=== PATIENT | female | born 1965 | race Caucasian/White ===

== ENCOUNTER 2016-05-13 19:06 | Emergency (ER) | payer MEDICARE, MEDICAID ==
[~2016-05-13] VITALS: Ht 172.7 cm; Wt 134.3 kg
[2016-05-13] MEDS ORDERED: diphenhydrAMINE INJ 50MG/ML VIAL (J1200) IV STA (21:37)
[2016-05-13] MEDS ORDERED: METOCLOPRAMIDE INJ 10MG/2ML VIAL (J2765) IV ONE (21:45)
[2016-05-13] MEDS ORDERED: methylPREDNISolone INJ 125 MG/2 ML VIAL (J2930) IV ONE (21:45)
[2016-05-13] MEDS ORDERED: HYDROCORTISONE 1% CREAM 30 GM TOP ONE (21:45)
[2016-05-13] MEDS ORDERED: PRED20TA PO (22:37)
[2016-05-13] MEDS ORDERED: BENA25TA9 PO (22:39)
[2016-05-13] MEDS ORDERED: FAMO20TA PO (22:39)
[2016-05-13 22:44] VITALS: BP 151/101
== END 2016-05-13 22:50 | disposition home or self-care (01) ==
LOC: M ED 20:09
DX: R21 Rash and other nonspecific skin eruption (principal); R06.00 Dyspnea, unspecified; Z88.6 Allergy status to analgesic agent; Z88.0 Allergy status to penicillin
CPT/HCPCS: 96374; 96375; 99282; J1200; J2765; J2930

== ENCOUNTER → 2016-07-04 | Outpatient (CLI) | payer MEDICARE, MEDICAID ==
[~2016-07-04] MED LIST: BENA25TA9 PO; FAMO20TA PO; PRED20TA PO
[2016-07-04 13:18] LABS: MEAN CORPUSCULAR HEMOGLOBIN 30.4 pg (27.0-33.0); MEAN CORPUSCULAR HGB CONC 32.9 g/dl (32.0-36.5); MEAN CORPUSCULAR VOLUME 92.2 fl (80.0-96.0); RED CELL DISTRIBUTION WIDTH 15.5 % (11.5-14.5); WHITE BLOOD COUNT 6.4 K/mm3 (4.0-10.0)
[2016-07-04 13:52] LABS: ALBUMIN 3.3 GM/DL (3.2-5.2); ALBUMIN/GLOBULIN RATIO 0.87 (1.00-1.93); ALKALINE PHOSPHATASE 212 U/L (45-117); ALT/SGPT 23 U/L (12-78); ANION GAP 9 MEQ/L (8-16); AST/SGOT 27 U/L (15-37); BILIRUBIN,TOTAL 3.1 MG/DL (0.2-1.0); BLOOD UREA NITROGEN 10 MG/DL (7-18); CALCIUM LEVEL 8.9 MG/DL (8.5-10.1); CARBON DIOXIDE LEVEL 27 MEQ/L (21-32); CHLORIDE LEVEL 106 MEQ/L (98-107); CREATININE FOR GFR 0.56 MG/DL (0.55-1.02); GLOMERULAR FILTRATION RATE > 60.0 (>51); GLUCOSE, FASTING 84 MG/DL (70-105); SODIUM LEVEL 142 MEQ/L (136-145); THYROXINE (T4) 18.6 UG/DL (4.5-12.0); TOTAL PROTEIN 7.1 GM/DL (6.4-8.2)
[2016-07-05 11:25] LABS: THYROID PEROXIDASE ANTIBODY < 28.0 U/ML (<60.0)
[2016-07-10 00:10] LABS: IGE RECEPTOR ABY 1 <1.4 (<10)
== END ==
LOC: M SMT 09:20
PROVIDERS: ATTEND Allergy & Immunology Allergy
DX: T78.3XXA Angioneurotic edema, initial encounter (principal); Z79.899 Other long term (current) drug therapy

== ENCOUNTER 2016-08-06 19:35 | Inpatient (IN) | payer MEDICARE, MEDICAID ==
[~2016-08-06] VITALS: Ht 172.7 cm; Wt 102.0 kg
[~2016-08-06 19:35] MED LIST changes: +BENA25TA10 PO; -BENA25TA9 PO
[2016-08-06] MEDS ORDERED: LEVOTAB10 PO (19:57)
[2016-08-06] MEDS ORDERED: METOPROLOL 5 MG/5 ML VIAL IV SCH ×2 (21:00)
[2016-08-06 21:11] LABS: INR 1.32
[2016-08-06 21:14] LABS: BASO % 0.5 % (0.0-1.0); EOS # 0.2 K/mm3 (0.0-0.50); EOS % 3.1 % (0.0-3.0); LARGE UNSTAINED CELL # 0.1 K/mm3 (0.0-0.4); LARGE UNSTAINED CELL % 2.1 % (0.0-4.0); LYMPH % 28.3 % (24.0-44.0); MEAN CORPUSCULAR HEMOGLOBIN 30.6 pg (27.0-33.0); MEAN CORPUSCULAR HGB CONC 33.4 g/dl (32.0-36.5); MEAN CORPUSCULAR VOLUME 91.4 fl (80.0-96.0); MONO # 0.7 K/mm3 (0.0-0.8); NEUTROPHILS # 3.7 K/mm3 (1.8-7.7); NEUTROPHILS % 55.9 % (36.0-66.0); PLATELET COUNT, AUTOMATED 155 k/mm3 (150-450); RED CELL DISTRIBUTION WIDTH 15.2 % (11.5-14.5); WHITE BLOOD COUNT 6.7 K/mm3 (4.0-10.0)
[2016-08-06 21:27] LABS: MAGNESIUM LEVEL 2.1 MG/DL (1.8-2.4); PHOSPHORUS LEVEL 3.4 MG/DL (2.5-4.9)
[2016-08-06 21:34] LABS: ALBUMIN 3.2 GM/DL (3.2-5.2); ALKALINE PHOSPHATASE 210 U/L (45-117); ALT/SGPT 20 U/L (12-78); ANION GAP 5 MEQ/L (8-16); AST/SGOT 23 U/L (15-37); BILIRUBIN,DIRECT 1.9 MG/DL (0.0-0.2); BLOOD UREA NITROGEN 10 MG/DL (7-18); CARBON DIOXIDE LEVEL 30 MEQ/L (21-32); CHLORIDE LEVEL 105 MEQ/L (98-107); CREATININE FOR GFR 0.57 MG/DL (0.55-1.02); FREE T4 2.92 NG/DL (0.76-1.46); GLOMERULAR FILTRATION RATE > 60.0 (>51); GLUCOSE, FASTING 95 MG/DL (70-105); POTASSIUM SERUM 4.3 MEQ/L (3.5-5.1); SODIUM LEVEL 140 MEQ/L (136-145); TOTAL PROTEIN 7.2 GM/DL (6.4-8.2)
[2016-08-06] MEDS ORDERED: ISOVUE-370 76% 100ML VIAL (Q9967) As Ordered ONE (21:59)
--- NOTE | 2016-08-06 22:30 | REPUSA ---
Clinical history: Pain, swelling. Findings: The common femoral, superficial femoral, popliteal, and other deep venous structures compre ss normally and demonstrate normal color Doppler flow. Normal venous waveforms with augmentation are seen. Impression: No evidence of deep vein thrombosis in the femoral popliteal venous system.
--- NOTE | 2016-08-06 22:40 | REPUSA ---
CT angiogram of the chest Clinical statement: shortness of breath. Technique: Multiple axial CT images were obtained from the thoracic inlet through the upper abdomen a fter a bolus administration of nonionic intravenous contrast. Coronal and sagittal reconstructions we re also obtained. Comparison: None. Findings: The pulmonary arteries are well-opacified with contrast, with no intraluminal filling defec ts to suggest embolism. The thoracic aorta is unremarkable. Thyroid gland is within normal limits. Th ere is no thoracic lymphadenopathy. There are no pericardial or pleural effusions. The lungs are lo r. Limited imaging of the upper abdomen demonstrates a moderate amount of ascites bilaterally. There are no suspicious osseous lesions. Impression: 1. No evidence of pulmonary embolism. 2. No acute intrapulmonary disease. 3. Moderate diffuse abdominal ascites.
[2016-08-07] VITALS (8 sets, daily range): BP systolic 100–122; BP diastolic 64–84
[2016-08-07] MEDS ORDERED: PROPRANOLOL 20 MG TAB PO ONE
[2016-08-07] MEDS ORDERED: BISACODYL 10 MG SUPP PR PRN (00:15)
[2016-08-07] MEDS ORDERED: ONDANSETRON 4MG/2ML VIAL (J2405) IV PRN (00:15)
[2016-08-07] MEDS ORDERED: FUROSEMIDE 40 MG/4 ML VIAL (J1940) IV SCH (00:15)
[2016-08-07] MEDS ORDERED: METOPROLOL TART 25 MG TABLET PO SCH (00:30)
[2016-08-07] MEDS ORDERED: diphenhydrAMINE 25 MG CAP PO PRN ×2 (00:30→00:45)
[2016-08-07] MEDS ORDERED: ATENOLOL 25 MG TAB PO ONE (00:30)
[2016-08-07] MEDS ORDERED: LEVALBUTEROL 1.25 MG/0.5 ML CONCENTRATE NEB INH PRN ×2 (00:45→01:00)
--- NOTE | 2016-08-07 01:34 | REP ---
Clinical: Shortness of breath. Technique: AP and lateral. Findings: The cardiac silhouette is upper limits of normal. Mild pulmonary vascular congestion and interstitial edema cannot be excluded. No focal consolidation, obvious effusion, or pneumothorax. Skeletal structures intact. Impression: Cannot exclude mild pulmonary vascular congestion. Signed by George Herrera MD 08/07/2016 01:26 A
[2016-08-07] MEDS: SENOKOT S TAB PO SCH ×3 (01:45→23:18)
[2016-08-07] MEDS: METOPROLOL TART 25 MG TABLET PO SCH ×4 (05:16→23:18)
[2016-08-07 07:34] LABS: FREE T4 2.47 NG/DL (0.76-1.46)
[2016-08-07 08:02] LABS: BASO % 0.7 % (0.0-1.0); EOS # 0.2 K/mm3 (0.0-0.50); EOS % 2.6 % (0.0-3.0); LARGE UNSTAINED CELL # 0.2 K/mm3 (0.0-0.4); LARGE UNSTAINED CELL % 2.3 % (0.0-4.0); LYMPH # 2.2 K/mm3 (1.5-4.5); LYMPH % 31.8 % (24.0-44.0); MEAN CORPUSCULAR HEMOGLOBIN 29.9 pg (27.0-33.0); MEAN CORPUSCULAR HGB CONC 32.4 g/dl (32.0-36.5); MEAN CORPUSCULAR VOLUME 92.3 fl (80.0-96.0); MONO # 0.7 K/mm3 (0.0-0.8); MONO % 9.3 % (0.0-5.0); NEUTROPHILS # 3.7 K/mm3 (1.8-7.7); NEUTROPHILS % 53.3 % (36.0-66.0); PLATELET COUNT, AUTOMATED 159 k/mm3 (150-450)
[2016-08-07 08:08] LABS: ANION GAP 8 MEQ/L (8-16); BLOOD UREA NITROGEN 10 MG/DL (7-18); CALCIUM LEVEL 8.7 MG/DL (8.5-10.1); CARBON DIOXIDE LEVEL 25 MEQ/L (21-32); CHLORIDE LEVEL 106 MEQ/L (98-107); CREATININE FOR GFR 0.48 MG/DL (0.55-1.02); GLOMERULAR FILTRATION RATE > 60.0 (>51); GLUCOSE, FASTING 99 MG/DL (70-105); POTASSIUM SERUM 3.9 MEQ/L (3.5-5.1); SODIUM LEVEL 139 MEQ/L (136-145)
[2016-08-07] MEDS ORDERED: SENOKOT S TAB PO SCH (09:00)
[2016-08-07] MEDS: FUROSEMIDE 40 MG/4 ML VIAL (J1940) IV SCH ×3 (09:10→23:18)
[2016-08-07] MEDS: ENOXAPARIN 40 MG/0.4 ML SYRINGE (J1650) SC SCH (09:11)
--- NOTE | 2016-08-07 11:19 | ECGEPIP ---
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
[2016-08-07] MEDS ORDERED: SLF 3 ML SYR IV PRN (16:00)
[2016-08-07] MEDS: SLF 3 ML SYR IV SCH (23:18)
[2016-08-08 04:00] VITALS: BP 120/76
[2016-08-08] MEDS: METOPROLOL TART 25 MG TABLET PO SCH ×4 (05:39→23:30)
[2016-08-08] MEDS: SLF 3 ML SYR IV SCH ×3 (05:40→20:11)
[2016-08-08 05:49] LABS: BASO % 0.5 % (0.0-1.0); EOS # 0.2 K/mm3 (0.0-0.50); EOS % 3.4 % (0.0-3.0); LARGE UNSTAINED CELL # 0.2 K/mm3 (0.0-0.4); LARGE UNSTAINED CELL % 2.3 % (0.0-4.0); LYMPH # 2.1 K/mm3 (1.5-4.5); LYMPH % 28.6 % (24.0-44.0); MEAN CORPUSCULAR HEMOGLOBIN 30.8 pg (27.0-33.0); MEAN CORPUSCULAR HGB CONC 33.5 g/dl (32.0-36.5); MEAN CORPUSCULAR VOLUME 91.9 fl (80.0-96.0); MONO # 0.7 K/mm3 (0.0-0.8); MONO % 10.8 % (0.0-5.0); NEUTROPHILS # 3.7 K/mm3 (1.8-7.7); NEUTROPHILS % 54.4 % (36.0-66.0); PLATELET COUNT, AUTOMATED 147 k/mm3 (150-450); RED CELL DISTRIBUTION WIDTH 15.1 % (11.5-14.5); WHITE BLOOD COUNT 6.8 K/mm3 (4.0-10.0)
[2016-08-08 06:00] LABS: ANION GAP 5 MEQ/L (8-16); BLOOD UREA NITROGEN 11 MG/DL (7-18); CALCIUM LEVEL 8.8 MG/DL (8.5-10.1); CARBON DIOXIDE LEVEL 32 MEQ/L (21-32); CHLORIDE LEVEL 105 MEQ/L (98-107); CREATININE FOR GFR 0.58 MG/DL (0.55-1.02); GLOMERULAR FILTRATION RATE > 60.0 (>51); GLUCOSE, FASTING 94 MG/DL (70-105); MAGNESIUM LEVEL 1.7 MG/DL (1.8-2.4); POTASSIUM SERUM 3.4 MEQ/L (3.5-5.1); SODIUM LEVEL 142 MEQ/L (136-145)
[2016-08-08] MEDS: FUROSEMIDE 40 MG/4 ML VIAL (J1940) IV SCH ×3 (07:33→23:30)
[2016-08-08 08:00] VITALS: BP 118/72
[2016-08-08] MEDS: SENOKOT S TAB PO SCH ×2 (08:06→20:11)
[2016-08-08] MEDS: ENOXAPARIN 40 MG/0.4 ML SYRINGE (J1650) SC SCH (08:06)
--- NOTE | 2016-08-08 08:25 | HPE ---
DATE OF ADMISSION: 08/07/2016 PRIMARY CARE PROVIDER: Dr. Flynn CHIEF COMPLAINT: Swelling of both legs. Worsening over the past 6 months. Difficulty in breathing for the past few days. Recurrent episodes of hives and itching for the past three months. PAST MEDICAL HISTORY: Thyroid problem. Hives. Asthma. HISTORY OF PRESENT ILLNESS: This is a 51-year-old female who has noticed increased swelling of her legs to such an extent that she had to increase her boot size over the winter, so it has been going on for more than 6 months and also having episodes of hives, which started in April. For that, she had come to the emergency room and was referred to an sales and marketing administrator. The specialist prescribed her levocetirizine, which she says is not working. When she takes Benadryl, then the hives resolved faster. Over the past few days, she felt difficulty in breathing. She has an appointment with her new primary care provider tomorrow. However she was feeling so short of breath that she could not wait, so came to the emergency room. When she had seen her sales and marketing administrator, she was told about thyroid and liver disorder; however, that has not yet been followed up. In the ED, the patient was found to have atrial fibrillation with rapid ventricular response (RVR). She was also noted to be hyperthyroid with mildly elevation in total bilirubin up to 3. Due to her shortness of breath , she had undergone a CT angiography of the chest, which did not reveal any pulmonary embolism or any acute intrapulmonary disease. However, it did show diffuse abdominal wall ascites. The patient also had bilateral vascular ultrasound, which was negative for deep venous thrombosis (DVT). The patient was admitted to the hospitalist service for atrial fibrillation with RVR and hyperthyroidism. PAST SURGICAL HISTORY: None. HOME MEDICATIONS: Levocetirizine. ALLERGIES: ASPIRIN, IBUPROFEN, and PENICILLIN. SOCIAL HISTORY: The patient does not smoke. Does not abuse alcohol or recreational drugs. REVIEW OF SYSTEMS: All 10-point review of systems is negative except those mentioned in history of present illness (HPI). The patient complained of loss of weight over the upper body, however, gaining in fluids in the lower body. PHYSICAL EXAMINATION: VITAL SIGNS: Blood pressure 122/65, pulse 110, respiratory rate 15, temperature 98.3, pulse oximetry 95% on room air. GENERAL: Patient awake, alert, and oriented times three. Lying down in bed in no acute distress. HEENT: Normocephalic, atraumatic. Moist mucous membranes. Anicteric eyes. CHEST: Clear to auscultation. CARDIOVASCULAR: S1, S2, regular. Tachycardic. No rub, murmur, or gallop. ABDOMEN: Obese. nontender. Bowel sounds normal. There is peritoneal edema present. EXTREMITIES: There is bilateral 4+ edema extending from the foot to the thigh involving the lower part of the abdominal wall. LABORATORY DATA: WBC 6.7, hemoglobin 12.9, platelets 155. Sodium 140, potassium 4.3, chloride 105, bicarbonate 30, BUN 10, creatinine 0.5, glucose 95, calcium 9 , phosphorus 3.4, magnesium 2.1, total bilirubin 3, direct bilirubin 1.9. AST, ALT normal. Alkaline phosphatase 210. BNP 232. TSH 0.134. Free T4 2.92. Total T3 was elevated in June, was 216.8. ASSESSMENT AND PLAN: This is a 51-year-old female admitted for atrial fibrillation with RVR. 1. Atrial fibrillation with RVR. Possibly due to hyperthyroidism. Will start the patient on metoprolol 25 four times a day. Will also request echocardiogram. Patient's KENNEDY-VASc score is 1; however, if echocardiogram does show the patient has congestive heart failure, then the KENNEDY-VASc score will increase to 2, and then patient will qualify for long-term anticoagulation. At present, will not start on anticoagulation. 2. Hyperthyroidism. Will start the patient on beta-gilbert. Will also start on methimazole. The patient will ultimately need thyroid scan; however, as patient got CT angiography of the chest, she got iodinated contrast, so thyroid scan cannot be done for several weeks to 2 months. It has to be followed up as an outpatient. 3. Bipedal edema. The patient may have congestive heart failure. Will get an echocardiogram. Will start the patient on Lasix at present. 4. Hyperbilirubinemia. Could be due to congestive hepatopathy. 5. DVT prophylaxis has been ordered. 6. History of hives. Will continue with Benadryl as needed. MTDD
--- NOTE | 2016-08-08 08:54 | IPNPDOC ---
Subjective Date Seen The patient was seen on 08/08/16. Subjective Chief Complaint/HPI The patient is a 51-year-old female admitted with a reason for visit of Atrial Fibrillation With Rvr, Hyperthyroidism. Events since last encounter Feeling ok, not short of breath, enjoying filipino toast, no chest pain, not short of breath, asked her father for mccain Constitutional: Denies: Chills, Fever Pulmonary: Denies: Dyspnea, Cough Cardiovascular: Denies: Chest Pain Gastrointestinal: Denies: Nausea, Vomiting, Abdominal Pain Objective Physical Examination General Exam: Positive: Alert, No Acute Distress Eye Exam: Negative: Sclera icteric ENT Exam: Positive: Mucous membr. moist/pink Neck Exam: Positive: Supple Chest Exam: Positive: Clear to auscultation, Normal air movement, Negative: Rales, Rhonchi, Wheezing Heart Exam: Positive: Rate Normal, Irregular Rhythm, Normal S1, Normal S2 Telemetry: Positive: SV Tach Abdomen Exam: Positive: Normal bowel sounds, Soft, Negative: Tenderness Extremity Exam: Positive: Edema (extending ) Assessment /Plan Problems (1) Atrial fibrillation with rapid ventricular response Status: Acute Problem Text: Rate controlled ChadsVasc 1 no role for anticoagulation until chf proven related to hyperthyroidism (2) CHF (congestive heart failure) Problem Text: likely related to hyperthyroidism and tachyarrhythmia echo completed but not transcribed grossly edematous, pursuing 40-50 pounds of diuresis (3) Ventricular tachyarrhythmia Problem Text: 12 beats vtach, asymptomatic (4) Electrolyte abnormality Problem Text: hypomagnesemia- replete hypokalemia- replete (5) Hyperthyroidism Status: Acute Problem Text: methimazole 10 q day does not have thyroid storm Plan/VTE VTE Prophylaxis Ordered?: Yes Plan/Urinary Catheter Reason for insertion/continuin: Critical Pt monitoring VS, I&O, 24H, Fishbone Vital Signs/I&O Vital Signs Date Time Temp Pulse Resp B/P (MAP) Pulse Ox O2 Delivery O2 Flow Rate FiO2 08/08/16 07:40 Room Air 08/08/16 05:39 90 120/76 08/08/16 04:00 97.8 22 93 08/07/16 04:49 1.5 I&O- Last 24 Hours up to 6 AM 08/08/16 06:00 Intake Total 980 ml Output Total 5050 ml Balance -4070 ml Laboratory Data 24H LABS Laboratory Tests 2 08/07/16 09:16: Urine Appearance HAZY, Urine Color ALEXY, Urine pH 5.0, Urine Specific [place] 1.040, Urine Protein 1+H, Urine Glucose (UA) NEGATIVE, Urine Ketones NEGATIVE, Urine Urobilinogen 4.0H, Urine Bilirubin NEGATIVE, Urine Leukocyte Esterase NEGATIVE, Urine Blood NEGATIVE, Urine Nitrite POSITIVE, Urine WBC (Auto) 4H, Urine RBC (Auto) 0, Urine Hyaline Casts (Auto) 0, Urine Bacteria (Auto) 2+H, Urine Squamous Epithelial Cells 1, Urine Mucus (Auto) SMALL, Urine Sperm (Auto) 08/08/16 05:38: White Blood Count 6.8, Red Blood Count 3.99L, Hemoglobin 12.3, Hematocrit 36.6, Mean Corpuscular Volume 91.9, Mean Corpuscular Hemoglobin 30.8, Mean Corpuscular Hemoglobin Concent 33.5, Red Cell Distribution Width 15.1H, Platelet Count 147L, Neutrophils (%) (Auto) 54.4, Lymphocytes (%) (Auto) 28.6, Monocytes (%) (Auto) 10.8H, Eosinophils (%) (Auto) 3.4H, Basophils (%) (Auto) 0.5, Neutrophils # (Auto) 3.7, Lymphocytes # (Auto) 2.1, Monocytes # (Auto) 0.7 , Eosinophils # (Auto) 0.2, Basophils # (Auto) 0.0, Large Unclassified Cells % 2.3, Large Unclassified Cells # 0.2, Anion Gap 5L, Glomerular Filtration Rate > 60.0, Blood Urea Nitrogen 11, Creatinine 0.58, Sodium Level 142, Potassium Level 3.4L, Chloride Level 105, Carbon Dioxide Level 32, Calcium Level 8.8, Magnesium Level 1.7L CBC/BMP Laboratory Tests 08/08/16 05:38 Red Blood Count 3.99 L, Mean Corpuscular Volume 91.9, Mean Corpuscular Hemoglobin 30.8, Mean Corpuscular Hemoglobin Concent 33.5, Red Cell Distribution Width 15.1 H, Neutrophils (%) (Auto) 54.4, Lymphocytes (%) (Auto) 28.6, Monocytes (%) (Auto) 10.8 H, Eosinophils (%) (Auto) 3.4 H, Basophils (%) ( Auto) 0.5, Neutrophils # (Auto) 3.7, Lymphocytes # (Auto) 2.1, Monocytes # (Auto ) 0.7, Eosinophils # (Auto) 0.2, Basophils # (Auto) 0.0, Calcium Level 8.8 Microbiology Microbiology 08/07/16 Urine Culture, Received Pending GREGORY HULL MD Aug 08, 2016 08:54
[2016-08-08] MEDS: POTASSIUM CHLORIDE 10 MEQ SR TABLET PO SCH ×2 (09:16→20:11)
[2016-08-08] MEDS: MAG SULF 1GM/100ML (MAG RUN) 1 GM in APPROPRIATE DILUENT 1 EA IV SCH ×2 (09:17→10:22)
[2016-08-08 12:00] VITALS: BP 113/79
[2016-08-08 12:30] VITALS: BP 121/68
[2016-08-08 16:00] VITALS: BP 108/66
--- NOTE | 2016-08-08 16:45 | IPN ---
DATE: 08/07/2016 The patient was seen and examined in the emergency department on the morning of 08/07/2016. Please refer to my colleague's history and physical (H and P) of the same date for a total summary of her initial evaluation. The patient was feeling well, heart rate was controlled. She had no complaints of pain, chest pain, shortness of breath, asked that I speak with her father. She was noted to have gross edema to the level of the lower rib cage, but oddly enough did not appear to be in any respiratory distress. Plan is to continue the patient on the beta blockade Tapazole at a slightly increased dose from previously written and IV Lasix to pursue fluid diuresis. 2D echocardiogram is pending. The patient appeared to be on the verge, but did not quite yet meet the criteria for thyroid storm and, in fact, appears quite comfortable given the severity of her illness. I have discussed this case in person with her father and also at multidisciplinary rounds with the care team.
[2016-08-08 19:56] VITALS: BP 112/67
--- NOTE | 2016-08-08 20:17 | ECHO ---
DATE OF PROCEDURE: 08/08/2016 REFERRING PHYSICIAN: Dr. Vu. Study was performed on 08/07/2016 for indication of congestive heart failure. The patient measures 173 cm and weighs 133 kg. DIMENSIONS: IVS: 1.1 LV: 4.1 LVPW: 1.2 LA: 5.2 Aorta: 2.4 FINDINGS: The study is of rather limited technical quality even though parasternal views are of good quality. Left ventricle is normal size. There is global hypokinesis with overall estimated ejection fraction (EF) around 30-35%. There is a D shape to interventricular septum suggestive of high pulmonary artery pressure. Right ventricle is also dilated and hypokinetic. Both atria are severely enlarged. There is no pericardial effusion. There is left pleural effusion, and there appears to be echodensity present in the middle of the fluid suggestive of potentially collapsed lobe or mass. Inferior vena cava is markedly dilated, and there is no appreciable collapse with respiration, indicative of very high central venous pressure. Aortic root and aortic arch were poorly visualized but appear grossly normal. Doppler interrogation of aortic valve reveals no significant stenosis or insufficiency. There is approximately moderate mitral insufficiency with MR jet oriented posteriorly and laterally. I cannot rule out that the MR is even severe, but I consider that unlikely. There is moderate tricuspid insufficiency. Calculated pulmonary artery pressure is at least in mid 50s and probably higher, indicative of at least moderately severe pulmonary hypertension. Evaluation of diastolic function is inconclusive due to underlying atrial fibrillation. CONCLUSION: 1. Study is of fair technical quality. 2. Normal LV size with severe global hypokinesis and flattening of interventricular septum. Overall estimated EF 30-35%. 3. Dilated hypokinetic right ventricle. 4. Severe biatrial enlargement. 5. Approximately moderate mitral insufficiency. 6. Approximately moderate tricuspid insufficiency. 7. Very high central venous pressure. 8. At least moderately severe pulmonary hypertension. 9. Left pleural effusion with presence of mass, potentially representing thrombus or collapsed lobe. COMMENT: Subacute bacterial endocarditis (SBE) prophylaxis is not recommended.
[2016-08-09] VITALS (7 sets, daily range): BP systolic 97–120; BP diastolic 63–77
--- NOTE | 2016-08-09 00:30 | ECGEPIP ---
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
[2016-08-09 05:25] LABS: BASO % 0.5 % (0.0-1.0); EOS # 0.2 K/mm3 (0.0-0.50); EOS % 3.2 % (0.0-3.0); LARGE UNSTAINED CELL # 0.1 K/mm3 (0.0-0.4); LARGE UNSTAINED CELL % 2.2 % (0.0-4.0); LYMPH % 27.8 % (24.0-44.0); MEAN CORPUSCULAR VOLUME 90.8 fl (80.0-96.0); MONO # 0.6 K/mm3 (0.0-0.8); MONO % 9.1 % (0.0-5.0); NEUTROPHILS # 3.8 K/mm3 (1.8-7.7); NEUTROPHILS % 57.3 % (36.0-66.0); PLATELET COUNT, AUTOMATED 153 k/mm3 (150-450); RED CELL DISTRIBUTION WIDTH 15.1 % (11.5-14.5); WHITE BLOOD COUNT 6.6 K/mm3 (4.0-10.0)
[2016-08-09 05:39] LABS: ANION GAP 6 MEQ/L (8-16); BLOOD UREA NITROGEN 12 MG/DL (7-18); CALCIUM LEVEL 9.1 MG/DL (8.5-10.1); CARBON DIOXIDE LEVEL 29 MEQ/L (21-32); CHLORIDE LEVEL 104 MEQ/L (98-107); CREATININE FOR GFR 0.53 MG/DL (0.55-1.02); GLOMERULAR FILTRATION RATE > 60.0 (>51); GLUCOSE, FASTING 105 MG/DL (70-105); POTASSIUM SERUM 3.7 MEQ/L (3.5-5.1); SODIUM LEVEL 139 MEQ/L (136-145)
[2016-08-09] MEDS: SLF 3 ML SYR IV SCH ×3 (05:41→20:47)
[2016-08-09] MEDS: METOPROLOL TART 25 MG TABLET PO SCH ×4 (05:41→23:41)
[2016-08-09] MEDS: ENOXAPARIN 40 MG/0.4 ML SYRINGE (J1650) SC SCH (08:34)
[2016-08-09] MEDS: FUROSEMIDE 40 MG/4 ML VIAL (J1940) IV SCH ×3 (08:34→23:42)
[2016-08-09] MEDS: SENOKOT S TAB PO SCH ×2 (08:34→20:42)
--- NOTE | 2016-08-09 18:28 | IPNPDOC ---
Subjective Date Seen The patient was seen on 08/09/16. Subjective Chief Complaint/HPI The patient is a 51-year-old female admitted with a reason for visit of Atrial Fibrillation With Rvr, Hyperthyroidism. Events since last encounter Feeling well, tolerating diet, enjoys the [place] toast for breakfast, looking forward to the mccain that are to be delivered today, no questions or concerns Constitutional: Denies: Chills, Fever Pulmonary: Denies: Dyspnea, Cough Cardiovascular: Denies: Chest Pain, Palpitations Gastrointestinal: Denies: Nausea, Vomiting, Abdominal Pain Objective Physical Examination General Exam: Positive: Alert, Cooperative, No Acute Distress Eye Exam: Negative: Sclera icteric ENT Exam: Positive: Mucous membr. moist/pink Neck Exam: Positive: Supple Chest Exam: Positive: Clear to auscultation, Normal air movement, Negative: Rales, Rhonchi, Wheezing Heart Exam: Positive: Rate Normal, Irregular Rhythm, Normal S1, Normal S2 Telemetry: Positive: No significant arrhythmia Abdomen Exam: Positive: Normal bowel sounds, Soft, Negative: Tenderness Extremity Exam: Positive: Edema (extending to upper abd) Assessment /Plan Problems (1) Atrial fibrillation with rapid ventricular response Status: Acute Problem Text: Rate controlled ChadsVasc 2 role for anticoagulation related to hyperthyroidism, possibly reversible (2) CHF (congestive heart failure) Problem Text: likely related to hyperthyroidism and tachyarrhythmia echo completed but not transcribed grossly edematous, pursuing 40-50 pounds of diuresis- has lost 17 pounds as of this writing 2D Echo shows: 1. Study is of fair technical quality. 2. Normal LV size with severe global hypokinesis and flattening of interventricular septum. Overall estimated EF 30-35%. 3. Dilated hypokinetic right ventricle. 4. Severe biatrial enlargement. 5. Approximately moderate mitral insufficiency. 6. Approximately moderate tricuspid insufficiency. 7. Very high central venous pressure. 8. At least moderately severe pulmonary hypertension. 9. Left pleural effusion with presence of mass, potentially representing thrombus or collapsed lobe. (3) Ventricular tachyarrhythmia Problem Text: 12 beats vtach, asymptomatic (4) Electrolyte abnormality Problem Text: hypomagnesemia- resolved hypokalemia- resolved (5) Hyperthyroidism Status: Acute Problem Text: methimazole 10 q day does not have thyroid storm Plan/VTE VTE Prophylaxis Ordered?: Yes Plan/Urinary Catheter Reason for insertion/continuin: Critical Pt monitoring VS, I&O, 24H, Fishbone Vital Signs/I&O Vital Signs Date Time Temp Pulse Resp B/P (MAP) Pulse Ox O2 Delivery O2 Flow Rate FiO2 08/09/16 18:06 97 120/70 08/09/16 12:00 97.9 20 96 Room Air 08/07/16 04:49 1.5 I&O- Last 24 Hours up to 6 AM 08/09/16 06:00 Intake Total 1030 ml Output Total 4300 ml Balance -3270 ml Laboratory Data 24H LABS Laboratory Tests 2 08/09/16 05:06: White Blood Count 6.6, Red Blood Count 4.08, Hemoglobin 12.2, Hematocrit 37.1, Mean Corpuscular Volume 90.8, Mean Corpuscular Hemoglobin 30.0, Mean Corpuscular Hemoglobin Concent 33.0, Red Cell Distribution Width 15.1H, Platelet Count 153, Neutrophils (%) (Auto) 57.3, Lymphocytes (%) (Auto) 27.8, Monocytes (%) (Auto) 9.1H, Eosinophils (%) (Auto) 3.2H, Basophils (%) (Auto) 0.5 , Neutrophils # (Auto) 3.8, Lymphocytes # (Auto) 2.0, Monocytes # (Auto) 0.6, Eosinophils # (Auto) 0.2, Basophils # (Auto) 0.0, Large Unclassified Cells % 2.2 , Large Unclassified Cells # 0.1, Anion Gap 6L, Glomerular Filtration Rate > 60.0, Blood Urea Nitrogen 12, Creatinine 0.53L, Sodium Level 139, Potassium Level 3.7, Chloride Level 104, Carbon Dioxide Level 29, Calcium Level 9.1, Magnesium Level 2.0 CBC/BMP Laboratory Tests 08/09/16 05:06 Red Blood Count 4.08, Mean Corpuscular Volume 90.8, Mean Corpuscular Hemoglobin 30.0, Mean Corpuscular Hemoglobin Concent 33.0, Red Cell Distribution Width 15.1 H, Neutrophils (%) (Auto) 57.3, Lymphocytes (%) (Auto) 27.8, Monocytes (%) (Auto) 9.1 H, Eosinophils (%) (Auto) 3.2 H, Basophils (%) (Auto) 0.5, Neutrophils # (Auto) 3.8, Lymphocytes # (Auto) 2.0, Monocytes # (Auto) 0.6, Eosinophils # (Auto) 0.2, Basophils # (Auto) 0.0, Calcium Level 9.1 Microbiology Microbiology 08/07/16 Urine Culture, Received Pending GREGORY HULL MD Aug 09, 2016 18:28
[2016-08-09] MEDS: APIXABAN 5 MG TAB (ELIQUIS) PO SCH (20:42)
[2016-08-10] VITALS (7 sets, daily range): BP systolic 95–114; BP diastolic 52–70
[2016-08-10] MEDS: METOPROLOL TART 25 MG TABLET PO SCH ×3 (05:44→18:32)
[2016-08-10] MEDS: SLF 3 ML SYR IV SCH ×3 (05:49→21:28)
[2016-08-10 05:50] LABS: BASO % 0.5 % (0.0-1.0); EOS # 0.3 K/mm3 (0.0-0.50); EOS % 3.1 % (0.0-3.0); LARGE UNSTAINED CELL # 0.1 K/mm3 (0.0-0.4); LARGE UNSTAINED CELL % 1.7 % (0.0-4.0); LYMPH # 2.3 K/mm3 (1.5-4.5); LYMPH % 25.7 % (24.0-44.0); MEAN CORPUSCULAR HEMOGLOBIN 30.8 pg (27.0-33.0); MEAN CORPUSCULAR HGB CONC 33.9 g/dl (32.0-36.5); MEAN CORPUSCULAR VOLUME 90.7 fl (80.0-96.0); MONO # 0.6 K/mm3 (0.0-0.8); MONO % 7.8 % (0.0-5.0); NEUTROPHILS # 5.1 K/mm3 (1.8-7.7); NEUTROPHILS % 61.2 % (36.0-66.0); PLATELET COUNT, AUTOMATED 152 k/mm3 (150-450); WHITE BLOOD COUNT 8.3 K/mm3 (4.0-10.0)
[2016-08-10 06:05] LABS: ANION GAP 7 MEQ/L (8-16); BLOOD UREA NITROGEN 14 MG/DL (7-18); CALCIUM LEVEL 8.6 MG/DL (8.5-10.1); CARBON DIOXIDE LEVEL 31 MEQ/L (21-32); CHLORIDE LEVEL 103 MEQ/L (98-107); CREATININE FOR GFR 0.58 MG/DL (0.55-1.02); GLOMERULAR FILTRATION RATE > 60.0 (>51); GLUCOSE, FASTING 112 MG/DL (70-105); POTASSIUM SERUM 3.5 MEQ/L (3.5-5.1); SODIUM LEVEL 141 MEQ/L (136-145)
[2016-08-10] MEDS: APIXABAN 5 MG TAB (ELIQUIS) PO SCH ×2 (08:56→21:27)
[2016-08-10] MEDS: SENOKOT S TAB PO SCH ×2 (08:56→21:27)
[2016-08-10] MEDS: FUROSEMIDE 40 MG/4 ML VIAL (J1940) IV SCH ×2 (08:56→16:20)
--- NOTE | 2016-08-10 11:02 | IPNPDOC ---
Subjective Date Seen The patient was seen on 08/10/16. Subjective Chief Complaint/HPI The patient is a 51-year-old female admitted with a reason for visit of Atrial Fibrillation With Rvr, Hyperthyroidism. Events since last encounter Feeling ok, has some right should discomfort, no chest pain, not short of breath , did not get mccain yesterday, but very excited that she received a necklace from her father Constitutional: Denies: Chills, Fever Pulmonary: Denies: Dyspnea, Cough Cardiovascular: Denies: Chest Pain, Palpitations Gastrointestinal: Denies: Nausea, Vomiting, Abdominal Pain Objective Physical Examination General Exam: Positive: Alert, Cooperative, No Acute Distress Eye Exam: Negative: Sclera icteric ENT Exam: Positive: Mucous membr. moist/pink Neck Exam: Positive: Supple Chest Exam: Positive: Clear to auscultation, Normal air movement, Negative: Rales, Rhonchi, Wheezing Heart Exam: Positive: Rate Normal, Irregular Rhythm, Normal S1, Normal S2 Telemetry: Positive: No significant arrhythmia Abdomen Exam: Positive: Normal bowel sounds, Soft, Negative: Tenderness Extremity Exam: Positive: Edema (extending to lower abd) Assessment /Plan Problems (1) Atrial fibrillation with rapid ventricular response Status: Acute Problem Text: Rate controlled ChadsVasc 2: role for anticoagulation related to hyperthyroidism, possibly reversible (2) CHF (congestive heart failure) Problem Text: likely related to hyperthyroidism and tachyarrhythmia echo completed but not transcribed grossly edematous, pursuing 40-50 pounds of diuresis- has lost >20 pounds as of this writing 2D Echo shows: 1. Study is of fair technical quality. 2. Normal LV size with severe global hypokinesis and flattening of interventricular septum. Overall estimated EF 30-35%. 3. Dilated hypokinetic right ventricle. 4. Severe biatrial enlargement. 5. Approximately moderate mitral insufficiency. 6. Approximately moderate tricuspid insufficiency. 7. Very high central venous pressure. 8. At least moderately severe pulmonary hypertension. 9. Left pleural effusion with presence of mass, potentially representing thrombus or collapsed lobe. (3) Ventricular tachyarrhythmia Problem Text: 12 beats vtach, asymptomatic none in last 24 hours (4) Electrolyte abnormality Problem Text: hypomagnesemia- resolved hypokalemia- resolved (5) Hyperthyroidism Status: Acute Problem Text: methimazole 10 q day does not have thyroid storm Plan/VTE VTE Prophylaxis Ordered?: Yes Plan/Urinary Catheter Reason for insertion/continuin: Critical Pt monitoring VS, I&O, [facility] Vital Signs Date Time Temp Pulse Resp B/P (MAP) Pulse Ox O2 Delivery O2 Flow Rate FiO2 08/10/16 08:00 98.0 76 18 95/52 (66) 95 Nasal Cannula 2.0 I&O- Last 24 Hours up to 6 AM 08/10/16 05:59 Intake Total 850 ml Output Total 4450 ml Balance -3600 ml Laboratory Data 24H LABS Laboratory Tests 2 08/10/16 05:39: White Blood Count 8.3, Red Blood Count 3.98L, Hemoglobin 12.2, Hematocrit 36.1, Mean Corpuscular Volume 90.7, Mean Corpuscular Hemoglobin 30.8, Mean Corpuscular Hemoglobin Concent 33.9, Red Cell Distribution Width 15.0H, Platelet Count 152, Neutrophils (%) (Auto) 61.2, Lymphocytes (%) (Auto) 25.7, Monocytes (%) (Auto) 7.8H, Eosinophils (%) (Auto) 3.1H, Basophils (%) (Auto) 0.5 , Neutrophils # (Auto) 5.1, Lymphocytes # (Auto) 2.3, Monocytes # (Auto) 0.6, Eosinophils # (Auto) 0.3, Basophils # (Auto) 0.0, Large Unclassified Cells % 1.7 , Large Unclassified Cells # 0.1, Anion Gap 7L, Glomerular Filtration Rate > 60.0, Blood Urea Nitrogen 14, Creatinine 0.58, Sodium Level 141, Potassium Level 3.5, Chloride Level 103, Carbon Dioxide Level 31, Calcium Level 8.6 CBC/BMP Laboratory Tests 08/10/16 05:39 Red Blood Count 3.98 L, Mean Corpuscular Volume 90.7, Mean Corpuscular Hemoglobin 30.8, Mean Corpuscular Hemoglobin Concent 33.9, Red Cell Distribution Width 15.0 H, Neutrophils (%) (Auto) 61.2, Lymphocytes (%) (Auto) 25.7, Monocytes (%) (Auto) 7.8 H, Eosinophils (%) (Auto) 3.1 H, Basophils (%) ( Auto) 0.5, Neutrophils # (Auto) 5.1, Lymphocytes # (Auto) 2.3, Monocytes # (Auto ) 0.6, Eosinophils # (Auto) 0.3, Basophils # (Auto) 0.0, Calcium Level 8.6 Microbiology Microbiology 08/07/16 Urine Culture - Final, Complete Escherichia Coli GREGORY HULL MD Aug 10, 2016 11:02
[2016-08-11] MEDS: METOPROLOL TART 25 MG TABLET PO SCH ×5 (00:02→23:50)
[2016-08-11] MEDS: FUROSEMIDE 40 MG/4 ML VIAL (J1940) IV SCH ×4 (00:03→23:50)
[2016-08-11 05:46] LABS: BASO % 0.6 % (0.0-1.0); EOS # 0.2 K/mm3 (0.0-0.50); EOS % 3.5 % (0.0-3.0); LARGE UNSTAINED CELL # 0.2 K/mm3 (0.0-0.4); LARGE UNSTAINED CELL % 2.7 % (0.0-4.0); LYMPH # 2.2 K/mm3 (1.5-4.5); LYMPH % 32.8 % (24.0-44.0); MEAN CORPUSCULAR HEMOGLOBIN 30.3 pg (27.0-33.0); MEAN CORPUSCULAR HGB CONC 33.4 g/dl (32.0-36.5); MEAN CORPUSCULAR VOLUME 90.9 fl (80.0-96.0); MONO # 0.6 K/mm3 (0.0-0.8); MONO % 8.6 % (0.0-5.0); NEUTROPHILS # 3.5 K/mm3 (1.8-7.7); NEUTROPHILS % 51.7 % (36.0-66.0); PLATELET COUNT, AUTOMATED 153 k/mm3 (150-450); RED CELL DISTRIBUTION WIDTH 14.6 % (11.5-14.5); WHITE BLOOD COUNT 6.8 K/mm3 (4.0-10.0)
[2016-08-11 05:50] LABS: ANION GAP 7 MEQ/L (8-16); BLOOD UREA NITROGEN 15 MG/DL (7-18); CALCIUM LEVEL 8.3 MG/DL (8.5-10.1); CARBON DIOXIDE LEVEL 32 MEQ/L (21-32); CHLORIDE LEVEL 103 MEQ/L (98-107); CREATININE FOR GFR 0.54 MG/DL (0.55-1.02); GLOMERULAR FILTRATION RATE > 60.0 (>51); GLUCOSE, FASTING 88 MG/DL (70-105); POTASSIUM SERUM 3.3 MEQ/L (3.5-5.1); SODIUM LEVEL 142 MEQ/L (136-145)
[2016-08-11] MEDS: SLF 3 ML SYR IV SCH ×3 (06:17→21:17)
[2016-08-11] MEDS ORDERED: POTASSIUM CHLORIDE 10 MEQ SR TABLET PO ONE (06:45)
[2016-08-11 08:00] VITALS: BP 109/61
[2016-08-11] MEDS: APIXABAN 5 MG TAB (ELIQUIS) PO SCH ×2 (08:21→21:16)
[2016-08-11] MEDS: SENOKOT S TAB PO SCH ×2 (08:21→21:16)
[2016-08-11 12:00] VITALS: BP 101/68
--- NOTE | 2016-08-11 13:45 | IPNPDOC ---
Subjective Date Seen The patient was seen on 08/11/16. Subjective Chief Complaint/HPI The patient is a 51-year-old female admitted with a reason for visit of Atrial Fibrillation With Rvr, Hyperthyroidism. Events since last encounter Feeling better, has walked londer distances than she has in months, tolerating diet, not short of breath, feeling much better Constitutional: Denies: Chills, Fever Pulmonary: Denies: Dyspnea, Cough Cardiovascular: Denies: Chest Pain, Palpitations Gastrointestinal: Denies: Nausea, Vomiting, Abdominal Pain Objective Physical Examination General Exam: Positive: No Acute Distress Eye Exam: Negative: Sclera icteric Chest Exam: Positive: Clear to auscultation, Negative: Rales, Rhonchi, Wheezing Heart Exam: Positive: Rate Normal, Irregular Rhythm, Normal S1, Normal S2, Negative: Tachycardic Abdomen Exam: Positive: Normal bowel sounds, Soft, Negative: Tenderness Extremity Exam: Positive: Edema (extending to lower abd) Assessment /Plan Problems (1) Atrial fibrillation with rapid ventricular response Status: Acute Problem Text: Rate controlled ChadsVasc 2: role for anticoagulation related to hyperthyroidism, possibly reversible (2) CHF (congestive heart failure) Problem Text: likely related to hyperthyroidism and tachyarrhythmia echo completed but not transcribed grossly edematous, pursuing 40-50 pounds of diuresis- has lost >20 pounds as of this writing 2D Echo shows: 1. Study is of fair technical quality. 2. Normal LV size with severe global hypokinesis and flattening of interventricular septum. Overall estimated EF 30-35%. 3. Dilated hypokinetic right ventricle. 4. Severe biatrial enlargement. 5. Approximately moderate mitral insufficiency. 6. Approximately moderate tricuspid insufficiency. 7. Very high central venous pressure. 8. At least moderately severe pulmonary hypertension. 9. Left pleural effusion with presence of mass, potentially representing thrombus or collapsed lobe. (based on presentation and clinical picture #9 is more likely collapsed lobe) (3) Ventricular tachyarrhythmia Problem Text: 12 beats vtach, asymptomatic none in last 24 hours (4) Electrolyte abnormality Problem Text: hypomagnesemia- resolved hypokalemia- replete (5) Hyperthyroidism Status: Acute Problem Text: methimazole 10 q day does not have thyroid storm Plan/VTE VTE Prophylaxis Ordered?: Yes Plan/Urinary Catheter Reason for insertion/continuin: Critical Pt monitoring VS[facility]O Vital Signs Date Time Temp Pulse Resp B/P (MAP) Pulse Ox O2 Delivery O2 Flow Rate FiO2 08/11/16 12:42 70 101/68 08/11/16 12:00 98.1 18 96 Room Air 08/10/16 20:00 2.0 I&O- Last 24 Hours up to 6 AM 08/11/16 06:00 Intake Total 470 ml Output Total 4975 ml Balance -4505 ml Laboratory Data 24H LABS Laboratory Tests 2 08/11/16 04:23: White Blood Count 6.8, Red Blood Count 4.00, Hemoglobin 12.1, Hematocrit 36.4, Mean Corpuscular Volume 90.9, Mean Corpuscular Hemoglobin 30.3, Mean Corpuscular Hemoglobin Concent 33.4, Red Cell Distribution Width 14.6H, Platelet Count 153, Neutrophils (%) (Auto) 51.7, Lymphocytes (%) (Auto) 32.8, Monocytes (%) (Auto) 8.6H, Eosinophils (%) (Auto) 3.5H, Basophils (%) (Auto) 0.6 , Neutrophils # (Auto) 3.5, Lymphocytes # (Auto) 2.2, Monocytes # (Auto) 0.6, Eosinophils # (Auto) 0.2, Basophils # (Auto) 0.0, Large Unclassified Cells % 2.7 , Large Unclassified Cells # 0.2, Anion Gap 7L, Glomerular Filtration Rate > 60.0, Blood Urea Nitrogen 15, Creatinine 0.54L, Sodium Level 142, Potassium Level 3.3L, Chloride Level 103, Carbon Dioxide Level 32, Calcium Level 8.3L, Magnesium Level 2.0 CBC/BMP Laboratory Tests 08/11/16 04:23 Red Blood Count 4.00, Mean Corpuscular Volume 90.9, Mean Corpuscular Hemoglobin 30.3, Mean Corpuscular Hemoglobin Concent 33.4, Red Cell Distribution Width 14.6 H, Neutrophils (%) (Auto) 51.7, Lymphocytes (%) (Auto) 32.8, Monocytes (%) (Auto) 8.6 H, Eosinophils (%) (Auto) 3.5 H, Basophils (%) (Auto) 0.6, Neutrophils # (Auto) 3.5, Lymphocytes # (Auto) 2.2, Monocytes # (Auto) 0.6, Eosinophils # (Auto) 0.2, Basophils # (Auto) 0.0, Calcium Level 8.3 L Microbiology Microbiology 08/07/16 Urine Culture - Final, Complete Escherichia Coli GREGORY HULL MD Aug 11, 2016 13:45
[2016-08-11 15:35] VITALS: BP 100/67
[2016-08-11 20:06] VITALS: BP 103/68
[2016-08-11] MEDS: NYSTATIN 100,000 UNITS/GM TOPICAL PWD 15 GM TOP SCH (21:16)
[2016-08-11 23:30] VITALS: BP 109/55
[2016-08-12 03:08] VITALS: BP 118/70
[2016-08-12 05:09] LABS: BASO % 0.5 % (0.0-1.0); EOS # 0.3 K/mm3 (0.0-0.50); EOS % 4.5 % (0.0-3.0); LARGE UNSTAINED CELL # 0.1 K/mm3 (0.0-0.4); LYMPH # 2.1 K/mm3 (1.5-4.5); LYMPH % 30.3 % (24.0-44.0); MEAN CORPUSCULAR HEMOGLOBIN 30.4 pg (27.0-33.0); MONO # 0.6 K/mm3 (0.0-0.8); MONO % 9.1 % (0.0-5.0); NEUTROPHILS # 3.5 K/mm3 (1.8-7.7); NEUTROPHILS % 53.5 % (36.0-66.0); PLATELET COUNT, AUTOMATED 157 k/mm3 (150-450); RED CELL DISTRIBUTION WIDTH 14.8 % (11.5-14.5); WHITE BLOOD COUNT 6.6 K/mm3 (4.0-10.0)
[2016-08-12 05:27] LABS: ANION GAP 7 MEQ/L (8-16); BLOOD UREA NITROGEN 16 MG/DL (7-18); CALCIUM LEVEL 8.5 MG/DL (8.5-10.1); CARBON DIOXIDE LEVEL 34 MEQ/L (21-32); CHLORIDE LEVEL 100 MEQ/L (98-107); CREATININE FOR GFR 0.58 MG/DL (0.55-1.02); GLOMERULAR FILTRATION RATE > 60.0 (>51); GLUCOSE, FASTING 97 MG/DL (70-105); POTASSIUM SERUM 3.4 MEQ/L (3.5-5.1); SODIUM LEVEL 141 MEQ/L (136-145)
[2016-08-12] MEDS: METOPROLOL TART 25 MG TABLET PO SCH ×3 (05:32→18:08)
[2016-08-12] MEDS: SLF 3 ML SYR IV SCH ×3 (05:33→20:57)
[2016-08-12 08:00] VITALS: BP 108/67
[2016-08-12] MEDS: APIXABAN 5 MG TAB (ELIQUIS) PO SCH ×2 (08:50→20:57)
[2016-08-12] MEDS: SENOKOT S TAB PO SCH ×2 (08:50→20:57)
[2016-08-12] MEDS: NYSTATIN 100,000 UNITS/GM TOPICAL PWD 15 GM TOP SCH ×2 (08:50→20:57)
[2016-08-12] MEDS: FUROSEMIDE 40 MG/4 ML VIAL (J1940) IV SCH ×2 (08:51→16:17)
[2016-08-12 12:00] VITALS: BP 115/84
[2016-08-12 16:00] VITALS: BP 115/75
[2016-08-12] MEDS ORDERED: POTASSIUM CHLORIDE 10 MEQ SR TABLET PO ONE (16:00)
--- NOTE | 2016-08-12 16:45 | IPNPDOC ---
Subjective Date Seen The patient was seen on 08/12/16. Subjective Chief Complaint/HPI The patient is a 51-year-old female admitted with a reason for visit of Atrial Fibrillation With Rvr, Hyperthyroidism. Events since last encounter More active, moving around room, tolerating diet, following fluid restriction, no pain, would like to get out of hospital before jacqueline Constitutional: Denies: Chills, Fever Pulmonary: Denies: Dyspnea, Cough Cardiovascular: Denies: Chest Pain, Palpitations Gastrointestinal: Denies: Nausea, Vomiting, Abdominal Pain Objective Physical Examination General Exam: Positive: Alert, Cooperative, No Acute Distress Eye Exam: Negative: Sclera icteric Chest Exam: Positive: Clear to auscultation, Negative: Rales, Rhonchi, Wheezing Heart Exam: Positive: Rate Normal, Irregular Rhythm, Normal S1, Normal S2, Negative: Tachycardic Abdomen Exam: Positive: Normal bowel sounds, Soft, Negative: Tenderness Extremity Exam: Positive: Edema (extending to upper legs bilaterally) Assessment /Plan Problems (1) Atrial fibrillation with rapid ventricular response Status: Acute Problem Text: Rate controlled ChadsVasc 2: role for anticoagulation related to hyperthyroidism, possibly reversible Consulted Dr. Maria (2) CHF (congestive heart failure) Problem Text: likely related to hyperthyroidism and tachyarrhythmia echo completed but not transcribed grossly edematous, pursuing 40-50 pounds of diuresis- has lost >20 pounds as of this writing 2D Echo shows: 1. Study is of fair technical quality. 2. Normal LV size with severe global hypokinesis and flattening of interventricular septum. Overall estimated EF 30-35%. 3. Dilated hypokinetic right ventricle. 4. Severe biatrial enlargement. 5. Approximately moderate mitral insufficiency. 6. Approximately moderate tricuspid insufficiency. 7. Very high central venous pressure. 8. At least moderately severe pulmonary hypertension. 9. Left pleural effusion with presence of mass, potentially representing thrombus or collapsed lobe. (based on presentation and clinical picture #9 is more likely collapsed lobe) (3) Ventricular tachyarrhythmia Problem Text: 12 beats vtach, asymptomatic none in last 24 hours Replete electrolytes as needed (4) Electrolyte abnormality Problem Text: hypomagnesemia- resolved hypokalemia- replete (5) Hyperthyroidism Status: Acute Problem Text: methimazole 10 q day does not have thyroid storm Plan/VTE VTE Prophylaxis Ordered?: Yes Plan/Urinary Catheter Reason for insertion/continuin: Critical Pt monitoring VS, I&O, [facility]&O Vital Signs Date Time Temp Pulse Resp B/P (MAP) Pulse Ox O2 Delivery O2 Flow Rate FiO2 08/12/16 12:41 67 115/84 08/12/16 08:00 97.5 20 95 Room Air 08/10/16 20:00 2.0 I&O- Last 24 Hours up to 6 AM 08/12/16 06:00 Intake Total 720 ml Output Total 3400 ml Balance -2680 ml Laboratory Data 24H LABS Laboratory Tests 2 08/12/16 04:13: White Blood Count 6.6, Red Blood Count 4.07, Hemoglobin 12.4, Hematocrit 37.4, Mean Corpuscular Volume 92.0, Mean Corpuscular Hemoglobin 30.4, Mean Corpuscular Hemoglobin Concent 33.0, Red Cell Distribution Width 14.8H, Platelet Count 157, Neutrophils (%) (Auto) 53.5, Lymphocytes (%) (Auto) 30.3, Monocytes (%) (Auto) 9.1H, Eosinophils (%) (Auto) 4.5H, Basophils (%) (Auto) 0.5 , Neutrophils # (Auto) 3.5, Lymphocytes # (Auto) 2.1, Monocytes # (Auto) 0.6, Eosinophils # (Auto) 0.3, Basophils # (Auto) 0.0, Large Unclassified Cells % 2.0 , Large Unclassified Cells # 0.1, Anion Gap 7L, Glomerular Filtration Rate > 60.0, Blood Urea Nitrogen 16, Creatinine 0.58, Sodium Level 141, Potassium Level 3.4L, Chloride Level 100, Carbon Dioxide Level 34H, Calcium Level 8.5, Magnesium Level 2.0 CBC/BMP Laboratory Tests 08/12/16 04:13 Red Blood Count 4.07, Mean Corpuscular Volume 92.0, Mean Corpuscular Hemoglobin 30.4, Mean Corpuscular Hemoglobin Concent 33.0, Red Cell Distribution Width 14.8 H, Neutrophils (%) (Auto) 53.5, Lymphocytes (%) (Auto) 30.3, Monocytes (%) (Auto) 9.1 H, Eosinophils (%) (Auto) 4.5 H, Basophils (%) (Auto) 0.5, Neutrophils # (Auto) 3.5, Lymphocytes # (Auto) 2.1, Monocytes # (Auto) 0.6, Eosinophils # (Auto) 0.3, Basophils # (Auto) 0.0, Calcium Level 8.5 Microbiology Microbiology 08/07/16 Urine Culture - Final, Complete Escherichia Coli GREGORY HULL MD Aug 12, 2016 16:45
[2016-08-12 20:00] VITALS: BP 108/69
[2016-08-12] MEDS: cefTRIAXone SOD 1 GM in D5W MINI-BAG PLUS 50 ML IV SCH (20:57)
--- NOTE | 2016-08-12 21:03 | IPN ---
DATE: 08/12/2016 REFERRING PHYSICIAN: Dr. Vu INDICATION: Atrial fibrillation with rapid ventricular response and congestive heart failure. HISTORY OF PRESENT ILLNESS: Mrs. Varghese is previously unknown to me. She is a pleasant 51-year-old female who presented to emergency room on 08/06/2016 for progressive edema and difficulty with ambulation. She was found to be in anasarca and was admitted for management of atrial fibrillation with rapid ventricular response and volume overloaded state. She was simultaneously found to be hyperthyroid with mildly suppressed TSH but high free T4. So far, she lost over 30 pounds of weight and continues to be very edematous. An echocardiogram performed the second day after admission revealed global left ventricular systolic dysfunction with estimated ejection fraction (EF) approximately 30-35%. There was at least moderate mitral insufficiency and at least moderate tricuspid insufficiency with very high central venous pressure and moderately severe pulmonary hypertension. I was asked by Dr. Vu to see the patient mostly to establish with her and arrange for long-term management. The patient at her baseline does not have a primary care physician, and she sees doctors very infrequently and usually in the emergency room, but she denies any long-term medical issues. She does admit that her peripheral edema started many years ago, but it deteriorated substantially last year and has been even more progressive in the last few months. She did notice that her upper torso from her breasts up were shrinking and the tissues below her diaphragm were swelling. Past medical history is negative. OUTPATIENT MEDICATIONS: Levocetirizine 5 mg at bedtime ALLERGIES: To MOTRIN that gives her hives and PENICILLIN also gives her hives. She also reports intolerance of aspirin. Past surgical history is negative. SOCIAL HISTORY: The patient is a . She lives alone. Her father lives nearby and is in close contact. He recently was gone though for few weeks. No children. She used to work at [employer] ([employer]). Denies smoking or alcohol consumption. FAMILY HISTORY: Father has a heart murmur. Mother is very ill due to longstanding heavy alcoholism. One of her brothers has diabetes. REVIEW OF SYSTEMS: She denies any fever. She denies chills. She denies nausea or vomiting. She denies any change in her bowel habits. She denies history of bleeding problems. No syncope or near syncope. She does admit that she had occasional palpitations. PHYSICAL EXAMINATION: Mrs. Varghese is a middle-aged woman who appears much older than her calendar age. Blood pressure 115/75, heart rate is from 60s to low 100s. She is afebrile. Saturation is 93% on room air and temperature was documented 98.0. Her weight is documented as 123 kg, which is 10 kg down since admission, but since she has been monitored in the progressive care unit (PCU), it actually represents 14 kg weight loss. She is alert and oriented times three. She is edentulous. Her jugular venous pressure (JVP) is still at least 7 or 8 cm above clavicle. Lungs are relatively clear to auscultation. I do not appreciate crackles or wheezing. Heart exam reveals irregular rhythm. There is a systolic murmur best heard at the apex approximately 3/6 intensity that is blowing in character. I do not appreciate rub or gallop. Abdomen is still massively edematous. I do not appreciate any shifting dullness. I am unable to estimate the size of liver and spleen due to her body habitus. There is 4+ edema of her lower extremities going all the way to the level of abdomen and buttocks. Neurologically she is intact. I do not appreciate any skin lesions. Webster catheter is in place. LABORATORY DATA: CBC is normal. Basic metabolic panel as of today reveals potassium 3.4, BUN 16, creatinine 0.6, GFR more than 60 and glucose 97. INR on admission was 1.3. Urine had 1+ protein but negative for ketones, and she was tested for thyroglobulin antibody and the test was negative. She had a CT of the chest that revealed no evidence for pulmonary embolism or pleural effusions. There was ascites, and she also had lower extremity ultrasound revealing no evidence for deep vein thrombosis (DVT). ECG reveals presence of atrial fibrillation with rapid ventricular response, relatively low voltage throughout and nonspecific ST-T abnormalities. There are two ECGs on file that are both similar. The patient so far has been treated with diuretics. She has been receiving furosemide at the dose of 40 mg every 8 hours. She also has been receiving metoprolol 20 mg every 6 hours, methimazole 10 mg a day, apixaban 5 mg twice a day. ASSESSMENT AND PLAN: Mrs. 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 She has predominantly right-sided congestive heart failure. So far, she has diuresed approximately 14 kg, but I am certainly hopeful that she will diurese at least an equal amount. I think that we should accomplish euvolemic condition before she is discharged home. As far as atrial fibrillation is concerned, she is reasonably well rate-controlled on current dose of metoprolol and anticoagulated with apixaban. I would continue the same. She does have significant mitral insufficiency, and she will need to be reevaluated when she is euvolemic and euthyroid. As far as management of hyperthyroidism is concerned, I will leave it to primary team. She was started on methimazole. She certainly does not have a typical Graves-type of hyperthyroidism as her thyroid-stimulating hormone (TSH) is not overly suppressed. I am somewhat concerned that the hyperthyroidism actually may not be the driving force behind her arrhythmia and congestive heart failure. I will continue following the patient with you.
[2016-08-12 23:59] VITALS: BP 103/65
[2016-08-13] MEDS: METOPROLOL TART 25 MG TABLET PO SCH ×4 (00:09→18:00)
[2016-08-13 04:00] VITALS: BP 92/58
[2016-08-13 06:22] LABS: BASO % 0.8 % (0.0-1.0); EOS # 0.3 K/mm3 (0.0-0.50); EOS % 4.7 % (0.0-3.0); LARGE UNSTAINED CELL # 0.2 K/mm3 (0.0-0.4); LARGE UNSTAINED CELL % 2.7 % (0.0-4.0); LYMPH # 2.3 K/mm3 (1.5-4.5); LYMPH % 31.4 % (24.0-44.0); MEAN CORPUSCULAR HEMOGLOBIN 30.2 pg (27.0-33.0); MEAN CORPUSCULAR HGB CONC 33.2 g/dl (32.0-36.5); MEAN CORPUSCULAR VOLUME 91.1 fl (80.0-96.0); MONO # 0.6 K/mm3 (0.0-0.8); MONO % 9.1 % (0.0-5.0); NEUTROPHILS # 3.5 K/mm3 (1.8-7.7); NEUTROPHILS % 51.3 % (36.0-66.0); PLATELET COUNT, AUTOMATED 156 k/mm3 (150-450); RED CELL DISTRIBUTION WIDTH 14.7 % (11.5-14.5); WHITE BLOOD COUNT 6.8 K/mm3 (4.0-10.0)
[2016-08-13 06:41] LABS: ANION GAP 7 MEQ/L (8-16); BLOOD UREA NITROGEN 15 MG/DL (7-18); CALCIUM LEVEL 8.6 MG/DL (8.5-10.1); CARBON DIOXIDE LEVEL 31 MEQ/L (21-32); CHLORIDE LEVEL 100 MEQ/L (98-107); CREATININE FOR GFR 0.63 MG/DL (0.55-1.02); GLOMERULAR FILTRATION RATE > 60.0 (>51); GLUCOSE, FASTING 96 MG/DL (70-105); MAGNESIUM LEVEL 2.1 MG/DL (1.8-2.4); POTASSIUM SERUM 3.5 MEQ/L (3.5-5.1); SODIUM LEVEL 138 MEQ/L (136-145)
[2016-08-13] MEDS: SLF 3 ML SYR IV SCH ×3 (07:02→22:00)
[2016-08-13 07:45] VITALS: BP 106/59
--- NOTE | 2016-08-13 08:38 | IPN ---
DATE: 08/13/2016 Mrs. Varghese had good night. She tells me that as long as she stays in her recliner she can sleep well. She denies any chest pain, palpitations or shortness of breath. She remains in rate-controlled atrial fibrillation. Blood pressure this morning is 92/58, saturation is 100% on room air and she is afebrile. Her fluid balance yesterday was again 3-1/2 liters negative. Her weight is down to 120.8 kg. She is alert and oriented and appropriate. Her jugular venous pulse (JVP) remains very high at least 7 or 8 cm above clavicle. Lungs are reasonably clear to auscultation. Heart exam reveals irregular rhythm. There is high-pitched systolic murmur at the apex at least 3/6 intensity unchanged since yesterday. Abdomen is still swollen. I do not see any convincing evidence for ascites and there is still 3-4+ peripheral edema all the way to her groins and buttocks. Neurologically, she is intact. Laboratory patrick, normal CBC and normal basic metabolic panel. ASSESSMENT AND PLAN: Ms. Varghese is a 51-year-old female who presented with anasarca and predominantly right-sided congestive heart failure. She was found to be in atrial fibrillation (AFib) with rapid ventricular response (RVR) and hyperthyroid. She has moderately to severely reduced left ventricular (LV) systolic function and moderately severe pulmonary hypertension by echocardiogram and there is at least moderate mitral and tricuspid insufficiency. The principal intervention has been rate control and she is being diuresed. So far it has been going well. She still has a lot of residual edema and I foresee that she will spend here at least additional 5-7 days. She is starting to be somewhat hypotensive but not severely so, and I think we should continue diuresis. Potassium hopefully will no longer be a major issue with introduction of spironolactone. She has not had much ventricular arrhythmias thankfully.
[2016-08-13] MEDS: cefTRIAXone SOD 1 GM in D5W MINI-BAG PLUS 50 ML IV SCH ×2 (08:50→20:39)
[2016-08-13] MEDS: SPIRONOLACTONE 25 MG TAB PO SCH (08:51)
[2016-08-13] MEDS: SENOKOT S TAB PO SCH ×2 (08:51→20:39)
[2016-08-13] MEDS: FUROSEMIDE 40 MG/4 ML VIAL (J1940) IV SCH ×3 (08:51→16:30)
[2016-08-13] MEDS: APIXABAN 5 MG TAB (ELIQUIS) PO SCH ×2 (08:51→20:39)
[2016-08-13] MEDS: NYSTATIN 100,000 UNITS/GM TOPICAL PWD 15 GM TOP SCH ×2 (08:52→20:39)
--- NOTE | 2016-08-13 11:46 | IPNPDOC ---
Date Seen The patient was seen on 08/13/16. Progress Note SUBJECTIVE: Patient patient tells me that she is feeling well today, she tells me she is able to up ambulating take her shower she feels great she has lost so much weight. She denies any palpitations lightheadedness dizziness chest pain shortness of breath nausea vomiting or diarrhea OBJECTIVE PHYSICAL EXAMINATION: VITAL SIGNS: Please see below. GENERAL: Obese female appears older than stated age sitting in a recliner she does not appear to be in any acute distress HEENT: Pupils are equally round reactive to light she does have elevation central venous pressure CARDIOVASCULAR: S1-S2 irregularly irregular. RESPIRATORY: Diminished breath sounds at the bases. ABDOMINAL: Obese bowel sounds present abdomen soft EXTREMITIES: Edema above the level of the knee cyanosis LABORATORY DATA: Please see below. MICROBIOLOGY: Please see below. IMAGING: CT angiography: 1. No evidence of pulmonary embolism. 2. No acute intrapulmonary disease. 3. Moderate diffuse abdominal ascites. Lower extremity duplex:No evidence of deep vein thrombosis in the femoral popliteal venous system. Echocardiogram: 1. Study is of fair technical quality. 2. Normal LV size with severe global hypokinesis and flattening of interventricular septum. Overall estimated EF 30-35%. 3. Dilated hypokinetic right ventricle. 4. Severe biatrial enlargement. 5. Approximately moderate mitral insufficiency. 6. Approximately moderate tricuspid insufficiency. 7. Very high central venous pressure. 8. At least moderately severe pulmonary hypertension. 9. Left pleural effusion with presence of mass, potentially representing thrombus or collapsed lobe.. DVT prophylaxis ordered?: Elquis ASSESSMENT AND PLAN: This is a 51-year-old female with decompensated systolic heart failure. PROBLEMS: (1) Atrial fibrillation with rapid ventricular response Newly diagnosed, she is currently being rate controlled with metoprolol 25 mg every 6 hours she is anticoagulated with Eliquis. Dr. Maria's help is greatly appreciated. Her atrial fibrillation may be secondary to an element of hyperthyroidism (2) CHF (congestive heart failure) Decompensated systolic heart failure, possibly tachycardia arrhythmia induced cardiomyopathy once again Dr. Maria's help is greatly appreciated. We are aggressively diuresing the patient she is improving clinically. Quite likely she will require several more days of diuresis is on Lasix and Aldactone beta gilbert and I suspect in coming days will be added on an ANNABELLE inhibitor as we slowly titrated medications (3) Ventricular tachyarrhythmia With low ejection fraction we are aggressively replete electrolytes she is recently started on Aldactone continue to monitor should they persist the patient may need a LifeVest however we will first optimize her electrolytes and her volume status and continue to monitor on telemetry in the PCU (4) Electrolyte abnormality The patient was started on Aldactone replete magnesium as needed (5) Hyperthyroidism this is an acute new problem the patient has been started on methimazole 10 q day (6) urinary tract infection yesterday evening the patient was started on ceftriaxone for positive urine culture question today she does have some mild symptoms we'll treat her with this antibiotic for now we'll likely can transition to by mouth antibiotics in the near future as it is fairly sensitive DISPOSITION: We'll continue to diuresis with the patient because of several more days she is improving clinically. VS, I&O, 24H, Fishbone Vital Signs/I&O Vital Signs Date Time Temp Pulse Resp B/P (MAP) Pulse Ox O2 Delivery O2 Flow Rate FiO2 08/13/16 07:45 98.4 69 20 106/59 (75) 95 Room Air 08/10/16 20:00 2.0 I&O- Last 24 Hours up to 6 AM 08/13/16 06:00 Intake Total 990 ml Output Total 4675 ml Balance -3685 ml Laboratory Data 24H LABS Laboratory Tests 2 08/13/16 05:55: White Blood Count 6.8, Red Blood Count 4.24, Hemoglobin 12.8, Hematocrit 38.6, Mean Corpuscular Volume 91.1, Mean Corpuscular Hemoglobin 30.2, Mean Corpuscular Hemoglobin Concent 33.2, Red Cell Distribution Width 14.7H, Platelet Count 156, Neutrophils (%) (Auto) 51.3, Lymphocytes (%) (Auto) 31.4, Monocytes (%) (Auto) 9.1H, Eosinophils (%) (Auto) 4.7H, Basophils (%) (Auto) 0.8 , Neutrophils # (Auto) 3.5, Lymphocytes # (Auto) 2.3, Monocytes # (Auto) 0.6, Eosinophils # (Auto) 0.3, Basophils # (Auto) 0.0, Large Unclassified Cells % 2.7 , Large Unclassified Cells # 0.2, Anion Gap 7L, Glomerular Filtration Rate > 60.0, Blood Urea Nitrogen 15, Creatinine 0.63, Sodium Level 138, Potassium Level 3.5, Chloride Level 100, Carbon Dioxide Level 31, Calcium Level 8.6, Magnesium Level 2.1 CBC/BMP Laboratory Tests 08/13/16 05:55 Red Blood Count 4.24, Mean Corpuscular Volume 91.1, Mean Corpuscular Hemoglobin 30.2, Mean Corpuscular Hemoglobin Concent 33.2, Red Cell Distribution Width 14.7 H, Neutrophils (%) (Auto) 51.3, Lymphocytes (%) (Auto) 31.4, Monocytes (%) (Auto) 9.1 H, Eosinophils (%) (Auto) 4.7 H, Basophils (%) (Auto) 0.8, Neutrophils # (Auto) 3.5, Lymphocytes # (Auto) 2.3, Monocytes # (Auto) 0.6, Eosinophils # (Auto) 0.3, Basophils # (Auto) 0.0, Calcium Level 8.6 Microbiology Microbiology 08/07/16 Urine Culture - Final, Complete Escherichia Coli SDAIE PATTEN MD Aug 13, 2016 11:46
[2016-08-13 12:00] VITALS: BP 123/73
[2016-08-13 16:00] VITALS: BP 114/64
[2016-08-13 20:00] VITALS: BP 116/73
[2016-08-13 23:59] VITALS: BP 128/71
[2016-08-14] MEDS: FUROSEMIDE 40 MG/4 ML VIAL (J1940) IV SCH ×3 (00:11→15:46)
[2016-08-14] MEDS: METOPROLOL TART 25 MG TABLET PO SCH ×4 (00:11→18:09)
[2016-08-14 04:00] VITALS: BP 111/64
[2016-08-14] MEDS: SLF 3 ML SYR IV SCH ×3 (05:01→20:40)
[2016-08-14 05:27] LABS: BASO % 0.7 % (0.0-1.0); EOS # 0.3 K/mm3 (0.0-0.50); EOS % 4.6 % (0.0-3.0); LARGE UNSTAINED CELL # 0.2 K/mm3 (0.0-0.4); LARGE UNSTAINED CELL % 2.1 % (0.0-4.0); LYMPH # 2.3 K/mm3 (1.5-4.5); LYMPH % 30.9 % (24.0-44.0); MEAN CORPUSCULAR HEMOGLOBIN 29.9 pg (27.0-33.0); MEAN CORPUSCULAR HGB CONC 32.7 g/dl (32.0-36.5); MEAN CORPUSCULAR VOLUME 91.3 fl (80.0-96.0); MONO # 0.6 K/mm3 (0.0-0.8); MONO % 8.1 % (0.0-5.0); NEUTROPHILS # 3.7 K/mm3 (1.8-7.7); NEUTROPHILS % 53.6 % (36.0-66.0); PLATELET COUNT, AUTOMATED 154 k/mm3 (150-450); RED CELL DISTRIBUTION WIDTH 14.6 % (11.5-14.5); WHITE BLOOD COUNT 6.9 K/mm3 (4.0-10.0)
[2016-08-14 05:47] LABS: ANION GAP 5 MEQ/L (8-16); BLOOD UREA NITROGEN 15 MG/DL (7-18); CALCIUM LEVEL 8.7 MG/DL (8.5-10.1); CARBON DIOXIDE LEVEL 34 MEQ/L (21-32); CHLORIDE LEVEL 101 MEQ/L (98-107); CREATININE FOR GFR 0.64 MG/DL (0.55-1.02); GLOMERULAR FILTRATION RATE > 60.0 (>51); GLUCOSE, FASTING 92 MG/DL (70-105); MAGNESIUM LEVEL 2.3 MG/DL (1.8-2.4); POTASSIUM SERUM 3.4 MEQ/L (3.5-5.1); SODIUM LEVEL 140 MEQ/L (136-145)
[2016-08-14 07:45] VITALS: BP 102/53
[2016-08-14] MEDS ORDERED: POTASSIUM CHLORIDE 10 MEQ SR TABLET PO ONE (08:15)
[2016-08-14] MEDS: SENOKOT S TAB PO SCH ×2 (08:42→20:39)
[2016-08-14] MEDS: APIXABAN 5 MG TAB (ELIQUIS) PO SCH ×2 (08:43→20:39)
[2016-08-14] MEDS: SPIRONOLACTONE 25 MG TAB PO SCH (08:43)
[2016-08-14] MEDS: cefTRIAXone SOD 1 GM in D5W MINI-BAG PLUS 50 ML IV SCH (08:44)
[2016-08-14] MEDS: NYSTATIN 100,000 UNITS/GM TOPICAL PWD 15 GM TOP SCH ×2 (10:27→20:40)
[2016-08-14] MEDS: NITROFURANTOIN (MACROBID) 100 MG CAP PO SCH ×2 (10:27→20:39)
[2016-08-14 12:15] VITALS: BP 113/63
[2016-08-14 16:00] VITALS: BP 103/65
--- NOTE | 2016-08-14 17:55 | IPN ---
DATE: 08/14/2016 SUBJECTIVE: Mrs. Varghese is a 51-year-old female who was seen and examined at the bedside. Patient denies chest pain, orthopnea, paroxysmal nocturnal dyspnea (PND). Patient also denies nausea, vomiting, diarrhea, or constipation. Patient expressed that she is ambulating with no lightheadedness or dizziness. Patient also denies nausea or vomiting. OBJECTIVE: VITAL SIGNS: Temperature 98.8, pulse 71, respiratory rate 22, blood pressure 102/53, pulse oximetry 98 on room air. Total intake 870, total output 3900. GENERAL APPEARANCE: Patient was sitting in the chair in no acute distress. Patient was awake, alert, and oriented to time, place, and person. HEENT: Normocephalic, atraumatic. Pupils equal and reactive to light. No jugular venous distention (JVD). HEART: Irregularly irregular. RESPIRATORY: Diminished breath sounds at the base of the lung. Good air movement. ABDOMEN: Obese, soft, nontender. Positive bowel sounds in all quadrants. EXTREMITIES: Patient has lower extremity edema bilaterally. +2 pulses in both lower extremities. Patient has normal range of motion in both upper and lower extremities. LABORATORY DATA: Sodium 140, potassium 3.4, chloride 101, carbon dioxide 34, anion gap 5, BUN 15, creatinine 0.64, glomerular filtration rate more than 60, fasting glucose 92, calcium 8.7, magnesium 2.3. White blood cells 6.9, red blood cells 4.19, hemoglobin 12.5, hematocrit 38.3, MCV 91.3, MCH 29.9, MCHC 32.7, RDW 14.6, platelet count 154, neutrophil percentage 53.6, lymphocyte percentage 30.9, monocyte percentage 8.1,eosinophil percentage 4.6, basophil percentage 0.7, leukocyte percentage 2.1. ASSESSMENT AND PLAN: 1. Atrial fibrillation with rapid ventricular response. At this time patient's heart rate is controlled. We will continue patient on Eliquis 5 mg twice a day by mouth as well as Lopressor 25 mg every 6 hours by mouth. 2. Congestive heart failure. Patient has an echocardiogram, which indicated ejection fraction of 30-35%. At this time we will continue patient with current dose of Lasix (40 mg every 8 hours IV). Also patient is on fluid restriction. Also we will continue patient on current dosage of Aldactone and beta gilbert. Also we will continue monitoring patient's input and output. 3. Ventricular tachycardia. This could be secondary to electrolyte abnormalities secondary to diuresis. Patient may require Life Vest in future. Dr. Maria has been consulted. We will continue monitoring patient's electrolytes. Patient is on telemetry in progressive care unit (PCU). 4. Electrolyte abnormalities secondary to diuresing patient with Lasix and Aldactone. We will continue monitoring patient's electrolytes, including magnesium. 5. Hyperthyroidism. Patient is on methimazole. This could be a contributing factor to atrial fibrillation with rapid ventricular response (RVR). 6. Urinary tract infection (UTI). Urine culture was positive for Escherichia (E) coli. Patient was started on ceftriaxone; however, at this time we have stopped ceftriaxone and started patient on nitrofurantoin 100 mg twice a day by mouth for 5 days. 7. Deep vein thrombosis (DVT) prophylaxis. Patient is on Eliquis. My preceptor for this patient encounter was Dr. Ijeoma Templeton. The preceptor was physically present in the building during the encounter and was fully available as needed. All aspects of the patient interview, examination, medical decision making process, and medical care plan development were reviewed and approved by the preceptor. The preceptor is aware and concurs with the plan as stated in the body of this note and will attest to such by his/her co-signature.
[2016-08-14 23:59] VITALS: BP_SYST 110; BP_SYST 125; BP_DIAS 60; BP_DIAS 81
[2016-08-15] MEDS: METOPROLOL TART 25 MG TABLET PO SCH ×4 (00:35→18:00)
[2016-08-15] MEDS: SLF 3 ML SYR IV SCH ×3 (00:36→20:55)
[2016-08-15] MEDS: FUROSEMIDE 40 MG/4 ML VIAL (J1940) IV SCH ×3 (00:36→15:46)
[2016-08-15 04:45] VITALS: BP 113/68
[2016-08-15 05:48] LABS: MAGNESIUM LEVEL 2.2 MG/DL (1.8-2.4)
--- NOTE | 2016-08-15 06:04 | IPN ---
DATE: 08/14/2016 SUBJECTIVE: Mrs. Siobhan Varghese was seen this evening. She was in her recliner and her Dad was at bedside. She stated she is feeling better and she has been ambulating around the nursing station. She denies any chest pain or palpitations. She claims that her pedal edema has improved significantly and her shortness of breath also has improved. There is no report of bleeding. There is no report of fever or chills. She was initially admitted on 08/07/2016, with worsening shortness of breath and pedal edema, and she was found to have atrial fibrillation with rapid ventricular rate and hyperthyroidism. Echocardiogram revealed a moderately-depressed global left ventricular systolic function with moderate valvular heart disease, right-sided heart chambers were dilated with probably right ventricular systolic dysfunction. OBJECTIVE: On physical examination, the patient is alert and oriented, very pleasant, and her last vital signs today reveal a blood pressure of 103/65 with pulse of 87, respirations 18-20, and her maximum temperature is 97.8 degrees Fahrenheit with an oxygen saturation of 97-98% on room air. She has a negative fluid balance of three liters for 08/13/2016. Her weight has improved from 120.8 kg yesterday 08/13/2016, to 118.5 kg for 08/14/2016. HEENT: Atraumatic. NECK: Supple. LUNGS: Decreased breath sounds at the bases and minimal crackles. HEART: As mentioned, revealed irregularly irregular heart sounds without gallops. The point of maximum impulse (PMI) is displaced inferiorly. There is no rub. There is systolic murmur grade 2/6 at the lower left sternal border without any significant radiation. ABDOMEN: Unremarkable. EXTREMITIES: Revealed severe bilateral lower extremity edema. NEUROLOGIC: Grossly is negative for focal deficit. LABORATORY DATA: CBC done today revealed a WBC of 6.9, hemoglobin 12.5, hematocrit 38.3 and platelets 154,000. BMP revealed a sodium of 140, potassium 3.4, chloride 101, CO2 34, BUN 15, creatinine 0.64, GFR more than 60, fasting glucose 92, calcium 8.7, and magnesium 2.3. IMPRESSION: 1. Atrial fibrillation that is probably chronic and persistent in the setting of hyperthyroidism in this 51-year-old woman who has not seen a physician for a very long time until this hospitalization. She is doing better and she also is feeling better and will continue current management. Her heart rate seems to be under control. Her left ventricular systolic function might improve but it seems that she has significant damage to her right heart chambers and both left and right atrium, and this might not improve with control of her hyperthyroidism and atrial fibrillation. Time only will tell, but in the meantime, we will continue with current management, rate control, and control of her hyperthyroidism. She is on Coumadin for prevention of thromboembolic events. No bleeding has been reported. Regarding her left ventricular systolic dysfunction, she is on a beta gilbert with metoprolol tartrate and yesterday, she was started on spironolactone. If her blood pressure remains stable, we can initiate an angiotension-converting enzyme (ANNABELLE) inhibitor, Altace/ramipril would be a good choice for her because it will not decrease too much her blood pressure. I will continue to monitor her along with you while in the hospital. Please do not hesitate to call if any questions. We will need to continue to monitor her blood urea nitrogen (BUN) and creatinine , and serum potassium. MARY GRACE
[2016-08-15 06:55] LABS: MEAN CORPUSCULAR HEMOGLOBIN 31.4 pg (27.0-33.0); MEAN CORPUSCULAR HGB CONC 34.5 g/dl (32.0-36.5); MEAN CORPUSCULAR VOLUME 90.8 fl (80.0-96.0); RED CELL DISTRIBUTION WIDTH 14.8 % (11.5-14.5); WHITE BLOOD COUNT 7.9 K/mm3 (4.0-10.0)
[2016-08-15 07:00] LABS: BLOOD UREA NITROGEN 14 MG/DL (7-18); CALCIUM LEVEL 9.1 MG/DL (8.5-10.1); CHLORIDE LEVEL 101 MEQ/L (98-107); CREATININE FOR GFR 0.69 MG/DL (0.55-1.02); GLOMERULAR FILTRATION RATE > 60.0 (>51); GLUCOSE, FASTING 88 MG/DL (70-105); POTASSIUM SERUM 3.4 MEQ/L (3.5-5.1); SODIUM LEVEL 141 MEQ/L (136-145)
[2016-08-15 07:15] LABS: ANION GAP 7 MEQ/L (8-16); CARBON DIOXIDE LEVEL 33 MEQ/L (21-32)
[2016-08-15 07:30] VITALS: BP 104/64
[2016-08-15] MEDS ORDERED: POTASSIUM CHLORIDE 10 MEQ SR TABLET PO ONE (08:30)
[2016-08-15] MEDS: NITROFURANTOIN (MACROBID) 100 MG CAP PO SCH ×2 (09:05→20:54)
[2016-08-15] MEDS: SENOKOT S TAB PO SCH ×2 (09:05→20:54)
[2016-08-15] MEDS: APIXABAN 5 MG TAB (ELIQUIS) PO SCH ×2 (09:05→20:54)
[2016-08-15] MEDS: SPIRONOLACTONE 25 MG TAB PO SCH (09:05)
[2016-08-15] MEDS: NYSTATIN 100,000 UNITS/GM TOPICAL PWD 15 GM TOP SCH ×2 (09:06→20:54)
[2016-08-15 12:00] VITALS: BP 105/69
[2016-08-15 15:45] VITALS: BP 108/58
[2016-08-15 20:00] VITALS: BP 108/64
--- NOTE | 2016-08-15 21:09 | IPN ---
DATE: 08/15/2016 SUBJECTIVE: Ms. Varghese is a 51-year-old female who was seen and examined at the bedside. Patient denies chest pain, orthopnea, or paroxysmal nocturnal dyspnea (PND). Patient denies racing or skipping heart beat. Patient denies nausea, vomiting, diarrhea, or constipation. Patient denies overnight issues. Patient had one episode of bowel movement today. Patient also expressed that she has been ambulating with physical therapy and she is tolerating it well. OBJECTIVE: VITAL SIGNS: Temperature 98.6, pulse 89, respiratory rate 20, blood pressure 104/62, pulse oximetry 96% on room air. Total intake 1200 mL, total output 2800 mL. GENERAL APPEARANCE: Patient was sitting on the chair, in no acute distress. Patient was awake, alert, and oriented to time, place, and person. HEENT: Normocephalic, atraumatic. Pupils are equal and reactive to light. Oral mucosa is moist. HEART: Irregularly irregular. RESPIRATORY: Patient has mild diminished breath sounds at the base of the lung. Good air movement. ABDOMEN: Obese, soft, nontender. Positive bowel sounds in all quadrants. EXTREMITIES: Patient has lower extremity edema bilaterally. +2 pulses in both lower extremities. Patient has normal range of motion in both upper and lower extremities. LABORATORY DATA: White blood cells 7.9, red blood cells 4.09, hemoglobin 12.8, hematocrit 37.1, MCV 90.8, MCH 31.4, MCHC 34.5, RDW 14.8, platelet count 136. Sodium 141, potassium 3.4, chloride 101, carbon dioxide 44, anion gap 7, BUN 14, creatinine 0.69, glomerular filtration rate more than 60, fasting glucose 88, calcium 9.1, magnesium 2.2. ASSESSMENT AND PLAN: 1. Atrial fibrillation with rapid ventricular response. Patient's rate is controlled. We will continue patient on current dosage of Eliquis and Lopressor (25 mg every 6 hours as needed by mouth). 2. Systolic congestive heart failure. Based on the echocardiogram, patient has ejection fraction of 30-35%. We will continue patient on current dosage of Lasix (40 mg every 8 hours IV). Also, we will continue patient on fluid restriction as well as Aldactone, beta gilbert. We will continue monitoring patient's input and output. Dr. Rushing has seen the patient, we appreciate Dr. Rushing's recommendations. We may consider ARB and angiotensin-converting enzyme (ANNABELLE) inhibitors after patient's blood pressure is more stable. 3. Electrolyte abnormalities, secondary to diuresing patient with Lasix and Aldactone. Patient has hypokalemia. We have started patient on potassium 20 mEq by mouth daily. Also, we will continue monitoring patient's magnesium level as well as other electrolytes. 4. Hyperthyroidism. Will continue patient on current dose of methimazole. 5. Urinary tract infection. We will continue patient on nitrofurantoin 100 mg twice a day for a total of 5 days. 6. Deep venous thrombosis (DVT) prophylaxis. Patient is on Eliquis. My preceptor for this patient encounter was Dr. Ijeoma Templeton. The preceptor was physically present in the building during the encounter and was fully available. As needed, all aspects of the patient interview, examination, medical decision making process, and medical care plan development were reviewed and approved by the preceptor. The preceptor is aware and concurs with the plan as stated in the body of this note and will attest to such by his cosignature.
[2016-08-15 23:59] VITALS: BP 111/57
[2016-08-16] MEDS: FUROSEMIDE 40 MG/4 ML VIAL (J1940) IV SCH ×3 (00:50→21:28)
[2016-08-16 04:00] VITALS: BP 98/60
[2016-08-16] MEDS: METOPROLOL TART 25 MG TABLET PO SCH ×2 (05:31)
[2016-08-16 05:46] LABS: MEAN CORPUSCULAR HEMOGLOBIN 30.2 pg (27.0-33.0); MEAN CORPUSCULAR HGB CONC 33.6 g/dl (32.0-36.5); MEAN CORPUSCULAR VOLUME 89.9 fl (80.0-96.0); RED CELL DISTRIBUTION WIDTH 14.8 % (11.5-14.5); WHITE BLOOD COUNT 7.3 K/mm3 (4.0-10.0)
[2016-08-16] MEDS: SLF 3 ML SYR IV SCH ×3 (05:49→21:28)
[2016-08-16 06:45] LABS: ANION GAP 7 MEQ/L (8-16); BLOOD UREA NITROGEN 14 MG/DL (7-18); CALCIUM LEVEL 8.9 MG/DL (8.5-10.1); CARBON DIOXIDE LEVEL 32 MEQ/L (21-32); CHLORIDE LEVEL 102 MEQ/L (98-107); CREATININE FOR GFR 0.62 MG/DL (0.55-1.02); GLOMERULAR FILTRATION RATE > 60.0 (>51); GLUCOSE, FASTING 93 MG/DL (70-105); MAGNESIUM LEVEL 2.3 MG/DL (1.8-2.4); POTASSIUM SERUM 3.5 MEQ/L (3.5-5.1); SODIUM LEVEL 141 MEQ/L (136-145)
[2016-08-16 08:00] VITALS: BP 114/56
[2016-08-16] MEDS: SPIRONOLACTONE 25 MG TAB PO SCH (08:27)
[2016-08-16] MEDS: NITROFURANTOIN (MACROBID) 100 MG CAP PO SCH ×2 (08:27→21:27)
[2016-08-16] MEDS: APIXABAN 5 MG TAB (ELIQUIS) PO SCH (08:27)
[2016-08-16] MEDS: NYSTATIN 100,000 UNITS/GM TOPICAL PWD 15 GM TOP SCH ×2 (08:27→21:32)
[2016-08-16] MEDS: POTASSIUM CHLORIDE 10 MEQ SR TABLET PO SCH (08:28)
[2016-08-16] MEDS: SENOKOT S TAB PO SCH ×2 (08:28→21:27)
[2016-08-16 12:00] VITALS: BP 104/68
[2016-08-16] MEDS ORDERED: ELIQ5TAB PO (12:15)
--- NOTE | 2016-08-16 12:20 | IPNPDOC ---
Date Seen The patient was seen on 08/16/16. Progress Note SUBJECTIVE: Patient is feeling well, she tells me she is able to get up and ambulate, she feels great she has lost so much weight. She denies any palpitations lightheadedness dizziness chest pain shortness of breath nausea vomiting or diarrhea. The patient isn't a very good mood. OBJECTIVE PHYSICAL EXAMINATION: VITAL SIGNS: Please see below. GENERAL: Obese female appears older than stated age sitting in a recliner she does not appear to be in any acute distress HEENT: Pupils are equally round reactive to light she does have elevation central venous pressure CARDIOVASCULAR: S1-S2 irregularly irregular. RESPIRATORY: Diminished breath sounds at the bases. ABDOMINAL: Obese bowel sounds present abdomen soft EXTREMITIES: Edema to the level of the knee LABORATORY DATA: Please see below. MICROBIOLOGY: Please see below. IMAGING: CT angiography: 1. No evidence of pulmonary embolism. 2. No acute intrapulmonary disease. 3. Moderate diffuse abdominal ascites. Lower extremity duplex:No evidence of deep vein thrombosis in the femoral popliteal venous system. Echocardiogram: 1. Study is of fair technical quality. 2. Normal LV size with severe global hypokinesis and flattening of interventricular septum. Overall estimated EF 30-35%. 3. Dilated hypokinetic right ventricle. 4. Severe biatrial enlargement. 5. Approximately moderate mitral insufficiency. 6. Approximately moderate tricuspid insufficiency. 7. Very high central venous pressure. 8. At least moderately severe pulmonary hypertension. 9. Left pleural effusion with presence of mass, potentially representing thrombus or collapsed lobe.. DVT prophylaxis ordered?: Elquis ASSESSMENT AND PLAN: This is a 51-year-old female with decompensated systolic heart failure. PROBLEMS: (1) Atrial fibrillation with rapid ventricular response Newly diagnosed, she is currently being rate controlled with metoprolol 25 mg every 6 hours which change to BID dosingm, she is anticoagulated with Eliquis script sent for prior auth obtainment. Dr. Rushing's help is greatly appreciated. 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 We are aggressively diuresing the patient she is improving clinically. Quite likely she will require several more days of diuresis is on Lasix and Aldactone beta gilbert and I suspect in coming days will be added on an ANNABELLE inhibitor as we slowly titrated medications. Her BP is a little low today however, she has some cor pulmonale if she were to suddenly drop her pressures would give 500cc NS bolus as these patients can often be quite preload dependent. (3) Ventricular tachyarrhythmia With low ejection fraction we are aggressively replete electrolytes she is recently started on Aldactone continue to monitor she has not had any recent episodes which is reassuring. (4) Electrolyte abnormality The patient was started on Aldactone replete magnesium & K as needed (5) Hyperthyroidism this is an acute new problem the patient has been started on methimazole 10 q day (6) urinary tract infection c/w macrobid to complete course DISPOSITION:continues to improve, may be stable for d/c over the weekend vs. early next week. VS, I&O, 24H, Fishbone Vital Signs/I&O Vital Signs Date Time Temp Pulse Resp B/P (MAP) Pulse Ox O2 Delivery O2 Flow Rate FiO2 08/16/16 08:00 97.7 77 18 114/56 (75) 97 Room Air 08/10/16 20:00 2.0 I&O- Last 24 Hours up to 6 AM 08/16/16 06:00 Intake Total 240 ml Output Total 4400 ml Balance -4160 ml Laboratory Data 24H LABS Laboratory Tests 2 08/16/16 05:23: Anion Gap 7L, Glomerular Filtration Rate > 60.0, Blood Urea Nitrogen 14, Creatinine 0.62, Sodium Level 141, Potassium Level 3.5, Chloride Level 102, Carbon Dioxide Level 32, Calcium Level 8.9, Magnesium Level 2.3 CBC/BMP Laboratory Tests 08/16/16 05:23 Red Blood Count 3.97 L, Mean Corpuscular Volume 89.9, Mean Corpuscular Hemoglobin 30.2, Mean Corpuscular Hemoglobin Concent 33.6, Red Cell Distribution Width 14.8 H, Calcium Level 8.9 Microbiology Microbiology 08/07/16 Urine Culture - Final, Complete Escherichia Coli SADIE PATTEN MD Aug 16, 2016 12:20
[2016-08-16 16:00] VITALS: BP 114/66
[2016-08-16 20:00] VITALS: BP 111/58
[2016-08-16] MEDS: METOPROLOL TART 50 MG TAB PO SCH (21:00)
[2016-08-17] VITALS (7 sets, daily range): BP systolic 106–126; BP diastolic 60–72
[2016-08-17] MEDS: METOPROLOL TART 50 MG TAB PO SCH ×2 (03:39→20:06)
[2016-08-17 05:32] LABS: MEAN CORPUSCULAR HEMOGLOBIN 30.4 pg (27.0-33.0); MEAN CORPUSCULAR HGB CONC 33.6 g/dl (32.0-36.5); MEAN CORPUSCULAR VOLUME 90.5 fl (80.0-96.0); RED CELL DISTRIBUTION WIDTH 14.7 % (11.5-14.5)
[2016-08-17 05:40] LABS: ANION GAP 7 MEQ/L (8-16); BLOOD UREA NITROGEN 12 MG/DL (7-18); CALCIUM LEVEL 9.3 MG/DL (8.5-10.1); CARBON DIOXIDE LEVEL 33 MEQ/L (21-32); CHLORIDE LEVEL 98 MEQ/L (98-107); CREATININE FOR GFR 0.67 MG/DL (0.55-1.02); GLOMERULAR FILTRATION RATE > 60.0 (>51); GLUCOSE, FASTING 130 MG/DL (70-105); MAGNESIUM LEVEL 2.4 MG/DL (1.8-2.4); POTASSIUM SERUM 3.8 MEQ/L (3.5-5.1); SODIUM LEVEL 138 MEQ/L (136-145)
[2016-08-17] MEDS: FUROSEMIDE 40 MG/4 ML VIAL (J1940) IV SCH ×3 (05:43→21:52)
[2016-08-17] MEDS: SLF 3 ML SYR IV SCH ×3 (05:43→21:52)
[2016-08-17] MEDS: SENOKOT S TAB PO SCH ×2 (09:17→20:06)
[2016-08-17] MEDS: POTASSIUM CHLORIDE 10 MEQ SR TABLET PO SCH (09:17)
[2016-08-17] MEDS: SPIRONOLACTONE 25 MG TAB PO SCH (09:18)
[2016-08-17] MEDS: NITROFURANTOIN (MACROBID) 100 MG CAP PO SCH ×2 (09:18→20:06)
[2016-08-17] MEDS: NYSTATIN 100,000 UNITS/GM TOPICAL PWD 15 GM TOP SCH ×2 (09:19→20:07)
[2016-08-17] MEDS ORDERED: POTASSIUM CHLORIDE 10 MEQ SR TABLET PO ONE (10:30)
--- NOTE | 2016-08-17 10:35 | IPN ---
DATE: 08/17/2016 Mrs. Varghese is feeling good and she would like to go home. She continues to diurese every day very heavily and has lost already over 50 pounds of weight. Blood pressure 106/61, heart rate has been in 70s to 90s. She is afebrile. Saturation 98% on room air. Fluid balance yesterday was again about almost 5 liters negative, weight is 110.9 kg. Her admission weight on the same bed was 137.3 kg, so she indeed has a very impressive weight loss. She is alert and oriented and appropriate. Her jugular venous pulse (JVP) does not appear elevated. Lungs are clear to auscultation bilaterally with good air movement. Heart exam reveals irregular rhythm. I would do not appreciate any gallop. The murmur that she previously had at the apex is much less prominent and I would say maybe 1 or 2/6 intensity. Abdomen is soft, nontender. There is still a fairly significant edema approximately to the level of the knees but at least it is soft and the skin is not stretched and tense. Neurologically she is intact. LABORATORY: CBC hemoglobin is currently 13, hematocrit 38.6 and platelet count 157,000. Basic metabolic panel is normal. Potassium 3.8, creatinine 0.7. ASSESSMENT/PLAN: Mrs. 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 She has somewhat suppressed TSH though it is conceivable that hyperthyroidism was the triggering event. She is currently rate controlled on 50 mg twice a day of metoprolol, has been anticoagulated with Eliquis and has had very profound diuresis with combination of furosemide and spironolactone. I do believe that she is getting very close to discharge and in my opinion tomorrow or the day after tomorrow she will be close to euvolemic. I spoke about this with the patient.
--- NOTE | 2016-08-17 10:35 | IPNPDOC ---
Date Seen The patient was seen on 08/17/16. Progress Note SUBJECTIVE: Patient is feeling well, she tells me she is able to get up and ambulate, she tells me that she wants to be home for August [address] [place] and insists upon it. OBJECTIVE PHYSICAL EXAMINATION: VITAL SIGNS: Please see below. GENERAL: Obese female appears older than stated age sitting in a recliner she does not appear to be in any acute distress HEENT: Pupils are equally round reactive to light she does have elevation central venous pressure CARDIOVASCULAR: S1-S2 irregularly irregular. RESPIRATORY: Diminished breath sounds at the bases. ABDOMINAL: Obese bowel sounds present abdomen soft EXTREMITIES: Edema to the level just below the knee, it continues to improve daily. LABORATORY DATA: Please see below. MICROBIOLOGY: Please see below. IMAGING: CT angiography: 1. No evidence of pulmonary embolism. 2. No acute intrapulmonary disease. 3. Moderate diffuse abdominal ascites. Lower extremity duplex:No evidence of deep vein thrombosis in the femoral popliteal venous system. Echocardiogram: 1. Study is of fair technical quality. 2. Normal LV size with severe global hypokinesis and flattening of interventricular septum. Overall estimated EF 30-35%. 3. Dilated hypokinetic right ventricle. 4. Severe biatrial enlargement. 5. Approximately moderate mitral insufficiency. 6. Approximately moderate tricuspid insufficiency. 7. Very high central venous pressure. 8. At least moderately severe pulmonary hypertension. 9. Left pleural effusion with presence of mass, potentially representing thrombus or collapsed lobe.. DVT prophylaxis ordered?: Elquis ASSESSMENT AND PLAN: This is a 51-year-old female with decompensated systolic heart failure. PROBLEMS: (1) Atrial fibrillation with rapid ventricular response Newly diagnosed, she is currently being rate controlled with metoprolol 50mg BID , she is anticoagulated with Eliquis script sent for prior auth obtainment. Cardiologies help is greatly appreciated. 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 We are aggressively diuresing the patient she is improving clinically. Quite likely she will require several more days of diuresis is on Lasix and Aldactone beta gilbert and I suspect in coming days will be added on an ANNABELLE inhibitor as we slowly titrate medications. (3) Ventricular tachyarrhythmia With low ejection fraction we are aggressively repleting electrolytes she is recently started on Aldactone continue to monitor she did have some more yesterday evening, asymptomatic (4) Electrolyte abnormality The patient was started on Aldactone replete magnesium & K as needed (5) Hyperthyroidism this is an acute new problem the patient has been started on methimazole 10 q day (6) urinary tract infection c/w macrobid to complete course DISPOSITION:continues to improve, may be stable for d/c over the weekend vs. early next week. She has been cleared by PT and would need eliquis prior to d/c , home care has been arranged. VS, I&O, 24H, Fishbone Vital Signs/I&O Vital Signs Date Time Temp Pulse Resp B/P (MAP) Pulse Ox O2 Delivery O2 Flow Rate FiO2 08/17/16 08:00 98.2 73 20 106/61 (76) 98 Room Air I&O- Last 24 Hours up to 6 AM 08/17/16 06:00 Intake Total 1020 ml Output Total 5600 ml Balance -4580 ml Laboratory Data 24H LABS Laboratory Tests 2 08/17/16 04:20: Anion Gap 7L, Glomerular Filtration Rate > 60.0, Blood Urea Nitrogen 12, Creatinine 0.67, Sodium Level 138, Potassium Level 3.8, Chloride Level 98, Carbon Dioxide Level 33H, Calcium Level 9.3, Magnesium Level 2.4 CBC/BMP Laboratory Tests 08/17/16 04:20 Red Blood Count 4.27, Mean Corpuscular Volume 90.5, Mean Corpuscular Hemoglobin 30.4, Mean Corpuscular Hemoglobin Concent 33.6, Red Cell Distribution Width 14.7 H, Calcium Level 9.3 Microbiology Microbiology 08/07/16 Urine Culture - Final, Complete Escherichia Coli SADIE PATTEN MD Aug 17, 2016 10:35
[2016-08-17] MEDS: APIXABAN 5 MG TAB (ELIQUIS) PO SCH ×2 (11:41→20:06)
--- NOTE | 2016-08-17 22:19 | IPN ---
DATE: 08/16/2016 SUBJECTIVE: Mrs. Siobhan Varghese was seen early this morning. She was in her recliner, in no acute distress at rest. She stated she continues to feel better and now is able to walk without her cane and walker to the bathroom. She denies any chest pain, and there is no orthopnea or paroxysmal nocturnal dyspnea (PND). Her pedal edema has improved significantly. She had no orthopnea. There is no report of bleeding. OBJECTIVE: On physical examination, the patient is alert and oriented, in no acute distress at rest, and her vital signs when I saw her earlier today revealed a blood pressure of 114/56, with a pulse of 77, respirations of 18, and her maximum temperature was 97.7 degrees Fahrenheit with an oxygen saturation of 97% on room air. HEENT: Atraumatic. NECK: Supple, no carotid bruits. LUNGS: Did not reveal any wheezing. HEART: Revealed irregularly irregular heart sounds without gallops. The point of maximum impulse (PMI) is slightly displaced inferiorly. There is no rub. There is a systolic murmur grade 2/6 at the lower left sternal border without any significant radiation, and also heard at the apex. ABDOMEN: Soft and nontender. EXTREMITIES: Revealed bilateral lower extremity edema. NEUROLOGIC: Grossly is negative for focal deficit. LABORATORY DATA: CBC done today revealed a WBC of 7.3, hemoglobin 12.0, hematocrit 35.7, and platelets 138,000. BMP revealed a sodium of 141, potassium 3.5, chloride 102, CO2 32, BUN 14, creatinine 0.62, GFR more than 60, fasting glucose 93, calcium 8.9, magnesium 2.3. Telemetry revealed atrial fibrillation with a ventricular rate of 94 beats per minute. ASSESSMENT: Mr. Siobhan Varghese seems to be stable from a cardiac point of view with controlled ventricular rate on current AV blocking agents and she continues the same. She is also on treatment for her hypothyroidism. She is on Eliquis for prevention of thromboembolic events. She denies any bleeding. Case was discussed earlier today with hospitalist. We will continue current management for now, and once again, if her blood pressure remains stable, to consider adding a small dose of an angiotension-converting enzyme (ANNABELLE) inhibitor, Ramipril/Altace would be a good choice for her. I will continue to monitor her along with you. Dr. Maria is covering tomorrow and will be seeing her. Please do not hesitate to call if any questions. It seems that she continues to have good urinary output, we will need to monitor closely her BUN and creatinine and serum potassium. MTDD
[2016-08-18] VITALS (7 sets, daily range): BP systolic 103–119; BP diastolic 57–86
[2016-08-18] MEDS: FUROSEMIDE 40 MG/4 ML VIAL (J1940) IV SCH ×3 (05:22→21:34)
[2016-08-18] MEDS: SLF 3 ML SYR IV SCH ×3 (05:22→21:35)
[2016-08-18 06:05] LABS: MEAN CORPUSCULAR HEMOGLOBIN 30.7 pg (27.0-33.0); MEAN CORPUSCULAR HGB CONC 34.1 g/dl (32.0-36.5); MEAN CORPUSCULAR VOLUME 89.9 fl (80.0-96.0); RED CELL DISTRIBUTION WIDTH 14.7 % (11.5-14.5); WHITE BLOOD COUNT 6.5 K/mm3 (4.0-10.0)
[2016-08-18 06:24] LABS: ANION GAP 6 MEQ/L (8-16); BLOOD UREA NITROGEN 14 MG/DL (7-18); CALCIUM LEVEL 9.1 MG/DL (8.5-10.1); CARBON DIOXIDE LEVEL 33 MEQ/L (21-32); CHLORIDE LEVEL 99 MEQ/L (98-107); CREATININE FOR GFR 0.64 MG/DL (0.55-1.02); GLOMERULAR FILTRATION RATE > 60.0 (>51); GLUCOSE, FASTING 79 MG/DL (70-105); MAGNESIUM LEVEL 2.5 MG/DL (1.8-2.4); POTASSIUM SERUM 3.7 MEQ/L (3.5-5.1); SODIUM LEVEL 138 MEQ/L (136-145)
[2016-08-18] MEDS: SPIRONOLACTONE 25 MG TAB PO SCH (09:29)
[2016-08-18] MEDS: SENOKOT S TAB PO SCH ×2 (09:30→20:42)
[2016-08-18] MEDS: APIXABAN 5 MG TAB (ELIQUIS) PO SCH ×2 (09:30→20:42)
[2016-08-18] MEDS: POTASSIUM CHLORIDE 10 MEQ SR TABLET PO SCH (09:30)
[2016-08-18] MEDS: METOPROLOL TART 50 MG TAB PO SCH ×2 (09:30→20:42)
[2016-08-18] MEDS: NYSTATIN 100,000 UNITS/GM TOPICAL PWD 15 GM TOP SCH ×2 (09:31→20:42)
--- NOTE | 2016-08-18 11:28 | IPN ---
DATE: 08/18/2016 Mrs. Varghese had a good night. There were no unusual events. This morning on telemetry her heart rate was quite tachycardia when she was ambulating in the room but for the most part she is feeling much better and wants to go home tomorrow as originally planned. Blood pressure 112/67, heart rate mostly in 70s and 80s. She is afebrile. Saturation is 98% on room air. Fluid balance yesterday again was very negative about for 4 1/2 liters according to documented schedule. Weight is down to 105 kg which is almost 6 kg compared to the day before. She is alert and oriented and appropriate. Her JVP is not up. Lungs are clear to auscultation. Heart exam reveals irregularly irregular rhythm. Again as yesterday I have a much harder time auscultating her mitral insufficiency murmur. Abdomen is soft, nontender. She still has about 3+ peripheral edema approximately to her knees but we are clearly making a good progress. LABORATORY: Basic metabolic panel is normal. Her magnesium is 2.5. ASSESSMENT/PLAN: Mrs. Varghese is a 55-year-old female who presented with anasarca likely as a consequence of atrial fibrillation and tachycardia induced cardiomyopathy. The underlying problem is possibly hyperthyroidism even though her TSH was only marginally suppressed. She had originally episodes of nonsustained VT, but it was in the setting of hypokalemia and it has not happened since this problem has been corrected. I do believe that she can be discharged home tomorrow. I plan to send her home on combination of metoprolol, we will reduce the dose of furosemide, and give her spironolactone as well. She will be anticoagulated. I intend to see her in followup in the near future.
--- NOTE | 2016-08-18 13:00 | IPNPDOC ---
Date Seen The patient was seen on 08/18/16. Progress Note SUBJECTIVE: Patient is feeling great and is eager to go home. She tells me that her father was will pick her up from the hospital she is discharged he will bring the enclosed shoes and be able to obtain all prescription medications for her provide care for her OBJECTIVE PHYSICAL EXAMINATION: VITAL SIGNS: Please see below. 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 RESPIRATORY: Diminished breath sounds at the bases. ABDOMINAL: Obese bowel sounds present abdomen soft EXTREMITIES: Edema to the level just below the knee, it continues to improve daily. LABORATORY DATA: Please see below. MICROBIOLOGY: Please see below. IMAGING: CT angiography: 1. No evidence of pulmonary embolism. 2. No acute intrapulmonary disease. 3. Moderate diffuse abdominal ascites. Lower extremity duplex:No evidence of deep vein thrombosis in the femoral popliteal venous system. Echocardiogram: 1. Study is of fair technical quality. 2. Normal LV size with severe global hypokinesis and flattening of interventricular septum. Overall estimated EF 30-35%. 3. Dilated hypokinetic right ventricle. 4. Severe biatrial enlargement. 5. Approximately moderate mitral insufficiency. 6. Approximately moderate tricuspid insufficiency. 7. Very high central venous pressure. 8. At least moderately severe pulmonary hypertension. 9. Left pleural effusion with presence of mass, potentially representing thrombus or collapsed lobe.. DVT prophylaxis ordered?: Elquis ASSESSMENT AND PLAN: This is a 51-year-old female with decompensated systolic heart failure. PROBLEMS: (1) Atrial fibrillation with rapid ventricular response Newly diagnosed, she is currently being rate controlled with metoprolol 50mg BID , she is anticoagulated with Eliquis script sent for prior auth obtainment. Cardiologies help is greatly appreciated. 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 We are aggressively diuresing the patient she is improving clinically daily. He is approaching U bulimia (3) nonsustained Ventricular tachyarrhythmia With low ejection fraction we continue to replete electrolytes closely to discharge we'll reevaluate if she is having any significant nonsustained ventricular tachycardia. If so she may benefit from LifeVest will defer to cardiology (4) Electrolyte abnormality The patient was started on Aldactone replete magnesium & K as needed (5) Hyperthyroidism this is an acute new problem the patient has been started on methimazole 10 q day she require outpatient follow-up through primary care provider regarding this (6) urinary tract infection Complete a course of antibiotics DISPOSITION:continues to improve, may be stable for d/c over the next 24-48 hours VS, I&O, 24H, Fishbone Vital Signs/I&O Vital Signs Date Time Temp Pulse Resp B/P (MAP) Pulse Ox O2 Delivery O2 Flow Rate FiO2 08/18/16 09:30 80 112/67 08/18/16 08:00 97.4 20 98 Room Air I&O- Last 24 Hours up to 6 AM 08/18/16 05:59 Intake Total 930 ml Output Total 4675 ml Balance -3745 ml Laboratory Data 24H LABS Laboratory Tests 2 08/18/16 04:43: Anion Gap 6L, Glomerular Filtration Rate > 60.0, Blood Urea Nitrogen 14, Creatinine 0.64, Sodium Level 138, Potassium Level 3.7, Chloride Level 99, Carbon Dioxide Level 33H, Calcium Level 9.1, Magnesium Level 2.5H CBC/BMP Laboratory Tests 08/18/16 04:43 Red Blood Count 4.08, Mean Corpuscular Volume 89.9, Mean Corpuscular Hemoglobin 30.7, Mean Corpuscular Hemoglobin Concent 34.1, Red Cell Distribution Width 14.7 H, Calcium Level 9.1 SADIE PATTEN MD Aug 18, 2016 13:00
[2016-08-19 04:40] VITALS: BP 108/58
[2016-08-19 05:26] LABS: MEAN CORPUSCULAR HEMOGLOBIN 30.5 pg (27.0-33.0); MEAN CORPUSCULAR VOLUME 89.7 fl (80.0-96.0); RED CELL DISTRIBUTION WIDTH 14.8 % (11.5-14.5); WHITE BLOOD COUNT 7.4 K/mm3 (4.0-10.0)
[2016-08-19 05:45] LABS: ANION GAP 4 MEQ/L (8-16); BLOOD UREA NITROGEN 16 MG/DL (7-18); CALCIUM LEVEL 9.3 MG/DL (8.5-10.1); CARBON DIOXIDE LEVEL 35 MEQ/L (21-32); CHLORIDE LEVEL 99 MEQ/L (98-107); CREATININE FOR GFR 0.78 MG/DL (0.55-1.02); GLOMERULAR FILTRATION RATE > 60.0 (>51); GLUCOSE, FASTING 88 MG/DL (70-105); POTASSIUM SERUM 3.7 MEQ/L (3.5-5.1); SODIUM LEVEL 138 MEQ/L (136-145)
[2016-08-19 06:36] VITALS: BP 109/74
[2016-08-19] MEDS: FUROSEMIDE 40 MG/4 ML VIAL (J1940) IV SCH (06:37)
[2016-08-19] MEDS: SLF 3 ML SYR IV SCH (06:37)
[2016-08-19 08:00] VITALS: BP 108/73
[2016-08-19] MEDS: POTASSIUM CHLORIDE 10 MEQ SR TABLET PO SCH (08:38)
[2016-08-19 08:39] VITALS: BP 108/73
[2016-08-19] MEDS: SENOKOT S TAB PO SCH (08:39)
[2016-08-19] MEDS: METOPROLOL TART 50 MG TAB PO SCH (08:39)
[2016-08-19] MEDS: NYSTATIN 100,000 UNITS/GM TOPICAL PWD 15 GM TOP SCH (08:40)
[2016-08-19] MEDS: APIXABAN 5 MG TAB (ELIQUIS) PO SCH (08:40)
[2016-08-19] MEDS: SPIRONOLACTONE 25 MG TAB PO SCH (08:40)
[2016-08-19] MEDS ORDERED: LASI20TA PO (08:47)
[2016-08-19] MEDS ORDERED: METH25TAB PO (08:47)
[2016-08-19] MEDS ORDERED: LOPR1TAB6 PO (08:47)
[2016-08-19] MEDS ORDERED: SPIR25TA2 PO (08:47)
--- NOTE | 2016-08-19 12:31 | DSES ---
DATE OF ADMISSION: 08/07/2016 DATE OF DISCHARGE: 08/19/2016 DISCHARGE DIAGNOSIS: Decompensated systolic congestive heart failure. SECONDARY DIAGNOSES: 1. Atrial fibrillation with rapid ventricular response. 2. Hyperthyroidism. 3. Hypokalemia. 4. Hypomagnesemia. 5. Nonsustained ventricular tachyarrhythmias. 6. Urinary tract infection. HOSPITAL COURSE: The patient is a 51-year-old female who initially presented to the hospital on 08/07/2016. At that time, she presented with complaints of swelling in both her legs progressively over the last 6 months. She was found to be in decompensated heart failure. She was found to be in atrial fibrillation with rapid ventricular response and significantly hyperthyroid. She was started on methimazole. She was rate controlled with metoprolol, anticoagulated with Eliquis, and aggressively diuresed. The patient was seen in consultation by Dr. Maria of cardiology. Throughout the course of her stay, she was diuresed 57 pounds with significant improvement in her functional status and her all-around well-being. SUBJECTIVE: Today, the patient tells me that she feels great. She wants to go home and has no complaints. OBJECTIVE: VITAL SIGNS: Temperature 97.5, pulse 94, respiratory rate 18, blood pressure 108/73, oxygen saturation 98% on room air. GENERAL: She is a morbidly obese female sitting up in a recliner. She does not appear to be in any acute distress. HEENT: Cranial nerves II-XII are grossly intact. She has moist mucous membranes. No elevation of central venous pressure (CVP). CARDIOVASCULAR EXAM: S1, S2, irregularly irregular. RESPIRATORY: Exam is clear. ABDOMINAL EXAM: Benign. EXTREMITIES: She has 1+ edema bilaterally. LABORATORY STUDIES: WBC 7.4, hemoglobin 12.7, hematocrit 37.3, platelet count 171. Chemistry panel: Sodium 138, potassium 3.7, chloride 99, bicarbonate 35, BUN 16, creatinine 0.7. Urine culture during her stay was positive for E. coli, pansensitive. She completed a course of antibiotics during her stay. IMAGING: The patient had a vascular ultrasound, which showed no evidence of deep venous thrombosis (DVT). She had a CT angiography on 08/06/2016, which revealed diffuse abdominal ascites. No evidence of pulmonary embolism (PE) or acute pulmonary disease. She did have an echocardiogram, which revealed normal left ventricle (LV) size with severe global hypokinesis, overall estimated ejection fraction (EF) of 30-35%, dilated hypokinetic right ventricle, severe biatrial enlargement, moderate mitral insufficiency, moderate tricuspid insufficiency, very high central venous pressures, moderately severe pulmonary hypertension. ASSESSMENT AND PLAN: This is a 51-year-old female with decompensated systolic congestive heart failure secondary to uncontrolled atrial fibrillation with rapid ventricular response secondary to hyperthyroidism. PROBLEMS: 1. Hyperthyroidism. This may be the underlying pathology driving the presentation. This was an acute problem. She has been started on methimazole 10 mg daily. She should have outpatient followup with her primary care provider. Could consider referral to endocrinology. 2. Atrial fibrillation with rapid ventricular response. This is newly diagnosed. She is rate controlled with metoprolol 50 mg by mouth twice a day. She is anticoagulated with Eliquis. Prior authorization has been obtained. Cardiology's help has been greatly appreciated. 3. Decompensated systolic congestive heart failure and cor pulmonale. Once again, cardiology's help has been greatly appreciated. Likely tachyarrhythmia-induced cardiomyopathy related to atrial fibrillation. She has been aggressively diuresed 57 pounds' worth of weight. She is on a beta-gilbert. We will discharge her home on Lasix 20 mg daily. She is on a salt-restricted diet and a 1500 mL fluid restriction. She has been started on aldactone. Should her blood pressure allow it in the coming weeks, she should be started on an angiotensin-converting enzyme (ANNABELLE) inhibitor. She is to followup with Dr. Maria of cardiology within 2 weeks. 4. Nonsustained ventricular tachyarrhythmia. Dr. Maria's help has been greatly appreciated. He does not feel as though she has had any recent significant episodes after he has reviewed her telemetry. Her electrolytes have been optimized. She has never been symptomatic. She will require a repeat echocardiogram to re-evaluate her ejection fraction in the coming months. 5. Hypokalemia/hypomagnesemia. Repleted. 6. Urinary tract infection. The patient completed a course of antibiotics while in the hospital. DISPOSITION: The patient is being discharged home to the care of her father. She has been cleared by physical therapy. She has been provided a prescription for a rolling walker. She is to followup with her primary care provider (PCP) in 7 days. Her activity is as prior to admission. Her diet is 2-gram sodium, 1500 mL diet. She is to return to the emergency room (ER) if her symptoms worsen. She is to check her daily weights. MEDICATIONS AT THE TIME OF DISCHARGE: - Eliquis 5 mg by mouth twice a day - Lasix 20 mg daily - methimazole 10 mg daily - Lopressor 50 mg twice a day - aldactone 25 mg every morning - levocetirizine 5 mg nightly Greater than 45 minutes spent organizing disposition. Edited: flora 08/21/2016 1423
== END 2016-08-19 12:37 | disposition home health service (06) | DRG 643 ==
LOC: M ED 22:35 → M ED INP 08-07 00:10 → M ED 08-07 00:42 → M PCU 08-07 11:54
PROVIDERS: ADMIT Internal Medicine Nephrology; ATTEND Internal Medicine
DX: E05.90 Thyrotoxicosis, unspecified without thyrotoxic crisis or storm (principal); I50.21 Acute systolic (congestive) heart failure; I47.2 Ventricular tachycardia; N39.0 Urinary tract infection, site not specified; R17 Unspecified jaundice; I48.91 Unspecified atrial fibrillation; E83.42 Hypomagnesemia; I27.89 Other specified pulmonary heart diseases; B96.29 Other Escherichia coli [E. coli] as the cause of diseases classified elsewhere; I36.0 Nonrheumatic tricuspid (valve) stenosis; E87.6 Hypokalemia; Z79.899 Other long term (current) drug therapy; J45.909 Unspecified asthma, uncomplicated; Z88.0 Allergy status to penicillin; Z88.8 Allergy status to other drugs, medicaments and biological substances

== ENCOUNTER → 2016-08-30 | Outpatient (REF) | payer MEDICARE, MEDICAID ==
[~2016-08-30] MED LIST changes: +ELIQ5TAB PO; +LASI20TA PO; +LEVOTAB10 PO; +LOPR1TAB6 PO; +METH25TAB PO; +SPIR25TA2 PO
[2016-08-30 12:22] LABS: FREE T4 1.59 NG/DL (0.76-1.46)
[2016-09-02 14:10] LABS: HEPATITIS C QUANTITATION HCV Not Detected IU/mL (.)
== END ==
LOC: M SFHCPLAZ 10:01
PROVIDERS: ATTEND Family Medicine
DX: R16.2 Hepatomegaly with splenomegaly, not elsewhere classified (principal); E05.90 Thyrotoxicosis, unspecified without thyrotoxic crisis or storm; R18.8 Other ascites; Z79.899 Other long term (current) drug therapy
CPT/HCPCS: 36415; 82728; 83540; 84439; 84443; 84481; 86704; 86708; 87522; G0463

== ENCOUNTER → 2016-09-06 | Outpatient (CLI) | payer MEDICARE, MEDICAID ==
[~2016-09-06] MED LIST changes: +GASTROGRAFIN SOLUTION 30ML (Q9963) As Ordered ONE; +ISOVUE-370 76% 100ML VIAL (Q9967) As Ordered ONE
--- NOTE | 2016-09-06 12:11 | REP ---
CT abdomen and pelvis with IV and oral contrast: History: Ascites. Comparison CT chest images are reviewed from August 06, 2016. CT contrast dose: 100 mL of Isovue 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 The lung bases are essentially clear. The liver is normal in size and homogeneous in texture. No gallbladder or pancreatic abnormality is seen. The spleen is borderline in size measuring 12.4 cm. It has a mottled appearance of multiple rounded radiolucencies. This may be a reflection of early post injection contrast enhancement. No adrenal lesion is seen on either side. The kidneys enhance symmetrically and are morphologically intact. The right hepatic artery takes a direct aortic origin as a normal variant. There are scattered normal-sized left periaortic and small bowel mesenteric lymph nodes. The inferior vena cava and the femoral veins and common iliac veins are somewhat dilated compared to the abdominal aorta. There is no evidence to suggest thrombosis or proximal obstruction. There is however evidence of four-chamber cardiomegaly with right atrial dilation. This dilation of the vena cava may represent right heart failure. There is a diffuse subcutaneous edema pattern involving the abdominal wall particularly anteriorly. There is mild diffuse abdominal ascites. Small and large intestinal bowel loops are normal. No abdominal wall defect is seen. There is a small uterine leiomyoma. No other uterine or ovarian finding is seen. Impression: Cardiomegaly with evidence of right heart failure diffuse subcutaneous edema and dilation of the inferior vena cava and common iliac veins bilaterally. Mild ascites seen diffusely. Scattered normal-sized periaortic and pericaval and small bowel mesenteric lymph nodes. Borderline spleen size. Signed by Nawaf Vogt MD 09/06/2016 12:26 P
== END ==
LOC: M RAD 08:52
PROVIDERS: ATTEND Family Medicine
DX: R18.8 Other ascites (principal)
CPT/HCPCS: 74177; Q9963; Q9967

== ENCOUNTER → 2016-09-13 | Outpatient (REF) | payer MEDICARE, MEDICAID ==
[~2016-09-13] MED LIST changes: -GASTROGRAFIN SOLUTION 30ML (Q9963) As Ordered ONE; -ISOVUE-370 76% 100ML VIAL (Q9967) As Ordered ONE
[2016-09-13 16:06] LABS: ANION GAP 10 MEQ/L (8-16); BLOOD UREA NITROGEN 17 MG/DL (7-18); CALCIUM LEVEL 9.5 MG/DL (8.5-10.1); CARBON DIOXIDE LEVEL 30 MEQ/L (21-32); CHLORIDE LEVEL 100 MEQ/L (98-107); CHOLESTEROL LEVEL 120 MG/DL (<200); CREATININE FOR GFR 0.66 MG/DL (0.55-1.02); GLOMERULAR FILTRATION RATE > 60.0 (>51); GLUCOSE, FASTING 88 MG/DL (70-105); POTASSIUM SERUM 4.2 MEQ/L (3.5-5.1); SODIUM LEVEL 140 MEQ/L (136-145); TRIGLYCERIDES LEVEL 55 MG/DL (<150)
== END ==
LOC: M SFHCPLAZ 12:00
PROVIDERS: ATTEND Family Medicine
DX: E66.9 Obesity, unspecified (principal); E80.6 Other disorders of bilirubin metabolism; I50.42 Chronic combined systolic (congestive) and diastolic (congestive) heart failure; I27.2 Other secondary pulmonary hypertension; Z68.33 Body mass index [BMI] 33.0-33.9, adult; Z79.899 Other long term (current) drug therapy
CPT/HCPCS: 80048; 80061; 83036; 94010; G0463

== ENCOUNTER → 2016-10-22 | Outpatient (REF) | payer MEDICARE, MEDICAID ==
[2016-10-22 13:47] LABS: FREE T4 1.91 NG/DL (0.76-1.46)
== END ==
LOC: M LABDRAW1 11:58
PROVIDERS: ATTEND Internal Medicine Endocrinology, Diabetes & Metabolism
DX: E05.00 Thyrotoxicosis with diffuse goiter without thyrotoxic crisis or storm (principal)

== ENCOUNTER → 2016-11-04 | Outpatient (CLI) | payer MEDICARE, MEDICAID ==
--- NOTE | 2016-11-05 15:42 | REP ---
Radionuclide thyroid uptake and scan: History: Hyperthyroidism. Technique: 373.0 Microcuries of I 123 sodium iodide is ingested and functional thyroid images and thyroid uptake values are acquired. Findings: 24 are thyroid uptake is markedly elevated at 69.3% (25 34%). Functional images demonstrate homogeneous uptake in somewhat prominent thyroid lobes bilaterally. No cold or warm lesion seen. Impression: Findings compatible with Graves disease. Signed by Nawaf Vogt MD 11/05/2016 03:33 P
== END ==
LOC: M RAD 12:53
PROVIDERS: ATTEND Internal Medicine Endocrinology, Diabetes & Metabolism
DX: E05.90 Thyrotoxicosis, unspecified without thyrotoxic crisis or storm (principal)
CPT/HCPCS: 78012; A9516

== ENCOUNTER → 2016-11-28 | Outpatient (CLI) | payer MEDICARE, MEDICAID | LOC: M RAD 10:31 | PROVIDERS: ATTEND Internal Medicine Endocrinology, Diabetes & Metabolism | DX: E05.00 Thyrotoxicosis with diffuse goiter without thyrotoxic crisis or storm (principal) | CPT/HCPCS: 79005; A9517 ==

== ENCOUNTER → 2017-01-16 | Outpatient (REF) | payer MEDICARE, MEDICAID ==
[2017-01-16 14:13] LABS: FREE T4 1.33 NG/DL (0.76-1.46)
== END ==
LOC: M LABDRAW1 10:37
PROVIDERS: ATTEND Internal Medicine Endocrinology, Diabetes & Metabolism
DX: E05.00 Thyrotoxicosis with diffuse goiter without thyrotoxic crisis or storm (principal)

== ENCOUNTER → 2017-01-28 | Outpatient (REF) | payer MEDICARE, MEDICAID ==
[2017-01-28 14:14] LABS: ALBUMIN 3.1 GM/DL (3.2-5.2); ALBUMIN/GLOBULIN RATIO 0.84 (1.00-1.93); BILIRUBIN,DIRECT 0.6 MG/DL (0.0-0.2); BILIRUBIN,TOTAL 1.9 MG/DL (0.2-1.0); FREE T4 1.9 NG/DL (0.76-1.46); TOTAL PROTEIN 6.8 GM/DL (6.4-8.2)
== END ==
LOC: M SFHCPLAZ 10:50
PROVIDERS: ATTEND Family Medicine
DX: E80.6 Other disorders of bilirubin metabolism (principal); E05.90 Thyrotoxicosis, unspecified without thyrotoxic crisis or storm

== ENCOUNTER → 2017-03-03 | Outpatient (REF) | payer MEDICARE, MEDICAID ==
[2017-03-03 14:15] LABS: FREE T4 0.88 NG/DL (0.76-1.46)
== END ==
LOC: M LAB REF 13:16
DX: E05.00 Thyrotoxicosis with diffuse goiter without thyrotoxic crisis or storm (principal)
CPT/HCPCS: 84443

== ENCOUNTER → 2017-04-09 | Outpatient (REF) | payer MEDICARE, MEDICAID ==
[2017-04-09 12:22] LABS: FREE T4 0.58 NG/DL (0.76-1.46)
== END ==
LOC: M LABDRAW1 10:47
DX: E05.00 Thyrotoxicosis with diffuse goiter without thyrotoxic crisis or storm (principal)
CPT/HCPCS: 84443

== ENCOUNTER → 2017-05-08 | Outpatient (REF) | payer MEDICARE, MEDICAID ==
[2017-05-08 12:20] LABS: ANION GAP 6 MEQ/L (8-16); BLOOD UREA NITROGEN 22 MG/DL (7-18); CALCIUM LEVEL 9.1 MG/DL (8.5-10.1); CARBON DIOXIDE LEVEL 32 MEQ/L (21-32); CHLORIDE LEVEL 103 MEQ/L (98-107); CREATININE FOR GFR 0.83 MG/DL (0.55-1.30); GLOMERULAR FILTRATION RATE > 60.0 (>51); GLUCOSE, FASTING 98 MG/DL (70-100); NT-PRO BNP 2154 PG/ML (<125); POTASSIUM SERUM 4.2 MEQ/L (3.5-5.1); SODIUM LEVEL 141 MEQ/L (136-145)
[2017-05-10 00:07] LABS: ANTI-SMOOTH MUSCLE ANTIBODY 11 Units (0-19)
[2017-05-10 00:07] LABS: ANTI-MITOCHONDRIAL ANTIBODY 7.4 Units (0.0-20.0)
== END ==
LOC: M SFHCPLAZ 08:18
DX: I50.42 Chronic combined systolic (congestive) and diastolic (congestive) heart failure (principal); R17 Unspecified jaundice; E05.90 Thyrotoxicosis, unspecified without thyrotoxic crisis or storm; J45.909 Unspecified asthma, uncomplicated
CPT/HCPCS: 84443

== ENCOUNTER → 2017-06-25 | Outpatient (REF) | payer MEDICARE, MEDICAID ==
[2017-06-25 12:15] LABS: FREE T4 1.91 NG/DL (0.76-1.46)
== END ==
LOC: M LABDRAW1 08:46
DX: E89.0 Postprocedural hypothyroidism (principal)
CPT/HCPCS: 84443

== ENCOUNTER → 2017-07-07 | Outpatient (REF) | payer MEDICARE, MEDICAID ==
[2017-07-07 11:31] LABS: ALBUMIN 3.6 GM/DL (3.2-5.2); ALBUMIN/GLOBULIN RATIO 0.86 (1.00-1.93); ALKALINE PHOSPHATASE 186 U/L (45-117); ALT/SGPT 30 U/L (12-78); ANION GAP 8 MEQ/L (8-16); AST/SGOT 22 U/L (7-37); BILIRUBIN,DIRECT 0.3 MG/DL (0.0-0.2); BILIRUBIN,TOTAL 1.1 MG/DL (0.2-1.0); BLOOD UREA NITROGEN 14 MG/DL (7-18); CARBON DIOXIDE LEVEL 31 MEQ/L (21-32); CHLORIDE LEVEL 103 MEQ/L (98-107); GLOMERULAR FILTRATION RATE > 60.0 (>51); GLUCOSE, FASTING 108 MG/DL (70-100); NT-PRO BNP 2525 PG/ML (<125); POTASSIUM SERUM 4.2 MEQ/L (3.5-5.1); SODIUM LEVEL 142 MEQ/L (136-145); TOTAL PROTEIN 7.8 GM/DL (6.4-8.2)
[2017-07-07 11:47] LABS: ESTIMATED AVERAGE GLUCOSE 114 MG/DL (60-110); HEMOGLOBIN A1c 5.6 %
== END ==
LOC: M SFHCPLAZ 08:48
DX: R17 Unspecified jaundice (principal); I50.42 Chronic combined systolic (congestive) and diastolic (congestive) heart failure; Z13.1 Encounter for screening for diabetes mellitus; Z79.899 Other long term (current) drug therapy
CPT/HCPCS: 80076

== ENCOUNTER → 2017-07-24 | Outpatient (REF) | payer MEDICARE, MEDICAID ==
[2017-07-24 15:23] LABS: THYROID STIMULATING HORMONE 0.523 uIU/ML (0.358-3.740)
== END ==
LOC: M LABDRAW1 14:50
DX: E89.0 Postprocedural hypothyroidism (principal)
CPT/HCPCS: 84443

== ENCOUNTER → 2017-09-10 | Outpatient (REF) | payer MEDICARE, MEDICAID ==
[2017-09-10 12:41] LABS: ANION GAP 7 MEQ/L (8-16); BLOOD UREA NITROGEN 12 MG/DL (7-18); CALCIUM LEVEL 8.9 MG/DL (8.5-10.1); CARBON DIOXIDE LEVEL 33 MEQ/L (21-32); CHLORIDE LEVEL 104 MEQ/L (98-107); CREATININE FOR GFR 0.62 MG/DL (0.55-1.30); GLOMERULAR FILTRATION RATE > 60.0 (>51); GLUCOSE, FASTING 93 MG/DL (70-100); POTASSIUM SERUM 3.8 MEQ/L (3.5-5.1); SODIUM LEVEL 144 MEQ/L (136-145)
== END ==
LOC: M SFHCPLAZ 10:10
DX: I50.42 Chronic combined systolic (congestive) and diastolic (congestive) heart failure (principal)
CPT/HCPCS: 80048

== ENCOUNTER → 2017-11-01 | Outpatient (CLI) | payer MEDICARE, MEDICAID | LOC: M SLEEP 15:30 | DX: G47.33 Obstructive sleep apnea (adult) (pediatric) (principal) | CPT/HCPCS: 95810 ==

== ENCOUNTER → 2017-11-26 | Outpatient (REF) | payer MEDICARE, MEDICAID ==
[2017-12-01 10:02] LABS: FREE T4 BY DIALYSIS DIRECT 1.4 ng/dL (.)
== END ==
LOC: M LABDRAW1 11:48
DX: E89.0 Postprocedural hypothyroidism (principal)
CPT/HCPCS: 84443

== ENCOUNTER 2017-12-03 12:28 | Emergency (ER) | payer MEDICARE, MEDICAID ==
[2017-12-03] MEDS: OXYMETAZOLINE NASAL SPRAY (AFRIN) ×2 (12:43→12:45)
[2017-12-03] MEDS: LIDOCAINE 2% JELLY 30 ML TOP (12:53)
[2017-12-03] MEDS ORDERED: LIDOCAINE 2% JELLY 30 ML As Ordered (12:54)
[2017-12-03 13:11] LABS: BASO # 0.1 10^3/uL (0.0-0.2); BASO % 0.7 % (0.0-1.0); EOS # 0.3 10^3/uL (0.0-0.50); EOS % 2.3 % (0.0-3.0); HEMOGLOBIN 13.2 g/dl (12.0-15.5); IMMATURE GRANULOCYTE % 0.5 % (0-3.0); LYMPH # 2.8 10^3/uL (1.5-4.5); LYMPH % 20.6 % (24.0-44.0); MEAN CORPUSCULAR HEMOGLOBIN 29.7 pg (27.0-33.0); MEAN CORPUSCULAR HGB CONC 33.8 g/dl (32.0-36.5); MEAN CORPUSCULAR VOLUME 87.8 fl (80.0-96.0); MONO # 0.9 10^3/uL (0.0-0.8); MONO % 6.9 % (0.0-5.0); NEUTROPHILS # 9.4 10^3/uL (1.8-7.7); PLATELET COUNT, AUTOMATED 205 10^3/uL (150-450); RED BLOOD COUNT 4.44 10^6/uL (4.00-5.40); RED CELL DISTRIBUTION WIDTH 14.6 % (11.5-14.5); WHITE BLOOD COUNT 13.6 10^3/uL (4.0-10.0)
[2017-12-03] MEDS: NS 500 ML IV (13:12)
[2017-12-03] MEDS: ONDANSETRON 4MG/2ML VIAL (J2405) IV (13:12)
[2017-12-03] MEDS: LevoFLOXacin IV 750 MG in APPROPRIATE DILUENT 1 EA IV (13:18)
[2017-12-03 13:24] LABS: INR 1.33; PARTIAL THROMBOPLASTIN TIME 31.7 SECONDS (25.4-37.6); PROTHROMBIN TIME 16.7 SECONDS (12.1-14.4)
[2017-12-03 13:42] LABS: ANION GAP 6 MEQ/L (8-16); BLOOD UREA NITROGEN 23 MG/DL (7-18); CALCIUM LEVEL 8.3 MG/DL (8.5-10.1); CARBON DIOXIDE LEVEL 32 MEQ/L (21-32); CHLORIDE LEVEL 103 MEQ/L (98-107); CPK CREATINE PHOSPHOKINASE 42 U/L (26-192); CREATININE FOR GFR 0.92 MG/DL (0.55-1.30); GLOMERULAR FILTRATION RATE > 60.0 (>51); GLUCOSE, FASTING 134 MG/DL (70-100); LIPASE 98 U/L (73-393); MB/CK RELATIVE INDEX 5.24 (< OR =4); POTASSIUM SERUM 4.8 MEQ/L (3.5-5.1); SODIUM LEVEL 141 MEQ/L (136-145); TROPONIN I < 0.02 NG/ML (< 0.10)
[2017-12-03] MEDS ORDERED: SILVER NITRATE APPLICATOR As Ordered (17:34)
== END 2017-12-03 18:17 | disposition home or self-care (01) ==
LOC: M ED 12:28
DX: R04.0 Epistaxis (principal)
CPT/HCPCS: J1956

== ENCOUNTER 2018-01-13 17:18 | Emergency (ER) | payer MEDICARE, MEDICAID ==
[2018-01-13] MEDS: MORPHINE 2 MG/ML 1ML SYRINGE (J2270) IV (19:17)
[2018-01-13] MEDS: ONDANSETRON 4MG/2ML VIAL (J2405) IV (19:17)
[2018-01-13] MEDS: METOPROLOL TART 50 MG TAB PO (19:18)
[2018-01-13 19:31] LABS: BASO # 0.1 10^3/uL (0.0-0.2); BASO % 0.5 % (0.0-1.0); EOS # 0.3 10^3/uL (0.0-0.50); EOS % 2.2 % (0.0-3.0); HEMATOCRIT 37.7 % (36.0-47.0); HEMOGLOBIN 12.2 g/dl (12.0-15.5); IMMATURE GRANULOCYTE % 0.4 % (0-3.0); LYMPH # 2.5 10^3/uL (1.5-4.5); LYMPH % 20.4 % (24.0-44.0); MEAN CORPUSCULAR HEMOGLOBIN 26.5 pg (27.0-33.0); MEAN CORPUSCULAR HGB CONC 32.4 g/dl (32.0-36.5); MEAN CORPUSCULAR VOLUME 81.8 fl (80.0-96.0); MONO # 0.9 10^3/uL (0.0-0.8); MONO % 7.7 % (0.0-5.0); NEUTROPHILS # 8.3 10^3/uL (1.8-7.7); NEUTROPHILS % 68.8 % (36.0-66.0); PLATELET COUNT, AUTOMATED 299 10^3/uL (150-450); RED BLOOD COUNT 4.61 10^6/uL (4.00-5.40)
[2018-01-13 19:44] LABS: INR 1.11; PARTIAL THROMBOPLASTIN TIME 29.8 SECONDS (25.4-37.6); PROTHROMBIN TIME 14.5 SECONDS (12.1-14.4)
[2018-01-13 19:50] LABS: LACTIC ACID SEPSIS PROTOCOL 1.2 MMOL/L (0.4-2.0)
[2018-01-13 19:59] LABS: ALBUMIN 3.1 GM/DL (3.2-5.2); ALBUMIN/GLOBULIN RATIO 0.76 (1.00-1.93); ALKALINE PHOSPHATASE 144 U/L (45-117); ALT/SGPT 23 U/L (12-78); ANION GAP 9 MEQ/L (8-16); AST/SGOT 12 U/L (7-37); BILIRUBIN,DIRECT 0.2 MG/DL (0.0-0.2); BILIRUBIN,TOTAL 0.6 MG/DL (0.2-1.0); BLOOD UREA NITROGEN 12 MG/DL (7-18); CALCIUM LEVEL 8.4 MG/DL (8.5-10.1); CARBON DIOXIDE LEVEL 28 MEQ/L (21-32); CHLORIDE LEVEL 104 MEQ/L (98-107); CPK CREATINE PHOSPHOKINASE 42 U/L (26-192); FREE T4 1.53 NG/DL (0.76-1.46); GLOMERULAR FILTRATION RATE > 60.0 (>51); GLUCOSE, FASTING 117 MG/DL (70-100); MB/CK RELATIVE INDEX 2.62 (< OR =4); POTASSIUM SERUM 3.8 MEQ/L (3.5-5.1); SODIUM LEVEL 141 MEQ/L (136-145); THYROID STIMULATING HORMONE 0.672 uIU/ML (0.358-3.740); TOTAL PROTEIN 7.2 GM/DL (6.4-8.2); TROPONIN I < 0.02 NG/ML (< 0.10)
[2018-01-13] MEDS ORDERED: ISOVUE-370 76% 100ML VIAL (Q9967) As Ordered (20:28)
[2018-01-13 22:39] LABS: CK-MB VALUE MASS < 1.0 NG/ML (<3.6); CPK CREATINE PHOSPHOKINASE 40 U/L (26-192); TROPONIN I < 0.02 NG/ML (< 0.10)
[2018-01-13] MEDS: DABIGATRAN ETEXILATE 75 MG CAP (PRADAXA) PO (22:54)
== END 2018-01-13 23:25 | disposition home or self-care (01) ==
LOC: M ED 17:18
DX: I48.91 Unspecified atrial fibrillation (principal); R07.9 Chest pain, unspecified; M54.9 Dorsalgia, unspecified; I11.0 Hypertensive heart disease with heart failure; I50.9 Heart failure, unspecified; F79 Unspecified intellectual disabilities; F17.200 Nicotine dependence, unspecified, uncomplicated; Z88.6 Allergy status to analgesic agent; Z88.0 Allergy status to penicillin; Z79.899 Other long term (current) drug therapy
CPT/HCPCS: J2405

== ENCOUNTER → 2018-04-23 | Outpatient (REF) | payer MEDICARE, MEDICAID ==
[~2018-04-23] MED LIST changes: +ENTR1TAB PO; -LASI20TA PO; +LASI20TA3 PO; +LEVO750T13 PO; +LEVOTHYROXINE; +PRAD150C PO; +SPIR-10 PO; -SPIR25TA2 PO
[2018-04-23 19:02] LABS: ALBUMIN 3.4 GM/DL (3.2-5.2); ALT/SGPT 21 U/L (12-78); BILIRUBIN,TOTAL 0.5 MG/DL (0.2-1.0); BLOOD UREA NITROGEN 12 MG/DL (7-18); CALCIUM LEVEL 8.8 MG/DL (8.5-10.1); CARBON DIOXIDE LEVEL 29 MEQ/L (21-32); CHLORIDE LEVEL 103 MEQ/L (98-107); CHOLESTEROL LEVEL 134 MG/DL (<200); CHOLESTEROL RISK RATIO 3.268 (<5); CREATININE FOR GFR 0.79 MG/DL (0.55-1.30); FREE T3 3.5 PG/ML (2.2-4.0); GLOMERULAR FILTRATION RATE > 60.0 (>51); GLUCOSE, FASTING 87 MG/DL (70-100); HDL CHOLESTEROL 41 MG/DL (>40); LDL CHOLESTEROL 83 MG/DL (<100); NON-HDL-C 93 MG/DL; SODIUM LEVEL 141 MEQ/L (136-145); TOTAL PROTEIN 7.5 GM/DL (6.4-8.2); TRIGLYCERIDES LEVEL 52 MG/DL (<150)
[2018-04-23 19:39] LABS: HEMOGLOBIN A1c 6.3 %
== END ==
LOC: M SFHCPLAZ 13:55
PROVIDERS: ATTEND Family Medicine
DX: E89.0 Postprocedural hypothyroidism (principal); Z13.228 Encounter for screening for other metabolic disorders
CPT/HCPCS: 80053; 80061; 83036; 84439; 84443; 84481; G0463

== ENCOUNTER → 2019-03-24 | Outpatient (REF) | payer MEDICARE, MEDICAID ==
[~2019-03-24] MED LIST changes: -PRAD150C PO; +PRAD150C6 PO
[2019-03-24 17:24] LABS: BASO # 0.1 10^3/uL (0.0-0.2); BASO % 0.8 % (0.0-1.0); EOS # 0.4 10^3/uL (0.0-0.5); EOS % 2.7 % (0.0-3.0); HEMATOCRIT 45.5 % (36.0-47.0); HEMOGLOBIN 14.4 g/dl (12.0-15.5); LYMPH # 3.7 10^3/uL (1.5-5.0); LYMPH % 27.6 % (24.0-44.0); MEAN CORPUSCULAR HEMOGLOBIN 27.3 pg (27.0-33.0); MEAN CORPUSCULAR HGB CONC 31.6 g/dl (32.0-36.5); MEAN CORPUSCULAR VOLUME 86.2 fl (80.0-96.0); MONO % 7.5 % (0.0-5.0); NEUTROPHILS % 60.8 % (36.0-66.0); PLATELET COUNT, AUTOMATED 277 10^3/uL (150-450); RED BLOOD COUNT 5.28 10^6/uL (4.00-5.40); WHITE BLOOD COUNT 13.2 10^3/uL (4.0-10.0)
[2019-03-24 17:32] LABS: INR 1.15; PROTHROMBIN TIME 14.4 SECONDS (11.8-14.0)
[2019-03-24 17:33] LABS: PARTIAL THROMBOPLASTIN TIME 36.3 SECONDS (25.0-38.4)
[2019-03-24 17:43] LABS: ALBUMIN 3.6 GM/DL (3.2-5.2); BILIRUBIN,TOTAL 0.4 MG/DL (0.2-1.0); CALCIUM LEVEL 8.6 MG/DL (8.5-10.1); CHOLESTEROL RISK RATIO 4.288 (<5); CREATININE FOR GFR 1.23 MG/DL (0.55-1.30); FREE T4 0.74 NG/DL (0.76-1.46); GLOMERULAR FILTRATION RATE 48.6 (>51); THYROID STIMULATING HORMONE 29.9 uIU/ML (0.358-3.740); TOTAL PROTEIN 8.3 GM/DL (6.4-8.2)
[2019-03-24 19:11] LABS: HEMOGLOBIN A1c 6.3 %
== END ==
LOC: M SFHCPLAZ 14:44
PROVIDERS: ATTEND Nurse Practitioner Family
DX: I50.42 Chronic combined systolic (congestive) and diastolic (congestive) heart failure (principal); E89.0 Postprocedural hypothyroidism; I48.20 Chronic atrial fibrillation, unspecified; R73.09 Other abnormal glucose; E66.01 Morbid (severe) obesity due to excess calories; Z79.01 Long term (current) use of anticoagulants
CPT/HCPCS: 36415; 80053; 80061; 83036; 83880; 84439; 84443; 85025; 85610; 85730; G0463

== ENCOUNTER 2019-10-27 08:59 | Inpatient (IN) | payer MEDICARE, MEDICAID ==
[~2019-10-27] VITALS: Ht 172.7 cm; Wt 166.3 kg
[2019-10-27] MEDS ORDERED: LEVO88TA3 PO (09:53)
[2019-10-27] MEDS ORDERED: VANCOMYCIN HCL 2,000 MG in D5W 500 ML IV ONE (10:15)
[2019-10-27] MEDS ORDERED: VANCOMYCIN HCL 1,000 MG, VIAL MATE ADAPTER 1 EACH in D5W 250 ML IV ONE ×6 (10:15)
--- NOTE | 2019-10-27 10:36 | REPVR ---
PROCEDURE INFORMATION: Exam: US Duplex Left Lower Extremity Veins, Limited Exam date and time: 10/27/2019 10:12 AM Age: 54 years old Clinical indication: Edema, localized; Lower extremity, left; Additional info: R/O dvt TECHNIQUE: Imaging protocol: Real-time Duplex ultrasound of the Left Lower Extremity with 2-D villarreal scale, color Doppler flow and spectral waveform analysis with image documentation. Limited exam focused on the left lower extremity veins. COMPARISON: US Duplex, Ext LOWER veins, bilat 08/06/2016 9:18 PM FINDINGS: Left deep veins: Unremarkable. The common femoral, femoral, proximal profunda femoral and popliteal veins are patent without thrombus. Normal Doppler waveforms. Normal compressibility and/or augmentation response. Lymph nodes: There is a 2.7 cm lymph node measured in long axis in the left groin. Other findings: The exam is extremely limited due to patient body habitus. IMPRESSION: 1. The exam is extremely limited due to patient body habitus. Within the limitations of this exam, no DVT is seen from the knee superiorly. The calf veins were not evaluated on this exam. 2. There is a 2.7 cm lymph node measured in long axis in the left groin. Electronically signed by: Alberto Valera On 10/27/2019 10:36:15 AM
[2019-10-27 11:24] LABS: BASO # 0.1 10^3/uL (0.0-0.2); BASO % 0.2 % (0.0-1.0); HEMATOCRIT 39.7 % (36.0-47.0); HEMOGLOBIN 12.7 g/dl (12.0-15.5); LYMPH # 1.1 10^3/uL (1.5-5.0); LYMPH % 4.4 % (24.0-44.0); MEAN CORPUSCULAR HEMOGLOBIN 27.4 pg (27.0-33.0); MEAN CORPUSCULAR VOLUME 85.6 fl (80.0-96.0); MONO # 0.8 10^3/uL (0.0-0.8); MONO % 3.2 % (0.0-5.0); NEUTROPHILS # 22.3 10^3/uL (1.5-8.5); NEUTROPHILS % 91.5 % (36.0-66.0); PLATELET COUNT, AUTOMATED 234 10^3/uL (150-450); RED BLOOD COUNT 4.64 10^6/uL (4.00-5.40); WHITE BLOOD COUNT 24.4 10^3/uL (4.0-10.0)
[2019-10-27 11:35] LABS: INR 2.69; PROTHROMBIN TIME 29.2 SECONDS (11.8-14.0)
[2019-10-27] MEDS ORDERED: SPIR-10 PO (11:39)
[2019-10-27] MEDS ORDERED: METO1TAB32 PO (11:39)
[2019-10-27] MEDS ORDERED: PRAD150C6 PO (11:39)
[2019-10-27] MEDS ORDERED: LASI20TA3 PO (11:39)
[2019-10-27 12:13] LABS: ERYTHROCYTE SEDIMENTATION RATE 49 mm/hr (0-30)
[2019-10-27 13:06] LABS: ALBUMIN 2.7 GM/DL (3.2-5.2); BILIRUBIN,DIRECT 0.3 MG/DL (0.0-0.2); BILIRUBIN,TOTAL 0.8 MG/DL (0.2-1.0); C REACTIVE PROTEIN QUANTITATIV 21.7 MG/DL (0.00-0.30); CALCIUM LEVEL 8.6 MG/DL (8.5-10.1); CREATININE FOR GFR 2.62 MG/DL (0.55-1.30); GLOMERULAR FILTRATION RATE 20.2 (>51); POTASSIUM SERUM 4.6 MEQ/L (3.5-5.1); TOTAL PROTEIN 7.6 GM/DL (6.4-8.2)
[2019-10-27] MEDS ORDERED: VANCOMYCIN HCL 1,000 MG, VIAL MATE ADAPTER 1 EACH in D5W 250 ML IV SCH (13:30)
--- NOTE | 2019-10-27 14:15 | HPEPDOC ---
General Date of Admission 10/27/2019 Date of Service: Oct 27, 2019 Attending Physician: BRANDON SR MD Chief Complaint The patient is a 54-year-old female admitted with a reason for visit of FEVER. Source: Patient, RN/MD Exam Limitations: No limitations Timing/Duration: Unsure Severity: Severe History of Present Illness 54 yo W with a history of developmental delay, morbid obesity, Afib on metop and dabigatran, HFrEF, hypothyroidism, liver pathology with a history of ascites who was brought in from home with a fever and noted to have LLE severe cellulitis with open bullae at LLE with some weeping and purulence on surface with streaking all the way up her leg to the groin and unilateral LLE swelling. In the ED, she was hypertensive and could not corroborate when her leg started weeping or became red or swollen. She does endorse LLE leg pain. Work up was notable for leukocytosis to 24.4, hgb 12.1, platelets 234, na 130, K 4.6, BUN 30, elevated Cr to 2.62 from prior 1.23, lactate 3.8, while a LLE venous doppler US did not reveal a DVT and INR was 2.69. She was given 1 dose of vancomycin and admitted to medicine for sepsis 2/2 cellulitis. Home Medications Scheduled Dabigatran Etexilate Mesylate (Pradaxa) 150 Mg Cap, 150 MG PO BID Dabigatran Etexilate Mesylate (Pradaxa) 150 Mg Capsule, 150 MG PO BID, (Reported) Furosemide (Lasix) 20 Mg Tab, 20 MG PO DAILY Furosemide (Lasix) 20 Mg Tablet, 20 MG PO DAILY, (Reported) Levothyroxine Sodium (Levothyroxine Sodium) 88 Mcg Tablet, 88 MCG PO DAILY, (Reported) Metoprolol Succinate (Metoprolol Succinate) 25 Mg Tab.er.24h, 12.5 MG PO BID, (Reported) Sacubitril/Valsartan (Entresto 24 mg-26 mg Tablet) 1 Tab Tab, 1 TAB PO BID, (Reported) Spironolactone (Spironolactone) 25 Mg Tablet, 25 MG PO DAILY, (Reported) Allergies Coded Allergies: Penicillins (Verified Allergy, Unknown, 10/27/19) aspirin (Verified Allergy, Unknown, 10/27/19) ibuprofen (Verified Allergy, Unknown, 10/27/19) Past Medical History Medical History Developmental delay, morbid obesity, Afib on metop and dabigatran, HFrEF, hypothyroidism, liver pathology with a history of ascites Family History Significant Family History: No pertinent family hx Social History * Smoker: Denies Alcohol: Denies Drugs: denies Recent Travel/Sick Contacts: Denies: Recent travel, Recent sick contacts Psychosocial History: Mental handicap Lives at home with her father. A-FIB/CHADSVASC A-FIB History Current/History of A-Fib/PAF?: Yes Current PO Anticoag Therapy: Yes Review of Systems Constitutional: Reports: Chills, Fever Eyes: Denies: Pain, Vision change ENT: Denies: Head Aches, Ear Pain, Dysphagia Skin: Reports: Lesions, Breakdown (LLE red, weeking, open bulla); Denies: Rash Pulmonary: Denies: Dyspnea, Cough Cardiovascular: Denies: Chest Pain, Palpitations, Orthopnea, Paroxysmal Noc. Dyspnea, Lt Headedness Gastrointestinal: Denies: Nausea, Vomiting, Abdominal Pain, Diarrhea Genitourinary: Denies: Dysuria, Frequency, Incontinence, Retention Hematologic: Denies: Bruising, Bleeding Excessively Endocrine: Denies: Polydipsia, Polyphagia, Polyuria, Heat Intolerance, Cold Intolerance, Other Endocrine Sx Musculoskeletal: Reports: Leg Pain (LLE) Neurological: Denies: Weakness, Numbness, Change in speech, Confusion Physical Examination General Exam: Positive: Other (morbidly obese); Negative: Alert, Cooperative, No Acute Distress Eye Exam: Positive: PERRLA, Conjunctiva & lids normal (R eye lid partially shut laterally, it is her baseline and was previously noted), EOMI, Other Eye Symptoms (mild proptosis); Negative: Sclera icteric Neck Exam: Negative: JVD Chest Exam: Positive: Clear to auscultation, Normal air movement Heart Exam: Positive: Rate Normal, Regular Rhythm, Normal S1, Normal S2; Negative: Murmurs, Rubs Abdomen Exam: Positive: Normal bowel sounds, Soft, Other (obese); Negative: Tenderness Extremity Exam: Positive: Edema (2+ to above knees on L, 1+ RLE), Tenderness (LLE ), Swelling (LLE) Skin Exam: Negative: Nl turgor and temperature (hot LLE, red, swollen, some tenderness, some weeping on open bulla) Neuro Exam: Positive: Normal Speech, Cranial Nerves 3-12 NL Psych Exam: Positive: Mental status NL, Oriented x 3 Vital Signs Vital Signs Date Time Temp Pulse Resp B/P (MAP) Pulse Ox O2 Delivery O2 Flow Rate FiO2 10/27/19 09:02 99.1 114 16 158/111 99 Laboratory Data Labs 24H Laboratory Tests 2 10/27/19 10:53: Immature Granulocyte % (Auto) 0.7, Neutrophils (%) (Auto) 91.5H, Lymphocytes (%) (Auto) 4.4L, Monocytes (%) (Auto) 3.2, Eosinophils (%) (Auto) 0.0, Basophils (%) (Auto) 0.2, Neutrophils # (Auto) 22.3H, Lymphocytes # (Auto) 1.1L, Monocytes # (Auto) 0.8, Eosinophils # (Auto) 0.0, Basophils # (Auto) 0.1, Nucleated Red Bloo d Cells % (auto) 0.0, Erythrocyte Sedimentation Rate 49H, Prothrombin Time 29.2H, Prothromb Time International Ratio 2.69, Anion Gap 4L, Glomerular Filtration Rate 20.2L, Lactic Acid Level 3.8*H, Calcium Level 8.6, Total Bilirubin 0.8, Direct Bilirubin 0.3H, Aspartate Amino Transf (AST/SGOT) 26, Ala nine Aminotransferase (ALT/SGPT) 20, Alkaline Phosphatase 93, C-Reactive Protein, Quantitative 21.70H, Total Protein 7.6, Albumin 2.7L, Albumin/Globulin Ratio 0.6L CBC/BMP Laboratory Tests 10/27/19 10:53 Microbiology Microbiology 10/27/19 Blood Culture, Received Pending 10/27/19 Blood Culture, Received Pending Assessment/Plan 54 yo W with a history of developmental delay, morbid obesity, Afib on metop and dabigatran, HFrEF, hypothyroidism, liver pathology with a history of ascites who was brought in from home with a fever and noted to have LLE severe cellulitis with open bullae at LLE with some weeping and purulence on surface with streaking all the way up her leg to the groin and unilateral LLE swelling. Sepsis w/ cellulitis of LLE: Fever, leukocytosis, inflammed streaking and swelling of LLE with open shallow bulla -Empiric vancomycin -BCx -MRSA PCR -Elevate LLE above heart level when supine -will require diuresis to help with the edematous LLE but will hold off given septoid state, likely to begin diuretics tomorrow Acute HFrEF exacerbation: with LE edema, but otherwise not clinically in keysha volume overload -continue entresto, metoprolol, aldactone -hold home lasix 20mg daily -plan is for diuresis to help with edema but will wait until she is not quite septoid anymore to leave some hemodynamics room chronic AFib -continue metoprolol -continue dabigatran -Telemetry Hypothyroidism -continue home levothyroxine DVT ppx: dabigatran Dispo: more than 2 nights admission. PT/OT evaluation Plan / VTE VTE Prophylaxis Ordered?: Yes BRANDON SR MD Oct 27, 2019 14:15
[2019-10-27] MEDS: NS 1,000 ML IV SCH (15:51)
[2019-10-27] MEDS ORDERED: NS 1,000 ML IV ONE ×3 (17:15→22:00)
[2019-10-27 18:39] VITALS: BP 107/52
[2019-10-27] MEDS: ACETAMINOPHEN TAB 650MG DOSE (2X325MG) PO PRN (18:52)
[2019-10-27 20:00] VITALS: BP 101/57
[2019-10-27 21:00] VITALS: BP 80/40
[2019-10-27] MEDS: METOPROLOL SUCC *XL* 25MG TAB (TopROL *XL*) PO SCH (21:00)
[2019-10-27] MEDS ORDERED: ENTRESTO 24-26MG TABLET (SACUBITRIL/VALSARTAN) PO SCH (21:00)
[2019-10-27] MEDS: NYSTATIN 100,000 UNITS/GM TOPICAL PWD 15 GM TOP SCH (21:15)
[2019-10-27] MEDS: DABIGATRAN ETEXILATE 75 MG CAP (PRADAXA) PO SCH (21:15)
[2019-10-27 21:45] VITALS: BP 80/38
[2019-10-27 23:00] VITALS: BP 84/42
[2019-10-27] MEDS ORDERED: LEVALBUTEROL 1.25 MG/0.5 ML CONCENTRATE NEB INH PRN (23:30)
[2019-10-27] MEDS ORDERED: NS 500 ML IV ONE (23:30)
[2019-10-27] MEDS: PIPERACILLIN/TAZOBACTAM SOD 2.25 GM in D5W MINI-BAG PLUS 50 ML IV SCH (23:42)
[2019-10-28] VITALS (22 sets, daily range): BP systolic 76–141; BP diastolic 46–72
[2019-10-28] MEDS ORDERED: methylPREDNISolone 40MG 1ML VIAL IV SCH
[2019-10-28] MEDS: NS 1,000 ML IV SCH (01:16)
[2019-10-28] MEDS ORDERED: NS 1,000 ML IV SCH (04:00)
[2019-10-28 05:26] LABS: HEMATOCRIT 34.6 % (36.0-47.0); HEMOGLOBIN 11.1 g/dl (12.0-15.5); MEAN CORPUSCULAR HEMOGLOBIN 27.3 pg (27.0-33.0); MEAN CORPUSCULAR HGB CONC 32.1 g/dl (32.0-36.5); MEAN CORPUSCULAR VOLUME 85.2 fl (80.0-96.0); PLATELET COUNT, AUTOMATED 174 10^3/uL (150-450); RED BLOOD COUNT 4.06 10^6/uL (4.00-5.40); WHITE BLOOD COUNT 19.4 10^3/uL (4.0-10.0)
[2019-10-28] MEDS: LEVOTHYROXINE 88MCG TABLET (0.088 MG) PO SCH (05:50)
[2019-10-28 06:01] LABS: CALCIUM LEVEL 7.8 MG/DL (8.5-10.1); CREATININE FOR GFR 2.34 MG/DL (0.55-1.30); GLOMERULAR FILTRATION RATE 23.1 (>51); MAGNESIUM LEVEL 2.2 MG/DL (1.8-2.4); POTASSIUM SERUM 4.4 MEQ/L (3.5-5.1)
[2019-10-28] MEDS: METOPROLOL SUCC *XL* 25MG TAB (TopROL *XL*) PO SCH ×2 (09:11→20:15)
[2019-10-28] MEDS: DABIGATRAN ETEXILATE 75 MG CAP (PRADAXA) PO SCH ×2 (09:11→20:15)
[2019-10-28] MEDS: SPIRONOLACTONE 25 MG TAB PO SCH (09:11)
[2019-10-28] MEDS: NYSTATIN 100,000 UNITS/GM TOPICAL PWD 15 GM TOP SCH ×2 (09:11→20:15)
[2019-10-28] MEDS: PIPERACILLIN/TAZOBACTAM SOD 2.25 GM in D5W MINI-BAG PLUS 50 ML IV SCH ×2 (09:12→16:36)
[2019-10-28] MEDS ORDERED: VANCOMYCIN HCL 750 MG, VIAL MATE ADAPTER 1 EACH in D5W 250 ML IV SCH (11:00)
[2019-10-28] MEDS ORDERED: VANCOMYCIN HCL 500 MG in D5W MINI-BAG PLUS 100 ML IV SCH (12:00)
--- NOTE | 2019-10-28 13:13 | IPNPDOC ---
Text Note Date of Service The patient was seen on 10/28/19. NOTE Subjective: Pt stated that she is doing better today. Pt developed hypotension overnight, resolved after Iv fluid Denies fever, chills, n/v, abdominal pain and diarrhea Objective: GENERAL APPEARANCE: NAD, Morbidly obese F HEENT: no scleral icterus, no JVD, EOMI CARDIOVASCULAR: S1S2 LUNGS: CTA ABDOMEN: soft & not tender w palpitation MUSCULOSKELETAL: no cyanosis, no swelling NEUROLOGICAL: cranial nerve function from 2-12 intact intact, follows commands, speech not dysarthric Skin: Left leg erythema from the foot to the proximal part of her hip. + 2 pitting edema of LLE, +1RLE Assessment/Plan 54 yo W with a history of developmental delay, morbid obesity, Afib on metop and dabigatran, HFrEF, hypothyroidism, liver pathology with a history of ascites who was brought in from home with a fever and noted to have LLE severe cellulitis with open bullae at LLE with some weeping and purulence on surface with streaking all the way up her leg to the groin and unilateral LLE swelling. Sepsis 2/2 cellulitis of LLE BCx negative Cw with Vancomycin and added Zosyn for now given clinical picture of severe sepsis last night Await wound Cx Legs elevation HFrEF exacerbation Pt had moderate LE swelling, but denies orthopnea, no JVD Will check BNP Entresto on hold due to hypotension Cardiac diet chronic AFib continue metoprolol continue dabigatran Telemetry Hypothyroidism continue home levothyroxine VS,Fishbone, I+O VS, Fishbone, I+O Laboratory Tests 10/28/19 05:08 Vital Signs Date Time Temp Pulse Resp B/P (MAP) Pulse Ox O2 Delivery O2 Flow Rate FiO2 10/28/19 09:11 102 108/62 10/28/19 08:00 96.5 20 94 Room Air I&O- Last 24 Hours up to 6 AM 10/28/19 06:00 Intake Total 1060 ml Output Total 500 ml Balance 560 ml MESSI TREJO DO Oct 28, 2019 13:13
[2019-10-29] VITALS: BP 123/57
[2019-10-29] MEDS: PIPERACILLIN/TAZOBACTAM SOD 2.25 GM in D5W MINI-BAG PLUS 50 ML IV SCH ×3 (00:13→15:50)
[2019-10-29] MEDS: ACETAMINOPHEN TAB 650MG DOSE (2X325MG) PO PRN ×3 (00:28→20:47)
[2019-10-29 04:00] VITALS: BP 112/67
[2019-10-29] MEDS: LEVOTHYROXINE 88MCG TABLET (0.088 MG) PO SCH (04:57)
[2019-10-29 07:18] VITALS: BP 105/56
[2019-10-29] MEDS: SPIRONOLACTONE 25 MG TAB PO SCH (08:54)
[2019-10-29] MEDS: DABIGATRAN ETEXILATE 75 MG CAP (PRADAXA) PO SCH ×2 (08:54→20:47)
[2019-10-29] MEDS: METOPROLOL SUCC *XL* 25MG TAB (TopROL *XL*) PO SCH ×2 (08:54→20:47)
[2019-10-29] MEDS: NYSTATIN 100,000 UNITS/GM TOPICAL PWD 15 GM TOP SCH ×2 (08:54→20:49)
[2019-10-29 10:13] LABS: BASO % 0.1 % (0.0-1.0); EOS % 0.3 % (0.0-3.0); HEMATOCRIT 31.9 % (36.0-47.0); HEMOGLOBIN 10.4 g/dl (12.0-15.5); LYMPH # 1.3 10^3/uL (1.5-5.0); LYMPH % 8.6 % (24.0-44.0); MEAN CORPUSCULAR HEMOGLOBIN 27.5 pg (27.0-33.0); MEAN CORPUSCULAR HGB CONC 32.6 g/dl (32.0-36.5); MEAN CORPUSCULAR VOLUME 84.4 fl (80.0-96.0); MONO % 6.7 % (0.0-5.0); NEUTROPHILS # 12.4 10^3/uL (1.5-8.5); NEUTROPHILS % 83.2 % (36.0-66.0); PLATELET COUNT, AUTOMATED 199 10^3/uL (150-450); RED BLOOD COUNT 3.78 10^6/uL (4.00-5.40); WHITE BLOOD COUNT 14.9 10^3/uL (4.0-10.0)
[2019-10-29 10:53] LABS: CALCIUM LEVEL 7.9 MG/DL (8.5-10.1); CREATININE FOR GFR 1.31 MG/DL (0.55-1.30); MAGNESIUM LEVEL 2.4 MG/DL (1.8-2.4); POTASSIUM SERUM 4.2 MEQ/L (3.5-5.1)
[2019-10-29] MEDS: VANCOMYCIN HCL 1,000 MG, VIAL MATE ADAPTER 1 EACH in D5W 250 ML IV SCH ×2 (11:14→23:46)
[2019-10-29] MEDS ORDERED: SLF 3 ML SYR IV PRN (11:30)
[2019-10-29 12:00] VITALS: BP 132/76
--- NOTE | 2019-10-29 12:06 | IPNPDOC ---
Text Note Date of Service The patient was seen on 10/29/19. NOTE Subjective: Pt stated that she is doing better today. Denies fever, chills, n/v, abdominal pain and diarrhea Objective: GENERAL APPEARANCE: NAD, Morbidly obese F HEENT: no scleral icterus, no JVD, EOMI CARDIOVASCULAR: S1S2 LUNGS: CTA ABDOMEN: soft & not tender w palpitation MUSCULOSKELETAL: no cyanosis, no swelling NEUROLOGICAL: cranial nerve function from 2-12 intact intact, follows commands, speech not dysarthric Skin: Left leg erythema from the foot to the proximal part of her hip. + 2 pitting edema of LLE, +1RLE Assessment/Plan 54 yo W with a history of developmental delay, morbid obesity, Afib on metop and dabigatran, HFrEF, hypothyroidism, liver pathology with a history of ascites who was brought in from home with a fever and noted to have LLE severe cellulitis with open bullae at LLE with some weeping and purulence on surface with streaking all the way up her leg to the groin and unilateral LLE swelling. Sepsis 2/2 cellulitis of LLE Leukocytosis improved today BCx negative Cw with Vancomycin and added Zosyn for now given clinical picture of severe sepsis Await wound Cx cellulitis of LLE Improved today Legs elevation HFrEF exacerbation Pt had moderate LE swelling, but denies orthopnea, no JVD BNP 1280 Entresto on hold due to previous episodes of hypotension secondary to severe sepsis Cardiac diet Lasix by mouth chronic AFib continue metoprolol continue dabigatran Telemetry Hypothyroidism continue home levothyroxine Morbid obesity Complicates care JEREMY pre renal Secondary to sepsis Improved Continue to monitor Deconditioning Secondary to morbid obesity PT/OT VS,Fishbone, I+O VS, Fishbone, I+O Laboratory Tests 10/29/19 09:57 Vital Signs Date Time Temp Pulse Resp B/P (MAP) Pulse Ox O2 Delivery O2 Flow Rate FiO2 10/29/19 08:54 107 123/58 10/29/19 07:18 98.3 18 98 Room Air I&O- Last 24 Hours up to 6 AM 10/29/19 06:00 Intake Total 2915 ml Output Total 3225 ml Balance -310 ml MESSI TREJO DO Oct 29, 2019 12:06
[2019-10-29] MEDS: FUROSEMIDE 40 MG TAB PO SCH ×2 (12:59→17:20)
[2019-10-29] MEDS: SLF 3 ML SYR IV SCH ×2 (13:31→20:49)
[2019-10-29 13:46] LABS: CHOLESTEROL RISK RATIO 4.111 (<5)
[2019-10-29 16:00] VITALS: BP 116/60
[2019-10-29 20:00] VITALS: BP 125/61
[2019-10-30] VITALS (7 sets, daily range): BP systolic 115–158; BP diastolic 58–70
[2019-10-30] MEDS: PIPERACILLIN/TAZOBACTAM SOD 2.25 GM in D5W MINI-BAG PLUS 50 ML IV SCH ×2 (00:53→08:00)
[2019-10-30 04:52] LABS: BASO % 0.3 % (0.0-1.0); EOS # 0.2 10^3/uL (0.0-0.5); EOS % 1.3 % (0.0-3.0); HEMATOCRIT 33.2 % (36.0-47.0); HEMOGLOBIN 10.6 g/dl (12.0-15.5); LYMPH # 1.7 10^3/uL (1.5-5.0); LYMPH % 14.4 % (24.0-44.0); MEAN CORPUSCULAR HGB CONC 31.9 g/dl (32.0-36.5); MEAN CORPUSCULAR VOLUME 84.7 fl (80.0-96.0); MONO # 1.2 10^3/uL (0.0-0.8); NEUTROPHILS # 8.7 10^3/uL (1.5-8.5); NEUTROPHILS % 72.7 % (36.0-66.0); PLATELET COUNT, AUTOMATED 235 10^3/uL (150-450); RED BLOOD COUNT 3.92 10^6/uL (4.00-5.40); WHITE BLOOD COUNT 11.9 10^3/uL (4.0-10.0)
[2019-10-30 05:07] LABS: CALCIUM LEVEL 8.2 MG/DL (8.5-10.1); CREATININE FOR GFR 1.12 MG/DL (0.55-1.30); POTASSIUM SERUM 3.6 MEQ/L (3.5-5.1)
[2019-10-30] MEDS: LEVOTHYROXINE 88MCG TABLET (0.088 MG) PO SCH (06:11)
[2019-10-30] MEDS: SLF 3 ML SYR IV SCH ×3 (06:11→21:24)
[2019-10-30] MEDS: DABIGATRAN ETEXILATE 75 MG CAP (PRADAXA) PO SCH ×2 (08:41→21:22)
[2019-10-30] MEDS: FUROSEMIDE 40 MG TAB PO SCH ×2 (08:42→17:04)
[2019-10-30] MEDS: SPIRONOLACTONE 25 MG TAB PO SCH (08:42)
[2019-10-30] MEDS: METOPROLOL SUCC *XL* 25MG TAB (TopROL *XL*) PO SCH ×2 (08:45→21:24)
[2019-10-30] MEDS: NYSTATIN 100,000 UNITS/GM TOPICAL PWD 15 GM TOP SCH ×2 (08:45→21:24)
--- NOTE | 2019-10-30 10:42 | IPNPDOC ---
Text Note Date of Service The patient was seen on 10/30/19. NOTE Subjective: No any acute events overnight Denies fever, chills, n/v, abdominal pain and diarrhea Objective: GENERAL APPEARANCE: NAD, Morbidly obese F HEENT: no scleral icterus, no JVD, EOMI CARDIOVASCULAR: S1S2 LUNGS: CTA ABDOMEN: soft & not tender w palpitation MUSCULOSKELETAL: no cyanosis, no swelling NEUROLOGICAL: cranial nerve function from 2-12 intact intact, follows commands, speech not dysarthric Skin: Left leg erythema from the foot to the proximal part of her hip. + 2 pitting edema of LLE, +1RLE Assessment/Plan 54 yo W with a history of developmental delay, morbid obesity, Afib on metop and dabigatran, HFrEF, hypothyroidism, liver pathology with a history of ascites who was brought in from home with a fever and noted to have LLE severe cellulitis with open bullae at LLE with some weeping and purulence on surface with streaking all the way up her leg to the groin and unilateral LLE swelling. Sepsis 2/2 cellulitis of LLE Leukocytosis improved today BCx negative Cw with Vancomycin, DC Zosyn wound Cx showed MRSA and Streptococcus group C cellulitis of LLE Improved today Legs elevation HFrEF exacerbation Pt had moderate LE swelling, but denies orthopnea, no JVD BNP 1280 Entresto restarted, blood pressure stable Cardiac diet Lasix by mouth chronic AFib continue metoprolol continue dabigatran Telemetry Hypothyroidism continue home levothyroxine Morbid obesity Complicates care JEREMY pre renal Secondary to sepsis Improved Continue to monitor Deconditioning Secondary to morbid obesity PT/OT VS,Fishbone, I+O VS, Fishbone, I+O Laboratory Tests 10/30/19 04:21 Vital Signs Date Time Temp Pulse Resp B/P (MAP) Pulse Ox O2 Delivery O2 Flow Rate FiO2 10/30/19 08:45 109 135/67 10/30/19 07:52 98.6 18 95 Room Air I&O- Last 24 Hours up to 6 AM 10/30/19 05:59 Intake Total 2150 ml Output Total 5025 ml Balance -2875 ml MESSI TREJO DO Oct 30, 2019 10:42
[2019-10-30] MEDS: VANCOMYCIN HCL 1,000 MG, VIAL MATE ADAPTER 1 EACH in D5W 250 ML IV SCH ×2 (11:19→18:22)
[2019-10-30] MEDS: ENTRESTO 24-26MG TABLET (SACUBITRIL/VALSARTAN) PO SCH ×2 (11:31→21:22)
[2019-10-30] MEDS: ACETAMINOPHEN TAB 650MG DOSE (2X325MG) PO PRN (21:23)
[2019-10-31] MEDS: VANCOMYCIN HCL 1,000 MG, VIAL MATE ADAPTER 1 EACH in D5W 250 ML IV SCH ×3 (02:31→18:47)
[2019-10-31] MEDS: LEVOTHYROXINE 88MCG TABLET (0.088 MG) PO SCH (05:23)
[2019-10-31] MEDS: SLF 3 ML SYR IV SCH ×3 (05:23→21:06)
[2019-10-31 06:00] VITALS: BP 107/57
[2019-10-31 06:28] LABS: BASO # 0.1 10^3/uL (0.0-0.2); BASO % 0.6 % (0.0-1.0); EOS # 0.2 10^3/uL (0.0-0.5); EOS % 1.7 % (0.0-3.0); HEMATOCRIT 34.5 % (36.0-47.0); HEMOGLOBIN 10.9 g/dl (12.0-15.5); LYMPH # 2.1 10^3/uL (1.5-5.0); MEAN CORPUSCULAR HEMOGLOBIN 26.8 pg (27.0-33.0); MEAN CORPUSCULAR HGB CONC 31.6 g/dl (32.0-36.5); MONO # 1.3 10^3/uL (0.0-0.8); MONO % 10.3 % (0.0-5.0); NEUTROPHILS # 8.2 10^3/uL (1.5-8.5); NEUTROPHILS % 67.8 % (36.0-66.0); PLATELET COUNT, AUTOMATED 263 10^3/uL (150-450); RED BLOOD COUNT 4.06 10^6/uL (4.00-5.40); WHITE BLOOD COUNT 12.1 10^3/uL (4.0-10.0)
[2019-10-31 06:41] LABS: BLOOD UREA NITROGEN 11 MG/DL (7-18); CALCIUM LEVEL 8.1 MG/DL (8.5-10.1); CARBON DIOXIDE LEVEL 32 MEQ/L (21-32); CHLORIDE LEVEL 99 MEQ/L (98-107); GLOMERULAR FILTRATION RATE > 60.0 (>51); GLUCOSE, FASTING 213 MG/DL (70-100); MAGNESIUM LEVEL 2.1 MG/DL (1.8-2.4); POTASSIUM SERUM 3.6 MEQ/L (3.5-5.1); SODIUM LEVEL 135 MEQ/L (136-145)
[2019-10-31] MEDS: DABIGATRAN ETEXILATE 75 MG CAP (PRADAXA) PO SCH ×2 (08:38→21:04)
[2019-10-31] MEDS: SPIRONOLACTONE 25 MG TAB PO SCH (08:39)
[2019-10-31] MEDS: ENTRESTO 24-26MG TABLET (SACUBITRIL/VALSARTAN) PO SCH ×2 (08:39→21:04)
[2019-10-31] MEDS: FUROSEMIDE 40 MG TAB PO SCH ×2 (08:40→16:26)
[2019-10-31] MEDS: NYSTATIN 100,000 UNITS/GM TOPICAL PWD 15 GM TOP SCH ×2 (08:44→21:05)
[2019-10-31] MEDS ORDERED: POTASSIUM CHLORIDE 10 MEQ SR TABLET PO ONE (09:00)
[2019-10-31] MEDS: METOPROLOL SUCC *XL* 12.5MG PER 1/2 TAB (TopROL *XL*) PO SCH ×2 (09:04→21:05)
[2019-10-31] MEDS: ACETAMINOPHEN TAB 650MG DOSE (2X325MG) PO PRN ×3 (10:07→22:27)
--- NOTE | 2019-10-31 11:35 | IPNPDOC ---
Text Note Date of Service The patient was seen on 10/31/19. NOTE Subjective: No any acute events overnight. Patient stated that her left leg pain subsided after pain meds Denies fever, chills, n/v, abdominal pain and diarrhea Objective: GENERAL APPEARANCE: NAD, Morbidly obese F HEENT: no scleral icterus, no JVD, EOMI CARDIOVASCULAR: S1S2 LUNGS: CTA ABDOMEN: soft & not tender w palpitation MUSCULOSKELETAL: no cyanosis, no swelling NEUROLOGICAL: cranial nerve function from 2-12 intact intact, follows commands, speech not dysarthric Skin: Left leg erythema from the foot to the proximal part of her hip. + 2 pitting edema of LLE, +1RLE Assessment/Plan 54 yo W with a history of developmental delay, morbid obesity, Afib on metop and dabigatran, HFrEF, hypothyroidism, liver pathology with a history of ascites who was brought in from home with a fever and noted to have LLE severe cellulitis with open bullae at LLE with some weeping and purulence on surface with streaking all the way up her leg to the groin and unilateral LLE swelling. Sepsis 2/2 cellulitis of LLE BCx negative Cw with Vancomycin, DC Zosyn wound Cx showed MRSA and Streptococcus group C cellulitis of LLE Improved today Legs elevation HFrEF exacerbation Pt had moderate LE swelling, but denies orthopnea, no JVD BNP 1280 Entresto restarted, blood pressure stable Cardiac diet Lasix by mouth chronic AFib continue metoprolol continue dabigatran Telemetry Hypothyroidism continue home levothyroxine Morbid obesity Complicates care JEREMY pre renal Secondary to sepsis Improved Continue to monitor Deconditioning Secondary to morbid obesity PT/OT VS,Fishbone, I+O VS, Fishbone, I+O Laboratory Tests 10/31/19 05:42 Vital Signs Date Time Temp Pulse Resp B/P (MAP) Pulse Ox O2 Delivery O2 Flow Rate FiO2 10/31/19 09:04 95 106/55 10/31/19 06:00 97.0 18 95 Room Air I&O- Last 24 Hours up to 6 AM 10/31/19 06:00 Intake Total 1980 ml Output Total 3450 ml Balance -1470 ml MESSI TREJO DO Oct 31, 2019 11:35
[2019-10-31 14:00] VITALS: BP 111/58
[2019-10-31 22:00] VITALS: BP 113/55
[2019-11-01] MEDS: VANCOMYCIN HCL 1,000 MG, VIAL MATE ADAPTER 1 EACH in D5W 250 ML IV SCH ×3 (02:55→18:11)
[2019-11-01] MEDS: LEVOTHYROXINE 88MCG TABLET (0.088 MG) PO SCH (05:33)
[2019-11-01 06:00] VITALS: BP 103/60
[2019-11-01 06:22] LABS: BASO # 0.1 10^3/uL (0.0-0.2); BASO % 0.6 % (0.0-1.0); EOS # 0.4 10^3/uL (0.0-0.5); EOS % 2.5 % (0.0-3.0); HEMATOCRIT 35.6 % (36.0-47.0); HEMOGLOBIN 11.2 g/dl (12.0-15.5); LYMPH # 2.2 10^3/uL (1.5-5.0); LYMPH % 15.7 % (24.0-44.0); MEAN CORPUSCULAR HEMOGLOBIN 27.3 pg (27.0-33.0); MEAN CORPUSCULAR HGB CONC 31.5 g/dl (32.0-36.5); MEAN CORPUSCULAR VOLUME 86.8 fl (80.0-96.0); MONO # 1.1 10^3/uL (0.0-0.8); NEUTROPHILS # 9.7 10^3/uL (1.5-8.5); NEUTROPHILS % 69.7 % (36.0-66.0); PLATELET COUNT, AUTOMATED 315 10^3/uL (150-450); WHITE BLOOD COUNT 13.9 10^3/uL (4.0-10.0)
[2019-11-01 06:51] LABS: BLOOD UREA NITROGEN 10 MG/DL (7-18); CARBON DIOXIDE LEVEL 34 MEQ/L (21-32); CHLORIDE LEVEL 99 MEQ/L (98-107); CREATININE FOR GFR 1.01 MG/DL (0.55-1.30); GLOMERULAR FILTRATION RATE > 60.0 (>51); GLUCOSE, FASTING 207 MG/DL (70-100); MAGNESIUM LEVEL 2.2 MG/DL (1.8-2.4); POTASSIUM SERUM 4.2 MEQ/L (3.5-5.1); SODIUM LEVEL 137 MEQ/L (136-145)
[2019-11-01] MEDS: SLF 3 ML SYR IV SCH ×3 (07:30→20:05)
[2019-11-01 08:17] VITALS: BP 108/59
[2019-11-01] MEDS: ACETAMINOPHEN TAB 650MG DOSE (2X325MG) PO PRN (09:54)
[2019-11-01] MEDS: ENTRESTO 24-26MG TABLET (SACUBITRIL/VALSARTAN) PO SCH ×2 (09:54→20:02)
[2019-11-01] MEDS: NYSTATIN 100,000 UNITS/GM TOPICAL PWD 15 GM TOP SCH ×2 (09:55→20:02)
[2019-11-01] MEDS: FUROSEMIDE 40 MG TAB PO SCH ×2 (09:55→17:03)
[2019-11-01] MEDS: DABIGATRAN ETEXILATE 75 MG CAP (PRADAXA) PO SCH ×2 (09:55→20:02)
[2019-11-01] MEDS: SPIRONOLACTONE 25 MG TAB PO SCH (09:55)
[2019-11-01] MEDS: METOPROLOL SUCC *XL* 12.5MG PER 1/2 TAB (TopROL *XL*) PO SCH ×2 (10:42→21:31)
--- NOTE | 2019-11-01 13:25 | IPNPDOC ---
Text Note Date of Service The patient was seen on 11/01/19. NOTE Subjective: No any acute events overnight. Denies fever, chills, n/v, abdominal pain and diarrhea Objective: GENERAL APPEARANCE: NAD, Morbidly obese F HEENT: no scleral icterus, no JVD, EOMI CARDIOVASCULAR: S1S2 LUNGS: CTA ABDOMEN: soft & not tender w palpitation MUSCULOSKELETAL: no cyanosis, no swelling NEUROLOGICAL: cranial nerve function from 2-12 intact intact, follows commands, speech not dysarthric Skin: Left leg erythema from the foot to the proximal part of her hip. + 2 pitting edema of LLE, +1RLE Assessment/Plan 54 yo W with a history of developmental delay, morbid obesity, Afib on metop and dabigatran, HFrEF, hypothyroidism, liver pathology with a history of ascites who was brought in from home with a fever and noted to have LLE severe cellulitis with open bullae at LLE with some weeping and purulence on surface with streaking all the way up her leg to the groin and unilateral LLE swelling. Sepsis 2/2 cellulitis of LLE BCx negative Cw with Vancomycin, DC Zosyn wound Cx showed MRSA and Streptococcus group C cellulitis of LLE Improved today Legs elevation HFrEF exacerbation Pt had moderate LE swelling, but denies orthopnea, no JVD BNP 1280 Entresto restarted, blood pressure stable Cardiac diet Lasix by mouth chronic AFib continue metoprolol continue dabigatran Telemetry Hypothyroidism continue home levothyroxine Morbid obesity Complicates care JEREMY pre renal Secondary to sepsis Improved Continue to monitor Deconditioning Secondary to morbid obesity PT/OT VS,Fishbone, I+O VS, Fishbone, I+O Laboratory Tests 11/01/19 06:06 Vital Signs Date Time Temp Pulse Resp B/P (MAP) Pulse Ox O2 Delivery O2 Flow Rate FiO2 11/01/19 10:42 100 108/59 11/01/19 08:17 96.3 18 94 11/01/19 06:00 Room Air I&O- Last 24 Hours up to 6 AM 11/01/19 05:59 Intake Total 3675 ml Output Total 3850 ml Balance -175 ml MESSI TREJO DO Nov 01, 2019 13:25
[2019-11-01 13:41] VITALS: BP 104/57
[2019-11-01] MEDS: PERCOCET 5MG/325MG TAB PO PRN (13:59)
[2019-11-01 22:00] VITALS: BP 114/69
[2019-11-01] MEDS ORDERED: HYDROCORTISONE 1% CREAM 30 GM TOP ONE (22:15)
[2019-11-01] MEDS ORDERED: VANICREAM MOISTURIZING SKIN CREAM 113GM TUBE TOP PRN (22:15)
[2019-11-02] MEDS: VANCOMYCIN HCL 1,000 MG, VIAL MATE ADAPTER 1 EACH in D5W 250 ML IV SCH (02:45)
[2019-11-02] MEDS: SLF 3 ML SYR IV SCH ×3 (05:06→20:47)
[2019-11-02] MEDS: LEVOTHYROXINE 88MCG TABLET (0.088 MG) PO SCH (05:29)
[2019-11-02 05:48] LABS: BASO # 0.1 10^3/uL (0.0-0.2); BASO % 0.6 % (0.0-1.0); EOS # 0.4 10^3/uL (0.0-0.5); EOS % 2.8 % (0.0-3.0); HEMATOCRIT 34.4 % (36.0-47.0); HEMOGLOBIN 10.9 g/dl (12.0-15.5); LYMPH # 2.2 10^3/uL (1.5-5.0); LYMPH % 17.1 % (24.0-44.0); MEAN CORPUSCULAR HEMOGLOBIN 27.2 pg (27.0-33.0); MEAN CORPUSCULAR HGB CONC 31.7 g/dl (32.0-36.5); MEAN CORPUSCULAR VOLUME 85.8 fl (80.0-96.0); MONO # 0.9 10^3/uL (0.0-0.8); MONO % 7.2 % (0.0-5.0); NEUTROPHILS # 8.7 10^3/uL (1.5-8.5); NEUTROPHILS % 68.3 % (36.0-66.0); PLATELET COUNT, AUTOMATED 368 10^3/uL (150-450); RED BLOOD COUNT 4.01 10^6/uL (4.00-5.40); WHITE BLOOD COUNT 12.7 10^3/uL (4.0-10.0)
[2019-11-02 06:00] VITALS: BP 114/56
[2019-11-02 06:10] LABS: BLOOD UREA NITROGEN 10 MG/DL (7-18); CARBON DIOXIDE LEVEL 31 MEQ/L (21-32); CHLORIDE LEVEL 100 MEQ/L (98-107); CREATININE FOR GFR 0.88 MG/DL (0.55-1.30); GLOMERULAR FILTRATION RATE > 60.0 (>51); GLUCOSE, FASTING 199 MG/DL (70-100); POTASSIUM SERUM 4.2 MEQ/L (3.5-5.1); SODIUM LEVEL 137 MEQ/L (136-145)
[2019-11-02] MEDS: DABIGATRAN ETEXILATE 75 MG CAP (PRADAXA) PO SCH ×2 (09:14→20:44)
[2019-11-02] MEDS: FUROSEMIDE 40 MG TAB PO SCH ×2 (09:16→16:38)
[2019-11-02] MEDS: ENTRESTO 24-26MG TABLET (SACUBITRIL/VALSARTAN) PO SCH ×2 (09:16→20:45)
[2019-11-02] MEDS: SPIRONOLACTONE 25 MG TAB PO SCH (09:16)
[2019-11-02] MEDS: METOPROLOL SUCC *XL* 12.5MG PER 1/2 TAB (TopROL *XL*) PO SCH ×2 (09:18→20:45)
[2019-11-02] MEDS: NYSTATIN 100,000 UNITS/GM TOPICAL PWD 15 GM TOP SCH ×2 (09:19→20:47)
[2019-11-02] MEDS: ACETAMINOPHEN TAB 650MG DOSE (2X325MG) PO PRN ×2 (12:53→21:43)
[2019-11-02] MEDS: VANCOMYCIN HCL 750 MG, VIAL MATE ADAPTER 1 EACH in D5W 250 ML IV SCH (13:06)
[2019-11-02 14:00] VITALS: BP 97/57
[2019-11-02] MEDS: VANCOMYCIN HCL 500 MG in D5W MINI-BAG PLUS 100 ML IV SCH (14:09)
--- NOTE | 2019-11-02 14:59 | IPNPDOC ---
Text Note Date of Service The patient was seen on 11/02/19. NOTE Subjective: No any acute events overnight. Patient stated that she is doing b rhoda today Denies fever, chills, n/v, abdominal pain and diarrhea Objective: GENERAL APPEARANCE: NAD, Morbidly obese F HEENT: no scleral icterus, no JVD, EOMI CARDIOVASCULAR: S1S2 LUNGS: CTA ABDOMEN: soft & not tender w palpitation MUSCULOSKELETAL: no cyanosis, no swelling NEUROLOGICAL: cranial nerve function from 2-12 intact intact, follows commands, speech not dysarthric Skin: Left leg erythema from the foot to the proximal part of her hip. + 2 pitting edema of LLE, +1RLE Assessment/Plan 54 yo W with a history of developmental delay, morbid obesity, Afib on metop and dabigatran, HFrEF, hypothyroidism, liver pathology with a history of ascites who was brought in from home with a fever and noted to have LLE severe cellulitis with open bullae at LLE with some weeping and purulence on surface with streaking all the way up her leg to the groin and unilateral LLE swelling. Sepsis 2/2 cellulitis of LLE BCx negative Cw with Vancomycin, DC Zosyn wound Cx showed MRSA and Streptococcus group C cellulitis of LLE Improved today Legs elevation HFrEF exacerbation Pt had moderate LE swelling, but denies orthopnea, no JVD BNP 1280 Entresto restarted, blood pressure stable Cardiac diet Lasix by mouth chronic AFib continue metoprolol continue dabigatran Telemetry Hypothyroidism continue home levothyroxine Morbid obesity Complicates care JEREMY pre renal Secondary to sepsis Improved Continue to monitor Deconditioning Secondary to morbid obesity PT/OT VS,Fishbone, I+O VS, Fishbone, I+O Laboratory Tests 11/02/19 05:28 Vital Signs Date Time Temp Pulse Resp B/P (MAP) Pulse Ox O2 Delivery O2 Flow Rate FiO2 11/02/19 09:18 86 114/57 11/02/19 06:00 98.5 20 92 Room Air I&O- Last 24 Hours up to 6 AM 11/02/19 05:59 Intake Total 1270 ml Output Total 1020 ml Balance 250 ml MESSI TREJO DO Nov 02, 2019 14:59
[2019-11-02 22:00] VITALS: BP 107/60
[2019-11-03] MEDS: VANCOMYCIN HCL 750 MG, VIAL MATE ADAPTER 1 EACH in D5W 250 ML IV SCH (00:50)
[2019-11-03] MEDS: VANCOMYCIN HCL 500 MG in D5W MINI-BAG PLUS 100 ML IV SCH (02:09)
[2019-11-03] MEDS: SLF 3 ML SYR IV SCH ×3 (05:42→20:46)
[2019-11-03] MEDS: LEVOTHYROXINE 88MCG TABLET (0.088 MG) PO SCH (05:42)
[2019-11-03 06:00] VITALS: BP 110/58
[2019-11-03 06:14] LABS: HEMATOCRIT 34.2 % (36.0-47.0); HEMOGLOBIN 10.8 g/dl (12.0-15.5); MEAN CORPUSCULAR HEMOGLOBIN 27.3 pg (27.0-33.0); MEAN CORPUSCULAR HGB CONC 31.6 g/dl (32.0-36.5); MEAN CORPUSCULAR VOLUME 86.4 fl (80.0-96.0); PLATELET COUNT, AUTOMATED 393 10^3/uL (150-450); RED BLOOD COUNT 3.96 10^6/uL (4.00-5.40); WHITE BLOOD COUNT 10.1 10^3/uL (4.0-10.0)
[2019-11-03 06:29] LABS: BLOOD UREA NITROGEN 12 MG/DL (7-18); CARBON DIOXIDE LEVEL 33 MEQ/L (21-32); CHLORIDE LEVEL 100 MEQ/L (98-107); CREATININE FOR GFR 0.91 MG/DL (0.55-1.30); GLOMERULAR FILTRATION RATE > 60.0 (>51); GLUCOSE, FASTING 160 MG/DL (70-100); MAGNESIUM LEVEL 2.1 MG/DL (1.8-2.4); SODIUM LEVEL 136 MEQ/L (136-145)
[2019-11-03 06:51] LABS: EOSINOPHILS 7 % (0-3); LYMPHOCYTES 22 % (16-44); METAMYELOCYTES 2 % (0-0); MONOCYTES 1 % (0-5); NEUTROPHILS 68 % (28-66); PLATELET ESTIMATE NORMAL (NORMAL)
[2019-11-03] MEDS: DABIGATRAN ETEXILATE 75 MG CAP (PRADAXA) PO SCH ×2 (08:52→20:44)
[2019-11-03] MEDS: ACETAMINOPHEN TAB 650MG DOSE (2X325MG) PO PRN (08:55)
[2019-11-03] MEDS: ENTRESTO 24-26MG TABLET (SACUBITRIL/VALSARTAN) PO SCH ×2 (08:55→20:44)
[2019-11-03] MEDS: SPIRONOLACTONE 25 MG TAB PO SCH (08:56)
[2019-11-03] MEDS: FUROSEMIDE 40 MG TAB PO SCH ×2 (09:00→17:58)
[2019-11-03] MEDS: METOPROLOL SUCC *XL* 12.5MG PER 1/2 TAB (TopROL *XL*) PO SCH ×2 (10:17→21:00)
[2019-11-03] MEDS: NYSTATIN 100,000 UNITS/GM TOPICAL PWD 15 GM TOP SCH ×2 (10:18→20:44)
--- NOTE | 2019-11-03 13:32 | IPNPDOC ---
Text Note Date of Service The patient was seen on 11/03/19. NOTE Subjective: No any acute events overnight. Patient participates in physical t herapy activity Denies fever, chills, n/v, abdominal pain and diarrhea Objective: GENERAL APPEARANCE: NAD, Morbidly obese F HEENT: no scleral icterus, no JVD, EOMI CARDIOVASCULAR: S1S2 LUNGS: CTA ABDOMEN: soft & not tender w palpitation MUSCULOSKELETAL: no cyanosis, no swelling NEUROLOGICAL: cranial nerve function from 2-12 intact intact, follows commands, speech not dysarthric Skin: Left leg erythema from the foot to the proximal part of her hip. + 2 pitting edema of LLE, +1RLE Assessment/Plan 54 yo W with a history of developmental delay, morbid obesity, Afib on metop and dabigatran, HFrEF, hypothyroidism, liver pathology with a history of ascites who was brought in from home with a fever and noted to have LLE severe cellulitis with open bullae at LLE with some weeping and purulence on surface with streaking all the way up her leg to the groin and unilateral LLE swelling. Sepsis 2/2 cellulitis of LLE BCx negative Cw with Vancomycin, DC Zosyn wound Cx showed MRSA and Streptococcus group C cellulitis of LLE Improved today Legs elevation HFrEF exacerbation Pt had moderate LE swelling, but denies orthopnea, no JVD BNP 1280 Entresto restarted, blood pressure stable Cardiac diet Lasix by mouth chronic AFib continue metoprolol continue dabigatran Telemetry Hypothyroidism continue home levothyroxine Morbid obesity Complicates care JEREMY pre renal Secondary to sepsis Improved Continue to monitor Deconditioning Secondary to morbid obesity PT/OT VS,Fishbone, I+O VS, Fishbone, I+O Laboratory Tests 11/03/19 05:38 Vital Signs Date Time Temp Pulse Resp B/P (MAP) Pulse Ox O2 Delivery O2 Flow Rate FiO2 11/03/19 06:00 97.1 80 19 110/58 (75) 93 Room Air I&O- Last 24 Hours up to 6 AM 11/03/19 06:00 Intake Total 1255 ml Output Total 750 ml Balance 505 ml MESSI TREJO DO Nov 03, 2019 13:32
[2019-11-03] MEDS: VANICREAM MOISTURIZING SKIN CREAM 113GM TUBE TOP SCH ×2 (13:33→20:45)
[2019-11-03] MEDS: PERCOCET 5MG/325MG TAB PO PRN ×2 (13:43→22:02)
[2019-11-03 14:00] VITALS: BP 105/56
[2019-11-03] MEDS: VANCOMYCIN HCL 1,000 MG, VIAL MATE ADAPTER 1 EACH in D5W 250 ML IV SCH (17:57)
[2019-11-03 22:00] VITALS: BP 107/61
[2019-11-04 06:00] VITALS: BP 113/56
[2019-11-04 06:01] LABS: HEMATOCRIT 32.7 % (36.0-47.0); HEMOGLOBIN 10.3 g/dl (12.0-15.5); MEAN CORPUSCULAR HEMOGLOBIN 27.4 pg (27.0-33.0); MEAN CORPUSCULAR HGB CONC 31.5 g/dl (32.0-36.5); PLATELET COUNT, AUTOMATED 386 10^3/uL (150-450); RED BLOOD COUNT 3.76 10^6/uL (4.00-5.40); WHITE BLOOD COUNT 9.2 10^3/uL (4.0-10.0)
[2019-11-04 06:21] LABS: CALCIUM LEVEL 8.2 MG/DL (8.5-10.1); CREATININE FOR GFR 1.05 MG/DL (0.55-1.30); GLOMERULAR FILTRATION RATE 58.1 (>51); MAGNESIUM LEVEL 2.2 MG/DL (1.8-2.4); POTASSIUM SERUM 4.3 MEQ/L (3.5-5.1)
[2019-11-04] MEDS: LEVOTHYROXINE 88MCG TABLET (0.088 MG) PO SCH (06:23)
[2019-11-04] MEDS: SLF 3 ML SYR IV SCH ×3 (06:23→21:04)
[2019-11-04] MEDS: VANCOMYCIN HCL 1,000 MG, VIAL MATE ADAPTER 1 EACH in D5W 250 ML IV SCH ×2 (06:23→18:13)
[2019-11-04] MEDS: ACETAMINOPHEN TAB 650MG DOSE (2X325MG) PO PRN ×3 (06:29→18:48)
[2019-11-04 08:18] LABS: ATYPICAL LYMPH 12 % (0-5); EOSINOPHILS 4 % (0-3); LYMPHOCYTES 10 % (16-44); MONOCYTES 5 % (0-5); NEUTROPHILS 68 % (28-66)
[2019-11-04 08:19] LABS: PLATELET ESTIMATE NORMAL (NORMAL)
[2019-11-04] MEDS: DABIGATRAN ETEXILATE 75 MG CAP (PRADAXA) PO SCH ×2 (10:26→21:01)
[2019-11-04] MEDS: ENTRESTO 24-26MG TABLET (SACUBITRIL/VALSARTAN) PO SCH ×2 (10:28→21:02)
[2019-11-04] MEDS: SPIRONOLACTONE 25 MG TAB PO SCH (10:29)
[2019-11-04] MEDS: METOPROLOL SUCC *XL* 12.5MG PER 1/2 TAB (TopROL *XL*) PO SCH ×2 (10:30→21:02)
[2019-11-04] MEDS: FUROSEMIDE 40 MG TAB PO SCH ×2 (10:31→17:00)
[2019-11-04] MEDS: NYSTATIN 100,000 UNITS/GM TOPICAL PWD 15 GM TOP SCH ×2 (10:31→21:03)
[2019-11-04] MEDS: VANICREAM MOISTURIZING SKIN CREAM 113GM TUBE TOP SCH ×2 (10:32→21:04)
--- NOTE | 2019-11-04 12:11 | IPNPDOC ---
Text Note Date of Service The patient was seen on 11/04/19. NOTE Subjective: No any acute events overnight. Denies fever, chills, n/v, abdominal pain and diarrhea Objective: GENERAL APPEARANCE: NAD, Morbidly obese F HEENT: no scleral icterus, no JVD, EOMI CARDIOVASCULAR: S1S2 LUNGS: CTA ABDOMEN: soft & not tender w palpitation MUSCULOSKELETAL: no cyanosis, no swelling NEUROLOGICAL: cranial nerve function from 2-12 intact intact, follows commands, speech not dysarthric Skin: Left leg erythema from the foot to the proximal part of her hip. + 2 pitting edema of LLE, +1RLE Assessment/Plan 54 yo W with a history of developmental delay, morbid obesity, Afib on metop and dabigatran, HFrEF, hypothyroidism, liver pathology with a history of ascites who was brought in from home with a fever and noted to have LLE severe cellulitis with open bullae at LLE with some weeping and purulence on surface with streaking all the way up her leg to the groin and unilateral LLE swelling. Sepsis 2/2 cellulitis of LLE BCx negative Cw with Vancomycin, DC Zosyn wound Cx showed MRSA and Streptococcus group C cellulitis of LLE Improved today Legs elevation HFrEF exacerbation Pt had moderate LE swelling, but denies orthopnea, no JVD BNP 1280 Entresto restarted, blood pressure stable Cardiac diet Lasix by mouth chronic AFib continue metoprolol continue dabigatran Telemetry Hypothyroidism continue home levothyroxine Morbid obesity Complicates care JEREMY pre renal Secondary to sepsis Improved Continue to monitor Deconditioning Secondary to morbid obesity PT/OT VS,Fishbone, I+O VS, Fishbone, I+O Laboratory Tests 11/04/19 05:33 Vital Signs Date Time Temp Pulse Resp B/P (MAP) Pulse Ox O2 Delivery O2 Flow Rate FiO2 11/04/19 10:30 88 119/56 11/04/19 06:00 98.5 16 98 Room Air I&O- Last 24 Hours up to 6 AM 11/04/19 06:00 Intake Total 610 ml Output Total 675 ml Balance -65 ml MESSI TREJO DO Nov 04, 2019 12:11
[2019-11-04 14:00] VITALS: BP 114/69
[2019-11-04 22:00] VITALS: BP 138/64
[2019-11-05] MEDS: PERCOCET 5MG/325MG TAB PO PRN ×3 (01:00→14:28)
[2019-11-05] MEDS: VANCOMYCIN HCL 1,000 MG, VIAL MATE ADAPTER 1 EACH in D5W 250 ML IV SCH (05:48)
[2019-11-05] MEDS: LEVOTHYROXINE 88MCG TABLET (0.088 MG) PO SCH (05:48)
[2019-11-05] MEDS: SLF 3 ML SYR IV SCH ×2 (05:49→14:00)
[2019-11-05 06:00] VITALS: BP 109/60
[2019-11-05 06:42] LABS: BASO # 0.1 10^3/uL (0.0-0.2); BASO % 0.9 % (0.0-1.0); EOS # 0.3 10^3/uL (0.0-0.5); EOS % 3.1 % (0.0-3.0); HEMATOCRIT 35.4 % (36.0-47.0); HEMOGLOBIN 11.2 g/dl (12.0-15.5); LYMPH # 1.9 10^3/uL (1.5-5.0); LYMPH % 18.2 % (24.0-44.0); MEAN CORPUSCULAR HEMOGLOBIN 27.3 pg (27.0-33.0); MEAN CORPUSCULAR HGB CONC 31.6 g/dl (32.0-36.5); MEAN CORPUSCULAR VOLUME 86.1 fl (80.0-96.0); MONO # 0.9 10^3/uL (0.0-0.8); NEUTROPHILS # 6.9 10^3/uL (1.5-8.5); NEUTROPHILS % 65.8 % (36.0-66.0); PLATELET COUNT, AUTOMATED 419 10^3/uL (150-450); RED BLOOD COUNT 4.11 10^6/uL (4.00-5.40); WHITE BLOOD COUNT 10.4 10^3/uL (4.0-10.0)
[2019-11-05 07:07] LABS: BLOOD UREA NITROGEN 10 MG/DL (7-18); CALCIUM LEVEL 8.1 MG/DL (8.5-10.1); CARBON DIOXIDE LEVEL 32 MEQ/L (21-32); CHLORIDE LEVEL 99 MEQ/L (98-107); CREATININE FOR GFR 1.02 MG/DL (0.55-1.30); GLOMERULAR FILTRATION RATE > 60.0 (>51); GLUCOSE, FASTING 148 MG/DL (70-100); MAGNESIUM LEVEL 2.3 MG/DL (1.8-2.4); SODIUM LEVEL 138 MEQ/L (136-145)
[2019-11-05] MEDS: DABIGATRAN ETEXILATE 75 MG CAP (PRADAXA) PO SCH (07:57)
[2019-11-05] MEDS: SPIRONOLACTONE 25 MG TAB PO SCH (07:58)
[2019-11-05 07:59] VITALS: BP 106/58
[2019-11-05] MEDS: METOPROLOL SUCC *XL* 12.5MG PER 1/2 TAB (TopROL *XL*) PO SCH (07:59)
[2019-11-05] MEDS: FUROSEMIDE 40 MG TAB PO SCH (07:59)
[2019-11-05] MEDS: ENTRESTO 24-26MG TABLET (SACUBITRIL/VALSARTAN) PO SCH (07:59)
[2019-11-05] MEDS: NYSTATIN 100,000 UNITS/GM TOPICAL PWD 15 GM TOP SCH (08:01)
[2019-11-05] MEDS: VANICREAM MOISTURIZING SKIN CREAM 113GM TUBE TOP SCH (08:01)
[2019-11-05] MEDS ORDERED: DOXY-350 PO (11:31)
--- NOTE | 2019-11-05 20:11 | DS.PDOC ---
Discharge Summary General Date of Admission Oct 27, 2019 at 13:29 Date of Discharge 11/05/19 Discharge Summary PROCEDURES PERFORMED DURING STAY: [None]. ADMITTING DIAGNOSES: Sepsis 2/2 cellulitis of LLE HFrEF exacerbation chronic AFib Hypothyroidism Morbid obesity JEREMY Deconditioning DISCHARGE DIAGNOSES: Sepsis 2/2 cellulitis of LLE HFrEF exacerbation chronic AFib Hypothyroidism Morbid obesity JEREMY Deconditioning COMPLICATIONS/CHIEF COMPLAINT: Cellulitis. HISTORY OF PRESENT ILLNESS:54 yo W with a history of developmental delay, morbid obesity, Afib on metop and dabigatran, HFrEF, hypothyroidism, liver pathology with a history of ascites who was brought in from home with a fever and noted to have LLE severe cellulitis with open bullae at LLE with some weeping and purulence on surface with streaking all the way up her leg to the groin and unilateral LLE swelling. HOSPITAL COURSE: During hospital stay following issue addressed Sepsis 2/2 cellulitis of LLE BCx negative Cw with Vancomycin, DC Zosyn wound Cx showed MRSA and Streptococcus group C cellulitis of LLE Improved today Legs elevation HFrEF exacerbation Pt had moderate LE swelling, but denies orthopnea, no JVD BNP 1280 Entresto restarted, blood pressure stable Cardiac diet Lasix by mouth chronic AFib continue metoprolol continue dabigatran Telemetry Hypothyroidism continue home levothyroxine Morbid obesity Complicates care JEREMY pre renal Secondary to sepsis Improved Continue to monitor Deconditioning Secondary to morbid obesity PT/OT DISCHARGE MEDICATIONS: Please see below. ALLERGIES: Please see below. PHYSICAL EXAMINATION ON DISCHARGE: VITAL SIGNS: Please see below. GENERAL APPEARANCE: NAD, Morbidly obese F HEENT: no scleral icterus, no JVD, EOMI CARDIOVASCULAR: S1S2 LUNGS: CTA ABDOMEN: soft & not tender w palpitation MUSCULOSKELETAL: no cyanosis, no swelling NEUROLOGICAL: cranial nerve function from 2-12 intact intact, follows commands, speech not dysarthric Skin: Left leg erythema from the foot to the proximal part of her hip. + 2 pitting edema of LLE, +1RLE LABORATORY DATA: Please see below. PROGNOSIS: Fair ACTIVITY: [As tolerated]. DIET: Cardiac DISPOSITION: Home, Self-Care. DISCHARGE INSTRUCTIONS: Leg elevation ITEMS TO FOLLOWUP ON ON OUTPATIENT: Follow-up with PCP DISCHARGE CONDITION: [Stable]. TIME SPENT ON DISCHARGE: Greater than 40 minutes. Vital Signs/I&Os Vital Signs Date Time Temp Pulse Resp B/P (MAP) Pulse Ox O2 Delivery O2 Flow Rate FiO2 11/05/19 14:28 18 11/05/19 07:59 86 106/58 11/05/19 06:00 98.6 93 Room Air I&O- Last 24 Hours up to 6 AM 11/05/19 06:00 Intake Total 950 ml Output Total 0 ml Balance 950 ml Laboratory Data Labs 24H Laboratory Tests 2 11/05/19 06:04: Immature Granulocyte % (Auto) 3.0, Neutrophils (%) (Auto) 65.8, Lymphocytes (%) (Auto) 18.2L, Monocytes (%) (Auto) 9.0H, Eosinophils (%) (Auto) 3.1H, Basophils (%) (Auto) 0.9, Neutrophils # (Auto) 6.9, Lymphocytes # (Auto) 1.9, Monocytes # (Auto) 0.9H, Eosinophils # (Auto) 0.3, Basophils # (Auto) 0.1, Nucleated Red Blood Cells % (auto) 0.0, Anion Gap 7L, Glomerular Filtration Rate > 60.0, Calcium Level 8.1L, Magnesium Level 2.3 CBC/BMP Laboratory Tests 11/05/19 06:04 Microbiology Microbiology 10/27/19 Wound Culture - Final, Complete Staph.aureus Methicillin Resis Streptococcus Group C 10/27/19 Blood Culture - Final, Complete NO GROWTH AFTER 5 DAYS 10/27/19 Blood Culture - Final, Complete NO GROWTH AFTER 5 DAYS Discharge Medications Scheduled Dabigatran Etexilate Mesylate (Pradaxa) 150 Mg Cap, 150 MG PO BID Doxycycline Monohydrate (Doxycycline) 100 Mg Capsule, 1 CAP PO BID Furosemide (Lasix) 20 Mg Tab, 20 MG PO DAILY Levothyroxine Sodium (Levothyroxine Sodium) 88 Mcg Tablet, 88 MCG PO DAILY, (Reported) Metoprolol Succinate (Metoprolol Succinate) 25 Mg Tab.er.24h, 12.5 MG PO BID, (Reported) Sacubitril/Valsartan (Entresto 24 mg-26 mg Tablet) 1 Tab Tab, 1 TAB PO BID, (Reported) Spironolactone (Spironolactone) 25 Mg Tablet, 25 MG PO DAILY, (Reported) Allergies Coded Allergies: Penicillins (Verified Allergy, Unknown, 10/27/19) aspirin (Verified Allergy, Unknown, 10/27/19) ibuprofen (Verified Allergy, Unknown, 10/27/19) MESSI TREJO DO Nov 05, 2019 20:11
--- NOTE | 2019-11-16 11:08 | REP ---
PORTABLE CHEST X-RAY: 10/28/19 CLINICAL: Shortness of breath. COMPARISON: 01/13/18. FINDINGS: Examination is limited by portable technique, under penetration and poor inspiratory effort. Cardiomegaly is appreciated along with findings to suggest pulmonary vascular congestion and intersitial edema. Differential diagnosis would include scattered reticular nodular infiltrates. No discrete focal consolidation or effusion. No pneumothorax. Skeletal structures are intact. IMPRESSION: Limited portal examination demonstrating cardiomegaly and findings to suggest pulmonary vascular congestion/interstitial edema. MTDD
== END 2019-11-05 15:15 | disposition home health service (06) | DRG 871 ==
LOC: EDBD 08:59 → M ED 08:59 → EEVIPCON 13:29 → M ED INP 13:29 → ENRESERV 14:19 → M PCU 18:06 → M ICU 10-28 00:18 → M PCU 10-28 21:02 → M MSPAV 10-30 18:08
PROVIDERS: ADMIT Internal Medicine; ATTEND Internal Medicine
DX: A41.9 Sepsis, unspecified organism (principal); I50.21 Acute systolic (congestive) heart failure; L03.116 Cellulitis of left lower limb; Z68.43 Body mass index [BMI] 50.0-59.9, adult; I48.20 Chronic atrial fibrillation, unspecified; N17.9 Acute kidney failure, unspecified; E66.01 Morbid (severe) obesity due to excess calories; E03.9 Hypothyroidism, unspecified; Z79.899 Other long term (current) drug therapy; Z88.0 Allergy status to penicillin; Z88.6 Allergy status to analgesic agent

== ENCOUNTER → 2019-11-12 | Outpatient (CLI) | payer MEDICARE, MEDICAID ==
[~2019-11-12] MED LIST changes: +DOXY-350 PO; +LEVO88TA3 PO; +METO1TAB32 PO
[2019-11-12 17:02] LABS: BASO # 0.1 10^3/uL (0.0-0.2); BASO % 1.1 % (0.0-1.0); EOS # 0.2 10^3/uL (0.0-0.5); EOS % 1.7 % (0.0-3.0); HEMATOCRIT 37.6 % (36.0-47.0); HEMOGLOBIN 11.5 g/dl (12.0-15.5); LYMPH # 2.1 10^3/uL (1.5-5.0); LYMPH % 21.7 % (24.0-44.0); MEAN CORPUSCULAR HEMOGLOBIN 26.9 pg (27.0-33.0); MEAN CORPUSCULAR HGB CONC 30.6 g/dl (32.0-36.5); MEAN CORPUSCULAR VOLUME 87.9 fl (80.0-96.0); MONO # 0.9 10^3/uL (0.0-0.8); MONO % 8.7 % (0.0-5.0); NEUTROPHILS # 6.4 10^3/uL (1.5-8.5); NEUTROPHILS % 65.7 % (36.0-66.0); PLATELET COUNT, AUTOMATED 382 10^3/uL (150-450); RED BLOOD COUNT 4.28 10^6/uL (4.00-5.40); WHITE BLOOD COUNT 9.8 10^3/uL (4.0-10.0)
[2019-11-12 17:24] LABS: HEMOGLOBIN A1c 7.1 %
[2019-11-12 17:39] LABS: ALBUMIN 2.9 GM/DL (3.2-5.2); BILIRUBIN,TOTAL 0.6 MG/DL (0.2-1.0); CALCIUM LEVEL 9.2 MG/DL (8.5-10.1); CHOLESTEROL RISK RATIO 3.377 (<5); CREATININE FOR GFR 1.3 MG/DL (0.55-1.30); FREE T4 0.7 NG/DL (0.76-1.46); GLOMERULAR FILTRATION RATE 45.4 (>51); POTASSIUM SERUM 4.7 MEQ/L (3.5-5.1)
== END ==
LOC: M PLALAB 15:14
PROVIDERS: ATTEND Nurse Practitioner Family
DX: E66.01 Morbid (severe) obesity due to excess calories (principal); E89.0 Postprocedural hypothyroidism; R48.2 Apraxia; R73.09 Other abnormal glucose; L03.116 Cellulitis of left lower limb

== ENCOUNTER → 2020-01-14 | Outpatient (REF) | payer MEDICARE, MEDICAID | LOC: M SHH 14:26 → M SFHCPLAZ 14:26 | PROVIDERS: ATTEND Nurse Practitioner Family | DX: Z20.828 Contact with and (suspected) exposure to other viral communicable diseases (principal) ==

== ENCOUNTER 2020-01-20 13:10 | Inpatient (IN) | payer MEDICARE, MEDICAID ==
[~2020-01-20] VITALS: Ht 172.7 cm; Wt 155.5 kg
[2020-01-20] VITALS (14 sets, daily range): BP systolic 80–119; BP diastolic 50–85
[2020-01-20] MEDS ORDERED: NS 500 ML IV ONE ×3 (13:45→15:45)
[2020-01-20 14:01] LABS: BASO # 0.1 10^3/uL (0.0-0.2); BASO % 0.4 % (0.0-1.0); EOS # 0.2 10^3/uL (0.0-0.5); EOS % 0.9 % (0.0-3.0); HEMOGLOBIN 10.1 g/dl (12.0-15.5); MEAN CORPUSCULAR HEMOGLOBIN 25.2 pg (27.0-33.0); MEAN CORPUSCULAR HGB CONC 31.6 g/dl (32.0-36.5); MEAN CORPUSCULAR VOLUME 79.8 fl (80.0-96.0); MONO # 0.9 10^3/uL (0.0-0.8); MONO % 4.8 % (0.0-5.0); NEUTROPHILS % 81.3 % (36.0-66.0); PLATELET COUNT, AUTOMATED 377 10^3/uL (150-450); RED BLOOD COUNT 4.01 10^6/uL (4.00-5.40); WHITE BLOOD COUNT 19.6 10^3/uL (4.0-10.0)
--- NOTE | 2020-01-20 14:15 | REP ---
INDICATION: dyspnea. COMPARISON: October 27, 2019.. TECHNIQUE: Sitting AP portable chest radiograph. FINDINGS: Monitoring electrodes are seen. Moderate cardiomegaly is observed. Pulmonary vascular congestion is seen similar to the prior study. Right hemidiaphragm remains elevated. The pleural angles are sharp. No focal infiltrate is appreciated. IMPRESSION: Moderate cardiomegaly. Vascular congestion. No pleural effusion or diffuse pulmonary edema seen. <Electronically signed by Edwin Vogt > 01/20/20 [id number]
[2020-01-20] MEDS ORDERED: cefTRIAXone SOD 1 GM in D5W MINI-BAG PLUS 50 ML IV ONE (14:30)
[2020-01-20] MEDS ORDERED: SODIUM BICARBONATE 8.4% INJ 50 ML SYRINGE IV STA (14:37)
[2020-01-20] MEDS ORDERED: NS 1,000 ML IV ONE ×3 (14:45→17:00)
[2020-01-20] MEDS: SOD POLYSTYRENE SULFONATE SUSP 15 GM/60 ML UD PO ONE ×2 (14:45→15:38)
[2020-01-20] MEDS ORDERED: CALCIUM GLUCONATE 1,000 MG in D5W MINI-BAG PLUS 100 ML IV ONE ×3 (14:45→23:30)
[2020-01-20 14:59] LABS: BLOOD UREA NITROGEN 184 MG/DL (7-18); C REACTIVE PROTEIN QUANTITATIV 9.75 MG/DL (0.00-0.30); CALCIUM LEVEL 7.2 MG/DL (8.5-10.1); CARBON DIOXIDE LEVEL 16 MEQ/L (21-32); CHLORIDE LEVEL 95 MEQ/L (98-107); CK-MB VALUE MASS 5.2 NG/ML (<3.6); CPK CREATINE PHOSPHOKINASE 106 U/L (26-192); GLOMERULAR FILTRATION RATE 2.3 (>51); GLUCOSE, FASTING 106 MG/DL (70-100); MB/CK RELATIVE INDEX 4.91 (< OR =4); NT-PRO BNP 1720 PG/ML (<125); POTASSIUM SERUM 7.1 MEQ/L (3.5-5.1); SODIUM LEVEL 127 MEQ/L (136-145); TROPONIN I < 0.02 NG/ML (< 0.10)
[2020-01-20] MEDS ORDERED: DEXTROSE 50% 50 ML SYRINGE IV STA (15:01)
[2020-01-20] MEDS ORDERED: HumaLOG INSULIN (NovoLOG) PER UNIT SC STA (15:01)
[2020-01-20] MEDS ORDERED: LEVO100T5 PO (15:15)
[2020-01-20] MEDS ORDERED: FURO20TA2 PO (15:15)
[2020-01-20] MEDS ORDERED: PRAD150C6 PO (15:25)
[2020-01-20] MEDS ORDERED: MED REC COMMENT (15:26)
[2020-01-20 16:12] LABS: OSMOLALITY URINE 344 MOSM/KG (500-800)
[2020-01-20] MEDS ORDERED: NS 1,000 ML IV SCH (16:15)
[2020-01-20 16:45] LABS: POTASSIUM RANDOM URINE 48.5 MEQ/L; SODIUM,RANDOM URINE < 10 MEQ/L
[2020-01-20 16:46] LABS: VENOUS BASE EXCESS -12.9 (-2.0-2.0); VENOUS HCO3 15.4 MEQ/L (23.0-27.0); VENOUS O2 SATURATION 77.6 % (60.0-80.0); VENOUS PARTIAL PRESSURE CO2 45.7 mmHg (38.0-50.0); VENOUS PARTIAL PRESSURE O2 54.3 mmHg (30.0-50.0); VENOUS PH 7.146 UNITS (7.330-7.430); VENOUS TOTAL CO2 16.8 MEQ/L (24.0-28.0)
[2020-01-20 17:10] LABS: ABG BASE EXCESS -12.7 (-2.0-2.0); ABG PARTIAL PRESSURE CO2 29.3 mmHg (35.0-45.0); ABG PARTIAL PRESSURE O2 102.6 mmHg (75.0-100.0); ABG STANDARD HCO3 14.4 MEQ/L (22.0-26.0); ABG TOTAL CO2 13.9 MEQ/L (22.0-29.0); ABG pH (ARTERIAL) 7.264 UNITS (7.350-7.450)
[2020-01-20 17:18] LABS: OSMOLALITY SERUM 337 MOSM/KG (275-295)
[2020-01-20 17:26] LABS: ALBUMIN 2.3 GM/DL (3.2-5.2); ALT/SGPT 9 U/L (12-78); BILIRUBIN,DIRECT 0.1 MG/DL (0.0-0.2); BILIRUBIN,TOTAL 0.2 MG/DL (0.2-1.0); BLOOD UREA NITROGEN 185 MG/DL (7-18); CALCIUM LEVEL 11.6 MG/DL (8.5-10.1); CARBON DIOXIDE LEVEL 14 MEQ/L (21-32); CHLORIDE LEVEL 88 MEQ/L (98-107); CPK CREATINE PHOSPHOKINASE 93 U/L (26-192); GLOMERULAR FILTRATION RATE 2.5 (>51); GLUCOSE, FASTING 360 MG/DL (70-100); MAGNESIUM LEVEL 2.2 MG/DL (1.8-2.4); POTASSIUM SERUM 6.4 MEQ/L (3.5-5.1); SODIUM LEVEL 121 MEQ/L (136-145); TOTAL PROTEIN 7.7 GM/DL (6.4-8.2); URIC ACID 15.2 MG/DL (2.6-6.0)
--- NOTE | 2020-01-20 17:26 | REPVR ---
PROCEDURE INFORMATION: Exam: CT Abdomen And Pelvis Without Contrast Exam date and time: 01/20/2020 4:55 PM Age: 54 years old Clinical indication: Condition or disease; Kidney or ureter condition; Other: Severe acute renal failure TECHNIQUE: Imaging protocol: Computed tomography of the abdomen and pelvis without contrast. Radiation optimization: All CT scans at this facility use at least one of these dose optimization techniques: automated exposure control; mA and/or kV adjustment per patient size (includes targeted exams where dose is matched to clinical indication); or iterative reconstruction. COMPARISON: CT ABD PELVIS WITH CONTRAST 09/06/2016 10:17 AM FINDINGS: Liver: Normal. No mass. Gallbladder and bile ducts: Normal. No calcified stones. No ductal dilation. Pancreas: Normal. No ductal dilation. Spleen: Normal. No splenomegaly. Adrenal glands: Normal. No mass. Kidneys and ureters: Normal. No hydronephrosis. Stomach and bowel: Unremarkable. No obstruction. No mucosal thickening. Appendix: No evidence of appendicitis. Intraperitoneal space: See "Lymph nodes" finding. Vasculature: Unremarkable. No abdominal aortic aneurysm. Lymph nodes: Prominent para-aortic, mesenteric and pelvic lymph nodes. The largest measures 1 cm in the left pelvis and 1 cm in the mesenteric region. Urinary bladder: Webster's catheter is seen. Reproductive: Unremarkable as visualized. Bones/joints: Unremarkable. No acute fracture. Soft tissues: Unremarkable. Other findings: Motion artifact degrading the images. IMPRESSION: No acute abdominal or pelvic abnormality. Prominent deneen aorta, mesenteric and pelvic lymph nodes. Etiology infectious/inflammatory. Electronically signed by: Ankit Corley On 01/20/2020 17:26:15 PM
[2020-01-20 17:28] LABS: HEMATOCRIT 28.9 % (36.0-47.0); HEMOGLOBIN 9.5 g/dl (12.0-15.5); MEAN CORPUSCULAR HEMOGLOBIN 26.3 pg (27.0-33.0); MEAN CORPUSCULAR HGB CONC 32.9 g/dl (32.0-36.5); MEAN CORPUSCULAR VOLUME 80.1 fl (80.0-96.0); PLATELET COUNT, AUTOMATED 346 10^3/uL (150-450); RED BLOOD COUNT 3.61 10^6/uL (4.00-5.40); WHITE BLOOD COUNT 17.9 10^3/uL (4.0-10.0)
--- NOTE | 2020-01-20 17:30 | REPVR ---
PROCEDURE INFORMATION: Exam: CT Chest Without Contrast; Diagnostic Exam date and time: 01/20/2020 4:55 PM Age: 54 years old Clinical indication: Dyspnea; Additional info: Dyspnea, blood in mouth, dillan TECHNIQUE: Imaging protocol: Diagnostic computed tomography of the chest without contrast. Radiation optimization: All CT scans at this facility use at least one of these dose optimization techniques: automated exposure control; mA and/or kV adjustment per patient size (includes targeted exams where dose is matched to clinical indication); or iterative reconstruction. COMPARISON: CT ANGIO CHEST 01/13/2018 8:28 PM FINDINGS: Lungs: Unremarkable. No consolidation. No masses. Pleural space: Unremarkable. No pneumothorax. No pleural effusion. Heart: Unremarkable. No cardiomegaly. No pericardial effusion. Aorta: Unremarkable. No aortic aneurysm. Lymph nodes: Unremarkable. No enlarged lymph nodes. Bones/joints: Unremarkable. No acute fracture. Soft tissues: Unremarkable. Other findings: Motion artifact degrades the images. IMPRESSION: No acute abnormality. Electronically signed by: Ankit Corley On 01/20/2020 17:30:12 PM
[2020-01-20 17:40] LABS: PHOSPHORUS LEVEL 10.6 MG/DL (2.5-4.9)
--- NOTE | 2020-01-20 17:40 | HPEPDOC ---
[facility] Medical History & Physical Date of Admission Jan 20, 2020 Date of Service: Jan 20, 2020 Attending Physician: Wilma Parks MD History and Physical CHIEF COMPLAINT: shortness of breath, diarrhea HISTORY OF PRESENT ILLNESS: Patient is a 54-year-old female with past medical history of HFrEF (EF 30-35%), atrial fibrillation on dabigitran, hypothyroidism, HLD, lower ext cellulitis on doxycycline o/p, HTN, atrial fibrillation who presented to [facility] ER with chief complaint of increased SOB, diarrhea. The patient states for the past week she has had increased shortness of breath, denies fevers, chills, dizziness, cough, chest pain, increased lethargy, decreased appetite, tremoring of the upper extremities. Over the past 2 days she has developed diarrhea, nonbloody, 45 times per day. She denies abdominal pain, medication changes, diet changes, sick contacts. She has been on an extended treatment regimen of doxycycline for "weeks" for lower extremity cellulitis which has not significantly improved. She was found today by a friend covered in dried feces and was brought to the ER for further evaluation In the ER, VS showed T 95.1 F (repeat 94.7F), HR 86 in atrial fib, RR 18, BP 91/57, 100% on 2-3 L NC. Patient does not wear O2 at baseline. She had dark/dried and coagulated blood in her oral cavity, upon inspection this did not appear to be 2/2 to bite/trauma to the head. When asked to cough, she produced bright red blood upon coughing. Patient had multiple lower ext skin ulcers, appeared well healing. She also had groin, upper leg cellulitis with a wound on her upper right thigh. She had a macular rash on her abd/upper ext. Abnormal labs included: K 7.1, Cr 17.20, BUN 184, WBC 19.6, BNP 1720 ( in 10/2019 was 454 but prior to that she is chronically elevated at over 1500), H/H 10/32 (baseline 10.3/11.5). She was given calcium gluconate, 10 U regular insulin, Amp D50, 1 amp sodium bicarb, IV ceftriaxone. ABG: pH 7.264 / pCO2 29.3 / pO2 102.6 / HCO3 13. CT abd/pelvis: No acute abdominal or pelvic abnormality, prominent deneen aorta, mesenteric and pelvic lymph nodes-etiology infectious/inflammatory. CT chest without contrast: No acute abnormality. Santiago was placed and very little urine came out. UA + for UTI, UCx and blood cultures collected/sent. She was given 500 cc bolus, 1000 cc bolus and started on IVF at 100 cc/hr. BP remained low and patient was started on third liter bolus. Nephrology evaluated and by then patient was making some urine. Decision was made to not initiate CRRT and c/w fluid resuscitation, starting on bicarb gtt. Potassium improved to 6.4 and the decision was made to not treat with additional meds. Blood in mouth and posterior nares believes to be 2/2 to prior epistaxis episode possible earlier in the evening and not GI bleed. Patient was admitted to ICU for sepsis with shock 2/2 to UTI and possibly cellulitis, dehydration 2/2 to diarrhea, JEREMY 2/2 to dehydration, hypovolemia, hypothermia 2/2 to sepsis,hyperkalemia 2/2 to JEREMY. REVIEW OF SYSTEMS: CONSTITUTIONAL: Denies unexplained weight gain or weight loss, fever, night sw eats EYES: Denies eye drainage, eye pain, visual changes, dry/irritated eye EARS, NOSE, MOUTH, THROAT: Denies difficulty hearing, ringing in ears, mouth sores, loose teeth, sore throat, facial numbness or pain NECK: Denies swollen glands CARDIOVASCULAR: Denies racing heart, chest pains, pain in legs with walking RESPIRATORY: Deniesnight sweats, wheezing, sputum production, oxygen at home, coughing up blood, cough lasting > 1 month GASTROINTESTINAL: Denies abdominal pain, constipation, bloody stool, heartburn, nausea, vomiting GENITOURINARY: Denies painful urination, bloody urine, frequent urination, urgency, leaking urine, impotence MUSCULOSKELETAL: Denies joint pain, muscle pain, leg swelling INTEGUMENTARY: Denies itching, change in existing skin lesion, hair loss or increase, breast changes. NEUROLOGICAL: Denies headaches, numbness or tingling PSYCHIATRIC: Denies depression, anxiety, recurrent bad thoughts, mood swings, hallucinations PAST MEDICAL HISTORY: 1. HFrEF (EF 30-35%) 2. Atrial fibrillation on dabigitran 3. Hypothyroidism 4. HLD 5. Lower ext cellulitis on doxycycline 6. HTN 7. atrial fibrillation 8. Chronic lower ext wounds b/l PAST SURGICAL HISTORY: None FAMILY HISTORY: Father: DM type II. Alive SOCIAL HISTORY: Denies smoking, alcohol or drug use. Uses walker at baseline, lives alone. PCP- "Trudy", Dr. Maria- cardiology. FULL CODE ALLERGIES: Please see below. HOME MEDICATIONS: Please see below. PHYSICAL EXAMINATION: VS: 94.7 F, RR 18, P 85 atrial fib, BP 81/57, 100% on 3 L NC CONSTITUTIONAL: No acute distress, resting comfortably, AAO x 3 EYES: PERRLA, EOM intact HENT, MOUTH: dried blood in mouth, some blood at back of nares. Normocephalic, atraumatic, moist mucous membranes NECK: SUPPLE, no JVD, no lymphadenopathy, no carotid bruit CV: irregularly irregular rhythm, S1S2 normal, no murmurs/rubs/gallops RESPIRATORY: Clear to auscultation bilaterally, no rales/rhonchi/wheezes GI: obese abd, BS positive in 4 quadrants, soft, nontender, nondistended, no rebound or guarding, no organomegaly : santiago catheter MUSCULOSKELETAL: Normal ROM. No cyanosis, clubbing, swelling, joint deformity, extremity edema INTEGUMENTARY: Macular rash on upper ext, trunk- has calamine lotion on it currently. Cellulitis of the lower and upper thighs, slightly erythematous, nontender to touch. Multiple b/l lower ext wounds, Stage I, appear clean and nonsuppurative. Wound on the right upper thigh, appears clean. Redness in abdominal folds-yeast? NEUROLOGIC: Cranial Nerves II-XII are intact, no focal deficits PSYCHIATRIC: Mood and affect are normal LABORATORY DATA: Please see below IMAGING: CT abd/pelvis: No acute abdominal or pelvic abnormality. Prominent deneen aorta, mesenteric and pelvic lymph nodes. Etiology infectious/inflammatory. CT chest without contrast: No acute abnormality. Echocardiogram 07/2016: 1. Study is of fair technical quality. 2. Normal LV size with severe global hypokinesis and flattening of i nterventricular septum. Overall estimated EF 30-35%. 3. Dilated hypokinetic right ventricle. 4. Severe biatrial enlargement. 5. Approximately moderate mitral insufficiency. 6. Approximately moderate tricuspid insufficiency. 7. Very high central venous pressure. 8. At least moderately severe pulmonary hypertension. 9. Left pleural effusion with presence of mass, potentially representing thr ombus or collapsed lobe. ASSESSMENT: 54-year-old female with past medical history of HFrEF (EF 30-35%), atrial fibrillation on dabigitran, hypothyroidism, HLD, lower ext cellulitis on doxycycline o/p, HTN, atrial fibrillation admitted to ICU for sepsis with shock 2/2 to UTI and possibly cellulitis, dehydration 2/2 to diarrhea, JEREMY 2/2 to dehydration, hypovolemia, hypothermia 2/2 to sepsis, hyperkalemia 2/2 to JEREMY. PLAN: # Sepsis with shock 2/2 to UTI. Cannot r/o 2/2 to cellulitis or c. diff with recent use of abx, diarrhea for past 2 days -WBC 19K, 94.7 F, hypotension (currently on 3rd liter bolus), + UA. LA wnl -F/u UCx, BCx, C. diff PCR, GI panel -Giving Vancomycin (renally dosed), Ceftriaxone, IVFs 4 liter boluses then continues and may need central line and pressors if does not improve. Careful not to overload with 30mL/kg with hx of HFrEF. -Tele, Q6H CHARLEY, lionel sylvester #Hypotension likely multifactorial to septic shock, hypovolemia 2/2 to dehydration from diarrhea, diuretic use -Hx of HTN -normal BP 120/90's per patient -On lasix, ACEi/ARB, BB and spironolactone at home- has been compliant despite diarrhea, decreased PO intake. -C/w treatment above, aggressive hydration, may require pressor support to not overload # Hypothermia 2/2 to sepsis vs. uncontrolled hypothyroidism -TSH 11/11/24 was elevated at 32 -No AMS or bradycardia, respiratory acidosis to indicated myxedema coma -F/u thyroid studies, infection w/u above -If TSH markedly high, treat with IV levothyroxine -C/w treatment above #Coagulopathy, supratherapeutic INR and PTT -Likely had epistaxis episode at home. -On dabigatran at home, no VKA or warfarin. -No elevation of AST/ALT or history of hepatic disease -Discussed with Dr. Jones- to give 10 Vitamin K IV, 1 FFP now. No indication to give idarucizumab (Praxbind) to reverse dabigatran. -F/u coags this evening, tomorrow AM, monitor for s/s of bleeding, CBC Q4H -Not restarting AC # Acute kidney injury likely 2/2 to dehydration, sepsis with shock -Cr 17, BUN 184. Baseline wnl -U/O minimal on admission, improving with hydration. Santiago in place -On diuretics at home, diarrhea for past 2 days, decreased PO intake -C/w aggressive fluid hydration, blood pressure management. -BMP Q6H, monitor U/O, I&O -No CRRT per Nephrology, following closely #Hyperkalemia likely 2/2 to JEREMY -Cr 7.1, given calcium gluconate, insulin 10 U, dextrose -Repeat 6.4, no ECG changes. -C/w hydration per nephrology, do not give additional medications to facilitate normalization at this time unless increases again -F/u repeat labs overnight. # Anion gap metabolic acidosis likely 2/2 to sepsis, uremia -ABG above under HPI -S/p amp bicarb in ER -Starting bicarb gtt, c/w aggressive hydration and treatment above -Nephrology following -Labs scheduled, f/u salicylate level #Bleeding in mouth, likely 2/2 to epistaxis episode -Unlikely GI bleed, pulmonary hemorrhage as CT neg -Denies coughing blood or dark stools at home. -With coagulopathy, watch for rebleed. -C/w treatment above. Holding dabigatran. #Diarrhea r/o infectious cause -On doxycycline for "weeks" prior to this admission for cellulitis so c. diff needs to be ruled out -BCx, C. diff PCR, GI panel ordered -C/w abx above, aggressive fluid hydration, NPO status- advance to clears when able #SOB likely 2/2 to HFrEF, not in acute exacerbation -CT chest does not show s/s of fluid overload, patient appears dry on exam -BNP 1720; however, she is chronically elevated. Last 454. -COVID neg -Last echo above. -Monitor for s/s of overload with aggressive hydration. -Holding all diuretic meds. #Hyponatremia likely 2/2 to hypovolemia -Serum sodium 127 -F/u serum osmolality, urine osmolality -C/w hydration, BMP Q6H -Nephrology consulted. #Hypothryoidism -please see above -Resume PO levothyroxine if able #Atrial fibrillation -ECG: afib controlled. -Currently rate controlled, supratherapeutic INR -Holding BB, dabigatran. -Monitor on tele. #GI px -IV PPI #DVTpx -Currently supratherapeutic INR, SCDs. teds DISPOSITION: Critical condition in ICU. Will need PT/OT when acute medical issues stabilize. TOTAL TIME SPENT ON CARING FOR ICU PATIENT: 80 mins Vital Signs Vital Signs Date Time Temp Pulse Resp B/P (MAP) Pulse Ox O2 Delivery O2 Flow Rate FiO2 01/20/20 17:12 74/50 (58) 01/20/20 17:01 104 98 01/20/20 16:15 94.7 01/20/20 13:28 18 Room Air Laboratory Data Labs 24H Laboratory Tests 2 01/20/20 13:46: Immature Granulocyte % (Auto) 2.6, Neutrophils (%) (Auto) 81.3H, Lymphocytes (%) (Auto) 10.0L, Monocytes (%) (Auto) 4.8, Eosinophils (%) (Auto) 0.9, Basophils (%) (Auto) 0.4, Neutrophils # (Auto) 16.0H, Lymphocytes # (Auto) 2.0, Monocytes # (Auto) 0.9H, Eosinophils # (Auto) 0.2, Basophils # (Auto) 0.1, Nucleated Red Blood Cells % (auto) 0.0, Anion Gap 16, Glomerular Filtration Rate 2.3L, Lactic Acid Level 1.4, Calcium Level 7.2L, Total Creatine Kinase 106, Creatine Kinase M B 5.2H, Creatine Kinase MB Relative Index 4.91H, Troponin I < 0.02, C-Reactive Protein, Quantitative 9.75H, BD-Khb-[id number]-Type Natriuretic Peptide 1720H 01/20/20 15:42: Urine Color DK YELLOW, Urine Appearance TURBIDH, Urine pH 5.0, Urine Specific Montara 1.024, Urine Protein 2+H, Urine Glucose (UA) NEGATIVE, Urine Ketones TRACEH, Urine Blood 1+H, Urine Nitrite NEGATIVE, Urine Bilirubin NEGATIVE, Urine Urobilinogen 0.2, Urine Leukocyte Esterase 1+H, Urine WBC (Auto) 20H, Urine RBC (Auto) 15H, Urine Hyaline Casts (Auto) 5, Urine Bacteria (Auto) NEGATIVE, Urine Squamous Epithelial Cells 19, Urine Transitional Epithelial Cells <1, Urine Amorphous Sediment SMALLH, Urine Mucus (Auto) SMALL, Urine Sperm (Auto) , Urine Random Osmolality 344L, Urine Random Creatinine 432.0, Urine Random Total Protein 243.0H, Urine Random Sodium < 10, Urine Random Potassium 48.5 01/20/20 15:51: Coronavirus (COVID-19)(PCR) NEGATIVE 01/20/20 16:36: Blood Gas Bicarbonate Standard 14.0, Venous Blood pH 7.146L, Venous Blood Partial Pressure CO2 45.7, Venous Blood Partial Pressure O2 54.3H, Venous Blood Total Carbon Dioxide 16.8L, Venous Blood HCO3 15.4L, Venous Blood Oxygen Saturation 77.6, Venous Blood Base Excess -12.9L 01/20/20 16:57: Blood Gas Bicarbonate Standard 14.4L, Arterial Blood pH 7.264L, Arterial Blood Partial Pressure CO2 29.3L, Arterial Blood Partial Pressure O2 102.6H, Arterial Blood Total CO2 13.9L, Arterial Blood HCO3 13.0L, Arterial Blood Base Excess - 12.7L, Arterial Blood Oxygen Saturation 97.0 CBC/BMP Laboratory Tests 01/20/20 13:46 Microbiology Microbiology 01/20/20 Urine Culture, Received Pending 01/20/20 Blood Culture, Received Pending 01/20/20 Blood Culture, Received Pending Home Medications Scheduled Dabigatran Etexilate Mesylate (Pradaxa) 150 Mg Capsule, 150 MG PO BID Furosemide (Furosemide) 20 Mg Tablet, 30 MG PO BID Levothyroxine Sodium (Levothyroxine Sodium) 100 Mcg Tablet, 100 MCG PO DAILY Metoprolol Succinate (Metoprolol Succinate) 25 Mg Tab.er.24h, 25 MG PO DAILY Sacubitril/Valsartan (Entresto 24 mg-26 mg Tablet) 1 Tab Tab, 1 TAB PO BID Spironolactone (Spironolactone) 25 Mg Tablet, 25 MG PO DAILY Miscellaneous Medications [Med Rec Comment] MED LIST OBTAINED FROM KELLEY MIMS NP AT [facility] Allergies Coded Allergies: Penicillins (Verified Allergy, Intermediate, HIVES, 01/20/20) aspirin (Verified Allergy, Intermediate, HIVES, 01/20/20) ibuprofen (Verified Allergy, Intermediate, HIVES, 01/20/20) A-FIB/CHADSVASC A-FIB History Current/History of A-Fib/PAF?: Yes Current PO Anticoag Therapy: Yes Age/Risk Factor Scoring CHADSVASC: CHADSVASC Response (Comments) Value Age Risk Factor Age < 65 years old 0 Gender Risk Factor Female 1 Hx of CHF Yes 1 Hx of HTN Yes 1 Hx of Stroke/TIA/or VTE No 0 Hx of Diabetes No 0 Hx of Vascular Disease No 0 Total 3 Treatment Treatment ordered: NONE Reason Anticoagulant not given: Current bleeding Wilma Parks MD Jan 20, 2020 17:40
[2020-01-20 18:05] LABS: FREE T4 0.43 NG/DL (0.76-1.46)
[2020-01-20 18:14] LABS: TOTAL T3 < 10.0 NG/DL (60.0-181.0)
[2020-01-20 18:26] LABS: PROTHROMBIN TIME 80.2 SECONDS (12.5-14.3)
[2020-01-20 18:30] LABS: INR 9.7; PARTIAL THROMBOPLASTIN TIME 156.6 SECONDS (24.2-38.5)
[2020-01-20] MEDS ORDERED: PHYTONADIONE INJection 10 MG in NS 50 ML IV ONE (19:00)
[2020-01-20 19:48] LABS: SALICYLATE LEVEL 2.9 MG/DL (5.0-30.0)
[2020-01-20] MEDS: PANTOPRAZOLE 40MG VIAL (C9113 PER 1) IV SCH (20:03)
[2020-01-20] MEDS: CHLORHEXIDINE GLUCONATE 0.12 % 15ML UDC (PERIDEX ORAL RINSE) MT SCH (20:05)
[2020-01-20] MEDS: SODIUM BICARBONATE 75 MEQ in NS 0.45% 1,000 ML IV SCH (20:20)
[2020-01-20] MEDS ORDERED: VANCOMYCIN HCL 750 MG, VIAL MATE ADAPTER 1 EACH in D5W 250 ML IV ONE ×2 (21:00→22:00)
[2020-01-20] MEDS ORDERED: LIOTHYRONINE 25 MCG TAB PO STA (22:09)
[2020-01-20] MEDS ORDERED: LEVOTHYROXINE 100MCG (0.1MG) VIAL IV ONE (22:15)
[2020-01-20 22:17] LABS: CALCIUM LEVEL 5.3 MG/DL (8.5-10.1); CREATININE FOR GFR 15.7 MG/DL (0.55-1.30); GLOMERULAR FILTRATION RATE 2.6 (>51); POTASSIUM SERUM 6.7 MEQ/L (3.5-5.1); THYROID STIMULATING HORMONE 57.5 uIU/ML (0.358-3.740)
[2020-01-20] MEDS ORDERED: PILL CUTTER 1 EACH XX PRN (22:30)
[2020-01-20] MEDS ORDERED: SOD POLYSTYRENE SULFONATE SUSP 30 GM/120 ML ENEMA PR ONE (22:30)
[2020-01-20] MEDS: HYDROCORTISONE 100 MG/2 ML VIAL (J1720 PER 1) IV SCH (22:46)
--- NOTE | 2020-01-20 23:53 | CR ---
NEPHROLOGY CONSULTATION REQUESTING PHYSICIAN: Dr. Howell in the Emergency Room and Dr. Wilma Parks, the admitting physician CONSULTING PHYSICIAN: Dr. Monson REASON FOR CONSULTATION: Management of acute renal failure, hyperkalemia and metabolic acidosis. CHIEF COMPLAINT: The patient was brought to the Emergency Room after she was found on the floor in her own feces with blood around her mouth. Note: History was obtained from the chart and from the E.R. physicians and from the admitting physician and previous medical records. The patient is a very poor historian, unable to provide any reliable history. HISTORY OF PRESENT ILLNESS: Siobhan Varghese is a 54-year-old female with a past medical history of morbid obesity, history of systolic congestive heart failure, LV ejection fraction of 30-5%, atrial fibrillation, on anticoagulation. She was taking heart failure medications including Furosemide, Metoprolol, Entresto and Spironolactone at home and the patient was also taking Doxycycline for a long time because of left leg cellulitis. She was recently having diarrhea 4-5 times a day which was non-bloody and it was going on for the last 2-3 days. The patient was found on the floor at her home. She was covered in dried feces and she also had dried blood in her mouth, in her nose and on her lips. When she arrived in the Emergency Room she was hypotensive, hypothermic, in atrial fibrillation, and she was in acute renal failure with a creatinine of 17.2, BUN 184 and a potassium of 7.1. She was started on IV fluid hydration. Hospitalist Service is admitting her to the ICU. Nephrology Service was further called for help in the management of this patient. The patient needed my immediate attention. I emergently saw the patient at the bedside interpreted the Emergency Room, before she was transferred to the ICU. Exam was performed. Some of the history was obtained from the patient. All the labs and images were reviewed and the case was discussed with the E.R. physicians and with the admitting physician, Dr. Wilma Parks. PAST MEDICAL HISTORY: The patient's past medical history is significant for: 1. Chronic kidney disease stage 2 with a baseline creatinine of around 1 as of October 2019. 2. History of heart failure with reduced ejection fraction, left ventricular ejection fraction of around 30-35%. 3. Atrial fibrillation, anticoagulated on Pradaxa. 4. Hypothyroidism. 5. Hyperlipidemia. 6. History of lower extremity cellulitis, on Doxycycline. 7. Hypertension. 8. Chronic lower extremity wounds. PAST SURGICAL HISTORY: No known past surgical history. ALLERGIES: She is allergic to: 1. Aspirin. 2. Ibuprofen. 3. Penicillin. FAMILY HISTORY: The patient's family history is negative for end-stage renal disease. SOCIAL HISTORY: The patient lives at home. There is no history of smoking, illicit drug abuse or alcohol abuse. She uses a walker to walk at home. REVIEW OF SYSTEMS: Constitutional: The patient reports feeling weak and tired. Eyes: She denies any blurry vision, double vision. ENT: She denies any dysphagia. She does report blood around her lips and in her mouth and she is not sure where the blood came from. Cardiovascular: She reports lower extremity edema and she reports palpitations. Respiratory: She denies any shortness of breath. GI: She reports recent diarrhea about 3 or 4 days ago persistent. Genitourinary: She reports decreased urine output. Musculoskeletal: She reports muscle weakness. She does report left leg swelling and erythema as well. Skin: She reports leg ulcers. Psych: She denies any depression or anxiety. Endocrine: She reports history of hypothyroidism. Hematological/Oncological: She reports history of nosebleeds. CARPENTER MINE: The patient was found on the floor, covered in feces. All other review of systems is negative. PHYSICAL EXAMINATION: GENERAL APPEARANCE: The patient is awake, alert, oriented x3, sitting up in the bed. VITAL SIGNS: Temperature is 95.1 degrees Fahrenheit rectal on admission. Her lowest blood pressures are in the 60's systolic. When I saw her her blood pressure was 88/52. Pulse rate was 115 and irregular, respiratory rate of 20, saturating 94% on room air. HEAD AND NECK: Pupils are equally round and reactive to light. Mucous membranes are dry. She had dried clotted blood on her lips, on the soft palate, on the tongue and bilateral nares. Neck is supple and obese. I could not appreciate any jugular venous distention. CARDIOVASCULAR: S1, S2, tachycardia, irregularly irregular rate. EXTREMITIES: 1+ edema of the bilateral lower extremities; left is worst than right. RESPIRATORY: Mildly decreased breath sounds at the bases, otherwise no acute rales or rhonchi. No crepitations. ABDOMEN: Soft, obese, positive bowel sounds. I could not appreciate any jugular venous distention. GENITOURINARY: She has an indwelling Webster catheter. I saw around 100 mL of urine in the bag. MUSCULOSKELETAL: She has erythema of the left lower extremity and heel ulcers bilaterally. CARPENTER MINE: The patient was awake and alert, able to follow commands and moves extremities. Power is 5/5 in all extremities. Psych: Normal mood and affect at this time. LAB REVIEW: CBC showed a WBC of 19.6, hemoglobin 10.1, platelets are 377. INR was 9.7, PTT 156. Urinalysis done on arrival showed it was turbid with 2+ protein, 1+ blood, 1+ leukocyte esterase. Urine random osmolarity was 344, random creatinine was 432. Random sodium is less than 10. Potassium is 48.5. Arterial blood gases showed a pH of 7.26, pco2 of 29, pO2 102, bicarbonate of 13, O2 sat of 97%. BMP on arrival showed sodium of 127, potassium 7.1, chloride 95, bicarbonate 16, BUN 184, creatinine 17.2, glucose 106, lactic acid 1.4, calcium is 7.2. CPK is 106, C-reactive protein 9.7. Pro BNP 1,720. Albumin is 2.3. TSH is pending. Total T-3 is less than 10. Free T-4 is 0.43. Toxicology: Salicylates are negative. SARS COVID-19 is negative. Microbiology: Urine and blood cultures are pending. IMAGING: A CT of the chest was done which showed no acute abnormality. CAT scan of the abdomen and pelvis was done which showed no acute abdominal or pelvic abnormality. HOME MEDICATIONS: The patient's home medications include: 1. Furosemide 30 mg p.o. twice daily. 2. Pradaxa 150 mg p.o. twice daily. 3. Metoprolol XL 25 mg p.o. daily. 4. Entresto 24/26 mg one tablet twice daily. 5. Spironolactone 25 mg p.o. daily. 6. There was also a report of Doxycycline at home, 100 mg p.o. twice daily. 7. She was also getting Levothyroxine 88 mcg p.o. daily. ASSESSMENT: A 54-year-old female with a past medical history of atrial fibrillation, on anticoagulation, history of hypothyroidism, chronic lower extremity edema and possible cellulitis, admitted at this time with acute oliguric renal failure, hyperkalemia, high anion gap metabolic acidosis. PLAN: 1. Acute renal failure The patient has acute oliguric renal failure, multifactorial at this time. She was taking Entresto and diuretics at home. She came in hypotensive, hypothermic, and in shock and with blood around the mouth. She needs IV fluid hydration according to sepsis protocol, 30 mL per kg body weight, and after that if she remains hypotensive, she would require pressors. I have started the patient on bicarbonate containing fluid. After placement of a Webster catheter, the patient started making some urine. I am hopeful that the patient would respond well to the antibiotics and fluids and hopefully start recovering her renal function. However if I do not start seeing any improvement in her renal function by tomorrow, I would have a low threshold to start this patient on hemodialysis. 2. Hyperkalemia the patient's hyperkalemia is secondary to combination of acute renal failure and metabolic acidosis. With initial medications in the Emergency Room, the patient's potassium has already improved from 7.1 to 6.4. Avoid the use of Kayexalate at this time since the patient was having diarrhea before arrival in the Emergency Department. Continue aggressive IV fluid hydration and I am hopeful that with improvement in the urine output, potassium level will get better. 3. High anion gap metabolic acidosis it is secondary to diarrhea and acute renal failure. She has been started on half normal saline plus 75 mEq of bicarbonate at 150 mL an hour. Continue to monitor serial BMPs. 4. Coagulopathy - The patient was on Pradaxa and she came in with shock. Her INR is 9.7. She was already given vitamin K and one unit of FFP has been ordered. 5. Shock unknown etiology at this time. It is possible that the patient might have bled from the nose and this epistaxis might have caused the patient to collapse. When the patient was found on the floor, she was covered in her feces. Or excessive diarrhea and dehydration might have caused that along with the use of Entresto and diuretics. At this time the treatment would be empirically covering the patient with broad spectrum antibiotics, giving the patient 30 mL per kg fluid boluses, and if she does not respond, she would need a central line and the initiation of pressors. 6. History of systolic congestive heart failure - The patient is clinically dehydrated, volume depleted and in shock right now. Diuretics and Entresto and Metoprolol have already been held. 7. History of atrial fibrillation - heart rate is currently within the acceptable range. Pradaxa has been held, and she is actually requiring FFP and vitamin K because of high INR and coagulopathy. 8. History of hypothyroidism - The patient has low T-3, low T-4, TSH level is pending and if her TSH level comes back high, she would need IV D-3 and D-4. 9. Hypothermia - continue the sepsis management. She would need Jane sylvester, management of hypothyroidism as mentioned above. 10. Hyponatremia - The patient has hypovolemic hyponatremia. Urine sodium is less than 10 which indicates volume depletion. Continue hydration with normal saline. Continue serial BMP monitoring for now. Total critical care time spent in the management of this patient today evening in the Emergency Room was one hour and 30 minutes excluding all the procedures. Thank you for involving me in the care of this patient. I shall be happy to follow the patient along with you tomorrow morning.
[2020-01-21] VITALS (56 sets, daily range): BP systolic 75–135; BP diastolic 46–81
[2020-01-21] MEDS ORDERED: VANCOMYCIN INTERMITTENT/PULSE DOSING BY CLINICAL PHARMACIST PER DOSING PROTOCOL XX SCH
[2020-01-21] MEDS: NYSTATIN 100,000 UNITS/GM TOPICAL PWD 15 GM TOP SCH ×3 (00:06→20:27)
[2020-01-21 00:17] LABS: HEMATOCRIT 25.9 % (36.0-47.0); HEMOGLOBIN 8.5 g/dl (12.0-15.5); MEAN CORPUSCULAR HEMOGLOBIN 25.8 pg (27.0-33.0); MEAN CORPUSCULAR HGB CONC 32.8 g/dl (32.0-36.5); MEAN CORPUSCULAR VOLUME 78.7 fl (80.0-96.0); PLATELET COUNT, AUTOMATED 305 10^3/uL (150-450); RED BLOOD COUNT 3.29 10^6/uL (4.00-5.40); WHITE BLOOD COUNT 13.8 10^3/uL (4.0-10.0)
[2020-01-21 00:31] LABS: PROTHROMBIN TIME 83.9 SECONDS (12.5-14.3)
[2020-01-21 00:38] LABS: INR 10.27; PARTIAL THROMBOPLASTIN TIME 151.3 SECONDS (24.2-38.5)
[2020-01-21] MEDS ORDERED: PHYTONADIONE INJection 10 MG in NS 50 ML IV ONE (00:45)
[2020-01-21] MEDS: SODIUM BICARBONATE 75 MEQ in NS 0.45% 1,000 ML IV SCH (03:47)
[2020-01-21 03:56] LABS: GLOMERULAR FILTRATION RATE 2.7 (>51); POTASSIUM SERUM 6.9 MEQ/L (3.5-5.1)
[2020-01-21] MEDS ORDERED: CALCIUM GLUCONATE 1,000 MG in D5W MINI-BAG PLUS 100 ML IV ONE ×2 (04:15→11:00)
[2020-01-21 04:20] LABS: HEMATOCRIT 25.2 % (36.0-47.0); HEMOGLOBIN 8.3 g/dl (12.0-15.5); MEAN CORPUSCULAR HGB CONC 32.9 g/dl (32.0-36.5); PLATELET COUNT, AUTOMATED 303 10^3/uL (150-450); RED BLOOD COUNT 3.19 10^6/uL (4.00-5.40); WHITE BLOOD COUNT 16.1 10^3/uL (4.0-10.0)
[2020-01-21] MEDS: cefTRIAXone SOD 2 GM in D5W MINI-BAG PLUS 50 ML IV SCH (05:17)
[2020-01-21] MEDS: HYDROCORTISONE 100 MG/2 ML VIAL (J1720 PER 1) IV SCH ×3 (05:18→21:14)
[2020-01-21] MEDS ORDERED: LIOTHYRONINE 25 MCG TAB PO SCH (06:00)
[2020-01-21 06:26] LABS: HEMOGLOBIN 8.5 g/dl (12.0-15.5); MEAN CORPUSCULAR HGB CONC 32.7 g/dl (32.0-36.5); MEAN CORPUSCULAR VOLUME 79.5 fl (80.0-96.0); PLATELET COUNT, AUTOMATED 318 10^3/uL (150-450); RED BLOOD COUNT 3.27 10^6/uL (4.00-5.40); WHITE BLOOD COUNT 15.6 10^3/uL (4.0-10.0)
[2020-01-21 06:49] LABS: PROTHROMBIN TIME 70.6 SECONDS (12.5-14.3)
[2020-01-21 06:51] LABS: CALCIUM LEVEL 6.2 MG/DL (8.5-10.1); CREATININE FOR GFR 14.2 MG/DL (0.55-1.30); GLOMERULAR FILTRATION RATE 2.9 (>51); POTASSIUM SERUM 6.7 MEQ/L (3.5-5.1)
[2020-01-21 06:59] LABS: INR 8.25; PARTIAL THROMBOPLASTIN TIME 146.7 SECONDS (24.2-38.5)
[2020-01-21] MEDS: CHLORHEXIDINE GLUCONATE 0.12 % 15ML UDC (PERIDEX ORAL RINSE) MT SCH ×2 (08:40→20:26)
[2020-01-21] MEDS: LEVOTHYROXINE 100MCG (0.1MG) VIAL IV SCH (08:41)
[2020-01-21 08:47] LABS: D-DIMER QUANT 2681.1 ng/ml (<500)
[2020-01-21] MEDS ORDERED: LEVOTHYROXINE 100MCG (0.1MG) VIAL IV SCH (09:00)
[2020-01-21] MEDS: IDARUCIZUMAB IV SCH ×2 (09:08→09:17)
[2020-01-21 09:52] LABS: PT 1:2 SUBSTITUTION 34.8 SECONDS
[2020-01-21 09:55] LABS: APTT 1:2 SUBSTITUTION 101.4 SECONDS
[2020-01-21 10:05] LABS: HEMATOCRIT 25.3 % (36.0-47.0); HEMOGLOBIN 8.2 g/dl (12.0-15.5); MEAN CORPUSCULAR HEMOGLOBIN 25.5 pg (27.0-33.0); MEAN CORPUSCULAR HGB CONC 32.4 g/dl (32.0-36.5); MEAN CORPUSCULAR VOLUME 78.8 fl (80.0-96.0); PLATELET COUNT, AUTOMATED 294 10^3/uL (150-450); RED BLOOD COUNT 3.21 10^6/uL (4.00-5.40); WHITE BLOOD COUNT 14.9 10^3/uL (4.0-10.0)
[2020-01-21 10:21] LABS: INR 2.16; PROTHROMBIN TIME 24.6 SECONDS (12.5-14.3)
[2020-01-21 10:23] LABS: PARTIAL THROMBOPLASTIN TIME 68.1 SECONDS (24.2-38.5)
[2020-01-21] MEDS ORDERED: DESMOPRESSIN ACETATE IV ONE (10:50)
[2020-01-21] MEDS ORDERED: NS IV ONE (10:50)
[2020-01-21 10:51] LABS: ALBUMIN 2.3 GM/DL (3.2-5.2); BILIRUBIN,TOTAL 0.3 MG/DL (0.2-1.0); CALCIUM LEVEL 6.2 MG/DL (8.5-10.1); CREATININE FOR GFR 12.9 MG/DL (0.55-1.30); GLOMERULAR FILTRATION RATE 3.2 (>51); MAGNESIUM LEVEL 2.1 MG/DL (1.8-2.4); POTASSIUM SERUM 6.2 MEQ/L (3.5-5.1); TOTAL PROTEIN 7.7 GM/DL (6.4-8.2)
[2020-01-21 11:17] LABS: CLOSTRIDIUM DIFFICILE PCR NEGATIVE (NEGATIVE)
[2020-01-21 11:55] LABS: CORTISOL AM 100.1 UG/DL (4.3-22.4)
--- NOTE | 2020-01-21 12:05 | REP ---
INDICATION: Right dialysis catheter placement. COMPARISON: January 20, 2020.. TECHNIQUE: Sitting AP portable chest radiograph. FINDINGS: A right internal jugular central venous line is been inserted with its tip in the expected location of the superior vena cava. There is no evidence of pneumothorax. Mild cardiomegaly persists. Pulmonary vasculature is slightly cephalized. Lung carrington are clear. Pleural angles are sharp. IMPRESSION: Right internal jugular central venous line in place. No evidence of pneumothorax. <Electronically signed by Edwin Vogt > 01/21/20 [id number]
[2020-01-21] MEDS ORDERED: AMIODARONE HCL 150 MG in IV 1 EA IV ONE (12:15)
[2020-01-21] MEDS ORDERED: SODIUM CHLORIDE 0.9% INJ 10 ML SYR IV PRN (12:15)
--- NOTE | 2020-01-21 12:20 | RO ---
OPERATIVE NOTE DATE OF OPERATION: 01/21/2020 PROCEDURE: Hemodialysis catheter insertion. INDICATIONS: Hemodialysis access. PREPROCEDURE DIAGNOSIS: Acute renal failure. POSTPROCEDURE DIAGNOSIS: Acute renal failure. ATTENDING PHYSICIAN: Valentina Harris MD NUCLEAR TEST TECHNICIAN: Honorio Bravo DO CONSENT: Obtained from the patient prior to the procedure. Indications, risks, and benefits were explained at length. PROCEDURE SUMMARY: A central line insertion practice form was completed by independent observer starting with the first hand wash prior to starting sterile technique. A time-out was performed. Full sterile technique was maintained throughout the procedure, including surgical cap, mask with protective eyewear, full gown, and sterile gloves. The patient was placed in Trendelenburg position. The right neck region was prepped using chlorhexidine scrub and draped in usual sterile fashion using a fenestrated drape and a sterile probe cover employed. The right internal jugular vein was identified using ultrasound. Anesthesia was achieved over the vein using 1% Lidocaine. Using real-time [id number] guidance, the introducer needle was inserted into the internal jugular vein under direct ultrasound visualization. Venous blood was withdrawn. The syringe was removed and a guidewire was advanced into the introducer needle. The introducer needle was removed over the guidewire. A small incision was made at the skin surface with a scalpel and a dilator was exchanged over the guidewire. After appropriate double dilation was obtained, the dilator was exchanged over the wire for a Trialysis hemodialysis catheter. The wire was removed and the catheter was sutured in place at 18 cm. A sterile chlorhexidine-impregnated dressing was placed at the catheter over the insertion site. The patient tolerated the procedure well without any hemodynamic compromise. At the time of procedure completion, all ports were aspirated and flushed properly. Heparin was instilled into dialysis ports. The postprocedure chest x-ray shows the hemodialysis catheter in satisfactory position with no pneumothorax. Estimated blood loss is less than 3 mL.
--- NOTE | 2020-01-21 13:17 | CR ---
CONSULTATION CHIEF COMPLAINT: Weakness. HISTORY OF PRESENT ILLNESS: Ms. Varghese is a 54-year-old female with a past medical history of heart failure with reduced EF, pulmonary hypertension, atrial fibrillation on Dabigatran, hypothyroidism, hyperlipidemia, chronic lower extremity edema and cellulitis, hypertension, who presented initially with complaints of weakness as well as shortness of breath and diarrhea. The patient reports that she has had a longstanding issue with cellulitis in her lower extremities. She had been following with [facility] and had been on doxycycline off and on for her lower extremity cellulitis. About a week or two ago she noticed increasing erythema in her left leg in particular and restarted her doxycycline again. She had been on it for about five days and noticed some slight improvement. She then a few days ago started developing diarrhea and loose stools, a few episodes a day. She does have a stool softener she takes chronically but ss this is more than her usual. She did not have any abdominal pain that she noticed and denied any nausea or vomiting. She also denied noticing any fevers or chills. No coughing. No change in her appetite. The morning of her presentation to the hospital, she was having increasing weakness and difficulty standing as well as some shortness of breath. She was told that her home nurse could also hear some wheezing. She has no previous history of any asthma or COPD. She does have a history of sleep apnea which is untreated as she has been unable to tolerate any pressure therapy. The patient did report that she had been taking all of her usual home medications as prescribed including her Dabigatran as well as her other antihypertensive medications. When her visiting nurse came, the patient was told that they could not get a blood pressure on her and she was also very weak and they called EMS. When EMS arrived, she was found to be covered in dry feces. In the ED initially the patient was hypothermic as well as tachycardic and hypotensive. She had dark, dried, and clotted blood in her oral cavity although the patient denied any coughing up blood or bleeding that she remembers. She does have a history of nosebleeds in the past and did have to get cautery as well she states a tube placed in her nose. She had previously been on Eliquis for anticoagulation and then was changed to Pradaxa with her nosebleeds. The patient denied any trauma or falls leading up to this. She was also noted to have a macular rash in her upper extremities and her abdomen which she states she had for a few days at home because there was a new detergent used for her clothes which caused her to have the rash and irritation. In the ED the patient was given IV fluid boluses. She was also given antibiotics with Ceftriaxone initially and then Vancomycin. Nephrology was consulted overnight and the patient was started on a bicarbonate effusion as well as given additional IV fluid boluses. She was transferred to the ICU as well for further evaluation. PAST MEDICAL/SURGICAL HISTORY: 1. Heart failure with reduced ejection fraction. Previous ejection fraction reportedly 30-35%. Also a history of diastolic dysfunction and pulmonary hypertension. 2. Atrial fibrillation on Dabigatran. 3. Ablation procedure with postoperative hypothyroidism. 4. Hyperlipidemia. 5. History of chronic lower extremity cellulitis. 6. Hypertension. 7. History of obstructive sleep apnea (MITCHELL) not on treatment. 8. History of nosebleeds status post cautery. FAMILY HISTORY: Father with history of diabetes. SOCIAL HISTORY: The patient denies any smoking, alcohol or drug use. The patient lives alone but does have visiting nurses as well as visiting PT. She uses a walker at baseline. 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 Maria. HOME MEDICATIONS: - Pradaxa - Furosemide - Synthroid - Metoprolol - Entresto - Spironolactone ALLERGIES: PENICILLIN, ASPIRIN, and IBUPROFEN. PHYSICAL EXAM: Vitals: Temperature on admission 95.1, T-current 98.4, pulse 104, respirations 22, blood pressure 104/54, O2 saturation 94% on room air. Input approximately 5 liters, output approximately 600 mL. General: The patient is a morbidly obese female lying in bed, does not appear to be in acute distress. She is awake and alert and answering questions appropriately. HEENT: Normocephalic, atraumatic. There are moist mucous membranes noted. The patient has dried and crusted blood noted on her lips and in her mouth. She does not appear to have any trauma in her mouth. Pupils are reactive. She appears to have some exophthalmos. Neck is thick. Unable to appreciate JVD due to neck habitus. Cardiac: Tachycardic, irregularly irregular, normal S1, S2. Possible faint murmur auscultated. Pulmonary: Slightly diminished breath sounds bilaterally with a few crackles at the bases. There is no wheezing noted and no rhonchi. Abdomen is obese. It is soft, nontender, nondistended. There are bowel sounds present. Unable to appreciate any organomegaly. Extremities: There is pitting lower extremity edema noted bilaterally with increased erythema in the legs bilaterally with some increased warmth. There are also healing wounds in the upper thigh region as well as what appears to be a fungal infection in the intertriginous folds. She also has a maculopapular rash on her arms and trunk which she states she has had for the past few days at home. LABORATORY DATA: WBC 15.6, hemoglobin 8.5, it was 10.1 on admission, and a previous hemoglobin from October was 11. Platelets are 318. Chemistries: Sodium 128, potassium 6.7, chloride 98, bicarb 15, BUN 173, creatinine 4.20 trending down slightly, glucose is 133, anion gap is 15. Calcium is 6.2, phosphorus 8.5, magnesium on admission was 2.2. Lactic acid on admission was 1.4. TSH is 57.5, free T4 is 0.43, BNP on admission was 1720. Troponins were negative. INR initially 9.70. PTT 156.6. ABG on admission: A pH was 7.264, pCO2 of 29.3, pO2 102.6. Microbiology: Urinalysis positive for protein, trace ketones, blood, and leukocyte esterases and WBC. There was also small amorphous sediment and urine mucus. MRSA positive. IMAGING: CT chest 01/20/2020: There is some respiratory motion artifact noted. There is atelectasis in the bases of the lung. There is some suggestion of mild air trapping. The pulmonary artery appears enlarged on the noncontrast CT as well as there is cardiomegaly. No appreciable mediastinal or hilar adenopathy. CT abdomen and pelvis 01/20/2020: There is no gallbladder distention or gallstones noted. There are prominent periaortic mesenteric and pelvic lymph nodes noted. There is a Webster catheter in place. ASSESSMENT: Ms. Varghese is a 54-year-old female with a past medical history of heart failure with reduced EF with a history of pulmonary hypertension, atrial fibrillation on Dabigatran, hypothyroidism, hyperlipidemia, MITCHELL not on treatment, history of chronic lower extremity cellulitis who presented with complaints of weakness and worsening shortness of breath. The patient on admission was found to be hypothermic, hypotensive, as well as tachycardic. She did appear volume depleted initially likely in the setting of her diarrhea and possible decreased by mouth intake although the patient states her appetite was normal. She did have leukocytosis initially and on exam evidence of cellulitis as well as other wounds in her groin and intertriginous areas. The patient likely with sepsis secondary to UTI given her UA or cellulitis. She also was found to have acute renal failure likely initially prerenal and then with possible ATN given her medications. The patient was also severely hypothyroid as well. The patient did also have coagulopathy with supertherapeutic INR likely in the setting of her Pradaxa with her acute renal failure. PLAN: 1. Patient with sepsis likely secondary to cellulitis with a possible UTI. She did have complaints of diarrhea for the past few days although denied any abdominal pain, nausea or vomiting. She had been on doxycycline as an outpatient so there is a possibility of C. difficile although her diarrhea may also be due to the antibiotic use itself. - The patient was started on broad spectrum antibiotics with Ceftriaxone. She also has a history of MRSA so she was given Vancomycin as well. Her stool samples were sent including a GI panel and for Clostridium (C). difficile. - We will followup urine culture and blood culture. Her chest CT does not show any findings consistent with pneumonia. - The patient's lactic acid on admission was normal. - Her hypotension improved with fluids. Would be cautious with further fluid administration given her history of pulmonary hypertension and heart failure. - The patient's hypothermia also improved and was likely secondary to her sepsis. - We will continue to hold her antihypertensive medications. 2. Severe hypothyroidism. The patient previously had ablation likely for hyperthyroidism and now has postoperative hypothyroidism and was reportedly on Synthroid as an outpatient. - The patient does not appear to have any neurologic deficits or bradycardia suggestive of myxedema coma. She does not appear to have any worsening heart failure and her hypotension also does not appear to be secondary to myxedema coma. - We will continue supplementation with levothyroxine as well as with T3 and continue monitoring her thyroid function every three days. - The patient was also given stress dose steroids with hydrocortisone 100 mg every 8 hours. Would continue for three days and then discontinue. 3. Acute renal failure likely multifactorial initially in the setting of prerenal and then with her medications including Entresto as well as her diuretics, possible ATN. She also has hypothyroidism as well which may have contributed. - Appreciate renal consult and recommendations. She has severe metabolic acidosis in the setting of her renal failure as well as hyponatremia and hyperkalemia. The patient also has hyperphosphatemia as well and hypocalcemia. - The patient was given reversal for her hyperkalemia including insulin D50 and calcium as well as Kayexalate. She continued to receive doses of calcium supplementation as well for her hypocalcemia. - The patient was started on a bicarb infusion by renal but continues to have metabolic acidosis. - Her creatinine has improved since admission although her BUN is still significantly elevated. She is making some urine but is still oliguric. - Given her continued electrolyte abnormalities, there is a plan for CRRT by nephrology. She will need a trialysis catheter which will be placed. 4. History of heart failure with reduced EF as well as pulmonary hypertension. History of atrial fibrillation on Dabigatran. - The patient does not appear to be clinically in fluid or decompensated heart failure. She does have a history of pulmonary hypertension which is likely in the setting of her left-sided heart failure as well as history of untreated sleep apnea. - Would need cautious fluid administration particularly given her pulmonary hypertension. With her supertherapeutic INR we will get an echocardiogram as well to evaluate for any possible hemopericardium. She also has uremia so would evaluate as well for a pericardial effusion secondary to her uremia. - The patient did have atrial fibrillation with rapid ventricular response initially although this is likely in the setting of her sepsis and dehydration. Her heart rate has improved but would need to continue to closely monitor. If she does go into rapid ventricular response with her hypotension, would give Amiodarone instead for rate control instead of a beta gilbert or calcium channel gilbert. - The patient's Pradaxa was on hold given her supertherapeutic INR and coagulopathy. She was given 1 unit of fresh frozen plasma (FFP) overnight and two doses of vitamin K with minimal improvement. She does not appear to have any obvious bleeding currently although her hemoglobin is trending down. With her planned procedure we will give her Pradaxa reversal agent as well as Desmopressin prior to her central line placement. 5. The patient with supertherapeutic INR and coagulopathy likely in the setting of Pradaxa with her acute renal failure. She also likely has uremic platelets as well. She did not appear to have any overt signs of GI bleed although she did have dried blood in her mouth. This is likely in the history of epistaxis. - Her hemoglobin and hematocrit is trending down but would continue to monitor closely and transfuse if needed. - Would keep an active type and screen as well as good IV access. - We will continue to follow up her INR, PT, PTT after getting the Pradaxa bind. If needed can anticoagulate with heparin drip GI prophylaxis: PPI. DVT prophylaxis: TEDs and SCDs, supratherapeutic INR Code status: FULL CODE. Total critical care time spent not including any procedures approximately 1 hour and 55 minutes. CARD
--- NOTE | 2020-01-21 14:39 | IPNPDOC ---
Date Seen The patient was seen on 01/21/20. Progress Note SUBJECTIVE: Patient + 3.9L fluid over yesterday, BP slightly improved. INR remained elevated this AM s/p 2 Vit K, 1 FFP. Given Praxbind which finally decreased INR to 2.1, trialysis catheter was able to be placed. Multiple electrolytes replaced overnight and this AM but many remain abnormal, starting CRRT today. AFib with RVR with HR 130's, given 150 mg IV amiodarone with some improvement. One small episode of diarrhea, C. diff neg with GI panel pending. Patient denies chest pain, incr shortness of breath, n/v. OBJECTIVE: PHYSICAL EXAMINATION: VS: Please see below CONSTITUTIONAL: No acute distress, resting comfortably, AAO x 3 EYES: PERRLA, EOM intact HENT, MOUTH: Normocephalic, atraumatic, moist mucous membranes NECK: SUPPLE, no JVD, no lymphadenopathy, no carotid bruit CV: irregularly irregular rhythm, currently controlled , S1S2 normal, no murmurs/rubs/gallops RESPIRATORY: Clear to auscultation bilaterally, no rales/rhonchi/wheezes GI: obese abd, BS positive in 4 quadrants, soft, nontender, nondistended, no rebound or guarding, no organomegaly : santiago catheter MUSCULOSKELETAL: Normal ROM. No cyanosis, clubbing, swelling, joint deformity, extremity edema INTEGUMENTARY: Macular rash on upper ext, trunk. Cellulitis of the lower and upper thighs, slightly erythematous, nontender to touch. Multiple b/l lower ext wounds, Stage I, appear clean and nonsuppurative. Wound on the right upper thigh, appears clean. Redness in abdominal folds-yeast? NEUROLOGIC: Cranial Nerves II-XII are intact, no focal deficits PSYCHIATRIC: Mood and affect are normal LABORATORY DATA: Please see below MICROBIOLOGY: BCx x 2 sets: pending UCx: pending C. diff: neg GI panel: pending IMAGING: Echocardiogram 01/21/20: pending results CT abd/pelvis: No acute abdominal or pelvic abnormality. Prominent deneen aorta, mesenteric and pelvic lymph nodes. Etiology infectious/inflammatory. CT chest without contrast: No acute abnormality. Echocardiogram 07/2016: 1. Study is of fair technical quality. 2. Normal LV size with severe global hypokinesis and flattening of int erventricular septum. Overall estimated EF 30-35%. 3. Dilated hypokinetic right ventricle. 4. Severe biatrial enlargement. 5. Approximately moderate mitral insufficiency. 6. Approximately moderate tricuspid insufficiency. 7. Very high central venous pressure. 8. At least moderately severe pulmonary hypertension. 9. Left pleural effusion with presence of mass, potentially representing throm bus or collapsed lobe. ASSESSMENT: 54-year-old female with past medical history of HFrEF (EF 30-35%), atrial fibrillation on dabigitran, hypothyroidism, HLD, lower ext cellulitis on doxycycline o/p, HTN, atrial fibrillation admitted to ICU for sepsis with shock 2/2 to UTI and possibly cellulitis, dehydration 2/2 to diarrhea, JEREMY 2/2 to dehydration, hypovolemia, hypothermia 2/2 to sepsis, hyperkalemia 2/2 to JEREMY. PLAN: # Sepsis with shock 2/2 to UTI. Cannot r/o 2/2 to cellulitis vs. infectious diarrhea for past 2 days -Shock has improved; however, hypotension is now positional -WBC 15.6K, 97.2 F, hypotension intermittent with position, + UA. LA wnl -C. diff neg -F/u UCx, BCx, GI panel -C/w vancomycin, Ceftriaxone, central line placed today for CRRT. IVFs stopped. -Tele, Q6H BMP #Hypotension likely multifactorial to septic shock, hypovolemia 2/2 to dehydra tion from diarrhea, diuretic use. Cannot rule out concomitant adrenal crisis -Hx of HTN -BP slightly improved but is positional currently -normal BP 120/90's per patient -On lasix, ACEi/ARB, BB and spironolactone at home- has been compliant despite diarrhea, decreased PO intake. -IVFs stopped, c/w stress dose steroids with hydrocortisone 100 mg Q8H -F/u AM cortisol (although result may be skewed due to receiving steroids) -C/w treatment above #Severe hypothyroidism. Hx of thyroid ablation for hyperthyroidism. -TSH 11/11/24 was 32, on admission 57.5 -Low T3, free T4 also -Given 200 mcg IV levothyroxine and started on 150 mcg IV daily - will leave at this increased dose until 01/24/20 then change to 100 mcg daily. -Discussed case with Dr. Nye, endocrinology who recommended to continue treatment above. -Cytomel changed to BID dosing -F/u free T4, total T3 Q3-4 days per endo. # Hypothermia 2/2 to sepsis vs. uncontrolled hypothyroidism- resolved -Thyroid studies above -Sepsis/septic shock described above -No AMS or bradycardia, respiratory acidosis to indicated myxedema coma -C/w treatment above #Coagulopathy, supratherapeutic INR and PTT likely 2/2 to use of dabigatran in presence of worsening renal failure-could not be cleared. Cannot r/o other hematological issue as well. -Likely had epistaxis episode at home. -On dabigatran at home, no VKA or warfarin. -S/p Praxbind which decreased INR this AM to 2.16 -No elevation of AST/ALT or history of hepatic disease -Discussed with Dr. Cruz who will consult today. -F/u scheduled coags, mixing studies, peripheral smear, LDH, ferritin, d dimer # Acute kidney injury likely 2/2 to dehydration, sepsis with shock -Cr slightly improved to 14.2, BUN 173. Baseline wnl -U/O improved, santiago in place -CRRT to begin today, replace lytes PRN #Hyperkalemia likely 2/2 to JEREMY -K 6.7 this AM. -CRRT, f/u labs #Acute hypocalcemia -S/p calcium gluconate x 4 overnight, ionized calcium 3.1 this AM -Given additional calcium gluconate this AM -Calcium to be managed with CRRT #Atrial fibrillation with RVR -HR increased to 128, s/p amio bolus x 1 with improvement of HR <110 -Holding BB, dabigatran. -Monitor on tele. # Anion gap metabolic acidosis likely 2/2 to sepsis, uremia -Slightly improved with bicarb gtt overnight -Will likely further improve with CRRT -Nephrology following -Labs scheduled #Epistaxis likely 2/2 to coagulopathy from dabigatran vs. other cause -no new bleeding overnight, INR reversed with Praxbind today -Unlikely GI bleed, pulmonary hemorrhage as CTs neg -Denies coughing blood or dark stools at home. -With coagulopathy, watch for rebleed. -C/w treatment above. #Diarrhea r/o infectious cause -C. diff neg, GI panel pending -One very small episode this AM but seems to have improved. -F/u BCx, GI panel -C/w abx above, starting renal diet #SOB likely 2/2 to HFrEF, not in acute exacerbation -CT chest and current clinical evaluation does not show s/s of fluid overload -BNP 1720; however, she is chronically elevated. Last 454. -COVID neg -New echo ordered, f/u results -Monitor for s/s of overload with aggressive hydration. -Holding all diuretic meds. #Hyponatremia likely 2/2 to hypovolemia, JEREMY -Serum sodium 128 -BMP Q6H -Nephrology following #GI px -IV PPI #DVTpx -SCDs. teds DISPOSITION: Critical condition in ICU. Will need PT/OT when acute medical issues stabilize. TOTAL TIME SPENT ON CARING FOR ICU PATIENT ( no procedures ): 75 mins VS, I&O, 24H, Fishbone Vital Signs/I&O Vital Signs Date Time Temp Pulse Resp B/P (MAP) Pulse Ox O2 Delivery O2 Flow Rate FiO2 01/21/20 09:30 110 112/53 (72) 01/21/20 08:00 97.2 16 94 Room Air I&O- Last 24 Hours up to 6 AM 01/21/20 06:00 Intake Total 5744 ml Output Total 725 ml Balance 5019 ml Laboratory Data 24H LABS Laboratory Tests 2 01/20/20 15:42: Urine Color DK YELLOW, Urine Appearance TURBIDH, Urine pH 5.0, Urine Specific [place] 1.024, Urine Protein 2+H, Urine Glucose (UA) NEGATIVE, Urine Ketones TRACEH, Urine Blood 1+H, Urine Nitrite NEGATIVE, Urine Bilirubin NEGATIVE, Urine Urobilinogen 0.2, Urine Leukocyte Esterase 1+H, Urine WBC (Auto) 20H, Urine RBC (Auto) 15H, Urine Hyaline Casts (Auto) 5, Urine Bacteria (Auto) NEGATIVE, Urine Squamous Epithelial Cells 19, Urine Transitional Epithelial Cells <1, Urine Amorphous Sediment SMALLH, Urine Mucus (Auto) SMALL, Urine Sperm (Auto) , Urine Random Osmolality 344L, Urine Random Creatinine 432.0, Urine Random Total Protein 243.0H, Urine Random Sodium < 10, Urine Random Potassium 48.5 01/20/20 15:51: Coronavirus (COVID-19)(PCR) NEGATIVE 01/20/20 16:36: Blood Gas Bicarbonate Standard 14.0, Venous Blood pH 7.146L, Venous Blood Partia l Pressure CO2 45.7, Venous Blood Partial Pressure O2 54.3H, Venous Blood Total Carbon Dioxide 16.8L, Venous Blood HCO3 15.4L, Venous Blood Oxygen Saturation 77.6, Venous Blood Base Excess -12.9L, Anion Gap 19H, Glomerular Filtration Rate 2.5L, Osmolality 337H, Uric Acid 15.2H, Calcium Level 11.6#H, Phosphorus Level 10.6H, Magnesium Level 2.2, Total Bilirubin 0.2, Direct Bilirubin 0.1, Aspartate Amino Transf (AST/SGOT) 3L, Alanine Aminotransferase (ALT/SGPT) 9L, Alkaline Phosphatase 71, Total Creatine Kinase 93, Total Protein 7.7, Albumin 2.3L, Albumin/Globulin Ratio 0.4L, Free Thyroxine 0.43L, Total Triiodothyronine < 10.0L, Salicylates Level 2.9L 01/20/20 16:57: Blood Gas Bicarbonate Standard 14.4L, Arterial Blood pH 7.264L, Arterial Blood Partial Pressure CO2 29.3L, Arterial Blood Partial Pressure O2 102.6H, Arterial Blood Total CO2 13.9L, Arterial Blood HCO3 13.0L, Arterial Blood Base Excess - 12.7L, Arterial Blood Oxygen Saturation 97.0 01/20/20 17:02: Nucleated Red Blood Cells % (auto) 0.0 01/20/20 17:37: Prothrombin Time 80.2H, Prothromb Time International Ratio 9.70*H, Activated Partial Thromboplast Time 156.6*H 01/20/20 21:15: Anion Gap 15, Glomerular Filtration Rate 2.6L, Calcium Level 5.3#*L, Thyroid Stimulating Hormone (TSH) 57.500H 01/20/20 22:52: Whole Blood Ionized Calcium 3.0*L, Cortisol Baseline 24.7H, Cortisol PM Sample 20.3H 01/21/20 00:10: Nucleated Red Blood Cells % (auto) 0.0, Prothrombin Time 83.9H, Prothromb Time International Ratio 10.27*H, Activated Partial Thromboplast Time 151.3*H 01/21/20 02:53: Anion Gap 15, Glomerular Filtration Rate 2.7L, Calcium Level 6.0L 01/21/20 04:10: Whole Blood Ionized Calcium 3.0*L 01/21/20 04:11: Nucleated Red Blood Cells % (auto) 0.0 01/21/20 06:08: Nucleated Red Blood Cells % (auto) 0.0, Differential Slide Review Report, Peripheral Blood Smear Path Consult PERIPHERAL SMEAR, Prothrombin Time 70.6H, Prothromb Time International Ratio 8.25*H, Activated Partial Thromboplast Time 146.7*H, Mix PT Patient/Normal 1:1 Immediate 34.8, Mix PTT Patient/Normal 1:1 101.4, Fibrinogen 558H, D-Dimer, Quantitative 2681.10H, Anion Gap 15, Glomerular Filtration Rate 2.9L, Calcium Level 6.2L, Phosphorus Level 8.5H, Lactate Dehydrogenase 182, 25-Hydroxy Vitamin D Total 8.8L, Parathyroid Hormone (Intact) 1039.9H, Cortisol AM Sample 55.2H, Random Vancomycin Level 21.1 01/21/20 08:17: Whole Blood Ionized Calcium 3.1*L 01/21/20 09:56: Nucleated Red Blood Cells % (auto) 0.0, Prothrombin Time 24.6H, Prothromb Time International Ratio 2.16, Activated Partial Thromboplast Time 68.1H, Anion Gap 15, Glomerular Filtration Rate 3.2L, Calcium Level 6.2L, Magnesium Level 2.1, Total Bilirubin 0.3, Aspartate Amino Transf (AST/SGOT) 14, Alanine Aminotransferase (ALT/SGPT) 10L, Alkaline Phosphatase 70, Total Protein 7.7, Albumin 2.3L, Albumin/Globulin Ratio 0.4L 01/21/20 10:13: Clostridium difficile [id number] PRESUMPTIVE NEGATIVE, Clostridium difficile Toxin (PCR) NEGATIVE CBC/BMP Laboratory Tests 01/20/20 16:36 01/20/20 17:02 01/20/20 21:15 01/21/20 00:10 01/21/20 02:53 01/21/20 04:11 01/21/20 06:08 01/21/20 09:56 Microbiology Microbiology 01/21/20 Campylobacter (PCR), Received Pending 01/21/20 Clostridium difficile Toxin A&B PCR, Received Pending 01/21/20 Plesiomonas shigelloides (PCR), Received Pending 01/21/20 Salmonella (PCR)(AMELIA), Received Pending 01/21/20 Vibrio Species (PCR), Received Pending 01/21/20 Vibrio Cholerae (PCR), Received Pending 01/21/20 Yersinia enterocolitica (PCR), Received Pending 01/21/20 Enteroaggregative E. coli (PCR), Received Pending 01/21/20 Enteropathogenic E. coli (PCR), Received Pending 01/21/20 Enterotoxigenic E. coli (PCR), Received Pending 01/21/20 E. coli Shiga-like Toxin (PCR), Received Pending 01/21/20 Escherichia coli 0157 (PCR), Received Pending 01/21/20 Enteroinvasive E. coli/Shigella PCR, Received Pending 01/21/20 Cryptosporidium (PCR), Received Pending 01/21/20 Cyclospora cayetanensis (PCR), Received Pending 01/21/20 Entamoeba histolytica (PCR), Received Pending 01/21/20 Giardia lamblia (PCR), Received Pending 01/21/20 Adenovirus Type F 40/41 (PCR), Received Pending 01/21/20 Astrovirus (PCR), Received Pending 01/21/20 Norovirus GI/GII (PCR), Received Pending 01/21/20 Rotavirus A (PCR), Received Pending 01/21/20 Sapovirus I/II/IV/V (PCR), Received Pending 01/20/20 Urine Culture, Received Pending 01/20/20 Blood Culture, Received Pending 01/20/20 Blood Culture - Preliminary, Resulted No growth after 24 hours . All specim... Current Medications Current Medications Medications (Trade) Dose Ordered Sig/Prieto Route PRN Reason Start Time Stop Time Status Last Admin Dose Admin Ceftriaxone Sodium 2 gm/ Dextrose 50 ml @ 100 mls/hr Q24H IV 01/21/20 06:00 01/21/20 05:17 Chlorhexidine Gluconate (Peridex Oral Rinse) SWAB/BRUSH ORAL CAVITY BID MT 01/20/20 21:00 01/21/20 08:40 Dextrose (Dextrose 50%) 50 ml STAT STAT IV 01/20/20 15:01 01/20/20 15:03 DC 01/20/20 15:36 Heparin Sodium (Heparin) ASDIRECTED PRN IV SEE LABEL COMMENTS 01/21/20 12:15 Heparin Sodium (Heparin) 1,400 units ONCE PRN XX TO FLUSH DIALYSIS CATHETER 01/21/20 09:15 Home Med (Med Rec Complete!) ASDIRECTED XX 01/20/20 15:30 01/20/20 15:29 DC Hydrocortisone (A-Hydrocort) 100 mg Q8H IV 01/20/20 22:00 01/21/20 05:18 Idarucizumab 2.5 gm/IV Miscellaneous Supplies 50 ml @ 600 mls/hr Q5M IV 01/21/20 10:00 01/21/20 10:09 DC 01/21/20 09:17 Insulin Human Lispro (HumaLOG INSULIN) 10 units STAT STAT SC 01/20/20 15:01 01/20/20 15:03 DC 01/20/20 15:33 Levothyroxine Sodium (Synthroid) 100 mcg DAILY IV 01/21/20 09:00 01/21/20 07:37 DC Levothyroxine Sodium (Synthroid) 100 mcg DAILY IV 01/25/20 09:00 Levothyroxine Sodium (Synthroid) 150 mcg DAILY IV 01/21/20 09:00 01/24/20 12:00 01/21/20 08:41 Liothyronine Sodium (Cytomel) 12.5 mcg BID PO 01/21/20 21:00 Liothyronine Sodium (Cytomel) 12.5 mcg Q8H PO 01/21/20 06:00 01/21/20 07:34 DC 01/21/20 05:17 Liothyronine Sodium (Cytomel) 25 mcg STAT STAT PO 01/20/20 22:09 01/20/20 22:11 DC 01/20/20 23:36 Non-Formulary Medication ( See Comment Field Below ) VANCO INTERMIT. DOSING ASDIRECTED XX 01/21/20 00:00 Nystatin (Mycostatin Powder, Nystop) Apply to abdominal folds ... BID TOP 01/20/20 21:00 01/21/20 08:41 Pantoprazole Sodium (Protonix) 40 mg Q24H IV 01/20/20 20:00 01/20/20 20:03 Sodium Bicarbonate 75 meq/Sodium Chloride 1,075 ml @ 150 mls/hr Q7H10M IV 01/20/20 20:00 01/21/20 09:19 DC 01/21/20 03:47 Sodium Bicarbonate (Sodium Bicarbonate) 50 meq STAT STAT IV 01/20/20 14:37 01/20/20 14:39 DC 01/20/20 15:34 Sodium Chloride 1,000 ml @ 100 mls/hr Q10H IV 01/20/20 16:15 01/20/20 18:02 DC 01/20/20 16:46 Sodium Chloride (Saline Lock Flush) 10ML IN EACH PAT... ASDIRECTED PRN IV SEE LABEL COMMENTS 01/21/20 12:15 Allergies Coded Allergies: Penicillins (Verified Allergy, Intermediate, HIVES, 01/20/20) aspirin (Verified Allergy, Intermediate, HIVES, 01/20/20) ibuprofen (Verified Allergy, Intermediate, HIVES, 01/20/20) Wilma Parks MD Jan 21, 2020 14:39
--- NOTE | 2020-01-21 19:49 | CR.PDOC ---
General Date of Consultation: Jan 21, 2020 Referring Provider: Wilma Parks MD Attending Physician: CASSIE BANUELOS MD Consultation REASON FOR CONSULTATION/CHIEF COMPLAINT: Coagulopathy with bleeding tendency, septicemia and acute renal check down. HISTORY OF PRESENT ILLNESS: I had the pleasure of seeing Ms. Siobhan Varghese in consultation for probable neuropathy septicemia and acute renal shutdown. As you know Ms. jhonny tran is a 54-year-old morbidly obese white female was admitted on 01/20/2020 to emergency room as she was found on the floor unresponsive cord and right face is an bloody nose. Patient has history of atrial fibrillation and has been on dabigatran for its treatment. She has history of chronic atrial fibrillation, pulmonary hypertension and congestive heart failure, hyp othyroidism, hyperlipidemia and chronic lower extremity edema and cellulitis. For a few days she has been having increasing weakness and diarrhea. She has been on doxycycline for her cellulitis. She does not recall any major bleeding from any other source other than nosebleeds. She has been having nosebleed off-and-on. In the past she has been on apixaban for anticoagulation but switched to dabigatran. In emergency room patient was found to be hypotensive and was resuscitated with IV fluids and antibiotics were started. Patient was found to have PT of 80.2 with INR of 9.7 and a PTT of 156.6. Patient was given 1 dose of vitamin K and 1 unit of FFP. On January 2020 6 AM patient PT/INR was 70.6/8.25 with a PTT of 146.7. Mixing study revealed improvement in PT of 34.8 and PTT came down to 101.6. Fibrinogen level was 558 his d-dimer of 2681.1. Her first smear did not reveal any schistocytes. Anti-factor Xa activity cannot be done in [facility]. Patient is given 1 dose of idarucizumab and patient INR came down to 2.16 with PTT came down to 68.1. Currently patient is no longer bleeding and is more conscious. She is getting hemodialysis second time and is more coherent. ALLERGIES: Please see below. HOME MEDICATIONS: Please see below. PAST MEDICAL HISTORY: 1. Heart failure with ejection fraction of 3035 percent. 2. Atrial fibrillation on dabigatran 3. Hyperlipidemia 4. Sleep apnea 5. Chronic nosebleed 6. Bilateral lower extremity cellulitis.. PAST SURGICAL HISTORY: None FAMILY HISTORY: Patient lives alone. Denies tobacco or alcohol abuse. He is able to walk with the help of walker. She has home visiting nurse. REVIEW OF SYSTEMS: CONSTITUTIONAL: Feels fatigued out and tired. HEENT: History of frequent nosebleeds and has procedure done on nose. CARDIOVASCULAR: Has atrial fibrillation and is following Dr. Maria. Also has heart failure and has been on dabigatran. RESPIRATORY: Shortness of breath on mild exertion. GENITOURINARY: No history of UTI. MUSCULOSKELETAL: Generalized weakness. GASTROINTESTINAL: Chronic diarrhea and was found to be C differential negative . SKIN: Cellulitis of both legs and bilateral massive edema. NEUROLOGICAL: Generalized weakness no focal deficit. PSYCHIATRIC: No anxiety. ENDOCRINE: Hypothyroidism. HEMATOLOGIC/LYMPHATIC: Anemia and recent nosebleed. PHYSICAL EXAMINATION: VITAL SIGNS: Please see below. GENERAL APPEARANCE: Morbidly obese female currently having hemodialysis. HEENT: Clotted blood noted on both nares. RESPIRATORY: Clear to auscultation. CARDIOVASCULAR: Is regular heart and tachyarrhythmia with atrial fibrillation. ABDOMEN: Obese and nontender bowel sounds are present. EXTREMITIES: Bilateral brawny edema with cellulitis of the lower legs. NEUROLOGICAL: No gross focal deficit. PSYCHIATRIC: Not anxious. LABORATORY DATA: Please see below. ASSESSMENT/PLAN: 1. [Coagulopathy due to dabigatran. Patient showed some improvement with vitamin K and 2 units of FFP but showed marked improvement with idarucizumab. Watch her INR on regular basis and in view of recurrent nosebleed she should be started on Coumadin with watchful on INR to keep it between 2 and 3. Anti-Xa activity cannot be checked on a regular basis, bleeding tendency cannot be checked on dabigatran, rivaroxaban or apixaban. She should be started on heparin and PTT should be checked on a regular basis along with starting Coumadin to bring INR into therapeutic range between 2 and 3. Patient had bleeding because of coagulop athy secondary to dabigatran. Going back on dabigatran, rivaroxaban or a apixaban may cause the same issue of unmonitored coagulopathy. 2. Patient is anemic which seems to be multifactorial. STFR should be checked to find out if she is in the patient and if STFR is high 1 dose of parenteral iron in the form of Injectafer may be given either inpatient or outpatient. If there is any concern or question please don't hesitate to contact me through our on Center service or directly through my cell phone which is [phone]. Vital Signs/I&O Vital Signs Date Time Temp Pulse Resp B/P (MAP) Pulse Ox O2 Delivery O2 Flow Rate FiO2 01/21/20 18:00 112 132/81 (98) 01/21/20 16:00 98.0 18 95 Room Air I&O- Last 24 Hours up to 6 AM 01/21/20 06:00 Intake Total 5744 ml Output Total 725 ml Balance 5019 ml Laboratory Data Labs 24H Laboratory Tests 2 01/20/20 21:15: Anion Gap 15, Glomerular Filtration Rate 2.6L, Calcium Level 5.3#*L, Thyroid Stimulating Hormone (TSH) 57.500H 01/20/20 22:52: Whole Blood Ionized Calcium 3.0*L, Cortisol Baseline 24.7H, Cortisol PM Sample 20.3H 01/21/20 00:10: Nucleated Red Blood Cells % (auto) 0.0, Prothrombin Time 83.9H, Prothromb Time International Ratio 10.27*H, Activated Partial Thromboplast Time 151.3*H 01/21/20 02:53: Anion Gap 15, Glomerular Filtration Rate 2.7L, Calcium Level 6.0L 01/21/20 04:10: Whole Blood Ionized Calcium 3.0*L 01/21/20 04:11: Nucleated Red Blood Cells % (auto) 0.0 01/21/20 06:08: Nucleated Red Blood Cells % (auto) 0.0, Differential Slide Review Report, Pe ripheral Blood Smear Path Consult PERIPHERAL SMEAR, Prothrombin Time 70.6H, Prothromb Time International Ratio 8.25*H, Activated Partial Thromboplast Time 146.7*H, Mix PT Patient/Normal 1:1 Immediate 34.8, Mix PTT Patient/Normal 1:1 101.4, Fibrinogen 558H, D-Dimer, Quantitative 2681.10H, Anion Gap 15, Glomerular Filtration Rate 2.9L, Calcium Level 6.2L, Phosphorus Level 8.5H, Lactate Dehydrogenase 182, 25-Hydroxy Vitamin D Total 8.8L, Parathyroid Hormone (Intact) 1039.9H, Cortisol AM Sample 55.2H, Random Vancomycin Level 21.1 01/21/20 08:17: Whole Blood Ionized Calcium 3.1*L 01/21/20 09:56: Nucleated Red Blood Cells % (auto) 0.0, Prothrombin Time 24.6H, Prothromb Time International Ratio 2.16, Activated Partial Thromboplast Time 68.1H, Anion Gap 15, Glomerular Filtration Rate 3.2L, Calcium Level 6.2L, Magnesium Level 2.1, Total Bilirubin 0.3, Aspartate Amino Transf (AST/SGOT) 14, Alanine Aminotransferase (ALT/SGPT) 10L, Alkaline Phosphatase 70, Total Protein 7.7, Albumin 2.3L, Albumin/Globulin Ratio 0.4L 01/21/20 10:13: Clostridium difficile [id number] PRESUMPTIVE NEGATIVE, Clostridium difficile Toxin (PCR) NEGATIVE CBC/BMP Laboratory Tests 01/20/20 21:15 01/21/20 00:10 01/21/20 02:53 01/21/20 04:11 01/21/20 06:08 01/21/20 09:56 Microbiology Microbiology 01/21/20 Campylobacter (PCR), Received Pending 01/21/20 Clostridium difficile Toxin A&B PCR, Received Pending 01/21/20 Plesiomonas shigelloides (PCR), Received Pending 01/21/20 Salmonella (PCR)(AMELIA), Received Pending 01/21/20 Vibrio Species (PCR), Received Pending 01/21/20 Vibrio Cholerae (PCR), Received Pending 01/21/20 Yersinia enterocolitica (PCR), Received Pending 01/21/20 Enteroaggregative E. coli (PCR), Received Pending 01/21/20 Enteropathogenic E. coli (PCR), Received Pending 01/21/20 Enterotoxigenic E. coli (PCR), Received Pending 01/21/20 E. coli Shiga-like Toxin (PCR), Received Pending 01/21/20 Escherichia coli 0157 (PCR), Received Pending 01/21/20 Enteroinvasive E. coli/Shigella PCR, Received Pending 01/21/20 Cryptosporidium (PCR), Received Pending 01/21/20 Cyclospora cayetanensis (PCR), Received Pending 01/21/20 Entamoeba histolytica (PCR), Received Pending 01/21/20 Giardia lamblia (PCR), Received Pending 01/21/20 Adenovirus Type F 40/41 (PCR), Received Pending 01/21/20 Astrovirus (PCR), Received Pending 01/21/20 Norovirus GI/GII (PCR), Received Pending 01/21/20 Rotavirus A (PCR), Received Pending 01/21/20 Sapovirus I/II/IV/V (PCR), Received Pending 01/20/20 Urine Culture, Received Pending 01/20/20 Blood Culture - Preliminary, Resulted No growth after 24 hours . All specim... 01/20/20 Blood Culture - Preliminary, Resulted No growth after 24 hours . All specim... Allergies Coded Allergies: Penicillins (Verified Allergy, Intermediate, HIVES, 01/20/20) aspirin (Verified Allergy, Intermediate, HIVES, 01/20/20) ibuprofen (Verified Allergy, Intermediate, HIVES, 01/20/20) Home Medications Scheduled Dabigatran Etexilate Mesylate (Pradaxa) 150 Mg Capsule, 150 MG PO BID, (Reported) Furosemide (Furosemide) 20 Mg Tablet, 30 MG PO BID, (Reported) Levothyroxine Sodium (Levothyroxine Sodium) 100 Mcg Tablet, 100 MCG PO DAILY, (Reported) Metoprolol Succinate (Metoprolol Succinate) 25 Mg Tab.er.24h, 25 MG PO DAILY, (Reported) Sacubitril/Valsartan (Entresto 24 mg-26 mg Tablet) 1 Tab Tab, 1 TAB PO BID, (Reported) Spironolactone (Spironolactone) 25 Mg Tablet, 25 MG PO DAILY, (Reported) Miscellaneous Medications [Med Rec Comment] , (Reported) MED LIST OBTAINED FROM KELLEY MIMS NP AT [facility] CASSIE BANUELOS MD Jan 21, 2020 19:10
[2020-01-21 20:18] LABS: HEMATOCRIT 24.4 % (36.0-47.0); HEMOGLOBIN 7.9 g/dl (12.0-15.5); MEAN CORPUSCULAR HEMOGLOBIN 25.4 pg (27.0-33.0); MEAN CORPUSCULAR HGB CONC 32.4 g/dl (32.0-36.5); MEAN CORPUSCULAR VOLUME 78.5 fl (80.0-96.0); PLATELET COUNT, AUTOMATED 291 10^3/uL (150-450); RED BLOOD COUNT 3.11 10^6/uL (4.00-5.40); WHITE BLOOD COUNT 11.1 10^3/uL (4.0-10.0)
[2020-01-21] MEDS: LIOTHYRONINE 25 MCG TAB PO SCH (20:27)
[2020-01-21] MEDS: PANTOPRAZOLE 40MG VIAL (C9113 PER 1) IV SCH (20:27)
[2020-01-21] MEDS ORDERED: ACETAMINOPHEN TAB 650MG DOSE (2X325MG) PO PRN (21:15)
[2020-01-21 21:54] LABS: HEMATOCRIT 26.5 % (36.0-47.0); HEMOGLOBIN 8.6 g/dl (12.0-15.5); MEAN CORPUSCULAR HEMOGLOBIN 25.3 pg (27.0-33.0); MEAN CORPUSCULAR HGB CONC 32.5 g/dl (32.0-36.5); MEAN CORPUSCULAR VOLUME 77.9 fl (80.0-96.0); PLATELET COUNT, AUTOMATED 312 10^3/uL (150-450); WHITE BLOOD COUNT 11.1 10^3/uL (4.0-10.0)
[2020-01-21 23:17] LABS: CALCIUM LEVEL 7.4 MG/DL (8.5-10.1); CREATININE FOR GFR 7.35 MG/DL (0.55-1.30); GLOMERULAR FILTRATION RATE 6.2 (>51); MAGNESIUM LEVEL 2.1 MG/DL (1.8-2.4); POTASSIUM SERUM 4.1 MEQ/L (3.5-5.1)
--- NOTE | 2020-01-21 23:22 | IPN ---
NEPHROLOGY PROGRESS NOTE DATE: 01/21/2020 SUBJECTIVE: Patient was seen and examined at the bedside today morning in the ICU, last 24 hour events were noted. Patient was found to have very elevated TSH levels. She was started on oral T3 and I.V. T4. She also remained hypercoagulable despite Vitamin K injections and FFP. She ultimately needed a dose of PRAXBIND to reverse the effect of Pradaxa. She is not requiring pressors at this time. Blood pressures are stable with the I.V. fluid hydration that she is getting, however, despite bicarb containing I.V. fluids, she remains acidotic. She remained hyperkalemic even though her urine output started improving in the morning. Latest potassium level in the morning was 6.2. We had to give her a dose of Kayexalate rectal enema because of elevated potassium levels. Patient is otherwise awake and alert. She was also started on stress dose steroids last evening. Case was discussed with the medical team and with the pulmonary critical care team, and decision was made to get a trialysis catheter placed to manage this patient's multiple electrolyte abnormalities, metabolic acidosis and acute renal failure. OBJECTIVE: VITAL SIGNS: Temperature 98 degrees Fahrenheit, blood pressure 89/52, pulse 132 and irregular, respiratory rate 18, saturating 93% on room air. INTAKE AND OUTPUT: She had made 1,200 cc of urine so far by the time I saw her in the morning. Weight in the bed scale is 156.8 kg. PHYSICAL EXAMINATION: GENERAL: Patient is awake, alert and oriented x2, laying in bed. HEAD/NECK EXAM: Pupils equally round and reactive to light. Mucous membranes are moist. Neck is supple. Because of obesity, I could not appreciate JVD. CVS: S1, S2, regular rate. Trace edema of the bilateral lower extremities. RESPIRATORY: Chest is clear to auscultation bilaterally. Bilateral equal air entry. No rales or rhonchi. ABDOMEN: Soft, obese, positive bowel sounds. I could not appreciate any organomegaly. GENITOURINARY: She has an indwelling Webster catheter. Urine in the bag is light in color. No debris. No hematuria was noted grossly. MUSCULOSKELETAL: Erythema of the bilateral lower extremities; left is worse than right. Dry scaly skin. Trace to 1+ edema of the lower extremities. SKIN: She has pressure ulcers in both heels. 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 She follows commands and moves extremities. LABORATORY DATA: CBC showed WBC 14.9, hemoglobin 8.2, platelets 294,000. INR has significantly improved to 2.1 today. PTT 68. BMP done today morning showed sodium 130, potassium 6.2, chloride 98, bicarb 17, BUN 168, creatinine 12.9, glucose 139. Calcium 6.2, ionized calcium 3.1. Magnesium 2.1. AST 14, ALT 10, alkaline phosphatase 70. Albumin 2.3. Random vancomycin level today morning 21.1. MICROBIOLOGY: Blood cultures are negative so far. Urine cultures are pending. Stool panel is pending. CURRENT INPATIENT MEDICATIONS: Patient's medications were all reviewed by myself. She was getting I.V. calcium gluconate overnight. She got a dose of DDAVP today morning for prevention of platelet dysfunction bleeding while she is getting ready for placement of dialysis catheter. She got a dose of PRAXBIND last night for coagulopathy with Pradaxa toxicity. She was given Vitamin K. Sodium bicarb drip has been stopped. She was also started on I.V. Vancomycin for MRSA coverage. She is on hydrocortisone 100 mg I.V. every 8 hours, Levothyroxine 150 mcg I.V. daily and Liothyronine has been changed to 12.5 mcg p.o. twice a day. No other significant change in the medications today as compared with yesterday. ASSESSMENT AND PLAN: 1. Acute nonoliguric renal failure: Patient's urine output is improving, however, patient has significant metabolic acidosis with severe persistent hyperkalemia, hyperphosphatemia, hypocalcemia and because of these multiple electrolyte abnormalities , patient got a trialysis catheter placed today. She is being started on CVVHDF. Minimal fluid removal will be done with CVVHDF. I am hopeful that with her improving urine output, once the electrolyte and acid based status get better, we should be able to take her off of dialysis very soon while her kidneys recover. 2. Severe persistent hyperkalemia: As mentioned above, potassium level should improve with CVVHDF. 3. High anion gap metabolic acidosis: It is multifactorial secondary to acute renal failure and probable diarrhea that was reported on arrival. Bicarb fluids have helped a little bit with improvement of serum bicarb, however, I am hopeful that with initiation of dialysis, her bicarb level will significantly improve. 4. Persistent hypocalcemia: Patient has very high phosphorus levels and because of that, her calcium level is not improving. Calcium level will improve after initiation of dialysis. If needed, she will get I.V. calcium gluconate according to CVVHDF protocol. 5. Hyperphosphatemia: Phosphorus level is expected to improve with renal recovery and with dialysis. 6. Anemia: Patient had coagulopathy and she had nose bleed at home. Transfuse p.r.n. for hemoglobin less than 8. 7. Coagulopathy with Pradaxa toxicity: Patient got Vitamin K, FFP and PRAXBIND. INR is significantly better. If needed, she can be started on Heparin. 8. Severe sepsis: Patient's hypothermia is getting better. Cultures are pending. She is getting empiric I.V. antibiotics. Continue stress dose Hydrocortisone. A. M. cortisol level is within the acceptable range. Steroids can be stopped after three days. 9. Severe hypothyroidism: Patient was started on I.V. Levothyroxine and oral Liothyronine. Case was also discussed with endocrine by the medical team. Continue the current dosages according to their recommendations. 10.Atrial fibrillation with rapid ventricular rate: Patient got a dose of I.V. Amiodarone 150 mg. Heart rate is better controlled and INR is already within the acceptable range. It actually needed to be reversed because of Pradaxa toxicity. 11.Chronic systolic congestive heart failure and pulmonary hypertension: Volume status is improved now, no further use of I.V. fluid. Patient is making urine as well. Entresto and diuretics are on hold because of acute renal failure and shock. Total critical care time spent in the management of this patient today morning in the ICU excluding all the procedures is 45 minutes.
[2020-01-22] VITALS (19 sets, daily range): BP systolic 85–145; BP diastolic 48–89
[2020-01-22] MEDS: CALCIUM GLUCONATE 1,000 MG in NS MINI-BAG PLUS 100 ML IV SCH ×4 (00:01→05:18)
[2020-01-22 03:33] LABS: CALCIUM LEVEL 7.8 MG/DL (8.5-10.1); CREATININE FOR GFR 5.12 MG/DL (0.55-1.30); GLOMERULAR FILTRATION RATE 9.3 (>51); MAGNESIUM LEVEL 2.2 MG/DL (1.8-2.4); PHOSPHORUS LEVEL 4.8 MG/DL (2.5-4.9); POTASSIUM SERUM 4.6 MEQ/L (3.5-5.1)
[2020-01-22] MEDS: HYDROCORTISONE 100 MG/2 ML VIAL (J1720 PER 1) IV SCH ×3 (06:15→21:52)
[2020-01-22] MEDS: cefTRIAXone SOD 2 GM in D5W MINI-BAG PLUS 50 ML IV SCH (06:16)
[2020-01-22 08:58] LABS: HEMATOCRIT 26.2 % (36.0-47.0); HEMOGLOBIN 8.4 g/dl (12.0-15.5); MEAN CORPUSCULAR HEMOGLOBIN 25.5 pg (27.0-33.0); MEAN CORPUSCULAR HGB CONC 32.1 g/dl (32.0-36.5); MEAN CORPUSCULAR VOLUME 79.4 fl (80.0-96.0); PLATELET COUNT, AUTOMATED 280 10^3/uL (150-450); WHITE BLOOD COUNT 10.2 10^3/uL (4.0-10.0)
[2020-01-22] MEDS: CHLORHEXIDINE GLUCONATE 0.12 % 15ML UDC (PERIDEX ORAL RINSE) MT SCH ×2 (09:02→20:38)
[2020-01-22] MEDS: LIOTHYRONINE 25 MCG TAB PO SCH ×2 (09:02→20:38)
[2020-01-22] MEDS: LEVOTHYROXINE 100MCG (0.1MG) VIAL IV SCH (09:07)
[2020-01-22] MEDS: NYSTATIN 100,000 UNITS/GM TOPICAL PWD 15 GM TOP SCH ×2 (09:08→20:39)
[2020-01-22 09:28] LABS: CALCIUM LEVEL 8.1 MG/DL (8.5-10.1); CREATININE FOR GFR 3.37 MG/DL (0.55-1.30); GLOMERULAR FILTRATION RATE 15.1 (>51); MAGNESIUM LEVEL 2.4 MG/DL (1.8-2.4); PHOSPHORUS LEVEL 3.6 MG/DL (2.5-4.9); POTASSIUM SERUM 4.6 MEQ/L (3.5-5.1); VANCOMYCIN RANDOM 8.7 UG/ML
[2020-01-22 09:28] LABS: PARTIAL THROMBOPLASTIN TIME 52.8 SECONDS (24.2-38.5)
--- NOTE | 2020-01-22 10:16 | ECGEPIP ---
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
[2020-01-22] MEDS: VANCOMYCIN HCL 1,000 MG, VIAL MATE ADAPTER 1 EACH in D5W 250 ML IV SCH ×2 (10:48→21:53)
[2020-01-22] MEDS: traMADol 50 MG TAB PO PRN ×2 (11:06→22:55)
[2020-01-22] MEDS: CALCIUM GLUCONATE 1,000 MG in NS 100 ML IV SCH ×4 (11:11→16:59)
[2020-01-22 11:53] LABS: INR 1.99
--- NOTE | 2020-01-22 13:31 | CCN ---
CRITICAL CARE NOTE DATE: 01/22/2020 Patient was seen and examined this morning during bedside rounds. Yesterday, patient was started on continuous renal replacement therapy (CRRT), which she tolerated well. Patient had improvement in her electrolyte abnormalities as well as her acidosis with the CRRT. She was also able to have some fluid removed, as her blood pressure had improved yesterday, and she was able to tolerate some amount of fluid removal. This morning, patient reports that her shortness of breath has improved. She denies any complaints currently. No chest pain, no coughing, no abdominal pain. She did have some pain, she states, on her left side, which improved with Tylenol. PHYSICAL EXAMINATION: VITAL SIGNS: Temperature 96.7, pulse 67, respirations 18, blood pressure 125/56, oxygen saturation 94% on room air. In 2.2 liters, out 2.8 liters, net positive 82 mL. General: The patient is a morbidly obese female. Is lying in bed. Does not appear to be in acute distress. She is awake, alert, answering questions appropriately, and is oriented times three. HEENT: Normocephalic, atraumatic. There are mucous membranes noted. Pupils are reactive to light bilaterally. Patient has exophthalmus. NECK: Thick. Unable to appreciate any jugular venous distention (JVD). There is a right internal jugular (IJ) hemodialysis catheter in place. CARDIAC: Irregularly irregular, normal S1, S2. Tachycardia improved. There is a faint murmur auscultated. PULMONARY: Improved breath sounds bilaterally with few scattered crackles at the bases. No wheezing or rhonchi noted. ABDOMEN: Obese, soft, nontender, nondistended. There are bowel sounds present. EXTREMITIES: There is pitting lower extremity edema bilaterally with areas of increased erythema and warmth. There are also wounds in her upper thigh region as well as a fungal infection in the intertriginous folds. Patient also has a maculopapular rash on her arms and trunk, which she has had prior to admission. LABORATORY DATA: WBC 11.1, hemoglobin 8.6, platelets are 312. Chemistry: Sodium is 136, potassium is 4.6, chloride is 103, bicarbonate is 24, BUN 83, creatinine is 5.12, glucose is 166, calcium 7.8, ionized calcium 4.1, phosphorus 4.8, magnesium 2.2. PTT this morning 72.9. Fibrinogen yesterday was 558. ASSESSMENT AND PLAN: Ms.. Varghese is a 54-year-old female with a past medical history of heart failure with reduced ejection fraction (EF) and pulmonary hypertension, atrial fibrillation, on Dabigatrin, hypothyroidism, hyperlipidemia, obstructive sleep apnea (MITCHELL), not on treatment, and a history of chronic lower extremity edema and cellulitis, who presented initially with complaints of weakness and worsening shortness of breath. Patient was found on admission to have leukocytosis and sepsis, likely secondary to cellulitis or possible urinary tract infection (UTI). She also had a severe anion gap metabolic acidosis as well as severe electrolyte abnormalities in the setting of acute renal failure. Patient also was severely hypothyroid on admission as well and coagulopathic in the setting of her Pradaxa and acute renal failure. Patient with sepsis, likely secondary to sepsis with a possible UTI. She also had complaints of diarrhea for the past few days prior to admission, although denied any abdominal pain, nausea, or vomiting. Patient was on antibiotics as an outpatient, so there was a possibility of Clostridium (C) difficile. She does have a history of methicillin-resistant Staphylococcus aureus (MRSA) also. - Continue patient with broad-spectrum antibiotics with ceftriaxone as well as vancomycin. - Will followup gastrointestinal (GI) panel, urine culture, and blood culture, and de-escalate antibiotics accordingly. - Patient's blood pressure improved with IV fluid administration. She did not require any pressors. Her lactic acid was normal on admission a well. Acute renal failure, likely multifactorial in the setting of prerenal azotemia and complicated with her medications, including Entresto as well as her diuretics, possibly acute tubular necrosis (ATN) The patient also had severe electrolyte abnormalities, including hyperkalemia, hyperphosphatemia, hypokalemia, and hyponatremia as well as a severe metabolic acidosis initially. - Appreciate renal consult recommendations. Patient was started on CRRT yesterday with improvement in her electrolyte abnormalities as well as in her metabolic acidosis. - Patient does have some urine output, and she was able to tolerate some fluid removal initially with dialysis, although her blood pressures this morning have been somewhat softer. Would continue CRRT as per nephrology with close monitoring of her electrolytes and renal function as well as urine output. - Patient has a right IJ Trialysis catheter in place for hemodialysis currently. Severe hypothyroidism. Patient previously had ablation, likely in the setting of hyperthyroidism, and now with postoperative hypothyroidism. - Patient clinically did not appear to be in myxedema coma on admission. She does have poorly controlled hypothyroidism, however, and was started on levothyroxine on this admission as well as T3 supplementation. - Will continue monitoring her thyroid function every 3 days and make adjustments as needed. - Patient was also started on stress-dose steroids initially with hydrocortisone. Will continue for 3 days and then discontinue. Her cortisol level appeared normal, although this was likely drawn after she received steroids. History of heart failure with reduced ejection fraction (EF) as well as pulmonary hypertension and atrial fibrillation, on anticoagulation. - Patient does have a history of previous pulmonary hypertension, likely in the setting of her left-sided heart failure as well as a pulmonary component from her history of untreated sleep apnea. Initially she did not appear to be in evidence of decompensated heart failure, although with her history of pulmonary hypertension, would closely monitor her fluid status. - patient with supratherapeutic INR and coagulopathy in setting of pradaxa. Was given 1 unit FFP and vitamin K with minimal improvement. Was then given pradaxa reversal agent prior to line placement with improvement in INR. Hg is lower than baseline but no active bleeding currently. Patient likely had epistaxis prior to admission. would monitor and transfuse as needed. Can start heparin for anticoagulation with INR and PTT subtherapeutic DVT ppx- TEDS/SCDs GI ppx- PPI Code status: full code Total critical care time spent not including any procedures approx 40mins Please do not hesitate to call if any further questions or concerns. MTDD
--- NOTE | 2020-01-22 14:45 | IPNPDOC ---
Date Seen The patient was seen on 01/22/20. Progress Note SUBJECTIVE: Reversed supratherapeutic INR with Praxbind, pulmonary placed R trialysis cath. Tolerating CRRT well over past 24 hours. U/O over 24H: 2887 mL. INR, Cr and K improved/improving. Calcium being replaced with CRRT. No more diarrhea, bleeding episodes or atrial fib with RVR. Patient complains of lower ext pain 2/2 to chronic wounds, tramadol started PRN. Patient denies chest pain, incr shortness of breath, n/v. OBJECTIVE: PHYSICAL EXAMINATION: VS: Please see below CONSTITUTIONAL: No acute distress, resting in bed, AAO x 3 EYES: PERRLA, EOM intact HENT, MOUTH: Normocephalic, atraumatic, moist mucous membranes NECK: SUPPLE, no JVD, no lymphadenopathy, no carotid bruit CV: irregularly irregular rhythm, currently rate controlled , S1S2 normal, no murmurs/rubs/gallops RESPIRATORY: Clear to auscultation bilaterally, no rales/rhonchi/wheezes GI: obese abd, BS positive in 4 quadrants, soft, nontender, nondistended, no rebound or guarding, no organomegaly : santiago catheter MUSCULOSKELETAL: Normal ROM. No cyanosis, clubbing, swelling, joint deformity, +1 extremity edema INTEGUMENTARY: Macularpapular rash on upper ext, trunk. Cellulitis of the lower and upper thighs, slightly erythematous, nontender to touch. Multiple b/l lower ext wounds, Stage I, appear clean and nonsuppurative. Wound on the right upper thigh, appears clean. Redness in abdominal folds-yeast NEUROLOGIC: Cranial Nerves II-XII are intact, no focal deficits PSYCHIATRIC: Mood and affect are normal LABORATORY DATA: Please see below MICROBIOLOGY: BCx x 2 sets: NG UCx: pending C. diff: neg GI panel: pending MRSA + IMAGING: Echocardiogram 01/21/20: pending results CT abd/pelvis: No acute abdominal or pelvic abnormality. Prominent deneen aorta, mesenteric and pelvic lymph nodes. Etiology infectious/inflammatory. CT chest without contrast: No acute abnormality. Echocardiogram 07/2016: 1. Study is of fair technical quality. 2. Normal LV size with severe global hypokinesis and flattening of interventricular septum. Overall estimated EF 30-35%. 3. Dilated hypokinetic right ventricle. 4. Severe biatrial enlargement. 5. Approximately moderate mitral insufficiency. 6. Approximately moderate tricuspid insufficiency. 7. Very high central venous pressure. 8. At least moderately severe pulmonary hypertension. 9. Left pleural effusion with presence of mass, potentially representing thrombus or collapsed lobe. ASSESSMENT: 54-year-old female with past medical history of HFrEF (EF 30-35%), atrial fibrillation on dabigitran, hypothyroidism, HLD, lower ext cellulitis on doxycycline o/p, HTN, atrial fibrillation admitted to ICU for sepsis with shock 2/2 to UTI and possibly cellulitis, dehydration 2/2 to diarrhea, JEREMY 2/2 to dehydration, hypovolemia, hypothermia 2/2 to sepsis, hyperkalemia 2/2 to JEREMY. PLAN: # Sepsis 2/2 to UTI. Cannot r/o 2/2 to cellulitis vs. infectious diarrhea? Resolved shock. -WBC 10.2K, 97 F, + UA. LA wnl -C. diff neg -BCx NG -F/u UCx, GI panel -C/w vancomycin, Ceftriaxone, deescalate as cultures return -Tele, scheduled labs #Hypotension likely multifactorial to septic shock, hypovolemia 2/2 to dehydration from diarrhea, diuretic use. Cannot rule out concomitant adrenal crisis -Hx of HTN, episode of hypotension this AM but improved without IVFs while on CRRT -Resolved diarrhea, has not been on antihypertensives/diuretics (lasix, ACEi/ARB, BB and spironolactone) this admission -AM cortisol elevated, although result may be skewed due to receiving steroids prior to getting this lab. PM cortisol pending -C/w stress dose steroids with hydrocortisone 100 mg Q8H but will discuss #Severe hypothyroidism s/p thyroid ablation for hyperthyroidism. -TSH 11/11/24 was 32, on admission 57.5 -Low T3, free T4 also -Given 200 mcg IV levothyroxine and started on 150 mcg IV daily - will leave at this increased dose until 01/24/20 then change to 100 mcg daily. -Discussed case with Dr. Nye, endocrinology who recommended to continue treatment above. -Cytomel BID -F/u free T4, total T3 Q3 days per endo. #Coagulopathy, supratherapeutic INR and PTT likely 2/2 to use of dabigatran in presence of worsening renal failure-could not be cleared. Cannot r/o other hematological issue as well. -Likely had epistaxis episode at home. -On dabigatran at home, no VKA or warfarin. -S/p Praxbind which decreased INR, INR 1.99 this AM -No elevation of AST/ALT or history of hepatic disease -LDH, ferritin, d dimer all elevated -Peripheral smear: Microcytic hypochromic anemia, Leukocytosis associated with neutrophilia, Platelet count within normal limits, No blasts are identified -F/u coags, mixing study -Discussed with Dr. Cruz # Acute kidney injury likely 2/2 to prerenal azotemia, cannot r/o ATN. -Cr much improved to 3.37, BUN 55. Baseline wnl -U/O good with having 2887 mL/24hours, santiago in place -CRRT continues, replace lytes PRN -Nephrology consulted and following closely #Acute hypocalcemia. Cannot r/o chronic component. -S/p multiple calcium gluconate this admission, ionized calcium remains low -Calcium to be managed with CRRT -If repeat labs after CRRT show continued low Ca, low Vit D, high PTH perhaps 2/2 to Vitamin D deficiency. -If L/N calcium, H PTH, low Vit D and L/H phos--> secondary hyperparathyroidism. Again, would check when not on CRRT. -Following lytes closely #Atrial fibrillation -Rate controlled -Holding BB, dabigatran. -Monitor on tele. #Diarrhea r/o infectious cause- resolved but workup continues -C. diff neg, GI panel pending -F/u BCx NG -C/w abx above, on renal diet #HFrEF, not in acute exacerbation -CT chest and current clinical evaluation does not show s/s of fluid overload -BNP 1720 on admission; however, she is chronically elevated. Last 454. -COVID neg -New echo ordered, f/u results -Monitor for s/s of overload with aggressive hydration. -Holding all diuretic meds. #GI px -IV PPI #DVTpx -SCDs. teds. Will discuss when able to restart AC with heparin. Resolved issues: # Hypothermia 2/2 to sepsis #Epistaxis likely 2/2 to coagulopathy from dabigatran vs. other cause #Hyponatremia likely 2/2 to hypovolemia, JEREMY #Hyperkalemia likely 2/2 to JEREMY # Anion gap metabolic acidosis likely 2/2 to sepsis, uremia DISPOSITION: Condition remains guarded but improving ICU. Will need PT/OT when acute medical issues stabilize. TOTAL TIME SPENT ON CARING FOR ICU PATIENT ( no procedures ): 35 mins VS, I&O, 24H, Fishbone Vital Signs/I&O Vital Signs Date Time Temp Pulse Resp B/P (MAP) Pulse Ox O2 Delivery O2 Flow Rate FiO2 01/22/20 14:00 76 121/56 (77) 01/22/20 12:00 97.0 19 95 Room Air I&O- Last 24 Hours up to 6 AM 01/22/20 06:00 Intake Total 2019.25 ml Output Total 2848 ml Balance -828.75 ml Laboratory Data 24H LABS Laboratory Tests 2 01/21/20 19:49: Nucleated Red Blood Cells % (auto) 0.0, Activated Partial Thromboplast Time 69.6H, Whole Blood Ionized Calcium 3.8L, Cortisol PM Sample 20.3H 01/21/20 21:38: Nucleated Red Blood Cells % (auto) 0.0, Activated Partial Thromboplast Time 72.9H, Whole Blood Ionized Calcium 3.9L, Anion Gap 16, Glomerular Filtration Rate 6.2L, Calcium Level 7.4#L, Phosphorus Level 5.0#H, Magnesium Level 2.1 01/22/20 02:51: Whole Blood Ionized Calcium 4.1L, Anion Gap 9, Glomerular Filtration Rate 9.3L, Calcium Level 7.8L, Phosphorus Level 4.8, Magnesium Level 2.2 01/22/20 08:38: Nucleated Red Blood Cells % (auto) 0.0, Whole Blood Ionized Calcium 4.1L 01/22/20 08:39: Prothrombin Time 23.0H, Prothromb Time International Ratio 1.99, Activated Partial Thromboplast Time 52.8H 01/22/20 08:43: Anion Gap 7L, Glomerular Filtration Rate 15.1L, Calcium Level 8.1L, Phosphorus Level 3.6#, Magnesium Level 2.4, Random Vancomycin Level 8.7 CBC/BMP Laboratory Tests 01/21/20 19:49 01/21/20 21:38 01/22/20 02:51 01/22/20 08:38 01/22/20 08:43 Microbiology Microbiology 01/21/20 Campylobacter (PCR), Received Pending 01/21/20 Clostridium difficile Toxin A&B PCR, Received Pending 01/21/20 Plesiomonas shigelloides (PCR), Received Pending 01/21/20 Salmonella (PCR)(AMELIA), Received Pending 01/21/20 Vibrio Species (PCR), Received Pending 01/21/20 Vibrio Cholerae (PCR), Received Pending 01/21/20 Yersinia enterocolitica (PCR), Received Pending 01/21/20 Enteroaggregative E. coli (PCR), Received Pending 01/21/20 Enteropathogenic E. coli (PCR), Received Pending 01/21/20 Enterotoxigenic E. coli (PCR), Received Pending 01/21/20 E. coli Shiga-like Toxin (PCR), Received Pending 01/21/20 Escherichia coli 0157 (PCR), Received Pending 01/21/20 Enteroinvasive E. coli/Shigella PCR, Received Pending 01/21/20 Cryptosporidium (PCR), Received Pending 01/21/20 Cyclospora cayetanensis (PCR), Received Pending 01/21/20 Entamoeba histolytica (PCR), Received Pending 01/21/20 Giardia lamblia (PCR), Received Pending 01/21/20 Adenovirus Type F 40/41 (PCR), Received Pending 01/21/20 Astrovirus (PCR), Received Pending 01/21/20 Norovirus GI/GII (PCR), Received Pending 01/21/20 Rotavirus A (PCR), Received Pending 01/21/20 Sapovirus I/II/IV/V (PCR), Received Pending 01/20/20 Urine Culture, Received Pending 01/20/20 Blood Culture - Preliminary, Resulted No growth after 24 hours . All specim... 01/20/20 Blood Culture - Preliminary, Resulted No Growth after 48 hours. All Specime... Current Medications Current Medications Medications (Trade) Dose Ordered Sig/Prieto Route PRN Reason Start Time Stop Time Status Last Admin Dose Admin Acetaminophen (Tylenol Tab) 650 mg Q6HP PRN PO PAIN / FEVER 01/21/20 21:15 01/21/20 21:14 Calcium Gluconate 1000 mg/Sodium Chloride 110 ml @ 110 mls/hr 0000,0100 IV 01/22/20 00:00 01/22/20 04:00 DC 01/22/20 01:18 Calcium Gluconate 1000 mg/Sodium Chloride 110 ml @ 110 mls/hr 0400,0500 IV 01/22/20 04:00 01/22/20 07:00 DC 01/22/20 05:18 Calcium Gluconate 1000 mg/Sodium Chloride 110 ml @ 110 mls/hr Q1H IV 01/22/20 11:00 01/22/20 12:59 DC 01/22/20 12:22 Ceftriaxone Sodium 2 gm/ Dextrose 50 ml @ 100 mls/hr Q24H IV 01/21/20 06:00 01/22/20 06:16 Chlorhexidine Gluconate (Peridex Oral Rinse) SWAB/BRUSH ORAL CAVITY BID MT 01/20/20 21:00 01/22/20 09:02 Dextrose (Dextrose 50%) 50 ml STAT STAT IV 01/20/20 15:01 01/20/20 15:03 DC 01/20/20 15:36 Heparin Sodium (Heparin) ASDIRECTED PRN IV SEE LABEL COMMENTS 01/21/20 12:15 Heparin Sodium (Heparin) 1,400 units ONCE PRN XX TO FLUSH DIALYSIS CATHETER 01/21/20 09:15 Home Med (Med Rec Complete!) ASDIRECTED XX 01/20/20 15:30 01/20/20 15:29 DC Hydrocortisone (A-Hydrocort) 100 mg Q8H IV 01/20/20 22:00 01/22/20 06:15 Idarucizumab 2.5 gm/IV Miscellaneous Supplies 50 ml @ 600 mls/hr Q5M IV 01/21/20 10:00 01/21/20 10:09 DC 01/21/20 09:17 Insulin Human Lispro (HumaLOG INSULIN) 10 units STAT STAT SC 01/20/20 15:01 01/20/20 15:03 DC 01/20/20 15:33 Levothyroxine Sodium (Synthroid) 100 mcg DAILY IV 01/21/20 09:00 01/21/20 07:37 DC Levothyroxine Sodium (Synthroid) 100 mcg DAILY IV 01/25/20 09:00 Levothyroxine Sodium (Synthroid) 150 mcg DAILY IV 01/21/20 09:00 01/24/20 12:00 01/22/20 09:07 Liothyronine Sodium (Cytomel) 12.5 mcg BID PO 01/21/20 21:00 01/22/20 09:02 Liothyronine Sodium (Cytomel) 12.5 mcg Q8H PO 01/21/20 06:00 01/21/20 07:34 DC 01/21/20 05:17 Liothyronine Sodium (Cytomel) 25 mcg STAT STAT PO 01/20/20 22:09 01/20/20 22:11 DC 01/20/20 23:36 Non-Formulary Medication ( See Comment Field Below ) VANCO INTERMIT. DOSING ASDIRECTED XX 01/21/20 00:00 01/22/20 09:33 DC Nystatin (Mycostatin Powder, Nystop) Apply to abdominal folds ... BID TOP 01/20/20 21:00 01/22/20 09:08 Pantoprazole Sodium (Protonix) 40 mg Q24H IV 01/20/20 20:00 01/21/20 20:27 Sodium Bicarbonate 75 meq/Sodium Chloride 1,075 ml @ 150 mls/hr Q7H10M IV 01/20/20 20:00 01/21/20 09:19 DC 01/21/20 03:47 Sodium Bicarbonate (Sodium Bicarbonate) 50 meq STAT STAT IV 01/20/20 14:37 01/20/20 14:39 DC 01/20/20 15:34 Sodium Chloride 1,000 ml @ 100 mls/hr Q10H IV 01/20/20 16:15 01/20/20 18:02 DC 01/20/20 16:46 Sodium Chloride (Saline Lock Flush) 10ML IN EACH PAT... ASDIRECTED PRN IV SEE LABEL COMMENTS 01/21/20 12:15 Tramadol HCl (Ultram) 50 mg Q8HP PRN PO MODERATE PAIN (PS 5-7) 01/22/20 10:00 01/22/20 11:06 Vancomycin HCl 1000 mg/IV Miscellaneous Supplies 1 each/ Dextrose 270 ml @ 270 mls/hr Q12H IV 01/22/20 10:00 01/22/20 10:48 Allergies Coded Allergies: Penicillins (Verified Allergy, Intermediate, HIVES, 01/20/20) aspirin (Verified Allergy, Intermediate, HIVES, 01/20/20) ibuprofen (Verified Allergy, Intermediate, HIVES, 01/20/20) Wilma Parks MD Jan 22, 2020 14:45
[2020-01-22 15:23] LABS: CALCIUM LEVEL 8.1 MG/DL (8.5-10.1); CREATININE FOR GFR 2.38 MG/DL (0.55-1.30); GLOMERULAR FILTRATION RATE 22.6 (>51); MAGNESIUM LEVEL 2.4 MG/DL (1.8-2.4); PHOSPHORUS LEVEL 3.1 MG/DL (2.5-4.9); POTASSIUM SERUM 4.2 MEQ/L (3.5-5.1)
[2020-01-22] MEDS ORDERED: NS 500 ML IV ONE (16:45)
[2020-01-22] MEDS: PANTOPRAZOLE 40MG VIAL (C9113 PER 1) IV SCH (20:15)
[2020-01-22 20:20] LABS: HEMATOCRIT 25.3 % (36.0-47.0); MEAN CORPUSCULAR HEMOGLOBIN 25.3 pg (27.0-33.0); MEAN CORPUSCULAR HGB CONC 31.6 g/dl (32.0-36.5); MEAN CORPUSCULAR VOLUME 80.1 fl (80.0-96.0); PLATELET COUNT, AUTOMATED 263 10^3/uL (150-450); RED BLOOD COUNT 3.16 10^6/uL (4.00-5.40); WHITE BLOOD COUNT 10.3 10^3/uL (4.0-10.0)
[2020-01-22 20:33] LABS: INR 1.77
[2020-01-22 20:34] LABS: PARTIAL THROMBOPLASTIN TIME 57.9 SECONDS (24.2-38.5)
--- NOTE | 2020-01-22 20:37 | IPN ---
NEPHROLOGY PROGRESS NOTE DATE: 01/22/2020 SUBJECTIVE: The patient was seen and examined at the bedside today morning in the ICU. She was started on CVVHDF last night after placement of a right IJ trialysis catheter. She is tolerating the CVVHDF. The patient is also making a good amount of urine. Hyperkalemia is improving with dialysis. Metabolic acidosis is also significantly better. The patient is not requiring any pressors and hypothermia is also improving. The patient was able to answer questions. She is on room air today, and I was told by the nursing staff that she ate some of her breakfast today morning. OBJECTIVE: VITAL SIGNS: Temperature is 97 degrees Fahrenheit, blood pressure 129/59, pulse is 78, respiratory rate of 18, saturating 95% on room air. Intake and Output urine output recorded as 2.8 liters yesterday, 891 mL so far today since overnight. Weight on the bed scale is 154.6 kg. PHYSICAL EXAMINATION: GENERAL APPEARANCE: The patient is awake, alert, oriented x2, laying in bed getting CVVHDF. HEAD AND NECK: Pupils are equally round and reactive to light. Neck is supple. She has a right IJ trialysis catheter being used for dialysis. No jugular venous distention was noted. CARDIOVASCULAR: S1, S2, regular rate. EXTREMITIES: Trace edema of the bilateral lower extremities. Lower extremities are bulky. RESPIRATORY: Chest is clear to auscultation bilaterally. Bilaterally currently no rales or rhonchi. ABDOMEN: Soft, obese, positive bowel sounds, nontender, no organomegaly was noted. GENITOURINARY: She has an indwelling Webster catheter. MUSCULOSKELETAL: Mild erythema of the bilateral lower extremities. SKIN: She has chronic ulcers of the bilateral heels. CONTINUITY MANAGER: No focal deficits. Power is 5/5 in bilateral upper extremities. LAB REVIEW: CBC showed a WBC of 10.2, hemoglobin 8.4, platelets are 280. INR is 1.9. BMP showed sodium 137, potassium 4.2, chloride 104, bicarbonate 28, BUN 41, creatinine is 2.3. Glucose is 164, calcium is 8.1. Ionized calcium is 4.3, phosphorous 3.1, magnesium is 2.4. CURRENT INPATIENT MEDICATIONS: The patient's medications were all reviewed by myself. She is getting calcium gluconate according to CVVHDF protocol. She continues to be on IV Rocephin and IV Vancomycin. She is on Hydrocortisone 100 mg IV q. 8 hourly and no change in the thyroid medications. ASSESSMENT AND PLAN: 1. Acute non oliguric renal failure - The patient was started on CVVHDF yesterday for acidosis and multiple electrolyte abnormalities. Acidosis is significantly better. Electrolytes are improving. The patient is making urine. I am going to hold the CVVHDF today at the end of the shift at 7:00 p.m. I would continue to monitor the intake and output and patient's labs and any further need of CVVHDF or intermittent hemodialysis will be evaluated on a daily basis. 2. Hyperkalemia it has improved with hemodialysis. 3. High anion gap metabolic acidosis it is improved now. No need of bicarbonate administration at this time. 4. Hypocalcemia It is slowly improving with dialysis. Improvement of the phosphorous levels and administration of calcium according to protocol. 5. Hyperphosphatemia It has improved with dialysis. 6. Coagulopathy and anemia - The patient is getting PRBC transfusions. Hemoglobin level is stable. 7. Coagulopathy with Pradaxa toxicity - The patient is status post Praxbind and Pradaxa also gets dialyzed and hopefully her INR levels should stay stable now. 8. Severe sepsis cultures are negative so far. Etiology is not known. She is on empiric antibiotics. Continue stress dose of steroids. stress dose Hydrocortisone. 9. Severe hypothyroidism - continue Levothyroxine and liothyronine. Total critical care time spent in the management of this patient today morning in the ICU excluding the procedures was 40 minutes. MTDD
[2020-01-22 21:21] LABS: CALCIUM LEVEL 7.6 MG/DL (8.5-10.1); CREATININE FOR GFR 2.01 MG/DL (0.55-1.30); GLOMERULAR FILTRATION RATE 27.5 (>51); MAGNESIUM LEVEL 2.2 MG/DL (1.8-2.4); PHOSPHORUS LEVEL 2.7 MG/DL (2.5-4.9); POTASSIUM SERUM 4.5 MEQ/L (3.5-5.1)
[2020-01-23] VITALS (15 sets, daily range): BP systolic 93–145; BP diastolic 54–67
[2020-01-23 02:33] LABS: CALCIUM LEVEL 7.7 MG/DL (8.5-10.1); CREATININE FOR GFR 2.16 MG/DL (0.55-1.30); GLOMERULAR FILTRATION RATE 25.3 (>51); MAGNESIUM LEVEL 2.2 MG/DL (1.8-2.4); PHOSPHORUS LEVEL 2.9 MG/DL (2.5-4.9); POTASSIUM SERUM 4.5 MEQ/L (3.5-5.1)
[2020-01-23] MEDS: cefTRIAXone SOD 2 GM in D5W MINI-BAG PLUS 50 ML IV SCH (05:08)
[2020-01-23] MEDS: HYDROCORTISONE 100 MG/2 ML VIAL (J1720 PER 1) IV SCH ×3 (05:08→21:07)
[2020-01-23 07:54] LABS: HEMOGLOBIN 7.9 g/dl (12.0-15.5); MEAN CORPUSCULAR HEMOGLOBIN 25.5 pg (27.0-33.0); MEAN CORPUSCULAR HGB CONC 31.6 g/dl (32.0-36.5); MEAN CORPUSCULAR VOLUME 80.6 fl (80.0-96.0); PLATELET COUNT, AUTOMATED 265 10^3/uL (150-450); WHITE BLOOD COUNT 10.6 10^3/uL (4.0-10.0)
[2020-01-23 08:07] LABS: INR 1.66
[2020-01-23 08:08] LABS: PARTIAL THROMBOPLASTIN TIME 50.6 SECONDS (24.2-38.5)
[2020-01-23] MEDS: CHLORHEXIDINE GLUCONATE 0.12 % 15ML UDC (PERIDEX ORAL RINSE) MT SCH ×2 (08:25→21:00)
[2020-01-23] MEDS: LIOTHYRONINE 25 MCG TAB PO SCH ×2 (08:25→21:07)
[2020-01-23] MEDS: LEVOTHYROXINE 100MCG (0.1MG) VIAL IV SCH (08:27)
[2020-01-23] MEDS: NYSTATIN 100,000 UNITS/GM TOPICAL PWD 15 GM TOP SCH ×2 (08:27→21:07)
[2020-01-23] MEDS: VANCOMYCIN HCL 1,000 MG, VIAL MATE ADAPTER 1 EACH in D5W 250 ML IV SCH (10:29)
[2020-01-23] MEDS ORDERED: CALCIUM GLUCONATE 1,000 MG in D5W MINI-BAG PLUS 100 ML IV ONE (10:45)
[2020-01-23 11:07] LABS: CALCIUM LEVEL 8.2 MG/DL (8.5-10.1); CREATININE FOR GFR 2.18 MG/DL (0.55-1.30); FREE T4 0.66 NG/DL (0.76-1.46); MAGNESIUM LEVEL 2.4 MG/DL (1.8-2.4); PHOSPHORUS LEVEL 3.3 MG/DL (2.5-4.9); POTASSIUM SERUM 4.6 MEQ/L (3.5-5.1); VANCOMYCIN RANDOM 22.7 UG/ML
[2020-01-23] MEDS ORDERED: FUROSEMIDE 40MG/4ML VIAL (J1940) IV ONE (12:00)
--- NOTE | 2020-01-23 12:37 | IPNPDOC ---
Date Seen The patient was seen on 01/23/20. Progress Note SUBJECTIVE: INR 1.66, holding off until PTT better improved to start heparin SC. CRRT stopped last evening, continues to make good urine. Patient denies chest pain, incr shortness of breath, n/v. OBJECTIVE: PHYSICAL EXAMINATION: VS: Please see below CONSTITUTIONAL: No acute distress, resting in bed, AAO x 3 EYES: PERRLA, EOM intact HENT, MOUTH: Normocephalic, atraumatic, moist mucous membranes, right IJ in place NECK: SUPPLE, no JVD, no lymphadenopathy, no carotid bruit CV: irregularly irregular rhythm, currently rate controlled , S1S2 normal, no murmurs/rubs/gallops RESPIRATORY: Clear to auscultation bilaterally, no rales/rhonchi/wheezes GI: obese abd, BS positive in 4 quadrants, soft, nontender, nondistended, no rebound or guarding, no organomegaly : santiago catheter MUSCULOSKELETAL: Normal ROM. No cyanosis, clubbing, swelling, joint deformity, +1 extremity edema INTEGUMENTARY: Macularpapular rash on upper ext, trunk- improving. Cellulitis of the lower and upper thighs, slightly erythematous, nontender to touch. Multiple b/l lower ext wounds, Stage I, appear clean and nonsuppurative. Wound on the right upper thigh, appears clean. Redness in abdominal folds-yeast that is improving NEUROLOGIC: Cranial Nerves II-XII are intact, no focal deficits PSYCHIATRIC: Mood and affect are normal LABORATORY DATA: Please see below MICROBIOLOGY: BCx x 2 sets: NG UCx: pending C. diff: neg GI panel: pending MRSA + IMAGING: Echocardiogram 01/21/20: pending results CT abd/pelvis: No acute abdominal or pelvic abnormality. Prominent deneen aorta, mesenteric and p elvic lymph nodes. Etiology infectious/inflammatory. CT chest without contrast: No acute abnormality. Echocardiogram 07/2016: 1. Study is of fair technical quality. 2. Normal LV size with severe global hypokinesis and flattening of interventricular septum. Overall estimated EF 30-35%. 3. Dilated hypokinetic right ventricle. 4. Severe biatrial enlargement. 5. Approximately moderate mitral insufficiency. 6. Approximately moderate tricuspid insufficiency. 7. Very high central venous pressure. 8. At least moderately severe pulmonary hypertension. 9. Left pleural effusion with presence of mass, potentially representing thrombus or collapsed lobe. ASSESSMENT: 54-year-old female with past medical history of HFrEF (EF 30-35%), atrial fibrillation on dabigitran, hypothyroidism, HLD, lower ext cellulitis on doxycycline o/p, HTN, atrial fibrillation admitted to ICU for sepsis with shock 2/2 to UTI and possibly cellulitis, dehydration 2/2 to diarrhea, JEREMY 2/2 to dehydration, hypovolemia, hypothermia 2/2 to sepsis, hyperkalemia 2/2 to JEREMY. PLAN: # Acute kidney injury likely 2/2 to prerenal azotemia, cannot r/o ATN. -Cr much improved to 2.18, BUN 36. Baseline wnl -CRRT stopped overnight, but required 500 cc bolus for decreased U/o -Since bolus, good U/O on her own -Replace lytes PRN, daily labs -Nephrology following # Sepsis 2/2 to UTI. Cannot r/o 2/2 to cellulitis vs. infectious diarrhea? Resolved shock. -WBC 10.6K, + UA. LA wnl -C. diff neg -BCx NG -F/u UCx, GI panel -C/w vancomycin, Ceftriaxone, deescalate as cultures return -Tele, scheduled labs #Hypotension likely multifactorial to septic shock, hypovolemia 2/2 to dehydration from diarrhea, diuretic use. Cannot rule out concomitant adrenal crisis- improved -Hx of HTN -Resolved diarrhea, has not been on antihypertensives/diuretics (lasix, ACEi/ARB, BB and spironolactone) this admission -AM and PM cortisol elevated, although result may be skewed due to receiving steroids prior to getting this lab. -Patient would benefit from o/p f/u with endocrine to further assess for adrenal issues -Will discuss if to stop hydrocortisone IV, monitor closely #Severe hypothyroidism s/p thyroid ablation for hyperthyroidism. -TSH 11/11/24 was 32, on admission 57.5 -Low T3, free T4 also -Given 200 mcg IV levothyroxine and started on 150 mcg IV daily - will leave at this increased dose until 01/24/20 then change to 100 mcg daily. -Discussed case with Dr. Nye, endocrinology who recommended to continue treatment above. -Cytomel BID -F/u free T4, total T3 today and Q3 days per endo. Watching for overcorrection #Coagulopathy, supratherapeutic INR and PTT likely 2/2 to use of dabigatran in presence of worsening renal failure- improving -PT/PTT still elevated with INR 1.66. -Likely had epistaxis episode at home. -On dabigatran at home, no VKA or warfarin. -S/p Praxbind which decreased INR, INR -No elevation of AST/ALT or history of hepatic disease -LDH, ferritin, d dimer all elevated -Peripheral smear: Microcytic hypochromic anemia, Leukocytosis associated with neutrophilia, Platelet count within normal limits, No blasts are identified -F/u coagsy -Discussed with Dr. Cruz, hematology #Acute hypocalcemia. Cannot r/o chronic component. -S/p multiple calcium gluconate this admission, ionized calcium remains low -If repeat labs after CRRT show continued low Ca, low Vit D, high PTH perhaps 2/2 to Vitamin D deficiency. -If L/N calcium, H PTH, low Vit D and L/H phos--> secondary hyperparathyroidism. Again, would check when not on CRRT. -Given calcium gluconate this AM -Will start Vit D supplementation when appropriate -Following lytes closely #Atrial fibrillation -Rate controlled -D/c dabigitran, BB held -Monitor on tele. #Diarrhea r/o infectious cause- resolved but workup continues -C. diff neg, GI panel pending -BCx NG -C/w abx above, on renal diet #HFrEF, not in acute exacerbation -CT chest and current clinical evaluation does not show s/s of fluid overload -BNP 1720 on admission; however, she is chronically elevated. Last 454. -COVID neg -New echo ordered, f/u results -Monitor for s/s of overload with prior hydration. -Holding all diuretic meds. #GI px -PPI #DVTpx -SCDs. teds. Will not restart AC with heparin until other coags close to/at normal. Resolved issues: # Hypothermia 2/2 to sepsis #Epistaxis likely 2/2 to coagulopathy from dabigatran vs. other cause #Hyponatremia likely 2/2 to hypovolemia, JEREMY #Hyperkalemia likely 2/2 to JEREMY # Anion gap metabolic acidosis likely 2/2 to sepsis, uremia DISPOSITION: Condition remains guarded but improving ICU. Will need PT/OT when acute medical issues stabilize. TOTAL TIME SPENT ON CARING FOR ICU PATIENT ( no procedures ): 35 mins VS, I&O, 24H, Fishbone Vital Signs/I&O Vital Signs Date Time Temp Pulse Resp B/P (MAP) Pulse Ox O2 Delivery O2 Flow Rate FiO2 01/23/20 07:00 87 16 111/64 (80) Room Air 01/23/20 06:00 96 01/23/20 04:00 98.8 I&O- Last 24 Hours up to 6 AM 01/23/20 06:00 Intake Total 2245 ml Output Total 1865 ml Balance 380 ml Laboratory Data 24H LABS Laboratory Tests 2 01/22/20 14:55: Anion Gap 5L, Glomerular Filtration Rate 22.6L, Calcium Level 8.1L, Whole Blood Ionized Calcium 4.3L, Phosphorus Level 3.1, Magnesium Level 2.4 01/22/20 19:59: Anion Gap 5L, Glomerular Filtration Rate 27.5L, Calcium Level 7.6L, Whole Blood Ionized Calcium 4.5, Phosphorus Level 2.7, Magnesium Level 2.2, Nucleated Red Blood Cells % (auto) 0.0, Prothrombin Time 21.0H, Prothromb Time International Ratio 1.77, Activated Partial Thromboplast Time 57.9H 01/23/20 01:50: Anion Gap 4L, Glomerular Filtration Rate 25.3L, Calcium Level 7.7L, Whole Blood Ionized Calcium 4.4L, Phosphorus Level 2.9, Magnesium Level 2.2 01/23/20 07:43: Anion Gap 6L, Glomerular Filtration Rate 25.0L, Calcium Level 8.2L, Whole Blood Ionized Calcium 4.4L, Phosphorus Level 3.3, Magnesium Level 2.4, Nucleated Red Blood Cells % (auto) 0.0, Prothrombin Time 20.0H, Prothromb Time International Ratio 1.66, Activated Partial Thromboplast Time 50.6H, Free Thyroxine 0.66L, Random Vancomycin Level 22.7 CBC/BMP Laboratory Tests 01/22/20 14:55 01/22/20 19:59 01/23/20 01:50 01/23/20 07:43 Microbiology Microbiology 01/21/20 Campylobacter (PCR), Received Pending 01/21/20 Clostridium difficile Toxin A&B PCR, Received Pending 01/21/20 Plesiomonas shigelloides (PCR), Received Pending 01/21/20 Salmonella (PCR)(AMELIA), Received Pending 01/21/20 Vibrio Species (PCR), Received Pending 01/21/20 Vibrio Cholerae (PCR), Received Pending 01/21/20 Yersinia enterocolitica (PCR), Received Pending 01/21/20 Enteroaggregative E. coli (PCR), Received Pending 01/21/20 Enteropathogenic E. coli (PCR), Received Pending 01/21/20 Enterotoxigenic E. coli (PCR), Received Pending 01/21/20 E. coli Shiga-like Toxin (PCR), Received Pending 01/21/20 Escherichia coli 0157 (PCR), Received Pending 01/21/20 Enteroinvasive E. coli/Shigella PCR, Received Pending 01/21/20 Cryptosporidium (PCR), Received Pending 01/21/20 Cyclospora cayetanensis (PCR), Received Pending 01/21/20 Entamoeba histolytica (PCR), Received Pending 01/21/20 Giardia lamblia (PCR), Received Pending 01/21/20 Adenovirus Type F 40/41 (PCR), Received Pending 01/21/20 Astrovirus (PCR), Received Pending 01/21/20 Norovirus GI/GII (PCR), Received Pending 01/21/20 Rotavirus A (PCR), Received Pending 01/21/20 Sapovirus I/II/IV/V (PCR), Received Pending 01/20/20 Urine Culture - Final, Complete Enterococcus Faecalis 01/20/20 Blood Culture - Preliminary, Resulted No Growth after 48 hours. All Specime... 01/20/20 Blood Culture - Preliminary, Resulted No Growth after 48 hours. All Specime... Current Medications Current Medications Medications (Trade) Dose Ordered Sig/Prieto Route PRN Reason Start Time Stop Time Status Last Admin Dose Admin Acetaminophen (Tylenol Tab) 650 mg Q6HP PRN PO PAIN / FEVER 01/21/20 21:15 01/21/20 21:14 Calcium Gluconate 1000 mg/Sodium Chloride 110 ml @ 110 mls/hr 0000,0100 IV 01/22/20 00:00 01/22/20 04:00 DC 01/22/20 01:18 Calcium Gluconate 1000 mg/Sodium Chloride 110 ml @ 110 mls/hr 0400,0500 IV 01/22/20 04:00 01/22/20 07:00 DC 01/22/20 05:18 Calcium Gluconate 1000 mg/Sodium Chloride 110 ml @ 110 mls/hr Q1H IV 01/22/20 11:00 01/22/20 12:59 DC 01/22/20 12:22 Calcium Gluconate 1000 mg/Sodium Chloride 110 ml @ 110 mls/hr Q1H IV 01/22/20 16:00 01/22/20 17:59 DC 01/22/20 16:59 Ceftriaxone Sodium 2 gm/ Dextrose 50 ml @ 100 mls/hr Q24H IV 01/21/20 06:00 01/23/20 05:08 Chlorhexidine Gluconate (Peridex Oral Rinse) SWAB/BRUSH ORAL CAVITY BID MT 01/20/20 21:00 01/23/20 08:25 Dextrose (Dextrose 50%) 50 ml STAT STAT IV 01/20/20 15:01 01/20/20 15:03 DC 01/20/20 15:36 Heparin Sodium (Heparin) ASDIRECTED PRN IV SEE LABEL COMMENTS 01/21/20 12:15 Heparin Sodium (Heparin) 1,400 units ONCE PRN XX TO FLUSH DIALYSIS CATHETER 01/21/20 09:15 01/22/20 19:11 Home Med (Med Rec Complete!) ASDIRECTED XX 01/20/20 15:30 01/20/20 15:29 DC Hydrocortisone (A-Hydrocort) 50 mg Q8H IV 01/23/20 14:00 Hydrocortisone (A-Hydrocort) 100 mg Q8H IV 01/20/20 22:00 01/23/20 11:43 DC 01/23/20 05:08 Idarucizumab 2.5 gm/IV Miscellaneous Supplies 50 ml @ 600 mls/hr Q5M IV 01/21/20 10:00 01/21/20 10:09 DC 01/21/20 09:17 Insulin Human Lispro (HumaLOG INSULIN) 10 units STAT STAT SC 01/20/20 15:01 01/20/20 15:03 DC 01/20/20 15:33 Levothyroxine Sodium (Synthroid) 100 mcg DAILY IV 01/21/20 09:00 01/21/20 07:37 DC Levothyroxine Sodium (Synthroid) 100 mcg DAILY IV 01/25/20 09:00 Levothyroxine Sodium (Synthroid) 150 mcg DAILY IV 01/21/20 09:00 01/24/20 12:00 01/23/20 08:27 Liothyronine Sodium (Cytomel) 12.5 mcg BID PO 01/21/20 21:00 01/23/20 08:25 Liothyronine Sodium (Cytomel) 12.5 mcg Q8H PO 01/21/20 06:00 01/21/20 07:34 DC 01/21/20 05:17 Liothyronine Sodium (Cytomel) 25 mcg STAT STAT PO 01/20/20 22:09 01/20/20 22:11 DC 01/20/20 23:36 Non-Formulary Medication ( See Comment Field Below ) VANCO INTERMIT. DOSING ASDIRECTED XX 01/21/20 00:00 01/22/20 09:33 DC Nystatin (Mycostatin Powder, Nystop) Apply to abdominal folds ... BID TOP 01/20/20 21:00 01/23/20 08:27 Pantoprazole Sodium (Protonix) 40 mg Q24H IV 01/20/20 20:00 01/22/20 20:15 Sodium Bicarbonate 75 meq/Sodium Chloride 1,075 ml @ 150 mls/hr Q7H10M IV 01/20/20 20:00 01/21/20 09:19 DC 01/21/20 03:47 Sodium Bicarbonate (Sodium Bicarbonate) 50 meq STAT STAT IV 01/20/20 14:37 01/20/20 14:39 DC 01/20/20 15:34 Sodium Chloride 1,000 ml @ 100 mls/hr Q10H IV 01/20/20 16:15 01/20/20 18:02 DC 01/20/20 16:46 Sodium Chloride (Saline Lock Flush) 10ML IN EACH PAT... ASDIRECTED PRN IV SEE LABEL COMMENTS 01/21/20 12:15 Tramadol HCl (Ultram) 50 mg Q8HP PRN PO MODERATE PAIN (PS 5-7) 01/22/20 10:00 01/22/20 22:55 Vancomycin HCl 1000 mg/IV Miscellaneous Supplies 1 each/ Dextrose 270 ml @ 270 mls/hr Q12H IV 01/22/20 10:00 01/23/20 11:39 DC 01/23/20 10:29 Vancomycin HCl 1000 mg/IV Miscellaneous Supplies 1 each/ Dextrose 270 ml @ 270 mls/hr Q24H IV 01/24/20 09:00 Allergies Coded Allergies: Penicillins (Verified Allergy, Intermediate, HIVES, 01/20/20) aspirin (Verified Allergy, Intermediate, HIVES, 01/20/20) ibuprofen (Verified Allergy, Intermediate, HIVES, 01/20/20) Wilma Parks MD Jan 23, 2020 12:37
[2020-01-23] MEDS: PANTOPRAZOLE 40MG TAB (PROTONIX) PO SCH (14:09)
--- NOTE | 2020-01-23 19:39 | IPN ---
PROGRESS NOTE DATE: 01/23/2020 SUBJECTIVE: The patient was seen and examined at the bedside today morning in the ICU. Last 24 hour events were noted. Her CVVHDF was stopped last night. Electrolytes and acid base is significantly better today. She is making urine. Her creatinine is stable today since last night. She is not requiring any pressors at this time. She was able to eat some of her breakfast today morning. OBJECTIVE: VITAL SIGNS: Temperature is 97.6 degrees Fahrenheit, blood pressure 124/60, pulse is 74, respiratory rate of 16, saturating 97% on room air. Intake and output urine output recorded as 1,006 mL yesterday, and by the time is saw her the urine output was 765 mL. Weight on the bed scale is 156.3 kg. PHYSICAL EXAMINATION: GENERAL APPEARANCE: The patient is awake, alert, oriented x3, morbidly obese, laying in bed. HEAD AND NECK: Extraocular muscles intact. Pupils are equally round and reactive to light. Mucous membranes are moist. Jugular venous distention is slightly elevated. CARDIOVASCULAR: S1, S2, mild tachycardia, irregular rate. EXTREMITIES: 1+ edema of the bilateral lower extremities. RESPIRATORY: Mildly decreased breath sounds at the bases and mild expiratory rhonchi bilaterally at the bases. ABDOMEN: Soft, obese, positive bowel sounds. I could not appreciate any organomegaly. GENITOURINARY: She has an indwelling Webster catheter. MUSCULOSKELETAL: She has mild edema of the bilateral lower extremities and 1+ edema of the extremities. ELECTRONIC DATA INTERCHANGE SPECIALIST: No focal deficits. Power is 5/5 in all extremities. LAB REVIEW: CBC showed a WBC of 10.6, hemoglobin 7.9, platelets are 265. BMP showed sodium of 134, potassium 4.6, chloride 102, bicarbonate 26, BUN 36, creatinine is 2.18, glucose 183, calcium 8.2, ionized calcium is 4.4, phosphorous 3.3, magnesium is 2.4. Microbiology: Urine culture is growing enterococcus faecalis 2,000 colonies. CURRENT INPATIENT MEDICATIONS: The patient's medications were all reviewed by myself. I have ordered one dose of IV Lasix 40 mg today morning. She continues to be on Ceftriaxone and Vancomycin. I have discussed the Hydrocortisone dose of 50 mg q. 8 hourly. Levothyroxine IV has been changed to 100 mcg daily and she continues to be on Liothyronine 12.5 mcg twice daily. No other significant change in the medications today. ASSESSMENT AND PLAN: 1. Acute non oliguric renal failure. The required CVVHDF for about one day on arrival because of severe acidosis and electrolyte abnormalities. Right now she is non oliguric and I am going to try one dose of IV Lasix to see if that improves her renal function and volume status. No urgent need of dialysis at this time. 2. Metabolic acidosis it has resolved with dialysis now. Bicarbonate level is within the acceptable range. 3. Hypocalcemia - The patient was given one dose of IV calcium gluconate today morning. 4. Coagulopathy secondary to Pradaxa toxicity - The patient got reversal with Praxbind. PTT is still slightly elevated. 5. Anemia secondary to recent bleeding - The patient is going to get one unit of PRBC transfusion today. 6. Severe hypothyroidism - continue current dose of T-3 and T-4. Medical Team is in touch with Endocrine Service. 7. Severe sepsis - The patient is currently on empiric IV antibiotics. She did grow about 2,000 colonies of enterococcus faecalis which is sensitive to Vancomycin. 8. History of chronic systolic congestive heart failure I am going to gently start the patient on diuretics. As mentioned above, 40 mg of IV Lasix was ordered today. Dose will be further adjusted after the patient's response to the first dose.
[2020-01-24] VITALS (8 sets, daily range): BP systolic 107–143; BP diastolic 54–70
[2020-01-24] MEDS: HYDROCORTISONE 100 MG/2 ML VIAL (J1720 PER 1) IV SCH (05:28)
[2020-01-24] MEDS: cefTRIAXone SOD 2 GM in D5W MINI-BAG PLUS 50 ML IV SCH (05:29)
[2020-01-24 05:56] LABS: BASO % 0.2 % (0.0-1.0); EOS # 0.1 10^3/uL (0.0-0.5); EOS % 0.5 % (0.0-3.0); HEMATOCRIT 27.9 % (36.0-47.0); HEMOGLOBIN 8.9 g/dl (12.0-15.5); LYMPH # 2.2 10^3/uL (1.5-5.0); LYMPH % 17.4 % (24.0-44.0); MEAN CORPUSCULAR HEMOGLOBIN 26.5 pg (27.0-33.0); MEAN CORPUSCULAR HGB CONC 31.9 g/dl (32.0-36.5); MONO # 1.1 10^3/uL (0.0-0.8); MONO % 8.5 % (0.0-5.0); NEUTROPHILS # 9.1 10^3/uL (1.5-8.5); NEUTROPHILS % 71.4 % (36.0-66.0); PLATELET COUNT, AUTOMATED 243 10^3/uL (150-450); RED BLOOD COUNT 3.36 10^6/uL (4.00-5.40); WHITE BLOOD COUNT 12.8 10^3/uL (4.0-10.0)
[2020-01-24 06:07] LABS: PARTIAL THROMBOPLASTIN TIME 38.9 SECONDS (24.2-38.5)
[2020-01-24] MEDS ORDERED: SLF 3 ML SYR IV PRN (06:30)
[2020-01-24 06:42] LABS: ALBUMIN 2.5 GM/DL (3.2-5.2); BILIRUBIN,TOTAL 0.2 MG/DL (0.2-1.0); CALCIUM LEVEL 7.2 MG/DL (8.5-10.1); CREATININE FOR GFR 2.39 MG/DL (0.55-1.30); GLOMERULAR FILTRATION RATE 22.5 (>51); MAGNESIUM LEVEL 1.9 MG/DL (1.8-2.4); POTASSIUM SERUM 3.9 MEQ/L (3.5-5.1); TOTAL PROTEIN 6.8 GM/DL (6.4-8.2); VANCOMYCIN RANDOM 18.1 UG/ML
[2020-01-24 06:51] LABS: INR 1.43; PROTHROMBIN TIME 17.8 SECONDS (12.5-14.3)
[2020-01-24] MEDS ORDERED: CALCIUM GLUCONATE 1,000 MG in D5W MINI-BAG PLUS 100 ML IV ONE (08:00)
[2020-01-24] MEDS ORDERED: LEVOTHYROXINE 100MCG (0.1MG) VIAL IV SCH (09:00)
[2020-01-24] MEDS: VANICREAM MOISTURIZING SKIN CREAM 113GM TUBE TOP SCH ×2 (09:00→20:28)
[2020-01-24] MEDS: VANCOMYCIN HCL 1,000 MG, VIAL MATE ADAPTER 1 EACH in D5W 250 ML IV SCH (09:48)
[2020-01-24] MEDS: CHLORHEXIDINE GLUCONATE 0.12 % 15ML UDC (PERIDEX ORAL RINSE) MT SCH ×2 (09:48→20:28)
[2020-01-24] MEDS: PANTOPRAZOLE 40MG TAB (PROTONIX) PO SCH (09:49)
[2020-01-24] MEDS: LIOTHYRONINE 25 MCG TAB PO SCH ×2 (09:49→20:28)
[2020-01-24] MEDS: NYSTATIN 100,000 UNITS/GM TOPICAL PWD 15 GM TOP SCH ×2 (09:50→20:28)
--- NOTE | 2020-01-24 10:28 | ECHO ---
DATE OF PROCEDURE: 01/21/2020 Age: 54 Gender: Female PATIENT LOCATION: Room 3202. REFERRING PHYSICIAN: Valentina Harris MD. REASON FOR STUDY: Sepsis. 2D MEASUREMENTS: IVS 1.0 cm LVPW 0.7 cm LA 4.2 cm Aorta 2.3 cm DOPPLER MEASUREMENT Peak velocity across the aortic valve 1.7 msec Peak velocity across the LVOT 1.1 msec 2D COMMENTS: 1. Normal left ventricular size, wall thickness, and normal global left ventricular systolic function. The estimated left ventricular systolic ejection fraction is 60% to 65%. 2. The left atrium appeared to be minimally enlarged. The right atrium and the right ventricle were not well visualized. 3. Normal aortic root. 4. Trace pericardial effusion noted. No evidence of cardiac tamponade. 5. Minimally calcified aortic valve with normal leaflet excursion. Minimally calcified mitral annulus with normal anterior mitral valve leaflet motion. Normal tricuspid valve and pulmonic valve. The proximal pulmonary artery branches were not well visualized. 6. The inferior vena cava subjectively appeared to be mildly enlarged. Doppler detects trace mitral regurgitation. Assessment of the left ventricular diastolic function was indeterminate. IMPRESSION: 1. Normal global left ventricular systolic function. Assessment of the left ventricular diastolic function was not conclusive. 2. Mildly dilated left atrium with trace mitral regurgitation. 3. Trace pericardial effusion. 4. The inferior vena cava was mildly enlarged, noted subjectively. 5. The right heart chambers were not well visualized. MTDD
[2020-01-24] MEDS: LEVOTHYROXINE 100MCG TABLET (0.1MG) PO SCH (11:05)
[2020-01-24] MEDS: VITAMIN D 1,000 INTERNATIONAL UNITS TABLET PO SCH (11:05)
--- NOTE | 2020-01-24 12:36 | IPNPDOC ---
Date Seen The patient was seen on 01/24/20. Progress Note SUBJECTIVE: Cr increased to 2.39, received lasix over past 24 hrs so believed to be 2/2 to this. Making good urine. BP stable, d/c stress dose steroids. D/c ceftriaxone (Completed 3 days) and will c/w Vancomycin only. Patient denies chest pain, incr shortness of breath, n/v. OBJECTIVE: PHYSICAL EXAMINATION: VS: Please see below CONSTITUTIONAL: No acute distress, resting in bed, AAO x 3 EYES: PERRLA, EOM intact, slight exophthalmos HENT, MOUTH: Normocephalic, atraumatic, moist mucous membranes, right IJ in place NECK: SUPPLE, no JVD, no lymphadenopathy, no carotid bruit CV: irregularly irregular rhythm, currently rate controlled , S1S2 normal, no murmurs/rubs/gallops RESPIRATORY: Clear to auscultation bilaterally, no rales/rhonchi/wheezes GI: obese abd, BS positive in 4 quadrants, soft, nontender, nondistended, no rebound or guarding, no organomegaly : santiago catheter MUSCULOSKELETAL: Normal ROM. No cyanosis, clubbing, swelling, joint deformity, +1 extremity edema INTEGUMENTARY: Macularpapular rash on upper ext, trunk- improving. Cellulitis of the lower and upper thighs, slightly erythematous, nontender to touch- improving slowly. Dry skin. Multiple b/l lower ext wounds, Stage I, appear clean and nonsuppurative. Wound on the right upper thigh, appears clean. Redness in abdominal folds-yeast that is improving NEUROLOGIC: Cranial Nerves II-XII are intact, no focal deficits PSYCHIATRIC: Mood and affect are normal LABORATORY DATA: Please see below MICROBIOLOGY: BCx x 2 sets: NG UCx: E. faecalis, sensitivities C. diff: neg GI panel: pending MRSA + IMAGING: Echocardiogram 01/21/20: 1. Normal global left ventricular systolic function. Assessment of the left ventricular diastolic function was not conclusive. 2. Mildly dilated left atrium with trace mitral regurgitation. 3. Trace pericardial effusion. 4. The inferior vena cava was mildly enlarged, noted subjectively. 5. The right heart chambers were not well visualized. CT abd/pelvis: No acute abdominal or pelvic abnormality. Prominent deneen aorta, mesenteric and pelvic lymph nodes. Etiology infectious/inflammatory. CT chest without contrast: No acute abnormality. Echocardiogram 07/2016: 1. Study is of fair technical quality. 2. Normal LV size with severe global hypokinesis and flattening of interventricular septum. Overall estimated EF 30-35%. 3. Dilated hypokinetic right ventricle. 4. Severe biatrial enlargement. 5. Approximately moderate mitral insufficiency. 6. Approximately moderate tricuspid insufficiency. 7. Very high central venous pressure. 8. At least moderately severe pulmonary hypertension. 9. Left pleural effusion with presence of mass, potentially representing thrombus or collapsed lobe. ASSESSMENT: 54-year-old female with past medical history of HFrEF (EF 30-35%), atrial fibrillation on dabigitran, hypothyroidism, HLD, lower ext cellulitis on doxycycline o/p, HTN, atrial fibrillation admitted to ICU for sepsis with shock 2/2 to UTI and possibly cellulitis, dehydration 2/2 to diarrhea, JEREMY 2/2 to dehydration, hypovolemia, hypothermia 2/2 to sepsis, hyperkalemia 2/2 to JEREMY. PLAN: # Acute kidney injury likely 2/2 to prerenal azotemia, cannot r/o ATN. -Cr increased to 2.39 fr 2.18 day prior, likely 2/2 to lasix. Baseline wnl -CRRT stopped 01/22/20 -Replace lytes PRN, daily labs -Nephrology following closely # Sepsis 2/2 to UTI vs. cellulitis vs. infectious diarrhea? Resolved shock. -WBC 12.8K, HR >90 intermittently,+ UA. LA wnl -C. diff neg -BCx NG -UCx: E. faecalis -F/u GI panel -D/c ceftriaxone as she was treated for 3 days -C/w vancomycin, deescalate as cultures return -Tele, daily labs #Left pleural effusion with presence of ?mass, potentially representing thrombus or collapsed lobe. -Seen on echocardiogram above -CT chest from admission does not comment on this -Discussed findings with Dr. Harris, pulmonary who is consulted. Perhaps area seen is just pleural effusion, atelectatic lung or developing PNA. She has been on ceftriaxone and vancomycin since admission which should cover PNA; however, we stopped ceftriaxone today. -Doing CXR today. If concern for PNA seen on repeat CXR, can add ceftriaxone back and order sputum cx -Cr increased so holding lasix daily and she is currently not displaying s/s of fluid overload -Adding incentive spirometer #Severe hypothyroidism s/p thyroid ablation for hyperthyroidism. -TSH 11/11/24 was 32, on admission 57.5 -Low T3, free T4 also -Given 200 mcg IV levothyroxine and started on 150 mcg daily after. Today started home 100 mcg daily. -Discussed case with Dr. Nye, endocrinology who recommended to continue treatment above. -C/w Cytomel BID, f/u free T4, total T3 Q3 days to determine if to continue. Watching for overcorrection #Coagulopathy, supratherapeutic INR and PTT likely 2/2 to use of dabigatran in presence of worsening renal failure- improving -PT/PTT still elevated with INR 1.43. -Likely had epistaxis episode at home -On dabigatran at home, no VKA or warfarin. -S/p Praxbind which decreased INR -No elevation of AST/ALT or history of hepatic disease -LDH, ferritin, d dimer all elevated -Peripheral smear: Microcytic hypochromic anemia, Leukocytosis associated with neutrophilia, Platelet count within normal limits, No blasts are identified -F/u coags daily -Discussed with Dr. Cruz, hematology #Acute hypocalcemia with secondary hyperparathyroidism, Vitamin D deficiency -S/p multiple calcium gluconate this admission, ionized calcium remains low -Given calcium gluconate this AM, calcitriol -Following lytes daily #HFrEF, not in acute exacerbation -CT chest and current clinical evaluation does not show s/s of fluid overload -BNP 1720 on admission; however, she is chronically elevated. Last 454. -COVID neg -New echo above with abnormal findings listed above. Consider cardiology consu lt. -Received dose of lasix 01/23/20 but due to Cr incr was not continued -Just stopped stress dose steroids, if does well next 24 hours, consider adding back BB -Monitor for s/s of overload with prior hydration. #Hypotension likely multifactorial to septic shock, hypovolemia 2/2 to dehydration from diarrhea, diuretic use. Could not rule out concomitant adrenal crisis- resolved Hx of HTN -BP stable -Resolved diarrhea, has not been on antihypertensives/diuretics (lasix, ACEi/ARB, BB and spironolactone) this admission -AM and PM cortisol elevated, although result may be skewed due to receiving steroids prior to getting this lab. -Patient would benefit from o/p f/u with endocrine to further assess for adrenal issues -Stress steroids stopped this AM #Atrial fibrillation -Rate controlled -D/c dabigitran -BB on hold but can likely be restarted after 24 hours from stopping stress sahil roids -Waiting for PTT to improve prior to restarting heparin SC -Monitor on tele. #Diarrhea r/o infectious cause- resolved but workup continues -C. diff neg -GI panel pending -BCx NG #GI px -PPI #DVTpx -SCDs. teds. Will not restart AC with heparin until other coags close to/at normal. Resolved issues: # Hypothermia 2/2 to sepsis #Epistaxis likely 2/2 to coagulopathy from dabigatran vs. other cause #Hyponatremia likely 2/2 to hypovolemia, JEREMY #Hyperkalemia likely 2/2 to JEREMY # Anion gap metabolic acidosis likely 2/2 to sepsis, uremia DISPOSITION: Condition improving. Downgraded to med/surg with tele, PT/OT when acute medical issues stabilize. VS, I&O, 24H, Fishbone Vital Signs/I&O Vital Signs Date Time Temp Pulse Resp B/P (MAP) Pulse Ox O2 Delivery O2 Flow Rate FiO2 01/24/20 08:00 81 20 116/57 (76) 94 Room Air 01/24/20 04:00 97.8 I&O- Last 24 Hours up to 6 AM 01/24/20 06:00 Intake Total 1770 ml Output Total 1720 ml Balance 50 ml Laboratory Data 24H LABS Laboratory Tests 2 01/24/20 05:22: Prothrombin Time 17.8H, Prothromb Time International Ratio 1.43, Activated Partial Thromboplast Time 38.9H 01/24/20 05:23: Immature Granulocyte % (Auto) 2.0, Neutrophils (%) (Auto) 71.4H, Lymphocytes (%) (Auto) 17.4L, Monocytes (%) (Auto) 8.5H, Eosinophils (%) (Auto) 0.5, Basophils (%) (Auto) 0.2, Neutrophils # (Auto) 9.1H, Lymphocytes # (Auto) 2.2, Monocytes # (Auto) 1.1H, Eosinophils # (Auto) 0.1, Basophils # (Auto) 0.0, Nucleated Red Blood Cells % (auto) 0.0, Anion Gap 9, Glomerular Filtration Rate 22.5L, Calcium Level 7.2L, Whole Blood Ionized Calcium 4.3L, Phosphorus Level 3.0, Magnesium Level 1.9, Total Bilirubin 0.2, Aspartate Amino Transf (AST/SGOT) 9, Alanine Aminotransferase (ALT/SGPT) 11L, Alkaline Phosphatase 66, Total Protein 6.8, Albumin 2.5L, Albumin/Globulin Ratio 0.6L, Random Vancomycin Level 18.1 CBC/BMP Laboratory Tests 01/24/20 05:23 Microbiology Microbiology 01/21/20 Campylobacter (PCR), Received Pending 01/21/20 Clostridium difficile Toxin A&B PCR, Received Pending 01/21/20 Plesiomonas shigelloides (PCR), Received Pending 01/21/20 Salmonella (PCR)(AMELIA), Received Pending 01/21/20 Vibrio Species (PCR), Received Pending 01/21/20 Vibrio Cholerae (PCR), Received Pending 01/21/20 Yersinia enterocolitica (PCR), Received Pending 01/21/20 Enteroaggregative E. coli (PCR), Received Pending 01/21/20 Enteropathogenic E. coli (PCR), Received Pending 01/21/20 Enterotoxigenic E. coli (PCR), Received Pending 01/21/20 E. coli Shiga-like Toxin (PCR), Received Pending 01/21/20 Escherichia coli 0157 (PCR), Received Pending 01/21/20 Enteroinvasive E. coli/Shigella PCR, Received Pending 01/21/20 Cryptosporidium (PCR), Received Pending 01/21/20 Cyclospora cayetanensis (PCR), Received Pending 01/21/20 Entamoeba histolytica (PCR), Received Pending 01/21/20 Giardia lamblia (PCR), Received Pending 01/21/20 Adenovirus Type F 40/41 (PCR), Received Pending 01/21/20 Astrovirus (PCR), Received Pending 01/21/20 Norovirus GI/GII (PCR), Received Pending 01/21/20 Rotavirus A (PCR), Received Pending 01/21/20 Sapovirus I/II/IV/V (PCR), Received Pending 01/20/20 Urine Culture - Final, Complete Enterococcus Faecalis 01/20/20 Blood Culture - Preliminary, Resulted No Growth after 72 hours. All specime... 01/20/20 Blood Culture - Preliminary, Resulted No Growth after 72 hours. All specime... Current Medications Current Medications Medications (Trade) Dose Ordered Sig/Prieto Route PRN Reason Start Time Stop Time Status Last Admin Dose Admin Acetaminophen (Tylenol Tab) 650 mg Q6HP PRN PO PAIN / FEVER 01/21/20 21:15 01/21/20 21:14 Calcitriol (Rocaltrol) 0.25 mcg DAILY PO 01/24/20 09:00 Calcium Gluconate 1000 mg/Sodium Chloride 110 ml @ 110 mls/hr 0000,0100 IV 01/22/20 00:00 01/22/20 04:00 DC 01/22/20 01:18 Calcium Gluconate 1000 mg/Sodium Chloride 110 ml @ 110 mls/hr 0400,0500 IV 01/22/20 04:00 01/22/20 07:00 DC 01/22/20 05:18 Calcium Gluconate 1000 mg/Sodium Chloride 110 ml @ 110 mls/hr Q1H IV 01/22/20 11:00 01/22/20 12:59 DC 01/22/20 12:22 Calcium Gluconate 1000 mg/Sodium Chloride 110 ml @ 110 mls/hr Q1H IV 01/22/20 16:00 01/22/20 17:59 DC 01/22/20 16:59 Ceftriaxone Sodium 2 gm/ Dextrose 50 ml @ 100 mls/hr Q24H IV 01/21/20 06:00 01/24/20 05:29 Chlorhexidine Gluconate (Peridex Oral Rinse) SWAB/BRUSH ORAL CAVITY BID MT 01/20/20 21:00 01/24/20 09:48 Dextrose (Dextrose 50%) 50 ml STAT STAT IV 01/20/20 15:01 01/20/20 15:03 DC 01/20/20 15:36 Emollient Cream (Vanicream) 1 dose BID TOP 01/24/20 09:00 Heparin Sodium (Heparin) ASDIRECTED PRN IV SEE LABEL COMMENTS 01/21/20 12:15 Heparin Sodium (Heparin) 1,400 units ONCE PRN XX TO FLUSH DIALYSIS CATHETER 01/21/20 09:15 01/22/20 19:11 Home Med (Med Rec Complete!) ASDIRECTED XX 01/20/20 15:30 01/20/20 15:29 DC Hydrocortisone (A-Hydrocort) 50 mg Q8H IV 01/23/20 14:00 01/24/20 11:07 DC 01/24/20 05:28 Hydrocortisone (A-Hydrocort) 100 mg Q8H IV 01/20/20 22:00 01/23/20 11:43 DC 01/23/20 05:08 Idarucizumab 2.5 gm/IV Miscellaneous Supplies 50 ml @ 600 mls/hr Q5M IV 01/21/20 10:00 01/21/20 10:09 DC 01/21/20 09:17 Insulin Human Lispro (HumaLOG INSULIN) 10 units STAT STAT SC 01/20/20 15:01 01/20/20 15:03 DC 01/20/20 15:33 Levothyroxine Sodium (Synthroid) 100 mcg DAILY IV 01/21/20 09:00 01/21/20 07:37 DC Levothyroxine Sodium (Synthroid) 100 mcg DAILY IV 01/24/20 09:00 01/24/20 09:40 DC Levothyroxine Sodium (Synthroid) 100 mcg DAILY IV 01/25/20 09:00 01/23/20 12:36 DC Levothyroxine Sodium (Synthroid) 100 mcg DAILY@06 PO 01/24/20 10:30 01/24/20 11:05 Levothyroxine Sodium (Synthroid) 150 mcg DAILY IV 01/21/20 09:00 01/23/20 13:10 DC 01/23/20 08:27 Liothyronine Sodium (Cytomel) 12.5 mcg BID PO 01/21/20 21:00 01/24/20 09:49 Liothyronine Sodium (Cytomel) 12.5 mcg Q8H PO 01/21/20 06:00 01/21/20 07:34 DC 01/21/20 05:17 Liothyronine Sodium (Cytomel) 25 mcg STAT STAT PO 01/20/20 22:09 01/20/20 22:11 DC 01/20/20 23:36 Non-Formulary Medication ( See Comment Field Below ) VANCO INTERMIT. DOSING ASDIRECTED XX 01/21/20 00:00 01/22/20 09:33 DC Nystatin (Mycostatin Powder, Nystop) Apply to abdominal folds ... BID TOP 01/20/20 21:00 01/24/20 09:50 Pantoprazole Sodium (Protonix) 40 mg DAILY PO 01/23/20 09:00 01/24/20 09:49 Pantoprazole Sodium (Protonix) 40 mg Q24H IV 01/20/20 20:00 01/23/20 12:36 DC 01/22/20 20:15 Sodium Bicarbonate 75 meq/Sodium Chloride 1,075 ml @ 150 mls/hr Q7H10M IV 01/20/20 20:00 01/21/20 09:19 DC 01/21/20 03:47 Sodium Bicarbonate (Sodium Bicarbonate) 50 meq STAT STAT IV 01/20/20 14:37 01/20/20 14:39 DC 01/20/20 15:34 Sodium Chloride 1,000 ml @ 100 mls/hr Q10H IV 01/20/20 16:15 01/20/20 18:02 DC 01/20/20 16:46 Sodium Chloride (Saline Lock Flush) 2 ml ASDIRECTED PRN IV SEE LABEL COMMENTS 01/24/20 06:30 Sodium Chloride (Saline Lock Flush) 2 ml SLF IV 01/24/20 14:00 Sodium Chloride (Saline Lock Flush) 10ML IN EACH PAT... ASDIRECTED PRN IV SEE LABEL COMMENTS 01/21/20 12:15 Tramadol HCl (Ultram) 50 mg Q8HP PRN PO MODERATE PAIN (PS 5-7) 01/22/20 10:00 01/22/20 22:55 Vancomycin HCl 1000 mg/IV Miscellaneous Supplies 1 each/ Dextrose 270 ml @ 270 mls/hr Q12H IV 01/22/20 10:00 01/23/20 11:39 DC 01/23/20 10:29 Vancomycin HCl 1000 mg/IV Miscellaneous Supplies 1 each/ Dextrose 270 ml @ 270 mls/hr Q24H IV 01/24/20 09:00 01/24/20 09:48 Vitamin D (Vitamin D) 2,000 units DAILY PO 01/24/20 09:00 01/24/20 11:05 Allergies Coded Allergies: Penicillins (Verified Allergy, Intermediate, HIVES, 01/20/20) aspirin (Verified Allergy, Intermediate, HIVES, 01/20/20) ibuprofen (Verified Allergy, Intermediate, HIVES, 01/20/20) Wilma Parks MD Jan 24, 2020 12:36
[2020-01-24] MEDS: CALCITRIOL 0.25 MCG CAP (S0169) PO SCH (12:38)
[2020-01-24] MEDS: SLF 3 ML SYR IV SCH ×2 (14:00→20:29)
--- NOTE | 2020-01-24 14:10 | REP ---
INDICATION: R/o left lobe mass, PNA. COMPARISON: Comparison study January 21, 2020. TECHNIQUE: Sitting AP and lateral views... FINDINGS: There is a right internal jugular central venous line with tip in the expected location of the superior vena cava. Monitoring electrodes are seen overlying the chest. Cardiomegaly is again observed unchanged. No lung mass or infiltrate is appreciated. No acute bony abnormality. IMPRESSION: Right IJ line in place. Cardiomegaly. No acute infiltrate or mass lesion seen.. <Electronically signed by Edwin Vogt > 01/24/20 2131
--- NOTE | 2020-01-24 23:16 | IPN ---
PROGRESS NOTE DATE: 01/24/2020 SUBJECTIVE: Siobhan is seen and examined this morning at the bedside in the Intensive Care Unit. She denies any acute complaints. She received one dose of I.V. Lasix 40 mg yesterday with adequate urine output. She denies shortness of breath. She denies leg swelling. PHYSICAL EXAMINATION: VITAL SIGNS: Temperature 98.4, pulse 100, respiratory rate 18, blood pressure 126/66, saturating 95% on room air. INTAKE: Yesterday was 1710. OUTPUT: Urine output yesterday was 1630. Weight in the bed scale today is 156.9 kg. GENERAL: Patient is seen lying in bed in the ICU with the head of the bed elevated, awake, alert and oriented x3, obese and in no distress. HEENT: Extraocular muscles are intact. Pupils are round and reactive to light. Mucous membranes are moist. Neck veins appear only very slightly elevated. There is a hemodialysis catheter in the right IJ. CARDIAC: S1, S2, mild tachycardia, irregular rate. LUNGS: Symmetric air entry without crackles or rales. She is comfortable on room air. ABDOMEN: Soft, obese and nontender. GENITOURINARY: Shows Webster catheter draining clear yellow urine. EXTREMITIES: Show at most only trace edema of the legs. No clubbing or cyanosis. NEUROLOGIC: Oriented x3, no focal deficit. Moves all four extremities on command. SKIN: Normal temperature and dry. LABORATORY DATA: Sodium 136, potassium 3.9, bicarbonate 25, BUN 41, creatinine 2.3. Phosphorus 3.0, magnesium 1.9. Ionized calcium 4.3. Hemoglobin 8.9, white count 12.8, platelets 243,000. IMAGING STUDIES: Chest x-ray done this afternoon shows no acute infiltrate. INPATIENT MEDICATIONS: I started the patient on Calcitriol 0.25 mcg p.o. daily and Vitamin D 2,000 units p.o. daily. She received one run of calcium gluconate 1 gram I.V. today. She continues on I.V. Vancomycin. Her hydrocortisone was stopped. Her I.V. Levothyroxine was converted to oral Levothyroxine 100 mcg p.o. daily. The remainder of the medications are unchanged from prior. PROBLEMS: 1. Nonoliguric acute kidney injury superimposed on CKD stage 3: Patient has a baseline creatinine of 1.3. She has been off of CRRT since Friday. She received a one time dose of I.V. Lasix on Friday with adequate urine output. At present, she does not have any ongoing dialysis needs. If her renal function remains stable or improved over the next 24 hours, we can discontinue her dialysis catheter. 2. Hypocalcemia: Her ionized calcium levels are still low. Her parathyroid hormone was markedly elevated at greater than 1,000 and her Vitamin D level was less than 10. She is being started on oral Calcitriol and Vitamin D as well. Her phosphorus levels are acceptable. 3. Anemia secondary to recent bleeding and coagulopathy: She received one unit of packed red blood cells on this admission. Her hemoglobin is stable at 8.9 and management of the anticoagulation is as per primary service. 4. History of congestive heart failure: I note she had an echocardiogram done three days ago that showed a preserved left ventricular ejection fraction of 60 to 65% and her inferior vena cava was noted to be only mildly enlarged. I feel the patient is fairly close to compensated volume status. We will give her diuretic on an as needed basis. At present, her urine output is acceptable.
[2020-01-25] VITALS (7 sets, daily range): BP systolic 100–156; BP diastolic 56–69
[2020-01-25] MEDS: LEVOTHYROXINE 100MCG TABLET (0.1MG) PO SCH (05:16)
[2020-01-25] MEDS: cefTRIAXone SOD 2 GM in D5W MINI-BAG PLUS 50 ML IV SCH (05:16)
[2020-01-25] MEDS: SLF 3 ML SYR IV SCH ×3 (05:16→21:17)
[2020-01-25 06:01] LABS: HEMATOCRIT 27.9 % (36.0-47.0); HEMOGLOBIN 8.8 g/dl (12.0-15.5); MEAN CORPUSCULAR HEMOGLOBIN 26.4 pg (27.0-33.0); MEAN CORPUSCULAR HGB CONC 31.5 g/dl (32.0-36.5); MEAN CORPUSCULAR VOLUME 83.8 fl (80.0-96.0); PLATELET COUNT, AUTOMATED 210 10^3/uL (150-450); RED BLOOD COUNT 3.33 10^6/uL (4.00-5.40); WHITE BLOOD COUNT 11.7 10^3/uL (4.0-10.0)
[2020-01-25 06:08] LABS: ALBUMIN 2.4 GM/DL (3.2-5.2); BILIRUBIN,TOTAL 0.3 MG/DL (0.2-1.0); CALCIUM LEVEL 7.6 MG/DL (8.5-10.1); CREATININE FOR GFR 2.12 MG/DL (0.55-1.30); GLOMERULAR FILTRATION RATE 25.8 (>51); POTASSIUM SERUM 3.6 MEQ/L (3.5-5.1); TOTAL PROTEIN 6.6 GM/DL (6.4-8.2)
[2020-01-25 06:10] LABS: INR 1.39; PROTHROMBIN TIME 17.4 SECONDS (12.5-14.3)
[2020-01-25 06:11] LABS: PARTIAL THROMBOPLASTIN TIME 35.9 SECONDS (24.2-38.5)
[2020-01-25] MEDS ORDERED: FUROSEMIDE 40MG/4ML VIAL (J1940) IV SCH (09:00)
[2020-01-25] MEDS ORDERED: LEVOTHYROXINE 100MCG (0.1MG) VIAL IV SCH (09:00)
[2020-01-25] MEDS: VANCOMYCIN HCL 1,000 MG, VIAL MATE ADAPTER 1 EACH in D5W 250 ML IV SCH (09:15)
[2020-01-25] MEDS: VITAMIN D 1,000 INTERNATIONAL UNITS TABLET PO SCH (09:16)
[2020-01-25] MEDS: CHLORHEXIDINE GLUCONATE 0.12 % 15ML UDC (PERIDEX ORAL RINSE) MT SCH ×2 (09:16→21:05)
[2020-01-25] MEDS: PANTOPRAZOLE 40MG TAB (PROTONIX) PO SCH (09:16)
[2020-01-25] MEDS: LIOTHYRONINE 25 MCG TAB PO SCH ×2 (09:16→21:04)
[2020-01-25] MEDS: CALCITRIOL 0.25 MCG CAP (S0169) PO SCH (09:16)
[2020-01-25] MEDS: VANICREAM MOISTURIZING SKIN CREAM 113GM TUBE TOP SCH ×2 (09:17→21:06)
[2020-01-25] MEDS: NYSTATIN 100,000 UNITS/GM TOPICAL PWD 15 GM TOP SCH ×2 (09:17→22:37)
[2020-01-25] MEDS ORDERED: POTASSIUM CHLORIDE 10 MEQ SR TABLET PO ONE (13:30)
--- NOTE | 2020-01-25 14:52 | IPNPDOC ---
Text Note Date of Service The patient was seen on 01/25/20. NOTE SUBJECTIVE: -Doing much better today, denies chest pain, incr shortness of breath, n/v. -Afebrile -Tachycardic with exertion, asymptomatic OBJECTIVE: PHYSICAL EXAMINATION: VS: Please see below CONSTITUTIONAL: No acute distress, resting in bed, AAO x 3 EYES: PERRLA, EOM intact, slight exophthalmos HENT, MOUTH: Normocephalic, atraumatic, moist mucous membranes, right IJ in place NECK: SUPPLE, no JVD, no lymphadenopathy, no carotid bruit CV: irregularly irregular rhythm, currently rate controlled , S1S2 normal, no murmurs/rubs/gallops RESPIRATORY: Clear to auscultation bilaterally, no rales/rhonchi/wheezes GI: obese abd, BS positive in 4 quadrants, soft, nontender, nondistended, no rebound or guarding, no organomegaly MUSCULOSKELETAL: Normal ROM. No cyanosis, clubbing, swelling, joint deformity, +1 extremity edema SKIN: Maculopapular rash on upper ext, trunk. Slightly erythematous, nontender to touch thighs. Multiple b/l lower ext wounds, no drainage. Wound on the right upper thigh, appears clean. Intertrigo in abdominal folds NEUROLOGIC: Cranial Nerves II-XII are intact, no focal deficits PSYCHIATRIC: Mood and affect are normal LABORATORY DATA: WBC 11.7 Hgb 8.8 platelets 210 Na 139 K 3.6 Cr 2.12 MICROBIOLOGY: BCx x 2 sets: NG UCx: E. faecalis, pansensitives except to tetracyclines MRSA positive C. diff: neg GI panel: pending IMAGING: Echocardiogram 01/21/20: 1. Normal global left ventricular systolic function. Assessment of the left ventricular diastolic function was not conclusive. 2. Mildly dilated left atrium with trace mitral regurgitation. 3. Trace pericardial effusion. 4. The inferior vena cava was mildly enlarged, noted subjectively. 5. The right heart chambers were not well visualized. CT abd/pelvis: No acute abdominal or pelvic abnormality. Prominent deneen aorta, mesenteric and pelvic lymph nodes. Etiology infectious/inflammatory. CT chest without contrast: No acute abnormality. Echocardiogram 07/2016: 1. Study is of fair technical quality. 2. Normal LV size with severe global hypokinesis and flattening of interventricular septum. Overall estimated EF 30-35%. 3. Dilated hypokinetic right ventricle. 4. Severe biatrial enlargement. 5. Approximately moderate mitral insufficiency. 6. Approximately moderate tricuspid insufficiency. 7. Very high central venous pressure. 8. At least moderately severe pulmonary hypertension. 9. Left pleural effusion with presence of mass, potentially representing thrombus or collapsed lobe. ASSESSMENT: 54-year-old female with past medical history of HFrEF (EF 30-35%), atrial fibrillation on dabigitran, hypothyroidism, HLD, lower ext cellulitis on doxycycline o/p, HTN, atrial fibrillation admitted to ICU for sepsis with shock 2/2 to UTI and possibly cellulitis, dehydration 2/2 to diarrhea, JEREMY 2/2 to dehydration, hypovolemia, hypothermia 2/2 to sepsis, hyperkalemia 2/2 to JEREMY. PLAN: # Acute kidney injury -Cr stably improved -s/p CRRT stopped 01/22/20 -Replace lytes PRN, daily labs -Nephrology following closely and diuresing as clinically indicated PRN, currently making adequate amounts of urine # Sepsis 2/2 to UTI vs. cellulitis vs. infectious diarrhea? Resolved shock. -At presentation had WBC 12.8K, HR >90 intermittently,+ UA. LA wnl -C. diff neg -BCx NG -UCx: E. faecalis -F/u GI panel -s/p 6d of ceftriaxone and 7d of vancomycin -discontinue vanc and switch to oral doxy 100mg BID for improving cellulitis likely MRSA -UTI was treated to completion s/p ceftriaxone and vanc -Tele #Left pleural effusion with presence of ?mass, potentially representing thrombus or collapsed lobe. -Seen on echocardiogram above -CT chest from admission does not comment on this -Discussed findings with Dr. Harris, pulmonary who is consulted. Perhaps area seen is just pleural effusion, atelectatic lung or developing PNA. She has been on ceftriaxone and vancomycin since admission which should cover PNA. -Incentive spirometer -diuresis per nephrology #Severe hypothyroidism s/p thyroid ablation for hyperthyroidism. -TSH 11/11/24 was 32, on admission 57.5 -Low T3, free T4 also -Given 200 mcg IV levothyroxine and started on 150 mcg daily after, now on 100mcg QD -Dr. Parks discussed her case with Dr. Nye, endocrinology who recommended to continue treatment above. -C/w Cytomel BID, f/u free T4, total T3 Q3 days to determine if to continue. Watching for overcorrection #Coagulopathy, supratherapeutic INR and PTT likely 2/2 to use of dabigatran in presence of worsening renal failure- improving -PT/PTT still elevated with INR 1.43. -Likely had epistaxis episode at home -On dabigatran at home, no VKA or warfarin. -S/p Praxbind which decreased INR -No elevation of AST/ALT or history of hepatic disease -LDH, ferritin, d dimer all elevated -Peripheral smear: Microcytic hypochromic anemia, Leukocytosis associated with neutrophilia, Platelet count within normal limits, No blasts are identified -F/u coags daily -Discussed with Dr. Cruz, hematology #Acute hypocalcemia with secondary hyperparathyroidism, Vitamin D deficiency -S/p multiple calcium gluconate this admission, ionized calcium remains low -Given calcium gluconate, now on calcitriol per renal -Following lytes daily #HFrEF, not in acute exacerbation -CT chest and current clinical evaluation does not show s/s of fluid overload -BNP 1720 on admission; however, she is chronically elevated. -COVID neg -New echo above with abnormal findings listed above. -Nephrology onboard, diuresing PRN #Hypotension likely multifactorial to septic shock, hypovolemia 2/2 to dehydration from diarrhea, diuretic use. -BP stable -Resolved diarrhea, has not been on antihypertensives/diuretics (lasix, ACEi/ARB, BB and spironolactone) this admission -AM and PM cortisol elevated, however in the setting of acute illness and stress dose steroids. -Patient would benefit from o/p f/u with endocrine to further assess for adrenal insufficiency #Chronic trial fibrillation -Rate controlled -Held dabigitran on admission -Will restart BB -heparin SC -Monitor on tele. #Diarrhea r/o infectious cause- resolved but workup continues -C. diff neg -GI panel pending -BCx NG #GI px -PPI #DVTpx -SCDs. teds. Will not restart AC with heparin until other coags close to/at normal. Resolved issues: # Hypothermia 2/2 to sepsis #Epistaxis likely 2/2 to coagulopathy from dabigatran vs. other cause #Hyponatremia likely 2/2 to hypovolemia, JEREMY #Hyperkalemia likely 2/2 to JEREMY # Anion gap metabolic acidosis likely 2/2 to sepsis, uremia DISPOSITION: Condition improving. Downgraded to med/surg with tele, PT/OT when acute medical issues stabilize. VS,Fishbone, I+O VS, Fishbone, I+O Laboratory Tests 01/25/20 05:20 Vital Signs Date Time Temp Pulse Resp B/P (MAP) Pulse Ox O2 Delivery O2 Flow Rate FiO2 01/25/20 12:08 96.7 91 22 156/60 (92) 94 Room Air I&O- Last 24 Hours up to 6 AM 01/25/20 06:00 Intake Total 1505 ml Output Total 1450 ml Balance 55 ml BRANDON SR MD Jan 25, 2020 14:52
[2020-01-25] MEDS: METOPROLOL SUCC *XL* 25MG TAB (TopROL *XL*) PO SCH (15:55)
[2020-01-25] MEDS: DOXYCYCLINE HYCLATE 100MG TABLET PO SCH (21:04)
--- NOTE | 2020-01-25 22:24 | IPN ---
NEPHROLOGY PROGRESS NOTE DATE: 01/25/2020 SUBJECTIVE: Siobhan is seen and examined this morning at the bedside. She denies any chest pain or shortness of breath. She is frustrated by the renal diet. PHYSICAL EXAMINATION: VITAL SIGNS: Temperature 98.3, pulse 102, respiratory rate 20, blood pressure 147/69, saturating 94% on room air. INTAKE AND OUTPUT: Intake yesterday was 1795. Urine output was 1755. Weight on the bed scale today is 155.5 kg. GENERAL APPEARANCE: The patient is seen lying in bed, head of the bed evidence. Middle aged, obese female in no apparent distress, talking in full sentences. HEENT: The extraocular muscles are intact. Pupils are round and reactive to light. Mucous membranes are moist. NECK: Neck veins are slightly elevated. There is a hemodialysis catheter in the right IJ. CARDIAC: S1, S2, mild tachycardia. LUNGS: Symmetric air entry without crackles or rales. ABDOMEN: Soft, very obese and nontender. EXTREMITIES: At least 1+ leg edema bilaterally and a blister on the left anterior fay. NEUROLOGICAL: Oriented x3, no focal deficit. At baseline mentation. LABORATORY STUDIES: White count 11.7, hemoglobin 8.8, platelets 210. Sodium 139, potassium 3.6, BUN 38, creatinine 2.1. IMAGING: Chest x-ray yesterday no acute infiltrates. There is cardiomegaly. INPATIENT MEDICATIONS: Noted Vancomycin and Ceftriaxone were stopped by the Primary Team, and she was started on Doxycycline 100 mg p.o. twice daily. I started her on Lasix 40 mg IV daily. She was also started on Toprol XL 25 mg p.o. daily, and she was given 40 mEq of Potassium times one. The remainder of medications are unchanged from prior. PROBLEMS: 1. Non oliguric acute kidney injury superimposed on chronic kidney disease stage 3 the patient's baseline creatinine is 1.3. She has been off of continuous renal replacement therapy since January 21. She is diuretic responsive. There is mild to moderate hypervolemia on exam. She is written for Lasix 40 mg IV daily. Renal function continues to slowly improve. Her dialysis catheter needs to be removed. 2. Secondary hyperparathyroidism the patient's parathyroid hormone was greater than 1,000. She is persistently hypocalcemic. Her nutritional vitamin B is also deplete. She was started on Calcitriol and vitamin D and her ionized calcium levels are improving. 3. Hypervolemia it is mild. Her echocardiogram done recently showed preserved left ventricular ejection fraction with no conclusive comment on the diastolic function. She is receiving Lasix 40 mg IV daily and I have also given her potassium supplementation. We will see how she fares with the current diuretic. 4. Anemia - hemoglobin has been in the 8's and iron stores are ordered.
[2020-01-26] MEDS: SLF 3 ML SYR IV SCH ×3 (05:47→22:01)
[2020-01-26] MEDS: LEVOTHYROXINE 100MCG TABLET (0.1MG) PO SCH (05:47)
[2020-01-26 06:00] VITALS: BP 107/49
[2020-01-26] MEDS: METOPROLOL SUCC *XL* 25MG TAB (TopROL *XL*) PO SCH (09:00)
[2020-01-26] MEDS: VITAMIN D 1,000 INTERNATIONAL UNITS TABLET PO SCH (09:08)
[2020-01-26] MEDS: DOXYCYCLINE HYCLATE 100MG TABLET PO SCH ×2 (09:08→22:01)
[2020-01-26] MEDS: PANTOPRAZOLE 40MG TAB (PROTONIX) PO SCH (09:08)
[2020-01-26] MEDS: CALCITRIOL 0.25 MCG CAP (S0169) PO SCH (09:08)
[2020-01-26] MEDS: CHLORHEXIDINE GLUCONATE 0.12 % 15ML UDC (PERIDEX ORAL RINSE) MT SCH ×2 (09:08→22:01)
[2020-01-26] MEDS: LIOTHYRONINE 25 MCG TAB PO SCH ×2 (09:09→22:01)
[2020-01-26] MEDS: VANICREAM MOISTURIZING SKIN CREAM 113GM TUBE TOP SCH ×2 (09:09→22:02)
[2020-01-26] MEDS: NYSTATIN 100,000 UNITS/GM TOPICAL PWD 15 GM TOP SCH ×2 (09:09→22:02)
[2020-01-26 09:33] LABS: HEMATOCRIT 29.4 % (36.0-47.0); HEMOGLOBIN 9.2 g/dl (12.0-15.5); MEAN CORPUSCULAR HEMOGLOBIN 26.5 pg (27.0-33.0); MEAN CORPUSCULAR HGB CONC 31.3 g/dl (32.0-36.5); MEAN CORPUSCULAR VOLUME 84.7 fl (80.0-96.0); PLATELET COUNT, AUTOMATED 179 10^3/uL (150-450); RED BLOOD COUNT 3.47 10^6/uL (4.00-5.40); WHITE BLOOD COUNT 12.5 10^3/uL (4.0-10.0)
[2020-01-26 09:42] LABS: INR 1.32; PROTHROMBIN TIME 16.7 SECONDS (12.5-14.3)
[2020-01-26 09:43] LABS: PARTIAL THROMBOPLASTIN TIME 32.5 SECONDS (24.2-38.5)
[2020-01-26 10:08] LABS: ALBUMIN 2.4 GM/DL (3.2-5.2); BILIRUBIN,TOTAL 0.4 MG/DL (0.2-1.0); CALCIUM LEVEL 7.4 MG/DL (8.5-10.1); CREATININE FOR GFR 2.14 MG/DL (0.55-1.30); FREE T4 0.87 NG/DL (0.76-1.46); GLOMERULAR FILTRATION RATE 25.6 (>51); PERCENT SATURATION 9.9 % (13.2-45.0); POTASSIUM SERUM 3.7 MEQ/L (3.5-5.1); TOTAL PROTEIN 6.7 GM/DL (6.4-8.2)
[2020-01-26 10:16] LABS: TOTAL T3 68.4 NG/DL (60.0-181.0)
[2020-01-26] MEDS: IRON SUCROSE 100 MG in NS 100 ML OVER 1 HR IV SCH (13:31)
[2020-01-26] MEDS: FUROSEMIDE 40MG/4ML VIAL (J1940) IV SCH (13:31)
[2020-01-26 14:00] VITALS: BP 129/51
--- NOTE | 2020-01-26 15:25 | IPNPDOC ---
Text Note Date of Service The patient was seen on 01/26/20. NOTE SUBJECTIVE: -No acute complaints overnight. -Denies chest pain, incr shortness of breath, n/v. -Afebrile OBJECTIVE: PHYSICAL EXAMINATION: VS: Please see below CONSTITUTIONAL: No acute distress, resting in bed, AAO x 3 EYES: PERRLA, EOM intact, slight exophthalmos HENT, MOUTH: Normocephalic, atraumatic, moist mucous membranes, right IJ in place NECK: SUPPLE, no JVD, no lymphadenopathy, no carotid bruit CV: irregularly irregular rhythm, currently rate controlled , S1S2 normal, no murmurs/rubs/gallops RESPIRATORY: Clear to auscultation bilaterally, no rales/rhonchi/wheezes GI: obese abd, BS positive in 4 quadrants, soft, nontender, nondistended, no rebound or guarding, no organomegaly MUSCULOSKELETAL: Normal ROM. No cyanosis, clubbing, swelling, joint deformity, +1 extremity edema SKIN: Slightly erythematous, nontender to touch thighs. Multiple b/l lower ext wounds, no drainage. Wound on the right upper thigh, appears clean. Intertrigo in abdominal folds NEUROLOGIC: Cranial Nerves II-XII are intact, no focal deficits PSYCHIATRIC: Mood and affect are normal LABORATORY DATA: pending AM labs, otherwise reviewed. MICROBIOLOGY: BCx x 2 sets: NG UCx: E. faecalis, pansensitives except to tetracyclines MRSA positive C. diff: neg GI panel: pending IMAGING: Echocardiogram 01/21/20: 1. Normal global left ventricular systolic function. Assessment of the left ventricular diastolic function was not conclusive. 2. Mildly dilated left atrium with trace mitral regurgitation. 3. Trace pericardial effusion. 4. The inferior vena cava was mildly enlarged, noted subjectively. 5. The right heart chambers were not well visualized. CT abd/pelvis: No acute abdominal or pelvic abnormality. Prominent deneen aorta, mesenteric and pelvic lymph nodes. Etiology infectious/inflammatory. CT chest without contrast: No acute abnormality. Echocardiogram 07/2016: 1. Study is of fair technical quality. 2. Normal LV size with severe global hypokinesis and flattening of interventricular septum. Overall estimated EF 30-35%. 3. Dilated hypokinetic right ventricle. 4. Severe biatrial enlargement. 5. Approximately moderate mitral insufficiency. 6. Approximately moderate tricuspid insufficiency. 7. Very high central venous pressure. 8. At least moderately severe pulmonary hypertension. 9. Left pleural effusion with presence of mass, potentially representing thrombus or collapsed lobe. ASSESSMENT: 54-year-old female with past medical history of HFrEF (EF 30-35%), atrial fibrillation on dabigitran, hypothyroidism, HLD, lower ext cellulitis on doxycycline o/p, HTN, atrial fibrillation admitted to ICU for sepsis with shock 2/2 to UTI and possibly cellulitis, dehydration 2/2 to diarrhea, JEREMY 2/2 to dehydration, hypovolemia, hypothermia 2/2 to sepsis, hyperkalemia 2/2 to JEREMY. PLAN: # Acute kidney injury -Cr stably improved -s/p CRRT stopped 01/22/20 -Replace lytes PRN, daily labs -Nephrology following closely and diuresing as clinically indicated PRN, currently making adequate amounts of urine # Sepsis 2/2 to UTI vs. cellulitis vs. infectious diarrhea? Resolved shock. -At presentation had WBC 12.8K, HR >90 intermittently,+ UA. LA wnl -C. diff neg -BCx NG -UCx: E. faecalis -F/u GI panel -s/p 6d of ceftriaxone and 7d of vancomycin -Continue doxy 100mg BID for improving cellulitis likely MRSA -UTI was treated to completion s/p ceftriaxone and vanc -Tele #Left pleural effusion with presence of ?mass, potentially representing thrombus or collapsed lobe. -Seen on echocardiogram above -CT chest from admission does not comment on this -Discussed findings with Dr. Harris, pulmonary who is consulted. Perhaps area seen is just pleural effusion, atelectatic lung or developing PNA. She has been on ceftriaxone and vancomycin since admission which should cover PNA. -Incentive spirometer -diuresis per nephrology #Severe hypothyroidism s/p thyroid ablation for hyperthyroidism. -TSH 11/11/24 was 32, on admission 57.5 -Low T3, free T4 also -Given 200 mcg IV levothyroxine and started on 150 mcg daily after, now on 100mcg QD -Dr. Parks discussed her case with Dr. Nye, endocrinology who recommended to continue treatment above. -C/w Cytomel BID, f/u free T4, total T3 Q3 days to determine if to continue. Watching for overcorrection #Coagulopathy, supratherapeutic INR and PTT likely 2/2 to use of dabigatran in presence of worsening renal failure- improving -PT/PTT now normalized -Had been on dabigatran at home, no VKA or warfarin, and had epistaxis and found to be coagulopathic on labs s/p praxbind -No elevation of AST/ALT or history of hepatic disease -LDH, ferritin, d dimer all elevated -Peripheral smear: Microcytic hypochromic anemia, Leukocytosis associated with neutrophilia, -Platelet count within normal limits, No blasts are identified -Discussed with Dr. Cruz, hematology--> who recommended placing her on warfarin with close INR checks to keep it between 2 and 3, with the thought that anti-Xa activity cannot be checked on a regular basis and bleeding tendency cannot be checked on dabigatran, rivaroxaban or apixaban and going back on dabigatran, rivaroxaban or apixaban may cause the same issue of unmonitored coagulopathy. -Will start warfarin 5mg daily this evening. #Acute hypocalcemia with secondary hyperparathyroidism, Vitamin D deficiency -S/p multiple calcium gluconate this admission, ionized calcium remains low -Given calcium gluconate, now on calcitriol per renal -Following lytes daily #HFrEF, acute on chronic exacerbation -Exam with evidence of fluid overload -BNP 1720 on admission; however, she is chronically elevated. -New echo above with abnormal findings listed above. -Nephrology onboard, diuresing #Hypotension likely multifactorial to septic shock, hypovolemia 2/2 to dehydration from diarrhea, diuretic use. -BP stable -Resolved diarrhea, has not been on antihypertensives/diuretics (lasix, ACEi/ARB, BB and spironolactone) this admission -AM and PM cortisol elevated, however in the setting of acute illness and stress dose steroids. -Patient would benefit from o/p f/u with endocrine to further assess for adrenal insufficiency #Chronic trial fibrillation -Rate controlled -Held dabigitran on admission -continue BB -start warfarin today, at 5mg daily -daily coags -goal INR 2-3 -Monitor on tele. #Diarrhea r/o infectious cause- resolved but workup continues -C. diff neg -GI panel pending -BCx NG #GI px -PPI #DVTpx -SCDs. teds. Will not restart AC with heparin until other coags close to/at normal. # JOSHUA: -Getting Venofer per nephrology Resolved issues: # Hypothermia 2/2 to sepsis #Epistaxis likely 2/2 to coagulopathy from dabigatran vs. other cause #Hyponatremia likely 2/2 to hypovolemia, JEREMY #Hyperkalemia likely 2/2 to JEREMY # Anion gap metabolic acidosis likely 2/2 to sepsis, uremia DISPOSITION: Condition slowly improving. PT/OT when acute medical issues stabilize. VS,Fishbone, I+O VS, Fishbone, I+O Vital Signs Date Time Temp Pulse Resp B/P (MAP) Pulse Ox O2 Delivery O2 Flow Rate FiO2 01/26/20 06:00 97.6 86 18 107/49 (68) 96 Room Air I&O- Last 24 Hours up to 6 AM 01/26/20 06:00 Intake Total 650 ml Output Total 3950 ml Balance -3300 ml BRANDON SR MD Jan 26, 2020 08:50
[2020-01-26] MEDS: WARFARIN SOD 5MG TAB PO SCH (16:06)
--- NOTE | 2020-01-26 20:46 | IPN ---
NEPHROLOGY PROGRESS NOTE DATE: 01/26/2020 SUBJECTIVE: Siobhan and seen and examined this morning at the bedside. She denies any shortness of breath at rest. She remains mostly sedentary. PHYSICAL EXAMINATION: VITAL SIGNS: Temperature 97.5, pulse 93, respiratory rate 20, blood pressure 129/51, saturating 99% on room air. INTAKE AND OUTPUT: Intake yesterday was 650. Urine output yesterday was 3915, net negative 3.3 liters. Weight on the bed scale today is not recorded. GENERAL APPEARANCE: The patient is seen lying in bed, morbidly obese, middle aged female in no apparent distress. HEENT: The extraocular muscles are intact. Tongue is moist. NECK: Supple. Jugular veins are elevated. The hemodialysis catheter has been removed from the right IJ. CARDIAC: S1, S2, normal rate. LUNGS: Diminished and distant breath sounds. No crackles or rales. She is comfortable on room air. ABDOMEN: Soft, obese and nontender. EXTREMITIES: There is 2+ leg edema bilaterally. The left calf has erythema. NEUROLOGICAL: Oriented x3, no focal deficits. PSYCHIATRIC: Appropriate mood and affect. LABORATORY STUDIES: White count 12.5, hemoglobin 9.2, platelets 179. Sodium 139, potassium 3.7, bicarbonate 28, BUN 37, creatinine 2.1, transferrin saturation 9.9%. INPATIENT MEDICATIONS: I started the patient on Venofer 100 mg IV daily times 3 days. She is receiving Doxycycline 100 mg p.o. twice daily, Lasix 40 mg IV daily. Primary Team also started her on Coumadin 5 mg daily and Metoprolol 25 mg p.o. daily. The remainder of medications are unchanged from prior. PROBLEMS: 1. Non oliguric acute kidney injury superimposed on chronic kidney disease stage 3 baseline creatinine is 1.3. The patient is diuretic responsive. Her creatinine has plateaued around 2.1. There is mild to moderate hypervolemia on exam. Continue current dose of Lasix. 2. Fluid overload echocardiogram shows a preserved left ventricular ejection fraction. There was no comment in regards to diastolic function. The patient is being diuresed with Lasix 40 mg IV daily. Continue monitoring intake, output and daily weights. Her volume status is reassessed daily. 3. Anemia related to iron deficiency transferrin saturation is less than 10%. She is ordered for Venofer 100 mg x3 doses. 4. Atrial fibrillation she was started recently on beta gilbert. Blood pressures are tolerating, and her rate control seems to be improving. Primary Team is managing anticoagulation. 5. Hypocalcemia with secondary hyperparathyroidism she is receiving nutritional vitamin D and also Calcitriol. Her corrected calcium levels for albumin are now in normal range.
[2020-01-26 22:00] VITALS: BP 131/76
[2020-01-27 06:00] VITALS: BP 115/60
[2020-01-27] MEDS: LEVOTHYROXINE 100MCG TABLET (0.1MG) PO SCH (06:06)
[2020-01-27] MEDS: SLF 3 ML SYR IV SCH ×3 (06:07→20:18)
[2020-01-27 06:14] LABS: HEMOGLOBIN 8.9 g/dl (12.0-15.5); MEAN CORPUSCULAR HGB CONC 30.7 g/dl (32.0-36.5); MEAN CORPUSCULAR VOLUME 84.8 fl (80.0-96.0); PLATELET COUNT, AUTOMATED 173 10^3/uL (150-450); RED BLOOD COUNT 3.42 10^6/uL (4.00-5.40); WHITE BLOOD COUNT 11.3 10^3/uL (4.0-10.0)
[2020-01-27 06:23] LABS: INR 1.13; PROTHROMBIN TIME 14.8 SECONDS (12.5-14.3)
[2020-01-27 06:43] LABS: CALCIUM LEVEL 7.5 MG/DL (8.5-10.1); CREATININE FOR GFR 1.89 MG/DL (0.55-1.30); GLOMERULAR FILTRATION RATE 29.5 (>51); POTASSIUM SERUM 3.5 MEQ/L (3.5-5.1)
[2020-01-27] MEDS ORDERED: IRON SUCROSE 100MG 5ML VIAL (J1756 PER 1MG) IV SCH (09:00)
[2020-01-27] MEDS: LIOTHYRONINE 25 MCG TAB PO SCH ×2 (09:47→20:17)
[2020-01-27] MEDS: DOXYCYCLINE HYCLATE 100MG TABLET PO SCH ×2 (09:48→20:18)
[2020-01-27] MEDS: PANTOPRAZOLE 40MG TAB (PROTONIX) PO SCH (09:48)
[2020-01-27] MEDS: VITAMIN D 1,000 INTERNATIONAL UNITS TABLET PO SCH (09:48)
[2020-01-27] MEDS: CALCITRIOL 0.25 MCG CAP (S0169) PO SCH (09:48)
[2020-01-27] MEDS: NYSTATIN 100,000 UNITS/GM TOPICAL PWD 15 GM TOP SCH ×2 (09:49→20:18)
[2020-01-27] MEDS: VANICREAM MOISTURIZING SKIN CREAM 113GM TUBE TOP SCH ×2 (09:49→20:18)
[2020-01-27] MEDS: METOPROLOL SUCC *XL* 25MG TAB (TopROL *XL*) PO SCH (09:49)
[2020-01-27] MEDS: CHLORHEXIDINE GLUCONATE 0.12 % 15ML UDC (PERIDEX ORAL RINSE) MT SCH ×2 (09:51→20:17)
[2020-01-27] MEDS: FUROSEMIDE 40MG/4ML VIAL (J1940) IV SCH (09:51)
--- NOTE | 2020-01-27 13:01 | IPNPDOC ---
Text Note Date of Service The patient was seen on 01/27/20. NOTE SUBJECTIVE: -No acute complaints overnight. -Denies chest pain, incr shortness of breath, n/v. -Afebrile -Becomes very tachycardic to 150s-160s on ambulation with PT, asymptomatic however OBJECTIVE: PHYSICAL EXAMINATION: VS: Please see below CONSTITUTIONAL: No acute distress, resting in bed, AAO x 3 EYES: PERRLA, EOM intact, slight exophthalmos HENT, MOUTH: Normocephalic, atraumatic, moist mucous membranes, right IJ in place NECK: SUPPLE, no JVD, no lymphadenopathy, no carotid bruit CV: irregularly irregular rhythm, currently rate controlled , S1S2 normal, no m urmurs/rubs/gallops RESPIRATORY: Clear to auscultation bilaterally, no rales/rhonchi/wheezes GI: obese abd, BS positive in 4 quadrants, soft, nontender, nondistended, no rebound or guarding, no organomegaly MUSCULOSKELETAL: Normal ROM. No cyanosis, clubbing, swelling, joint deformity, +1 extremity edema SKIN: Slightly erythematous, nontender to touch thighs. Multiple b/l lower ext wounds, no drainage. Wound on the right upper thigh, appears clean. Intertrigo in abdominal folds NEUROLOGIC: Cranial Nerves II-XII are intact, no focal deficits PSYCHIATRIC: Mood and affect are normal LABORATORY DATA: reviewed. MICROBIOLOGY: BCx x 2 sets: NG UCx: E. faecalis, pansensitives except to tetracyclines MRSA positive C. diff: neg GI panel: pending IMAGING: Echocardiogram 01/21/20: 1. Normal global left ventricular systolic function. Assessment of the left ventricular diastolic function was not conclusive. 2. Mildly dilated left atrium with trace mitral regurgitation. 3. Trace pericardial effusion. 4. The inferior vena cava was mildly enlarged, noted subjectively. 5. The right heart chambers were not well visualized. CT abd/pelvis: No acute abdominal or pelvic abnormality. Prominent deneen aorta, mesenteric and pelvic lymph nodes. Etiology infectious/inflammatory. CT chest without contrast: No acute abnormality. Echocardiogram 07/2016: 1. Study is of fair technical quality. 2. Normal LV size with severe global hypokinesis and flattening of interventricular septum. Overall estimated EF 30-35%. 3. Dilated hypokinetic right ventricle. 4. Severe biatrial enlargement. 5. Approximately moderate mitral insufficiency. 6. Approximately moderate tricuspid insufficiency. 7. Very high central venous pressure. 8. At least moderately severe pulmonary hypertension. 9. Left pleural effusion with presence of mass, potentially representing thrombus or collapsed lobe. ASSESSMENT: 54-year-old female with past medical history of HFrEF (EF 30-35%), atrial fibrillation on dabigitran, hypothyroidism, HLD, lower ext cellulitis on doxycycline o/p, HTN, atrial fibrillation admitted to ICU for sepsis with shock 2/2 to UTI and possibly cellulitis, dehydration 2/2 to diarrhea, JEREMY 2/2 to dehydration, hypovolemia, hypothermia 2/2 to sepsis, hyperkalemia 2/2 to JEREMY. PLAN: # Acute kidney injury -Cr stably improved -s/p CRRT stopped 01/22/20 -Replace lytes PRN, daily labs -Nephrology following closely and diuresing as clinically indicated PRN, currently making adequate amounts of urine # Sepsis 2/2 to UTI vs. cellulitis vs. infectious diarrhea? Resolved shock. -At presentation had WBC 12.8K, HR >90 intermittently,+ UA. LA wnl -C. diff neg -BCx NG -UCx: E. faecalis -F/u GI panel -s/p 6d of ceftriaxone and 7d of vancomycin -Continue doxy 100mg BID for improving cellulitis likely MRSA -UTI was treated to completion s/p ceftriaxone and vanc -Tele #Left pleural effusion with presence of ?mass, potentially representing thrombus or collapsed lobe. -Seen on echocardiogram above -CT chest from admission does not comment on this -Discussed findings with Dr. Harris, pulmonary who is consulted. Perhaps area seen is just pleural effusion, atelectatic lung or developing PNA. She has been on ceftriaxone and vancomycin since admission which should cover PNA. -Incentive spirometer -diuresis per nephrology #Severe hypothyroidism s/p thyroid ablation for hyperthyroidism. -TSH 11/11/24 was 32, on admission 57.5 -Low T3, free T4 also -Given 200 mcg IV levothyroxine and started on 150 mcg daily after, now on 100mcg QD -Dr. Parks discussed her case with Dr. Nye, endocrinology who recommended to continue treatment above. -C/w Cytomel BID, f/u free T4, total T3 Q3 days to determine if to continue. Watching for overcorrection #Coagulopathy, supratherapeutic INR and PTT likely 2/2 to use of dabigatran in presence of worsening renal failure- improving -PT/PTT now normalized -Had been on dabigatran at home, no VKA or warfarin, and had epistaxis and found to be coagulopathic on labs s/p praxbind -No elevation of AST/ALT or history of hepatic disease -LDH, ferritin, d dimer all elevated -Peripheral smear: Microcytic hypochromic anemia, Leukocytosis associated with neutrophilia, -Platelet count within normal limits, No blasts are identified -Discussed with Dr. Cruz, hematology--> who recommended placing her on warfarin with close INR checks to keep it between 2 and 3, with the thought that anti-Xa activity cannot be checked on a regular basis and bleeding tendency cannot be checked on dabigatran, rivaroxaban or apixaban and going back on dabigatran, rivaroxaban or apixaban may cause the same issue of unmonitored coagulopathy. -Will start warfarin 5mg daily this evening. #Acute hypocalcemia with secondary hyperparathyroidism, Vitamin D deficiency -S/p multiple calcium gluconate this admission, ionized calcium remains low -Given calcium gluconate, now on calcitriol per renal -Following lytes daily #HFrEF, acute on chronic exacerbation -Exam with evidence of fluid overload -BNP 1720 on admission; however, she is chronically elevated. -New echo above with abnormal findings listed above. -Nephrology onboard, diuresing #Hypotension likely multifactorial to septic shock, hypovolemia 2/2 to dehydration from diarrhea, diuretic use. -BP stable -Resolved diarrhea, has not been on antihypertensives/diuretics (lasix, ACEi/ARB, BB and spironolactone) this admission -AM and PM cortisol elevated, however in the setting of acute illness and stress dose steroids. -Patient would benefit from o/p f/u with endocrine to further assess for adrenal insufficiency #Chronic trial fibrillation -Rate controlled -Held dabigitran on admission -continue BB -start warfarin today, at 5mg daily -daily coags -goal INR 2-3 -Monitor on tele. #Diarrhea r/o infectious cause- resolved but workup continues -C. diff neg -GI panel pending -BCx NG #GI px -PPI #DVTpx -SCDs. teds. Will not restart AC with heparin until other coags close to/at normal. # JOSHUA: -Getting Venofer per nephrology Resolved issues: # Hypothermia 2/2 to sepsis #Epistaxis likely 2/2 to coagulopathy from dabigatran vs. other cause #Hyponatremia likely 2/2 to hypovolemia, JEREMY #Hyperkalemia likely 2/2 to JEREMY # Anion gap metabolic acidosis likely 2/2 to sepsis, uremia DISPOSITION: Condition slowly improving. PT/OT when acute medical issues s tabilize. VS,Fishbone, I+O VS, Fishbone, I+O Laboratory Tests 01/27/20 05:50 Vital Signs Date Time Temp Pulse Resp B/P (MAP) Pulse Ox O2 Delivery O2 Flow Rate FiO2 01/27/20 09:49 103 136/78 01/27/20 06:00 98.0 19 96 Room Air I&O- Last 24 Hours up to 6 AM 01/27/20 06:00 Intake Total 1880 ml Output Total 3250 ml Balance -1370 ml BRANDON SR MD Jan 27, 2020 10:40
[2020-01-27] MEDS: IRON SUCROSE 100 MG in NS 100 ML OVER 1 HR IV SCH (13:56)
[2020-01-27 14:00] VITALS: BP 114/61
[2020-01-27] MEDS: FUROSEMIDE 100MG/10ML VIAL (J1940) IV SCH (17:20)
[2020-01-27] MEDS: WARFARIN SOD 5MG TAB PO SCH (17:20)
--- NOTE | 2020-01-27 19:48 | IPN ---
PROGRESS NOTE DATE: 01/27/2020 SUBJECTIVE: Siobhan is seen and examined this morning at the bedside. She denies any overnight complaints. She wants to come off of the renal diet. She denies shortness of breath at rest. Becomes significantly tachycardic when working with physical therapy. Temperature 97.8, pulse 88, respiratory rate 18, blood pressure 114/61, saturating 98% on room air. Intake yesterday was 1685. Urine output yesterday was 2700, net negative 1 liter. Weight in the bed scale today is not recorded. GENERAL: Patient is seen lying in bed, head of the bed elevated. Middle-age, morbidly obese female in no apparent distress. Extraocular muscles are intact. Tongue is moist. Neck is supple. Jugular veins are mildly elevated. CARDIAC: S1, S2. She is not tachycardic while at rest. Irregularly irregular. LUNGS: Clear to auscultation bilaterally. No crackle or rale. ABDOMEN: Obese, soft, and nontender. EXTREMITIES: Show 1+ to 2+ edema of the legs. NEUROLOGIC: Oriented times three. No focal deficit. PSYCHIATRIC: Appropriate mood and affect. LABORATORY DATA: White count 11.3, hemoglobin 8.9, platelets 173. Sodium 139, potassium 3.5, bicarbonate 29, BUN 36, creatinine 1.8. Transferrin saturation less than 10%. INPATIENT MEDICATIONS: Reviewed by myself. I increased her Lasix to 60 mg intravenous (IV) twice a day. She is receiving IV Venofer for three doses. Her remainder of medications are unchanged as compared to yesterday. PROBLEMS: 1. Acute kidney injury (JEREMY) superimposed on chronic kidney disease (CKD), stage III. Patient is status post continuous renal replacement therapy. Stopped on January 21. Her baseline creatinine is 1.3. Her renal function is improving daily. She is somewhat volume overloaded, and she is being diuresed with Lasix, and she is responding well to diuretic. Her Webster catheter can probably be removed at this time. 2. Anemia related to iron deficiency with transferrin saturation less than 10%. She is receiving IV Venofer for three dosages. 3. Hypertension. Blood pressures are well controlled with current regimen of metoprolol. She does get significantly tachycardic with exertion. Consider repeating the thyroid studies. She has a history as well of atrial fibrillation, and she was found to be severely hypothyroid on this admission. 4. History of congestive heart failure. Brain natriuretic peptide (BNP) is recorded for trend. Her echocardiogram on this admission showed preserved left ventricular ejection fraction without conclusive comment on diastolic function. She has leg edema. She is responding well to IV Lasix. Volume status is reassessed daily, and volume status is improving. 5. Hypokalemia. Oral supplementation is ordered.
[2020-01-27] MEDS ORDERED: POTASSIUM CHLORIDE 10 MEQ SR TABLET PO ONE (20:00)
[2020-01-27 22:00] VITALS: BP 131/72
[2020-01-28] MEDS: LEVOTHYROXINE 100MCG TABLET (0.1MG) PO SCH (05:28)
[2020-01-28] MEDS: SLF 3 ML SYR IV SCH ×3 (05:30→21:57)
[2020-01-28 06:00] VITALS: BP 128/76
[2020-01-28 06:19] LABS: HEMATOCRIT 26.7 % (36.0-47.0); HEMOGLOBIN 8.2 g/dl (12.0-15.5); MEAN CORPUSCULAR HEMOGLOBIN 25.9 pg (27.0-33.0); MEAN CORPUSCULAR HGB CONC 30.7 g/dl (32.0-36.5); MEAN CORPUSCULAR VOLUME 84.2 fl (80.0-96.0); PLATELET COUNT, AUTOMATED 170 10^3/uL (150-450); RED BLOOD COUNT 3.17 10^6/uL (4.00-5.40)
[2020-01-28 06:29] LABS: INR 1.31; PROTHROMBIN TIME 16.6 SECONDS (12.5-14.3)
[2020-01-28 06:41] LABS: CALCIUM LEVEL 7.9 MG/DL (8.5-10.1); CREATININE FOR GFR 1.93 MG/DL (0.55-1.30); GLOMERULAR FILTRATION RATE 28.8 (>51); MAGNESIUM LEVEL 1.5 MG/DL (1.8-2.4); POTASSIUM SERUM 3.4 MEQ/L (3.5-5.1)
[2020-01-28] MEDS ORDERED: MAG SULF 1GM/100ML (MAG RUN) 1 GM in IV 1 EA IV ONE (09:00)
[2020-01-28] MEDS: PANTOPRAZOLE 40MG TAB (PROTONIX) PO SCH (09:57)
[2020-01-28] MEDS: LIOTHYRONINE 25 MCG TAB PO SCH ×2 (09:58→21:54)
[2020-01-28] MEDS: VITAMIN D 1,000 INTERNATIONAL UNITS TABLET PO SCH (09:58)
[2020-01-28] MEDS: DOXYCYCLINE HYCLATE 100MG TABLET PO SCH ×2 (09:58→21:55)
[2020-01-28] MEDS: CALCITRIOL 0.25 MCG CAP (S0169) PO SCH (09:58)
[2020-01-28] MEDS: CHLORHEXIDINE GLUCONATE 0.12 % 15ML UDC (PERIDEX ORAL RINSE) MT SCH ×2 (09:58→21:00)
[2020-01-28] MEDS: FUROSEMIDE 100MG/10ML VIAL (J1940) IV SCH (09:59)
[2020-01-28] MEDS: NYSTATIN 100,000 UNITS/GM TOPICAL PWD 15 GM TOP SCH ×2 (09:59→21:55)
[2020-01-28] MEDS: METOPROLOL SUCC *XL* 25MG TAB (TopROL *XL*) PO SCH (10:00)
[2020-01-28] MEDS ORDERED: POTASSIUM CHLORIDE 10 MEQ SR TABLET PO ONE (10:00)
[2020-01-28] MEDS: VANICREAM MOISTURIZING SKIN CREAM 113GM TUBE TOP SCH ×2 (10:00→21:56)
--- NOTE | 2020-01-28 13:49 | IPNPDOC ---
Text Note Date of Service The patient was seen on 01/28/20. NOTE SUBJECTIVE: -No acute complaints overnight. -Denies chest pain, incr shortness of breath, n/v. -Afebrile -Upset that her diet is not permitting orange juice? Discussed with nursing to allow orange juice OBJECTIVE: PHYSICAL EXAMINATION: VS: Please see below CONSTITUTIONAL: No acute distress, resting in chair, AAO x 3, morbidly obese EYES: PERRLA, EOM intact, slight exophthalmos HENT, MOUTH: Normocephalic, atraumatic, moist mucous membranes, right IJ in place NECK: SUPPLE, no JVD, no lymphadenopathy, no carotid bruit CV: irregularly irregular rhythm, currently rate controlled , S1S2 normal, no murmurs/rubs/gallops RESPIRATORY: Clear to auscultation bilaterally, no rales/rhonchi/wheezes GI: obese abd, BS positive in 4 quadrants, soft, nontender, nondistended, no rebound or guarding, no organomegaly MUSCULOSKELETAL: Normal ROM. No cyanosis, clubbing, swelling, joint deformity, +1 extremity edema SKIN: Multiple b/l lower ext wounds, no drainage. Wound on the right upper thigh, appears clean. Intertrigo in abdominal folds NEUROLOGIC: Cranial Nerves II-XII are intact, no focal deficits PSYCHIATRIC: Mood and affect are normal LABORATORY DATA: reviewed Mag 1.5 (repleted) K 3.4 (repleted) Cr 1.93 Na 140 WBC 8 hgb 8.2 MICROBIOLOGY: BCx x 2 sets: NG UCx: E. faecalis, pansensitives except to tetracyclines MRSA positive C. diff: neg GI panel: negative IMAGING: Echocardiogram 01/21/20: 1. Normal global left ventricular systolic function. Assessment of the left ventricular diastolic function was not conclusive. 2. Mildly dilated left atrium with trace mitral regurgitation. 3. Trace pericardial effusion. 4. The inferior vena cava was mildly enlarged, noted subjectively. 5. The right heart chambers were not well visualized. CT abd/pelvis: No acute abdominal or pelvic abnormality. Prominent deneen aorta, mesenteric and pelvic lymph nodes. Etiology infectious/inflammatory. CT chest without contrast: No acute abnormality. Echocardiogram 07/2016: 1. Study is of fair technical quality. 2. Normal LV size with severe global hypokinesis and flattening of interventricular septum. Overall estimated EF 30-35%. 3. Dilated hypokinetic right ventricle. 4. Severe biatrial enlargement. 5. Approximately moderate mitral insufficiency. 6. Approximately moderate tricuspid insufficiency. 7. Very high central venous pressure. 8. At least moderately severe pulmonary hypertension. 9. Left pleural effusion with presence of mass, potentially representing thrombus or collapsed lobe. ASSESSMENT: 54-year-old female with past medical history of HFrEF (EF 30-35%), atrial fibrillation on dabigitran, hypothyroidism, HLD, lower ext cellulitis on doxycycline o/p, HTN, atrial fibrillation admitted to ICU for sepsis with shock 2/2 to UTI and possibly cellulitis, dehydration 2/2 to diarrhea, JEREMY 2/2 to dehydration, hypovolemia, hypothermia and hyperkalemia 2/2 to JEREMY. PLAN: # Acute kidney injury -Cr stably improved -s/p CRRT stopped 01/22/20 -Replace lytes PRN, daily labs -Nephrology following closely and diuresing as clinically indicated PRN, currently making adequate amounts of urine # Sepsis 2/2 to UTI vs. cellulitis vs. infectious diarrhea? Resolved shock. -At presentation had WBC 12.8K, HR >90 intermittently,+ UA. LA wnl -C. diff neg -BCx NG -UCx: E. faecalis -GI panel negative -s/p 6d of ceftriaxone and 7d of vancomycin -Continue doxy 100mg BID for improving cellulitis likely MRSA. Will dc today. -UTI was treated to completion s/p ceftriaxone and vanc -Telemetry for persisting exertional tachycardia #Left pleural effusion with presence of ?mass, potentially representing thrombus or collapsed lobe. -Seen on echocardiogram above -CT chest from admission does not comment on this -Discussed findings with Dr. Harris, pulmonary who was consulted. Perhaps area seen is just pleural effusion, atelectatic lung or developing PNA. She has been on ceftriaxone and vancomycin since admission which should cover PNA. -Incentive spirometer -diuresis per nephrology #Severe hypothyroidism s/p thyroid ablation for hyperthyroidism. -TSH 11/11/24 was 32, on admission 57.5 -Low T3, free T4 also -Given 200 mcg IV levothyroxine and started on 150 mcg daily after, now on 100mcg QD -Dr. Parks discussed her case with Dr. Nye, endocrinology who recommended to continue treatment above. -C/w Cytomel BID, f/u free T4, total T3 Q3 days to determine if to continue. Watching for overcorrection #Coagulopathy, supratherapeutic INR and PTT likely 2/2 to use of dabigatran in presence of worsening renal failure- improving -PT/PTT now normalized -Had been on dabigatran at home, no VKA or warfarin, and had epistaxis and found to be coagulopathic on labs s/p praxbind -No elevation of AST/ALT or history of hepatic disease -LDH, ferritin, d dimer all elevated -Peripheral smear: Microcytic hypochromic anemia, Leukocytosis associated with neutrophilia, -Platelet count within normal limits, No blasts are identified -Discussed with Dr. Cruz, hematology--> who recommended placing her on warfarin with close INR checks to keep it between 2 and 3, with the thought that anti-Xa activity cannot be checked on a regular basis and bleeding tendency cannot be checked on dabigatran, rivaroxaban or apixaban and going back on dabigatran, rivaroxaban or apixaban may cause the same issue of unmonitored coagulopathy. -Continue warfarin 5mg daily with daily INR checks #Acute hypocalcemia with secondary hyperparathyroidism, Vitamin D deficiency -S/p multiple calcium gluconate this admission, ionized calcium remains low -Given calcium gluconate, now on calcitriol per renal -Following lytes daily #HFrEF, acute on chronic exacerbation -Exam with evidence of fluid overload -BNP 1720 on admission; however, she is chronically elevated. -New echo above with abnormal findings listed above. -Nephrology onboard, diuresing and placed her on fluid restriction #Hypotension likely multifactorial to septic shock, hypovolemia 2/2 to dehydration from diarrhea, diuretic use. -BP stable -Resolved diarrhea, has not been on antihypertensives/diuretics (lasix, ACEi/ARB, BB and spironolactone) this admission -AM and PM cortisol elevated, however in the setting of acute illness and stress dose steroids. -Patient would benefit from o/p f/u with endocrine to further assess for adrenal insufficiency #Chronic trial fibrillation -Rate controlled -Held dabigitran on admission -continue BB -c/w warfarin at 5mg daily -daily coags -goal INR 2-3 -Monitor on tele. #Diarrhea r/o infectious cause- resolved but workup continues -C. diff neg -GI panel pending -BCx NG #GI px -PPI #DVTpx -SCDs. teds. warfarin was started # JOSHUA: -Getting Venofer per nephrology Resolved issues: # Hypothermia 2/2 to sepsis #Epistaxis likely 2/2 to coagulopathy from dabigatran vs. other cause #Hyponatremia likely 2/2 to hypovolemia, JEREMY #Hyperkalemia likely 2/2 to JEREMY # Anion gap metabolic acidosis likely 2/2 to sepsis, uremia DISPOSITION: Condition slowly improving. PT/OT when acute medical issues stabilize. VS,Fishbone, I+O VS, Fishbone, I+O Laboratory Tests 01/28/20 05:39 Vital Signs Date Time Temp Pulse Resp B/P (MAP) Pulse Ox O2 Delivery O2 Flow Rate FiO2 01/28/20 06:00 98.5 79 19 128/76 (93) 96 Room Air I&O- Last 24 Hours up to 6 AM 01/28/20 06:00 Intake Total 2285 ml Output Total 4300 ml Balance -2014 ml BRANDON SR MD Jan 28, 2020 08:54
[2020-01-28 14:00] VITALS: BP 121/69
[2020-01-28] MEDS: IRON SUCROSE 100 MG in NS 100 ML OVER 1 HR IV SCH (14:38)
[2020-01-28] MEDS: WARFARIN SOD 5MG TAB PO SCH (16:56)
[2020-01-28 22:00] VITALS: BP 115/62
[2020-01-29] MEDS: LEVOTHYROXINE 100MCG TABLET (0.1MG) PO SCH (05:46)
[2020-01-29] MEDS: SLF 3 ML SYR IV SCH ×3 (05:46→20:38)
[2020-01-29 06:00] VITALS: BP 112/75
[2020-01-29 06:12] LABS: HEMATOCRIT 26.9 % (36.0-47.0); HEMOGLOBIN 8.3 g/dl (12.0-15.5); MEAN CORPUSCULAR HEMOGLOBIN 26.3 pg (27.0-33.0); MEAN CORPUSCULAR HGB CONC 30.9 g/dl (32.0-36.5); MEAN CORPUSCULAR VOLUME 85.1 fl (80.0-96.0); PLATELET COUNT, AUTOMATED 173 10^3/uL (150-450); RED BLOOD COUNT 3.16 10^6/uL (4.00-5.40); WHITE BLOOD COUNT 7.4 10^3/uL (4.0-10.0)
[2020-01-29 06:19] LABS: INR 1.42; PROTHROMBIN TIME 17.7 SECONDS (12.5-14.3)
[2020-01-29 06:26] LABS: CALCIUM LEVEL 7.8 MG/DL (8.5-10.1); CREATININE FOR GFR 1.81 MG/DL (0.55-1.30); POTASSIUM SERUM 3.4 MEQ/L (3.5-5.1)
[2020-01-29] MEDS: CHLORHEXIDINE GLUCONATE 0.12 % 15ML UDC (PERIDEX ORAL RINSE) MT SCH ×2 (09:00→20:36)
[2020-01-29 09:25] LABS: MAGNESIUM LEVEL 1.6 MG/DL (1.8-2.4)
[2020-01-29] MEDS: VITAMIN D 1,000 INTERNATIONAL UNITS TABLET PO SCH (10:35)
[2020-01-29] MEDS: LIOTHYRONINE 25 MCG TAB PO SCH ×2 (10:35→20:35)
[2020-01-29] MEDS: PANTOPRAZOLE 40MG TAB (PROTONIX) PO SCH (10:35)
[2020-01-29] MEDS: METOPROLOL SUCC *XL* 25MG TAB (TopROL *XL*) PO SCH (10:36)
[2020-01-29] MEDS: CALCITRIOL 0.25 MCG CAP (S0169) PO SCH (10:36)
[2020-01-29] MEDS: NYSTATIN 100,000 UNITS/GM TOPICAL PWD 15 GM TOP SCH ×2 (10:37→20:37)
[2020-01-29] MEDS: VANICREAM MOISTURIZING SKIN CREAM 113GM TUBE TOP SCH ×2 (10:37→20:38)
[2020-01-29] MEDS: FUROSEMIDE 40MG/4ML VIAL (J1940) IV SCH (10:37)
--- NOTE | 2020-01-29 11:14 | IPN ---
PROGRESS NOTE DATE: 01/28/2020 SUBJECTIVE: Patient seen and examined this morning sitting out of bed in the chair. She denies any acute issues overnight. No shortness of breath. No nausea or vomiting. There has not been a daily weight recorded in several days. PHYSICAL EXAMINATION: VITAL SIGNS: Temperature 98.1, pulse 80, respiratory rate 19, blood pressure 121/69, saturating 100% on room air. INTAKE AND OUTPUT: Intake yesterday was 2400. Urine output yesterday was 4350, net negative 1865. Weight in the bed scale today is not recorded. GENERAL: Patient is seen sitting out of bed to the chair, morbidly obese female in no distress. Awake, alert, comfortable, interactive, in a good mood, conversational. HEENT: Extraocular muscles are intact. Tongue is moist. Neck is supple. Jugular veins are mildly elevated. HEART: Heart sounds S1, S2, irregularly irregular. She is not tachycardic while at rest. LUNGS: Clear to auscultation bilaterally. No crackle or rale. ABDOMEN: Soft, obese and nontender. GENITOURINARY: Shows Webster catheter. EXTREMITIES: Show bulky legs, erythema of the left calf and 1 to 2+ edema. NEUROLOGIC: Oriented x3, no focal deficit. PSYCHIATRIC: Appropriate mood and affect. LABORATORY DATA: Sodium 140, potassium 3.4, bicarbonate 29, BUN 33, creatinine 1.9. Magnesium 1.5. Hemoglobin 8.2, platelets 170,000. BNP 2600. INPATIENT MEDICATIONS: She has received three doses of Venofer. She received a dose of magnesium sulfate 1 gram I.V. times one today. Her Lasix was reduced to 40 mg I.V. daily. She received a dose of potassium chloride 40 mEq p.o. times one. PROBLEMS: 1. JEREMY superimposed on CKD stage 3: Baseline creatinine is 1.3. She had short duration of CRRT. She is in renal recovery. Her volume status is improving. I cut down her diuretic to once daily. Daily weights have not been recorded and it is discussed with nursing staff. 2. History of congestive heart failure: Her serial BNP has risen. She was written for a 1500 cc fluid restriction. I do not know how come she had 2300 intake yesterday. Echocardiogram on this admission showed preserved left ventricular ejection fraction without conclusive comment on diastolic function, and she likely has diastolic congestive heart failure. Continue fluid restriction, Lasix 40 mg I.V. daily and diuretic will be adjusted as needed. 3. Hypokalemia: She is given oral potassium supplementation. If her renal function continues to improve, Spironolactone can be added as well. 4. Anemia related to iron deficiency: She has received three doses of Venofer. She received one unit of packed red blood cells on this admission. I would transfuse for hemoglobin less than 8. 5. Chronic atrial fibrillation: She is rate controlled with beta-gilbert and anticoagulation is as per primary team. She is on Coumadin. Would optimize electrolytes and try to keep magnesium above 2 and potassium around 4. She is being given supplementation of both electrolytes. 6. Hypocalcemia: Her corrected calcium is within normal range. Her parathyroid hormone was more than 1,000 on this admission. She continues on Calcitriol and Vitamin D.
[2020-01-29 14:00] VITALS: BP 115/76
--- NOTE | 2020-01-29 15:26 | IPN ---
PROGRESS NOTE DATE: 01/29/2020 SUBJECTIVE: Ms. Varghese was seen this morning on her bedside. She is sitting in the chair and reports feeling well. As soon as I entered her room, she started to talk about her fluid restriction and she insists that she needs to drink more fluids in order for her kidney to keep working. She denies any dyspnea or chest pain. She had acute renal failure and required a short course of hemodialysis. Her kidney function has improved now and she is making good urine. She denies any nausea, vomiting, dyspnea or chest pain. PHYSICAL EXAMINATION: VITALS: Temperature 96.9 degrees Fahrenheit, heart rate 92 per minute, respiratory rate 20 per minute, blood pressure 115/76 mmHg and oxygen saturation 96% on room air. HEENT: Head is atraumatic. Neck is supple. JVD difficult to be assessed. HEART: Heart sounds are irregular in rhythm. LUNGS: Clear to auscultation. ABDOMEN: Obese and nontender. Bowel sounds are normal. EXTREMITIES: Without any cyanosis or clubbing. She has a wound on her left leg, which is covered with the dressing and there is no drainage at this time. She has minimal edema on her feet. NEUROLOGIC: She is awake, alert and at her baseline mentation. LABORATORY DATA: Today's labs show WBC 7.4, hemoglobin 8.3, hematocrit 26.9, platelets 173,000. Sodium 140, potassium 3.4, CO2 29, BUN 30, creatinine 1.81, glucose 148 and calcium 7.8. PROBLEMS: 1. Acute kidney injury superimposed on chronic kidney disease: Kidney function is improving nicely and she has no uremic symptoms. At this point, she has no need for dialysis. 2. Hypokalemia: This is related to diuretic use and likely to improve with oral supplement. 3. Chronic diastolic congestive heart failure: Her volume status seems reasonably well compensated and I am changing her fluid restriction to 2,000 mL per day as patient insists that 1,500 cc is not enough for her. 4. Anemia: No private branch exchange operator last 24 hours and no active bleeding. Anemia is stable at this point. We will continue to monitor her closely. She has received iron and there is no emergent indication at this point.
--- NOTE | 2020-01-29 16:24 | IPNPDOC ---
Text Note Date of Service The patient was seen on 01/29/20. NOTE SUBJECTIVE: -No acute complaints overnight. -Denies chest pain, incr shortness of breath, n/v. -Afebrile -Did much better with PT yesterday, improved exertional tachycardia OBJECTIVE: VS: Please see below CONSTITUTIONAL: No acute distress, resting in chair, AAO x 3, morbidly obese, much more conversational with each day EYES: PERRLA, EOM intact, slight exophthalmos HENT, MOUTH: Normocephalic, atraumatic, moist mucous membranes, right IJ in place NECK: SUPPLE, no JVD, no lymphadenopathy, no carotid bruit CV: irregularly irregular rhythm, currently rate controlled , S1S2 normal, no murmurs/rubs/gallops RESPIRATORY: Clear to auscultation bilaterally, no rales/rhonchi/wheezes GI: obese abd, BS positive in 4 quadrants, soft, nontender, nondistended, no rebound or guarding, no organomegaly MUSCULOSKELETAL: Normal ROM. No cyanosis, clubbing, swelling, joint deformity, +1 extremity edema SKIN: Multiple b/l lower ext wounds, no drainage. Wound on the right upper thigh, appears clean. Intertrigo in abdominal folds much improved NEUROLOGIC: Cranial Nerves II-XII are intact, no focal deficits PSYCHIATRIC: Mood and affect are normal LABORATORY DATA: reviewed K 3.4 (repleted) Cr 1.81 Na 140 WBC 7.4 hgb 8.3 MICROBIOLOGY: BCx x 2 sets: NG UCx: E. faecalis, pansensitives except to tetracyclines MRSA positive C. diff: neg GI panel: negative IMAGING: Echocardiogram 01/21/20: 1. Normal global left ventricular systolic function. Assessment of the left ventricular diastolic function was not conclusive. 2. Mildly dilated left atrium with trace mitral regurgitation. 3. Trace pericardial effusion. 4. The inferior vena cava was mildly enlarged, noted subjectively. 5. The right heart chambers were not well visualized. CT abd/pelvis: No acute abdominal or pelvic abnormality. Prominent deneen aorta, mesenteric and pelvic lymph nodes. Etiology infectious/inflammatory. CT chest without contrast: No acute abnormality. Echocardiogram 07/2016: 1. Study is of fair technical quality. 2. Normal LV size with severe global hypokinesis and flattening of interventricular septum. Overall estimated EF 30-35%. 3. Dilated hypokinetic right ventricle. 4. Severe biatrial enlargement. 5. Approximately moderate mitral insufficiency. 6. Approximately moderate tricuspid insufficiency. 7. Very high central venous pressure. 8. At least moderately severe pulmonary hypertension. 9. Left pleural effusion with presence of mass, potentially representing thrombus or collapsed lobe. ASSESSMENT: 54-year-old female with past medical history of HFrEF (EF 30-35%), atrial fibrillation on dabigitran, hypothyroidism, HLD, lower ext cellulitis on doxycycline o/p, HTN, atrial fibrillation admitted to ICU for sepsis with shock 2/2 to UTI and possibly cellulitis, dehydration 2/2 to diarrhea, JEREMY 2/2 to dehydration, hypovolemia, hypothermia and hyperkalemia 2/2 to JEREMY. PLAN: # Acute kidney injury -Cr stably improved -s/p CRRT stopped 01/22/20 -Replace lytes PRN, daily labs -Nephrology following closely and diuresing as clinically indicated PRN, currently making adequate amounts of urine # Sepsis 2/2 to UTI vs. cellulitis vs. infectious diarrhea? Resolved shock. -At presentation had WBC 12.8K, HR >90 intermittently,+ UA. LA wnl -C. diff neg -BCx NG -UCx: E. faecalis -GI panel negative -s/p 6d of ceftriaxone and 7d of vancomycin -Continue doxy 100mg BID for improving cellulitis likely MRSA. Did not dc on 01/27, to dc today -UTI was treated to completion s/p ceftriaxone and vanc -Telemetry for persisting exertional tachycardia -DC [place] #Left pleural effusion with presence of ?mass, potentially representing thrombus or collapsed lobe. -Seen on echocardiogram above -CT chest from admission does not comment on this -Discussed findings with Dr. Harris, pulmonary who was consulted. Perhaps area seen is just pleural effusion, atelectatic lung or developing PNA. She has been on ceftriaxone and vancomycin since admission which should cover PNA. -Incentive spirometer -diuresis per nephrology #Severe hypothyroidism s/p thyroid ablation for hyperthyroidism. -TSH 11/11/24 was 32, on admission 57.5 -Low T3, free T4 also -Given 200 mcg IV levothyroxine and started on 150 mcg daily after, now on 100m cg QD -Dr. Parks discussed her case with Dr. Nye, endocrinology who recommended to continue treatment above. -C/w Cytomel BID, f/u free T4, total T3 Q3 days to determine if to continue. Watching for overcorrection, thus far normalized. #Coagulopathy, supratherapeutic INR and PTT likely 2/2 to use of dabigatran in presence of worsening renal failure- improving -PT/PTT now normalized -Had been on dabigatran at home, no VKA or warfarin, and had epistaxis and found to be coagulopathic on labs s/p praxbind -No elevation of AST/ALT or history of hepatic disease -LDH, ferritin, d dimer all elevated -Peripheral smear: Microcytic hypochromic anemia, Leukocytosis associated with neutrophilia, -Platelet count within normal limits, No blasts are identified -Discussed with Dr. Cruz, hematology--> who recommended placing her on warfarin with close INR checks to keep it between 2 and 3, with the thought that anti-Xa activity cannot be checked on a regular basis and bleeding tendency cannot be checked on dabigatran, rivaroxaban or apixaban and going back on dabigatran, rivaroxaban or apixaban may cause the same issue of unmonitored coagulopathy. -Continue warfarin 5mg daily with daily INR checks #Acute hypocalcemia with secondary hyperparathyroidism, Vitamin D deficiency -S/p multiple calcium gluconate this admission, ionized calcium remains low -Given calcium gluconate, now on calcitriol per renal -Following lytes daily #HFrEF, acute on chronic exacerbation -Exam with evidence of fluid overload -BNP 1720 on admission; however, she is chronically elevated. -New echo above with abnormal findings listed above. -Nephrology onboard, diuresing PRN and placed her on fluid restriction #Hypotension likely multifactorial to septic shock, hypovolemia 2/2 to dehydration from diarrhea, diuretic use. -BP stable -Resolved diarrhea, has not been on antihypertensives/diuretics (lasix, ACEi/ARB, BB and spironolactone) this admission -AM and PM cortisol elevated, however in the setting of acute illness and stress dose steroids. -Patient would benefit from o/p f/u with endocrine to further assess for adrenal insufficiency #Chronic trial fibrillation -Rate controlled -Held dabigitran on admission -continue BB -c/w warfarin at 5mg daily -daily coags -goal INR 2-3 -Monitor on tele. #Diarrhea r/o infectious cause- resolved but workup continues -C. diff neg -GI panel pending -BCx NG #GI px -PPI #DVTpx -SCDs. teds. warfarin was started # JOSHUA: -Getting Venofer per nephrology Resolved issues: # Hypothermia 2/2 to sepsis #Epistaxis likely 2/2 to coagulopathy from dabigatran vs. other cause #Hyponatremia likely 2/2 to hypovolemia, JEREMY #Hyperkalemia likely 2/2 to JEREMY # Anion gap metabolic acidosis likely 2/2 to sepsis, uremia DISPOSITION: Condition slowly improving. PT/OT when acute medical issues stabilize. VS,Fishbone, I+O VS, Fishbone, I+O Laboratory Tests 01/29/20 05:33 Vital Signs Date Time Temp Pulse Resp B/P (MAP) Pulse Ox O2 Delivery O2 Flow Rate FiO2 01/29/20 06:00 96.9 91 20 112/75 (87) 96 Room Air I&O- Last 24 Hours up to 6 AM 01/29/20 06:00 Intake Total 1230 ml Output Total 2425 ml Balance -1195 ml BRANDON SR MD Jan 29, 2020 09:11
[2020-01-29] MEDS: WARFARIN SOD 5MG TAB PO SCH (16:57)
[2020-01-29 22:00] VITALS: BP 118/74
[2020-01-30] MEDS: LEVOTHYROXINE 100MCG TABLET (0.1MG) PO SCH (05:16)
[2020-01-30] MEDS: SLF 3 ML SYR IV SCH ×3 (05:16→22:00)
[2020-01-30 06:00] VITALS: BP 123/73
[2020-01-30 06:52] LABS: HEMATOCRIT 27.3 % (36.0-47.0); HEMOGLOBIN 8.2 g/dl (12.0-15.5); MEAN CORPUSCULAR HEMOGLOBIN 25.7 pg (27.0-33.0); MEAN CORPUSCULAR VOLUME 85.6 fl (80.0-96.0); PLATELET COUNT, AUTOMATED 187 10^3/uL (150-450); RED BLOOD COUNT 3.19 10^6/uL (4.00-5.40); WHITE BLOOD COUNT 6.1 10^3/uL (4.0-10.0)
[2020-01-30 07:13] LABS: CALCIUM LEVEL 8.5 MG/DL (8.5-10.1); CREATININE FOR GFR 1.77 MG/DL (0.55-1.30); GLOMERULAR FILTRATION RATE 31.8 (>51); POTASSIUM SERUM 3.4 MEQ/L (3.5-5.1)
[2020-01-30 08:22] LABS: MAGNESIUM LEVEL 1.7 MG/DL (1.8-2.4)
[2020-01-30] MEDS: CHLORHEXIDINE GLUCONATE 0.12 % 15ML UDC (PERIDEX ORAL RINSE) MT SCH ×2 (10:00→20:31)
[2020-01-30] MEDS: VITAMIN D 1,000 INTERNATIONAL UNITS TABLET PO SCH (10:00)
[2020-01-30] MEDS: METOPROLOL SUCC *XL* 25MG TAB (TopROL *XL*) PO SCH (10:01)
[2020-01-30] MEDS: CALCITRIOL 0.25 MCG CAP (S0169) PO SCH (10:01)
[2020-01-30] MEDS: PANTOPRAZOLE 40MG TAB (PROTONIX) PO SCH (10:01)
[2020-01-30] MEDS: LIOTHYRONINE 25 MCG TAB PO SCH ×2 (10:01→20:30)
[2020-01-30] MEDS: FUROSEMIDE 40MG/4ML VIAL (J1940) IV SCH (10:03)
[2020-01-30] MEDS: NYSTATIN 100,000 UNITS/GM TOPICAL PWD 15 GM TOP SCH ×2 (10:04→20:30)
[2020-01-30] MEDS: VANICREAM MOISTURIZING SKIN CREAM 113GM TUBE TOP SCH ×2 (10:04→20:31)
[2020-01-30] MEDS ORDERED: POTASSIUM CHLORIDE 10 MEQ SR TABLET PO ONE (11:00)
[2020-01-30] MEDS ORDERED: MAGNESIUM OXIDE 400 MG TAB (MAG-OX) PO ONE (11:00)
[2020-01-30] MEDS: SPIRONOLACTONE 25 MG TAB PO SCH (13:13)
[2020-01-30 14:00] VITALS: BP 122/73
--- NOTE | 2020-01-30 15:52 | IPN ---
PROGRESS NOTE DATE: 01/30/2020 SUBJECTIVE: Ms. Varghese is seen this morning on her bedside. She is laying in the bed today and reports feeling well. She denies any nausea or vomiting. She walked to the bathroom and denies any dyspnea or chest pain. PHYSICAL EXAMINATION: Temperature 98.3 degrees Fahrenheit, heart rate 88 per minute and respiratory rate 20 per minute. Blood pressure 124/73 mmHg and oxygen saturation 96% on room air. Head is atraumatic. Neck is supple and jugular venous distention (JVD) difficult to be assessed. I removed the dressing from the right side of her neck where she had hemodialysis catheter removed a few days ago. The site is without any signs of infection or bleeding. Heart sounds are irregular and lungs clear to auscultation. Abdomen: Obese, soft and nontender and bowel sounds are normal. Extremities without any cyanosis or clubbing. Left leg wound is covered with dressing. Neurologically, she is awake, alert and oriented times 3. LABORATORY: Today's labs show white blood cell count 6.1, hemoglobin 8.2 and hematocrit 27.3. Sodium 140, potassium 3.4, Co2 33, BUN 30 and creatinine 1.77. Calcium 8.5 and magnesium 1.7. PROBLEMS: 1. Acute kidney injury superimposed on chronic kidney disease, Kidney function is essentially unchanged. She has no uremic symptoms and electrolytes are stable. We will continue to monitor her kidney function at this point. 2. Congestive heart failure. Her volume status is clinically reasonably well compensated. She has known history of diastolic congestive heart failure and her fluid restriction has been changed to 2000 ml per day. Her diuretic will be continued once a day. 3. Hypokalemia. It is unchanged. She is now on spironolactone and also she is ordered potassium supplement. 4. Chronic atrial fibrillation. Ventricular rate is well controlled and no changes are needed at this point. 5. Anemia. She does have significant anemia with hemoglobin only 8.2. She was also noticed to have iron deficiency on January 25 and should continue with iron supplements.
[2020-01-30] MEDS: WARFARIN SOD 5MG TAB PO SCH (16:23)
--- NOTE | 2020-01-30 17:54 | IPNPDOC ---
Text Note Date of Service The patient was seen on 01/30/20. NOTE SUBJECTIVE: -No acute complaints overnight. -Denies chest pain, incr shortness of breath, n/v. -Afebrile -Sitting up in chair, conversational OBJECTIVE: VS: Please see below CONSTITUTIONAL: No acute distress, morbidly obese EYES: PERRLA, EOM intact, slight exophthalmos HENT, MOUTH: Normocephalic, atraumatic, moist mucous membranes, right IJ in place NECK: SUPPLE, no JVD, no lymphadenopathy, no carotid bruit CV: irregularly irregular rhythm, currently rate controlled , S1S2 normal, no murmurs/rubs/gallops RESPIRATORY: Clear to auscultation bilaterally, no rales/rhonchi/wheezes GI: obese abd, BS positive in 4 quadrants, soft, nontender, nondistended, no rebound or guarding, no organomegaly Extremities: dependent LE edema, much improved from prior SKIN: Multiple b/l lower ext wounds, no drainage. Wound on the right upper thigh, appears clean. Intertrigo in abdominal folds much improved NEUROLOGIC: Cranial Nerves II-XII are intact, no focal deficits PSYCHIATRIC: Mood and affect are normal LABORATORY DATA: reviewed K 3.4 (repleted) Cr 1.77 Na 140 WBC 6.1 hgb 8.7 MICROBIOLOGY: BCx x 2 sets: NG UCx: E. faecalis, pansensitives except to tetracyclines MRSA positive C. diff: neg GI panel: negative IMAGING: Echocardiogram 01/21/20: 1. Normal global left ventricular systolic function. Assessment of the left ventricular diastolic function was not conclusive. 2. Mildly dilated left atrium with trace mitral regurgitation. 3. Trace pericardial effusion. 4. The inferior vena cava was mildly enlarged, noted subjectively. 5. The right heart chambers were not well visualized. CT abd/pelvis: No acute abdominal or pelvic abnormality. Prominent deneen aorta, mesenteric and pelvic lymph nodes. Etiology infectious/inflammatory. CT chest without contrast: No acute abnormality. Echocardiogram 07/2016: 1. Study is of fair technical quality. 2. Normal LV size with severe global hypokinesis and flattening of interventricular septum. Overall estimated EF 30-35%. 3. Dilated hypokinetic right ventricle. 4. Severe biatrial enlargement. 5. Approximately moderate mitral insufficiency. 6. Approximately moderate tricuspid insufficiency. 7. Very high central venous pressure. 8. At least moderately severe pulmonary hypertension. 9. Left pleural effusion with presence of mass, potentially representing thrombus or collapsed lobe. ASSESSMENT: 54-year-old female with past medical history of HFrEF (EF 30-35%), atrial fibrillation on dabigitran, hypothyroidism, HLD, lower ext cellulitis on doxycycline o/p, HTN, atrial fibrillation admitted to ICU for sepsis with shock 2/2 to UTI and cellulitis, dehydration 2/2 to diarrhea, JEREMY 2/2 to dehydration, hypovolemia, hypothermia and hyperkalemia 2/2 to JEREMY. PLAN: # Acute kidney injury -Cr stably improved -s/p CRRT stopped 01/22/20 -Replace lytes PRN, daily labs -Nephrology following closely and diuresing as clinically indicated PRN, currently making adequate amounts of urine. Started on lasix 40mg PO daily # Sepsis 2/2 to UTI vs. cellulitis vs. infectious diarrhea? Resolved shock. -At presentation had WBC 12.8K, HR >90 intermittently,+ UA. LA wnl -C. diff neg -BCx NG -UCx: E. faecalis -GI panel negative -s/p 6d of ceftriaxone and 7d of vancomycin -UTI was treated to completion s/p ceftriaxone and vanc -Telemetry for persisting exertional tachycardia -DC [place] #Left pleural effusion with presence of ?mass, potentially representing thrombus or collapsed lobe. -Seen on echocardiogram above -CT chest from admission does not comment on this -Discussed findings with Dr. Harris, pulmonary who was consulted. Perhaps area seen is just pleural effusion, atelectatic lung or developing PNA. She has been on ceftriaxone and vancomycin since admission which should cover PNA. -Incentive spirometer -diuresis per nephrology #Severe hypothyroidism s/p thyroid ablation for hyperthyroidism. -TSH 11/11/24 was 32, on admission 57.5 -Low T3, free T4 also -Given 200 mcg IV levothyroxine and started on 150 mcg daily after, now on 100mcg QD -Dr. Parks discussed her case with Dr. Nye, endocrinology who recommended to continue treatment above. -C/w Cytomel BID, f/u free T4, total T3 Q3 days to determine if to continue. Watching for overcorrection, thus far normalized. #Coagulopathy, supratherapeutic INR and PTT likely 2/2 to use of dabigatran in presence of worsening renal failure- improving -PT/PTT now normalized -Had been on dabigatran at home, no VKA or warfarin, and had epistaxis and found to be coagulopathic on labs s/p praxbind -No elevation of AST/ALT or history of hepatic disease -LDH, ferritin, d dimer all elevated -Peripheral smear: Microcytic hypochromic anemia, Leukocytosis associated with neutrophilia, -Platelet count within normal limits, No blasts are identified -Discussed with Dr. Cruz, hematology--> who recommended placing her on warfarin with close INR checks to keep it between 2 and 3, with the thought that anti-Xa activity cannot be checked on a regular basis and bleeding tendency cannot be checked on dabigatran, rivaroxaban or apixaban and going back on dabigatran, rivaroxaban or apixaban may cause the same issue of unmonitored coagulopathy. -Continue warfarin 5mg daily with daily INR checks #Acute hypocalcemia with secondary hyperparathyroidism, Vitamin D deficiency -S/p multiple calcium gluconate this admission, ionized calcium remains low -Given calcium gluconate, now on calcitriol per renal -Following lytes daily #HFrEF, acute on chronic exacerbation -Exam with evidence of fluid overload -BNP 1720 on admission; however, she is chronically elevated. -New echo above with abnormal findings listed above. -Nephrology onboard, diuresing PRN and placed her on fluid restriction #Hypotension likely multifactorial to septic shock, hypovolemia 2/2 to dehydration from diarrhea, diuretic use. -BP stable -Resolved diarrhea, has not been on antihypertensives/diuretics (lasix, ACEi/ARB, BB and spironolactone) this admission -AM and PM cortisol elevated, however in the setting of acute illness and stress dose steroids. -Patient would benefit from o/p f/u with endocrine to further assess for adrenal insufficiency #Chronic trial fibrillation -Rate controlled -Held dabigitran on admission -continue BB -c/w warfarin at 5mg daily -daily coags -goal INR 2-3 -Monitor on tele. #Diarrhea r/o infectious cause- resolved but workup continues -C. diff neg -GI panel pending -BCx NG #GI px -PPI #DVTpx -SCDs. teds. warfarin was started # JOSHUA: -Getting Venofer per nephrology Resolved issues: # Hypothermia 2/2 to sepsis #Epistaxis likely 2/2 to coagulopathy from dabigatran vs. other cause #Hyponatremia likely 2/2 to hypovolemia, JEREMY #Hyperkalemia likely 2/2 to JEREMY # Anion gap metabolic acidosis likely 2/2 to sepsis, uremia DISPOSITION: Clinically improving. Ongoing PT/OT. VS,Fishbone, I+O VS, Fishbone, I+O Laboratory Tests 01/30/20 06:00 Vital Signs Date Time Temp Pulse Resp B/P (MAP) Pulse Ox O2 Delivery O2 Flow Rate FiO2 01/30/20 14:00 98.0 86 19 122/73 (89) 96 Room Air I&O- Last 24 Hours up to 6 AM 01/30/20 05:59 Intake Total 810 ml Output Total 2150 ml Balance -1340 ml BRANDON SR MD Jan 30, 2020 17:54
[2020-01-30 22:00] VITALS: BP 124/75
[2020-01-31] MEDS: LEVOTHYROXINE 100MCG TABLET (0.1MG) PO SCH (05:26)
[2020-01-31] MEDS: SLF 3 ML SYR IV SCH ×2 (05:26→13:08)
[2020-01-31 06:00] VITALS: BP 118/74
[2020-01-31 06:28] LABS: HEMATOCRIT 27.6 % (36.0-47.0); HEMOGLOBIN 8.4 g/dl (12.0-15.5); MEAN CORPUSCULAR HEMOGLOBIN 26.1 pg (27.0-33.0); MEAN CORPUSCULAR HGB CONC 30.4 g/dl (32.0-36.5); MEAN CORPUSCULAR VOLUME 85.7 fl (80.0-96.0); PLATELET COUNT, AUTOMATED 181 10^3/uL (150-450); RED BLOOD COUNT 3.22 10^6/uL (4.00-5.40); WHITE BLOOD COUNT 5.8 10^3/uL (4.0-10.0)
[2020-01-31 06:56] LABS: CALCIUM LEVEL 8.7 MG/DL (8.5-10.1); CREATININE FOR GFR 1.66 MG/DL (0.55-1.30); GLOMERULAR FILTRATION RATE 34.3 (>51); MAGNESIUM LEVEL 1.8 MG/DL (1.8-2.4); POTASSIUM SERUM 3.5 MEQ/L (3.5-5.1)
[2020-01-31] MEDS ORDERED: POTASSIUM CHLORIDE 10 MEQ SR TABLET PO ONE (09:00)
[2020-01-31] MEDS ORDERED: FUROSEMIDE 40 MG TAB PO SCH (09:00)
[2020-01-31] MEDS: PANTOPRAZOLE 40MG TAB (PROTONIX) PO SCH (09:18)
[2020-01-31] MEDS: LIOTHYRONINE 25 MCG TAB PO SCH (09:18)
[2020-01-31] MEDS: CALCITRIOL 0.25 MCG CAP (S0169) PO SCH (09:19)
[2020-01-31 09:20] VITALS: BP 120/73
[2020-01-31] MEDS: METOPROLOL SUCC *XL* 25MG TAB (TopROL *XL*) PO SCH (09:20)
[2020-01-31] MEDS: VITAMIN D 1,000 INTERNATIONAL UNITS TABLET PO SCH (09:20)
[2020-01-31] MEDS: SPIRONOLACTONE 25 MG TAB PO SCH (09:20)
[2020-01-31] MEDS: CHLORHEXIDINE GLUCONATE 0.12 % 15ML UDC (PERIDEX ORAL RINSE) MT SCH (09:20)
[2020-01-31] MEDS: NYSTATIN 100,000 UNITS/GM TOPICAL PWD 15 GM TOP SCH (09:21)
[2020-01-31] MEDS: VANICREAM MOISTURIZING SKIN CREAM 113GM TUBE TOP SCH (09:22)
[2020-01-31] MEDS ORDERED: ALDA25TA2 PO (12:49)
[2020-01-31] MEDS ORDERED: LEVO100T5 PO (12:49)
[2020-01-31] MEDS ORDERED: CALC1CAP31 PO (12:49)
[2020-01-31] MEDS ORDERED: VANI1CRE5 TOP (12:49)
[2020-01-31] MEDS ORDERED: JANT5TAB PO (12:49)
[2020-01-31] MEDS ORDERED: CYTO25TA6 PO (12:49)
[2020-01-31] MEDS ORDERED: FURO40TA2 PO (12:49)
[2020-01-31] MEDS ORDERED: NYST10006 TOP (12:49)
[2020-01-31] MEDS ORDERED: CHOL25TA2 PO (12:49)
[2020-01-31] MEDS ORDERED: PANT40TA29 PO (12:49)
--- NOTE | 2020-01-31 14:40 | DS.PDOC ---
Discharge Summary General Date of Admission Jan 20, 2020 at 16:12 Date of Discharge 01/31/2020 Attending Physician: BRANDON SR MD Discharge Summary PROCEDURES PERFORMED DURING STAY: None ADMITTING DIAGNOSES: 1. Severe sepsos 2/2 to UTI and cellulitis 3. Coagulopathy on dabigatran with epistaxis 3. Severe JEREMY 4. Hyperkalemia 5. Dehydration 2/2 to diarrhea DISCHARGE DIAGNOSES: Septic R thigh cellulitis Acute on chronic HFrEF (EF 30-35%) Chronic atrial fibrillation c/b RVR during sepsis Severe hypothyroidism HLD HTN Chronic lower ext wounds b/l Severe metabolic acidosis in the setting of severe JEREMY COMPLICATIONS/CHIEF COMPLAINT: Bleeding Sepsis. HISTORY OF PRESENT ILLNESS: 54-year-old W with past medical history of HFrEF (EF 30-35%), atrial fibrillation previously on dabigitran, hypothyroidism, HLD, lower ext cellulitis on doxycycline o/p, HTN, atrial fibrillation who presented to [facility] ER with chief complaint of increased SOB, diarrhea. The patient reported a week of increased shortness of breath, with fevers, chills, dizziness, cough, chest julien n, increased lethargy, decreased appetite, tremoring of the upper extremities. She then developed diarrhea, nonbloody, 45 times per day, without abdominal pain, medication changes, diet changes, sick contacts. She had been on an extended treatment regimen of doxycycline for "weeks" for lower extremity cellulitis which has not significantly improved. She was found by a friend covered in dried feces and was brought to the ER for further evaluation. HOSPITAL COURSE: In the ED, VS showed T 95.1 F (repeat 94.7F), HR 86 in atrial fib, RR 18, BP 91/57, 100% on 2-3 L NC. Patient does not wear O2 at baseline. She had dark/dried blood in her oral cavity, upon inspection this did not appear to be 2/2 to bite/trauma to the head. When asked to cough, she produced bright red blood upon coughing. Patient had multiple lower ext skin ulcers, appeared well healing. She also had groin, upper leg cellulitis with a wound on her upper right thigh. She had a macular rash on her abd/upper ext. Abnormal labs included: K 7.1, Cr 17.20, BUN 184, WBC 19.6, BNP 1720 ( in 10/2019 was 454 but prior to that she is chronically elevated at over 1500), H/H 10 (baseline 10.3/11.5). She was given calcium gluconate, 10 U regular insulin, Amp D50, 1 amp sodium bicarb, IV ceftriaxone. ABG: pH 7.264 / pCO2 29.3 / pO2 102.6 / HCO3 13. CT abd/pelvis: No acute abdominal or pelvic abnormality, prominent deneen aorta, mesenteric and pelvic lymph nodes-etiology infectious/inflammatory. CT chest without contrast: No acute abnormality. Webster was placed and very little urine came out. UA + for UTI, UCx and blood cultures collected/sent. She was given 500 cc bolus, 1000 cc bolus and started on IVF at 100 cc/hr. BP remained low and patient was started on third liter bolus. Nephrology evaluated and by then patient was making some urine. Decision was made to not initiate CRRT and c/w fluid resuscitation, starting on bicarb gtt. Potassium improved to 6.4 and the decision was made to not treat with additional meds. Blood in mouth and posterior nares was believed to be 2/2 to prior epistaxis episode possible earlier in the evening and not GI bleed. Patient was admitted to ICU for septic shock 2/2 to UTI and possibly cellulitis, dehydration 2/2 to diarrhea, JEREMY 2/2 to dehydration, hypovolemia, hypothermia 2/2 to sepsis,hyperkalemia 2/2 to JEREMY. She was treated with ceftriaxone, vanc and eventually doxycyline for a total of 8 days for Entercoccus fecalis UTI and MRSA cellulitis. While in the ICU, she had a TLC placed and had CRRT until 01/22/2020, and received aggressive IVF for severe dehydration and hypotension. Her course was c/b noted severe hypothyroidism i/s/o history of ablation for hyperthyroidism an d conversation with endocrine resulted in her starting levothyroxine 100mcg QD and cytomel. I am referring her to endocrinology for hypothyroidism continued optimization. Her course was c/b RVR in the setting of sepsis that was managed by cardiology and resolved. Given the severe sepsis and aggressive fluid repletion, she ultimately also had an acute CHF exacerbation for which she received diuresis with improvement and will be dischaged on lasix 40mg daily with plan to follow up in renal clinic. She worked with PT and eventually was cleared for safe home discharge. DISCHARGE MEDICATIONS: Please see below. ALLERGIES: Please see below. PHYSICAL EXAMINATION ON DISCHARGE: VS: Please see below CONSTITUTIONAL: No acute distress, morbidly obese EYES: PERRLA, EOM intact, mild exophthalmos HENT, MOUTH: Normocephalic, atraumatic, moist mucous membranes, right IJ in place NECK: SUPPLE, no JVD, no lymphadenopathy, no carotid bruit CV: irregularly irregular rhythm, currently rate controlled , S1S2 normal, no murmurs/rubs/gallops RESPIRATORY: Clear to auscultation bilaterally, no rales/rhonchi/wheezes GI: obese abd, BS positive in 4 quadrants, soft, nontender, nondistended, no rebound or guarding, no organomegaly Extremities: dependent LE edema, much improved from prior SKIN: Multiple b/l lower ext wounds, no drainage. Wound on the right upper thigh, appears clean. Intertrigo in abdominal folds much improved NEUROLOGIC: Cranial Nerves II-XII are intact, no focal deficits PSYCHIATRIC: Mood and affect are normal LABORATORY DATA: Please see below. IMAGING: Echocardiogram 01/21/20: 1. Normal global left ventricular systolic function. Assessment of the left ventricular diastolic function was not conclusive. 2. Mildly dilated left atrium with trace mitral regurgitation. 3. Trace pericardial effusion. 4. The inferior vena cava was mildly enlarged, noted subjectively. 5. The right heart chambers were not well visualized. CT abd/pelvis: No acute abdominal or pelvic abnormality. Prominent deneen aorta, mesenteric and pelvic lymph nodes. Etiology infectious/inflammatory. CT chest without contrast: No acute abnormality. Echocardiogram 07/2016: 1. Study is of fair technical quality. 2. Normal LV size with severe global hypokinesis and flattening of interventr icular septum. Overall estimated EF 30-35%. 3. Dilated hypokinetic right ventricle. 4. Severe biatrial enlargement. 5. Approximately moderate mitral insufficiency. 6. Approximately moderate tricuspid insufficiency. 7. Very high central venous pressure. 8. At least moderately severe pulmonary hypertension. 9. Left pleural effusion with presence of mass, potentially representing thrombus or collapsed lobe. PROGNOSIS: Good ACTIVITY: As tolerated. DIET: regular diet DISCHARGE PLAN: Home DISPOSITION: Home DISCHARGE INSTRUCTIONS: 1. Home with nephrology, PCP and cardiology follow up. Referring to endocrinology. ITEMS TO FOLLOWUP ON ON OUTPATIENT: 1. Hypothyroidism - referral to endocrinology 2. CHF 3. Chronic Afin 4. Deconditioning 5.JEREMY resolution DISCHARGE CONDITION: Stable TIME SPENT ON DISCHARGE: 54 minutes. Vital Signs/I&Os Vital Signs Date Time Temp Pulse Resp B/P (MAP) Pulse Ox O2 Delivery O2 Flow Rate FiO2 01/31/20 09:20 120/73 01/31/20 06:00 98.0 95 20 93 Room Air I&O- Last 24 Hours up to 6 AM 01/31/20 06:00 Intake Total 1565 ml Output Total 1100 ml Balance 465 ml Laboratory Data Labs 24H Laboratory Tests 2 01/31/20 05:51: Nucleated Red Blood Cells % (auto) 0.0, Anion Gap 3L, Glomerular Filtration Rate 34.3L, Calcium Level 8.7, Magnesium Level 1.8 CBC/BMP Laboratory Tests 01/31/20 05:51 Microbiology Microbiology 01/21/20 Campylobacter (PCR) - Final, Complete 01/21/20 Clostridium difficile Toxin A&B PCR - Final, Complete 01/21/20 Plesiomonas shigelloides (PCR) - Final, Complete 01/21/20 Salmonella (PCR)(AMELIA) - Final, Complete 01/21/20 Vibrio Species (PCR) - Final, Complete 01/21/20 Vibrio Cholerae (PCR) - Final, Complete 01/21/20 Yersinia enterocolitica (PCR) - Final, Complete 01/21/20 Enteroaggregative E. coli (PCR) - Final, Complete 01/21/20 Enteropathogenic E. coli (PCR) - Final, Complete 01/21/20 Enterotoxigenic E. coli (PCR) - Final, Complete 01/21/20 E. coli Shiga-like Toxin (PCR) - Final, Complete 01/21/20 Escherichia coli 0157 (PCR) - Final, Complete 01/21/20 Enteroinvasive E. coli/Shigella PCR - Final, Complete 01/21/20 Cryptosporidium (PCR) - Final, Complete 01/21/20 Cyclospora cayetanensis (PCR) - Final, Complete 01/21/20 Entamoeba histolytica (PCR) - Final, Complete 01/21/20 Giardia lamblia (PCR) - Final, Complete 01/21/20 Adenovirus Type F 40/41 (PCR) - Final, Complete 01/21/20 Astrovirus (PCR) - Final, Complete 01/21/20 Norovirus GI/GII (PCR) - Final, Complete 01/21/20 Rotavirus A (PCR) - Final, Complete 01/21/20 Sapovirus I/II/IV/V (PCR) - Final, Complete Discharge Medications Scheduled Calcitriol (Calcitriol) 0.25 Mcg Capsule, 0.25 MCG PO DAILY Cholecalciferol (Vitamin D3) (Vitamin D3) 25 Mcg Tablet, 2,000 UNITS PO DAILY Emollient Base (Vanicream) 453 Gm Cream..g., 1 DOSE TOP BID Furosemide (Furosemide) 40 Mg Tablet, 40 MG PO DAILY Levothyroxine Sodium (Levothyroxine Sodium) 100 Mcg Tablet, 100 MCG PO DAILY Liothyronine Sodium (Cytomel) 25 Mcg Tablet, 12.5 MCG PO BID Metoprolol Succinate (Metoprolol Succinate) 25 Mg Tab.er.24h, 25 MG PO DAILY, (Reported) Nystatin (Nystop) 60 Gm Powder, 0 DOSE TOP BID Pantoprazole Sodium (Pantoprazole Sodium) 40 Mg Tablet.dr, 40 MG PO DAILY Spironolactone (Spironolactone) 25 Mg Tablet, 25 MG PO DAILY, (Reported) Spironolactone (Aldactone) 25 Mg Tablet, 25 MG PO QAM Warfarin Sodium (Jantoven) 5 Mg Tablet, 5 MG PO DAILY@17 Miscellaneous Medications [Med Rec Comment] , (Reported) MED LIST OBTAINED FROM KELLEY MIMS NP AT [facility] Allergies Coded Allergies: Penicillins (Verified Allergy, Intermediate, HIVES, 01/20/20) aspirin (Verified Allergy, Intermediate, HIVES, 01/20/20) ibuprofen (Verified Allergy, Intermediate, HIVES, 01/20/20) BRANDON SR MD Jan 31, 2020 14:40
--- NOTE | 2020-01-31 17:10 | IPN ---
NEPHROLOGY PROGRESS NOTE DATE: 01/31/2020 SUBJECTIVE: Ms. Varghese seen this morning on her bedside. She is feeling well and wants to go home. She reports that physical therapy has cleared her for discharge. She denies any nausea, vomiting, dyspnea, chest pain, fever or chills. PHYSICAL EXAMINATION: Temperature 98 degrees Fahrenheit, heart rate 95 per minute, respiratory rate 20 per minute. Blood pressure 120/73 mmHg and oxygen saturation 93% on room air. Head: Atraumatic. Neck: Obese and JVD difficult to be assessed. Heart: Sounds are tachycardic. Lungs: Clear to auscultation. Abdomen: Obese, soft and nontender and bowel sounds are normal. Extremities: Without any cyanosis or clubbing. Left leg wound is covered with dressing. Neurologically: She is awake, alert and oriented times 3. LABORATORY DATA: Today's labs show: WBC count 5.8, hemoglobin 8.4, hematocrit 27.6, platelets 181. Sodium 140, potassium 3.5, CO2 34, BUN 25, creatinine 1.66, glucose 143 and calcium 8.7. Magnesium 1.8. PROBLEMS/PLAN: 1. Acute renal failure superimposed on chronic kidney disease: Kidney function has been stable with only mild fluctuations for the last couple of days. Her diuretic has been adjusted and she is currently on oral diuretic. Electrolytes have improved. 2. Congestive heart failure: Volume status reasonably well compensated and she should stay on fluid restriction of 2000 mL per day. She should also continue with her Lasix 40 mg daily and spironolactone 25 mg daily at discharge. 3. Hypokalemia: Potassium level slightly improved. She will be given 1 more dose of potassium chloride 40 mEq today. 4. Anemia: Her anemia has been stable and she should continue with iron supplement. This can be followed up as an outpatient. 5. Disposition: Patient can be discharged to home from a renal standpoint and follow up in the office next week.
== END 2020-01-31 15:42 | disposition home health service (06) | DRG 871 ==
LOC: M ED 13:10 → EDBD 13:10 → EDBEDREQSVC 15:25 → M ED INP 16:12 → M ICU 18:08 → M PCU 01-24 13:12 → M MSPAV 01-25 16:57
PROVIDERS: ADMIT Internal Medicine; ATTEND Internal Medicine
PROC: 02HV33Z Insertion of Infusion Device into Superior Vena Cava, Percutaneous Approach (ICD-10-PCS; principal; 2020-01-21)
PROC: 0JH63XZ Insertion of Tunneled Vascular Access Device into Chest Subcutaneous Tissue and Fascia, Percutaneous Approach (ICD-10-PCS; 2020-01-21)
PROC: 30233K1 Transfusion of Nonautologous Frozen Plasma into Peripheral Vein, Percutaneous Approach (ICD-10-PCS; 2020-01-21)
PROC: 30233N1 Transfusion of Nonautologous Red Blood Cells into Peripheral Vein, Percutaneous Approach (ICD-10-PCS; 2020-01-23)
DX: A41.9 Sepsis, unspecified organism (principal); R65.21 Severe sepsis with septic shock; N17.0 Acute kidney failure with tubular necrosis; L03.115 Cellulitis of right lower limb; L03.116 Cellulitis of left lower limb; D68.9 Coagulation defect, unspecified; E87.1 Hypo-osmolality and hyponatremia; I50.22 Chronic systolic (congestive) heart failure; I13.0 Hypertensive heart and chronic kidney disease with heart failure and stage 1 through stage 4 chronic kidney disease, or unspecified chronic kidney disease; E87.2 Acidosis; Z68.43 Body mass index [BMI] 50.0-59.9, adult; N39.0 Urinary tract infection, site not specified; D68.4 Acquired coagulation factor deficiency; E27.2 Addisonian crisis; J90 Pleural effusion, not elsewhere classified; D68.32 Hemorrhagic disorder due to extrinsic circulating anticoagulants; N25.81 Secondary hyperparathyroidism of renal origin; I48.20 Chronic atrial fibrillation, unspecified; E87.5 Hyperkalemia; N18.2 Chronic kidney disease, stage 2 (mild); E66.01 Morbid (severe) obesity due to excess calories; E03.9 Hypothyroidism, unspecified; E83.51 Hypocalcemia; Z79.899 Other long term (current) drug therapy; Z88.0 Allergy status to penicillin; Z88.6 Allergy status to analgesic agent; E86.0 Dehydration; R19.7 Diarrhea, unspecified; R04.0 Epistaxis

== ENCOUNTER → 2020-02-09 | Outpatient (REF) | payer MEDICARE, MEDICAID ==
[~2020-02-09] MED LIST changes: +ALDA25TA2 PO; +CALC1CAP31 PO; +CHOL25TA2 PO; +CYTO25TA6 PO; +FURO20TA2 PO; +FURO40TA2 PO; +JANT5TAB PO; +LEVO100T5 PO; +MED REC COMMENT; +NYST10006 TOP; +PANT40TA29 PO; +VANI1CRE5 TOP
[2020-02-09 14:19] LABS: BILIRUBIN,TOTAL 0.3 MG/DL (0.2-1.0); CREATININE FOR GFR 1.32 MG/DL (0.55-1.30); FREE T4 1.01 NG/DL (0.76-1.46); GLOMERULAR FILTRATION RATE 44.6 (>51); POTASSIUM SERUM 3.4 MEQ/L (3.5-5.1); THYROID STIMULATING HORMONE 7.59 uIU/ML (0.358-3.740); TOTAL PROTEIN 7.8 GM/DL (6.4-8.2)
[2020-02-09 14:25] LABS: HEMOGLOBIN A1c 7.2 %
== END ==
LOC: M SFHCPLAZ 09:39
PROVIDERS: ATTEND Nurse Practitioner Family
DX: I50.42 Chronic combined systolic (congestive) and diastolic (congestive) heart failure (principal); E89.0 Postprocedural hypothyroidism; R73.03 Prediabetes

== ENCOUNTER → 2020-02-15 | Outpatient (REF) | payer MEDICARE, MEDICAID ==
[2020-02-15 12:50] LABS: INR 2.14; PROTHROMBIN TIME 24.4 SECONDS (12.5-14.3)
== END ==
LOC: M SHH 11:42
PROVIDERS: ATTEND Internal Medicine Infectious Disease
DX: Z79.01 Long term (current) use of anticoagulants (principal)

== ENCOUNTER → 2020-03-13 | Outpatient (REF) | payer MEDICARE, MEDICAID ==
[2020-03-13 18:46] LABS: PERCENT SATURATION 8.4 % (13.2-45.0)
== END ==
LOC: M LAB REF 17:28
PROVIDERS: ATTEND Internal Medicine Nephrology
DX: D50.9 Iron deficiency anemia, unspecified (principal)

== ENCOUNTER → 2020-03-14 | Outpatient (REF) | payer MEDICARE, MEDICAID ==
[2020-03-14 15:42] LABS: INR 2.32
[2020-03-14 15:55] LABS: ALBUMIN 3.4 GM/DL (3.2-5.2); ALT/SGPT 17 U/L (12-78); BILIRUBIN,TOTAL 0.7 MG/DL (0.2-1.0); BLOOD UREA NITROGEN 12 MG/DL (7-18); CARBON DIOXIDE LEVEL 33 MEQ/L (21-32); CHLORIDE LEVEL 99 MEQ/L (98-107); GLOMERULAR FILTRATION RATE > 60.0 (>51); GLUCOSE, FASTING 108 MG/DL (70-100); POTASSIUM SERUM 3.6 MEQ/L (3.5-5.1); SODIUM LEVEL 141 MEQ/L (136-145)
== END ==
LOC: M SFHCPLAZ 14:04
PROVIDERS: ATTEND Nurse Practitioner Family
DX: I48.20 Chronic atrial fibrillation, unspecified (principal); E11.9 Type 2 diabetes mellitus without complications
CPT/HCPCS: 36415; 80053; 85610; G0463

== ENCOUNTER → 2020-06-26 | Outpatient (CLI) | payer MEDICARE, MEDICAID ==
[2020-06-26 17:49] LABS: BASO # 0.1 10^3/uL (0.0-0.2); BASO % 0.9 % (0.0-1.0); EOS # 0.7 10^3/uL (0.0-0.5); EOS % 5.9 % (0.0-3.0); HEMATOCRIT 40.9 % (36.0-47.0); HEMOGLOBIN 12.8 g/dl (12.0-15.5); LYMPH % 25.5 % (24.0-44.0); MEAN CORPUSCULAR HEMOGLOBIN 24.5 pg (27.0-33.0); MEAN CORPUSCULAR HGB CONC 31.3 g/dl (32.0-36.5); MEAN CORPUSCULAR VOLUME 78.4 fl (80.0-96.0); MONO % 8.3 % (2.0-8.0); NEUTROPHILS # 6.9 10^3/uL (1.5-8.5); NEUTROPHILS % 59.2 % (36.0-66.0); PLATELET COUNT, AUTOMATED 257 10^3/uL (150-450); RED BLOOD COUNT 5.22 10^6/uL (4.00-5.40); WHITE BLOOD COUNT 11.6 10^3/uL (4.0-10.0)
[2020-06-26 18:09] LABS: HEMOGLOBIN A1c 6.4 %
[2020-06-26 18:36] LABS: ALBUMIN 3.8 GM/DL (3.2-5.2); BILIRUBIN,TOTAL 0.9 MG/DL (0.2-1.0); CALCIUM LEVEL 10.3 MG/DL (8.5-10.1); CHOLESTEROL RISK RATIO 3.785 (<5); CREATININE FOR GFR 1.08 MG/DL (0.55-1.30); FREE T4 1.15 NG/DL (0.76-1.46); GLOMERULAR FILTRATION RATE 56.1 (>51); THYROID STIMULATING HORMONE 2.5 uIU/ML (0.358-3.740); TOTAL PROTEIN 8.8 GM/DL (6.4-8.2)
== END ==
LOC: M LAB 17:02
PROVIDERS: ATTEND Nurse Practitioner Family
DX: E89.0 Postprocedural hypothyroidism (principal); D50.9 Iron deficiency anemia, unspecified; E11.9 Type 2 diabetes mellitus without complications
CPT/HCPCS: 36415; 80053; 80061; 82728; 83036; 84439; 84443; 85025; 85046; G0463

== ENCOUNTER → 2020-07-31 | Outpatient (REF) | payer MEDICARE, MEDICAID ==
[~2020-07-31] MED LIST changes: +D31000TA2 PO; +FERR324T21 PO; +LEVO100T54 PO; +LIOT25TA8 PO; +OMEP-221 PO; +TORS20TA2 PO; +VITMTA PO
[2020-07-31 17:25] LABS: HEMATOCRIT 30.1 % (36.0-47.0); HEMOGLOBIN 9.2 g/dl (12.0-15.5); MEAN CORPUSCULAR HGB CONC 30.6 g/dl (32.0-36.5); MEAN CORPUSCULAR VOLUME 78.4 fl (80.0-96.0); PLATELET COUNT, AUTOMATED 443 10^3/uL (150-450); RED BLOOD COUNT 3.84 10^6/uL (4.00-5.40)
[2020-07-31 17:30] LABS: WHITE BLOOD COUNT 19.9 10^3/uL (4.0-10.0)
[2020-07-31 17:58] LABS: FREE T4 1.22 NG/DL (0.76-1.46); IMMUNOGLOBULIN M 66.3 MG/DL (40-230); THYROID STIMULATING HORMONE 1.82 uIU/ML (0.358-3.740)
[2020-07-31 18:01] LABS: ATYPICAL LYMPH 1 % (0-5); EOSINOPHILS 1 % (0-3); LYMPHOCYTES 18 % (16-44); METAMYELOCYTES 1 % (0-0); MONOCYTES 8 % (0-5); NEUTROPHILS 70 % (28-66)
[2020-07-31 18:03] LABS: MICROCYTOSIS 1+; POLYCHROMASIA 1+
[2020-07-31 18:04] LABS: PLATELET ESTIMATE INCREASED (NORMAL)
[2020-07-31 18:06] LABS: HYPOCHROMASIA 2+
[2020-07-31 18:58] LABS: ERYTHROCYTE SEDIMENTATION RATE 126 mm/hr (0-30)
[2020-08-01 08:59] LABS: ALBUMIN 2.7 GM/DL (3.2-5.2); CALCIUM LEVEL 8.6 MG/DL (8.5-10.1); CREATININE FOR GFR 1.14 MG/DL (0.55-1.30); GLOMERULAR FILTRATION RATE 52.7 (>51); PHOSPHORUS LEVEL 2.8 MG/DL (2.5-4.9); POTASSIUM SERUM 3.2 MEQ/L (3.5-5.1)
== END ==
LOC: M SFHCPLAZ 15:51
PROVIDERS: ATTEND Nurse Practitioner Family
DX: L50.9 Urticaria, unspecified (principal); E89.0 Postprocedural hypothyroidism

== ENCOUNTER 2020-08-01 09:10 | Inpatient (IN) | payer MEDICARE, MEDICAID ==
[~2020-08-01] VITALS: Ht 170.2 cm; Wt 139.4 kg
[~2020-08-01 09:10] MED LIST changes: -D31000TA2 PO; -FERR324T21 PO; +FUROSEMIDE 40MG/4ML VIAL (J1940) IV SCH; -LEVO100T54 PO; -LIOT25TA8 PO; -OMEP-221 PO; -TORS20TA2 PO; -VITMTA PO
[2020-08-01 10:37] LABS: HEMATOCRIT 27.5 % (36.0-47.0); HEMOGLOBIN 8.5 g/dl (12.0-15.5); MEAN CORPUSCULAR HEMOGLOBIN 24.6 pg (27.0-33.0); MEAN CORPUSCULAR HGB CONC 30.9 g/dl (32.0-36.5); MEAN CORPUSCULAR VOLUME 79.5 fl (80.0-96.0); PLATELET COUNT, AUTOMATED 448 10^3/uL (150-450); RED BLOOD COUNT 3.46 10^6/uL (4.00-5.40)
--- NOTE | 2020-08-01 10:46 | REP ---
INDICATION: leukocytosis COMPARISON: 01/24/2020 TECHNIQUE: Portable AP view of the chest FINDINGS: Mild cardiomegaly cannot be excluded. Evaluation is limited due to underpenetration and portable technique. Indistinct pulmonary vasculature along with hazy bilateral predominately interstitial appearing opacities are nonspecific. Differential diagnosis includes multifocal viral pneumonia as well as early pulmonary vascular congestion/edema. No obvious effusion. No pneumothorax. IMPRESSION: Findings described above. Differential diagnosis includes possible viral pneumonia and early pulmonary interstitial edema. <Electronically signed by George Herrera > 08/01/20 [id number]
[2020-08-01 10:55] LABS: WHITE BLOOD COUNT 19.9 10^3/uL (4.0-10.0)
[2020-08-01 10:58] LABS: RSV AMPLIFICATION NEGATIVE (NEGATIVE)
[2020-08-01 11:11] LABS: ALBUMIN 2.6 GM/DL (3.2-5.2); BILIRUBIN,DIRECT 0.4 MG/DL (0.0-0.2); C REACTIVE PROTEIN QUANTITATIV 22.5 MG/DL (0.00-0.30); CALCIUM LEVEL 8.7 MG/DL (8.5-10.1); CREATININE FOR GFR 1.04 MG/DL (0.55-1.30); GLOMERULAR FILTRATION RATE 58.6 (>51); POTASSIUM SERUM 3.2 MEQ/L (3.5-5.1); TOTAL PROTEIN 7.3 GM/DL (6.4-8.2)
[2020-08-01 11:16] LABS: ANISOCYTOSIS 2+; ATYPICAL LYMPH 1 % (0-5); EOSINOPHILS 2 % (0-3); LYMPHOCYTES 13 % (16-44); MICROCYTOSIS 1+; MONOCYTES 9 % (0-5); NEUTROPHILS 75 % (28-66); PLATELET ESTIMATE NORMAL (NORMAL)
[2020-08-01 11:17] LABS: HYPOCHROMASIA 1+; OVALOCYTES 1+
--- NOTE | 2020-08-01 11:34 | REP ---
INDICATION: swelling COMPARISON: 10/27/2019. TECHNIQUE: Real time compression and duplex Doppler interrogation of the left lower extremity deep venous system is performed, including the right common femoral vein.Compression of the left peroneal and posterior tibial veins is performed. FINDINGS: The left common femoral, superficial femoral and popliteal veins are fully compressible with transducer pressure and demonstrate normal spontaneous and phasic flow, without evidence of deep venous thrombosis.The right common femoral vein demonstrates no thrombus.The left peroneal and posterior tibial veins could not be visualized. Left inguinal adenopathy is noted, the largest lymph node measures 5.3 x 2.3 x 2.3 cm. IMPRESSION: No evidence of deep venous thrombosis of the left lower extremity femoral popliteal venous left inguinal adenopathy, the largest lymph node measures 5.3 x 2.3 x 2.3 cm. <Electronically signed by Gil Edwards > 08/01/20 1134
[2020-08-01] MEDS: MORPHINE 2 MG/ML 1ML VIAL (J2270) IV PRN ×2 (11:46→12:30)
[2020-08-01 11:49] LABS: ERYTHROCYTE SEDIMENTATION RATE 128 mm/hr (0-30)
[2020-08-01] MEDS ORDERED: MOM 30ML SUSPENSION UDC PO PRN (12:10)
--- NOTE | 2020-08-01 12:37 | HPEPDOC ---
[facility] Medical History & Physical Date of Admission Aug 01, 2020 Date of Service: Aug 01, 2020 History and Physical Chief complaint: Who presented to the hospital with abnormal lab work History of present illness: Patient is a 55-year-old female who presented to emergency room at the direction of her primary care provider because of abnormal lab work that was drawn yesterday. Patient reports that she had seen her primary care provider yesterday because of hives. She denies any recent changes in medications. Laboratory today had revealed leukocytosis. Patient was advised that she has a possible UTI and internal bleeding. She sent to emergency room for further raul luation. Patient is accompanied by her brother. Currently patient denies any right headedness, dizziness, chest pain, short of breath or cough. She denies any nausea, vomiting, abdominal pain or diarrhea. Her last bowel movement was today. She denies any urinary discomfort. Does experience chills. Because of her hypothyroidism/anemia as she reports, but denies any recent fevers. Patient does report left leg pain has been ongoing for the past 4 days. Reports worsening redness, swelling.. She denies any drainage from her left leg. Patient reports that she has had a history of multiple episodes of cellulitis of her lower extremities. Past Medical History: Systolic CHF (EF: 30%) Atrial fibrillation on Pradaxa HTN Dyslipidemia Hypothyroidism (s/p Thyroid ablation 2017) History of a single dialysis session LE cellulitis / Chronic LE wounds Past Surgical History: Patient denies any prior surgeries Allergies: See below Medications: See below Family History: - Father with a history of diabetes Social History: - Denies the use of alcohol, tobacco or illicit drugs - Denies recent travel or sick contacts - Lives alone and uses a walker at baseline - Occupation; patient used to work at [employer] in the past Review of Systems: 10 point review of systems complete, all negative otherwise stated in HPI Physical exam: - Vitals: BP [114/57], HR [102], RR [20], Sat [99%RA], Temp [96.9F] - General: Lying in bed, Speaking in full sentences, AAOx3 - HEENT: NC, AT, PERRLA - CVS: Tachycardic, +S1S2 - Lungs: Diminished lung sounds bilaterally faint crackles, wheezing or rhonchi - Abdomen: Soft, Non-distended, Non-tender, obese - Extremities: Bilateral lower extremity edema, left leg larger than right - Neuro: No focal motor or sensory deficit - Skin: Left leg with erythema, warmth, tenderness, no drainage appreciated Labs: See below Imaging: CXR 08/01: Findings described above. Differential diagnosis includes possible viral pneumonia and early pulmonary interstitial edema. Duplex US 08/01: No evidence of deep venous thrombosis of the left lower extremity femoral popli teal venous left inguinal adenopathy, the largest lymph node measures 5.3 x 2.3 x 2.3 cm. EKG: See below Assessment and Plan: Left leg cellulitis - History of LE cellulitis / Chronic LE wounds - Patient presented to the emergency room with left leg erythema, warmth and tenderness x 4 days - Patient is hemodynamically stable and afebrile - Leukocytosis with neutrophil predominance; elevated CRP - Will check lactic acid, ASO titers, MRSA screen, Blood cultures, UA w/ reflex - Will start Ceftaroline (re: MRSA coverage) Normocytic anemia - Patient reports that she has a history of iron deficiency anemia - She denies any blood in her stool or any dark colored stools - Patients baseline hemoglobin approximately is between 8-9 - Will check iron panel, B12, folate, reticulocyte count - Will check stool for occult blood - Will continue to trend H&H q6h - Patient has refused any EGD / Colonoscopy if required Systolic CHF (EF: 30%) - Physical reveals some lower extremity edema - Will check BNP - Imaging reviewed with evidence of vascular congestion Atrial fibrillation - Will c/w rate control with metoprolol - Will c/w Pradaxa HTN - BP well controlled - Will check lactic acid - Will likely need to resume diuretics Hypokalemia - Will supplement Dyslipidemia - c/w Hypothyroidism - s/p Thyroid ablation 2017 - c/w Levothyroxine CKD3 - Hx of a single dialysis session - Cr baseline of 1.0; currently at baseline GERD - Will c/w Protonix DVT prophylaxis - Will c/w full anticoagulation with Pradaxa Vital Signs Vital Signs Date Time Temp Pulse Resp B/P (MAP) Pulse Ox O2 Delivery O2 Flow Rate FiO2 08/01/20 12:30 20 125/58 08/01/20 09:11 96.9 102 99 Room Air Laboratory Data Labs 24H Laboratory Tests 2 08/01/20 10:07: Immature Granulocyte % (Auto) , Neutrophils (%) (Auto) , Nucleated Red Blood Cells % (auto) 0.3H, Neutrophils 75H, Lymphocytes (Manual) 13L, Monocytes (Manual) 9H, Eosinophils (Manual) 2, Atypical Lymphocytes 1, Hypochromasia 1+, Anisocytosis 2+, Microcytosis 1+, Ovalocytes 1+, Platelet Estimate NORMAL, Erythrocyte Sedimentation Rate 128H, Anion Gap 7L, Glomerular Filtration Rate 58.6, Calcium Level 8.7, Total Bilirubin 1.0, Direct Bilirubin 0.4H, Aspartate Amino Transf (AST/SGOT) 28, Alanine Aminotransferase (ALT/SGPT) 50, Alkaline Phosphatase 149H, C-Reactive Protein, Quantitative 22.50H, Total Protein 7.3, Albumin 2.6L, Albumin/Globulin Ratio 0.6L, Lipase 114 08/01/20 10:13: Coronavirus (COVID-19)(PCR) NEGATIVE, Influenza Type A (RT-PCR) NEGATIVE, Influenza Type B (RT-PCR) NEGATIVE, Respiratory Syncytial Virus (PCR) NEGATIVE 08/01/20 11:38: Urine Color YELLOW, Urine Appearance CLOUDYH, Urine pH 7.0, Urine Specific Grav ity 1.003, Urine Protein NEGATIVE, Urine Glucose (UA) NEGATIVE, Urine Ketones NEGATIVE, Urine Blood 2+H, Urine Nitrite POSITIVEH, Urine Bilirubin NEGATIVE, Urine Urobilinogen 0.2, Urine Leukocyte Esterase TRACEH, Urine WBC (Auto) 1, Urine RBC (Auto) 0, Urine Hyaline Casts (Auto) 0, Urine Bacteria (Auto) 3+H, Urine Squamous Epithelial Cells 1, Urine Sperm (Auto) CBC/BMP Laboratory Tests 08/01/20 10:07 Microbiology Microbiology 08/01/20 Urine Culture, Received Pending 08/01/20 Blood Culture, Received Pending 08/01/20 Blood Culture, Received Pending Home Medications Scheduled Calcitriol (Calcitriol) 0.25 Mcg Capsule, 0.25 MCG PO QHS Cholecalciferol (Vitamin D3) (Vitamin D3) 1,000 Unit Tablet, 5,000 UNITS PO DAILY Dabigatran Etexilate Mesylate (Pradaxa) 150 Mg Capsule, 150 MG PO BID 0500 & 1700 Emollient Base (Vanicream) 453 Gm Cream..g., 1 DOSE TOP BID APPLY TO LOWER LEGS Ferrous Gluconate (Ferrous Gluconate) 324 Mg Tablet, 324 MG PO DAILY Levothyroxine Sodium (Levoxyl) 100 Mcg Tablet, 100 MCG PO QAM Liothyronine Sodium (Liothyronine Sodium) 25 Mcg Tablet, 12.5 MCG PO BID Metoprolol Succinate (Metoprolol Succinate) 25 Mg Tab.er.24h, 25 MG PO QHS Multivitamins (Thera M Plus Tablet) 1 Each Tablet, 1 TAB PO DAILY Omeprazole (Omeprazole) 40 Mg Capsule.dr, 40 MG PO DAILY Spironolactone (Spironolactone) 25 Mg Tablet, 25 MG PO QHS Torsemide (Torsemide) 20 Mg Tablet, 40 MG PO BID Allergies Coded Allergies: Penicillins (Verified Allergy, Intermediate, HIVES, 01/20/20) aspirin (Verified Allergy, Intermediate, HIVES, 01/20/20) ibuprofen (Verified Allergy, Intermediate, HIVES, 01/20/20) Influenza Virus Vaccines (Verified Allergy, Mild, hives, 08/01/20) pneumococcal vaccine (Verified Allergy, Mild, hives, 08/01/20) ANTHONY WALKER MD Aug 01, 2020 12:37
[2020-08-01] MEDS ORDERED: LIOT25TA8 PO (12:57)
[2020-08-01] MEDS ORDERED: LEVO100T54 PO (12:57)
[2020-08-01] MEDS ORDERED: FERR324T21 PO (12:57)
[2020-08-01] MEDS ORDERED: VANI1CRE5 TOP (12:57)
[2020-08-01] MEDS ORDERED: VITMTA PO (12:57)
[2020-08-01] MEDS ORDERED: PRAD150C6 PO (12:57)
[2020-08-01] MEDS ORDERED: SPIR-10 PO (12:57)
[2020-08-01] MEDS ORDERED: TORS20TA2 PO (12:57)
[2020-08-01] MEDS ORDERED: CALC1CAP31 PO (12:57)
[2020-08-01] MEDS ORDERED: OMEP-221 PO (12:57)
[2020-08-01] MEDS ORDERED: METO1TAB32 PO (12:57)
[2020-08-01] MEDS ORDERED: D31000TA2 PO (12:57)
[2020-08-01] MEDS ORDERED: POTASSIUM CHLORIDE 10 MEQ SR TABLET PO ONE (13:00)
[2020-08-01] MEDS ORDERED: CEFTAROLINE FOSAMIL 600 MG in D5W MINI-BAG PLUS 50 ML IV ONE (13:00)
[2020-08-01 13:36] VITALS: BP 135/63
[2020-08-01] MEDS ORDERED: PILL CUTTER 1 EACH XX PRN (14:05)
[2020-08-01 14:34] LABS: INR 1.67; PROTHROMBIN TIME 20.1 SECONDS (12.5-14.3)
[2020-08-01 14:52] LABS: PERCENT SATURATION 6.6 % (13.2-45.0)
[2020-08-01 14:58] LABS: FOLATE 18.3 NG/ML (>5.4)
[2020-08-01 16:00] VITALS: BP 121/97
[2020-08-01] MEDS ORDERED: MORPHINE 2 MG/ML 1ML VIAL (J2270) IV PRN (16:00)
[2020-08-01] MEDS: DOCUSATE SODIUM 100MG CAPSULE PO SCH ×2 (17:00→20:37)
[2020-08-01] MEDS: ACETAMINOPHEN TAB 650MG DOSE (2X325MG) PO PRN (17:01)
[2020-08-01] MEDS: FUROSEMIDE 40MG/4ML VIAL (J1940) IV SCH ×2 (17:01→23:43)
[2020-08-01] MEDS: diphenhydrAMINE 25MG CAP PO PRN (17:02)
[2020-08-01 18:05] LABS: HEMATOCRIT 27.1 % (36.0-47.0); HEMOGLOBIN 8.5 g/dl (12.0-15.5)
[2020-08-01] MEDS: SPIRONOLACTONE 25 MG TAB PO SCH (19:02)
[2020-08-01 20:00] VITALS: BP 102/60
[2020-08-01] MEDS: LIOTHYRONINE 25 MCG TAB PO SCH (20:36)
[2020-08-01] MEDS: DABIGATRAN ETEXILATE 75 MG CAP (PRADAXA) PO SCH (20:36)
[2020-08-01] MEDS: VANICREAM MOISTURIZING SKIN CREAM 113GM TUBE TOP SCH (20:37)
[2020-08-01] MEDS: METOPROLOL SUCC *XL* 25MG TAB (TopROL *XL*) PO SCH (20:37)
[2020-08-01] MEDS: CALCITRIOL 0.25 MCG CAP (S0169) PO SCH (20:37)
--- NOTE | 2020-08-01 21:01 | ECGEPIP ---
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
[2020-08-01] MEDS: CEFTAROLINE FOSAMIL 600 MG in D5W MINI-BAG PLUS 50 ML IV SCH (23:43)
[2020-08-02] VITALS: BP 119/59
[2020-08-02 00:53] LABS: HEMATOCRIT 27.5 % (36.0-47.0); HEMOGLOBIN 8.6 g/dl (12.0-15.5)
[2020-08-02] MEDS: diphenhydrAMINE 25MG CAP PO PRN ×2 (02:02→09:44)
[2020-08-02 05:45] LABS: HEMATOCRIT 24.3 % (36.0-47.0); HEMOGLOBIN 7.6 g/dl (12.0-15.5); MEAN CORPUSCULAR HEMOGLOBIN 24.5 pg (27.0-33.0); MEAN CORPUSCULAR HGB CONC 31.3 g/dl (32.0-36.5); MEAN CORPUSCULAR VOLUME 78.4 fl (80.0-96.0); PLATELET COUNT, AUTOMATED 399 10^3/uL (150-450)
[2020-08-02 05:46] LABS: WHITE BLOOD COUNT 17.2 10^3/uL (4.0-10.0)
[2020-08-02] MEDS: LEVOTHYROXINE 100MCG TABLET (0.1MG) PO SCH (05:51)
[2020-08-02 06:22] LABS: BLOOD UREA NITROGEN 12 MG/DL (7-18); CALCIUM LEVEL 7.7 MG/DL (8.5-10.1); CARBON DIOXIDE LEVEL 35 MEQ/L (21-32); CHLORIDE LEVEL 98 MEQ/L (98-107); CREATININE FOR GFR 0.84 MG/DL (0.55-1.30); GLOMERULAR FILTRATION RATE > 60.0 (>51); GLUCOSE, FASTING 138 MG/DL (70-100); MAGNESIUM LEVEL 2.2 MG/DL (1.8-2.4); POTASSIUM SERUM 3.2 MEQ/L (3.5-5.1); SODIUM LEVEL 138 MEQ/L (136-145)
[2020-08-02] MEDS ORDERED: POTASSIUM CHLORIDE 10 MEQ SR TABLET PO ONE (06:55)
[2020-08-02 07:19] LABS: ATYPICAL LYMPH 3 % (0-5); EOSINOPHILS 4 % (0-3); HYPOCHROMASIA 1+; LYMPHOCYTES 18 % (16-44); MICROCYTOSIS 1+; MONOCYTES 7 % (0-5); NEUTROPHILS 68 % (28-66); PLATELET ESTIMATE NORMAL (NORMAL)
[2020-08-02 07:20] LABS: ANISOCYTOSIS 2+; POIKILOCYTOSIS 1+; POLYCHROMASIA 1+
[2020-08-02 08:00] VITALS: BP 111/57
[2020-08-02] MEDS ORDERED: FERROUS GLUCONATE 324 MG TAB PO SCH (09:00)
[2020-08-02] MEDS: FUROSEMIDE 40MG/4ML VIAL (J1940) IV SCH ×3 (09:42→23:38)
[2020-08-02] MEDS: OMEPRAZOLE 20 MG CAP PO SCH (09:43)
[2020-08-02] MEDS: VITAMIN D 1,000 INTERNATIONAL UNITS TABLET PO SCH (09:43)
[2020-08-02] MEDS: FERROUS SULFATE 325MG TAB PO SCH ×2 (09:43→21:28)
[2020-08-02] MEDS: DABIGATRAN ETEXILATE 75 MG CAP (PRADAXA) PO SCH ×2 (09:43→21:29)
[2020-08-02] MEDS: DOCUSATE SODIUM 100MG CAPSULE PO SCH ×2 (09:43→21:29)
[2020-08-02] MEDS: ACETAMINOPHEN TAB 650MG DOSE (2X325MG) PO PRN ×3 (09:44→23:37)
[2020-08-02] MEDS: MULTIVITAMINS/MINERALS THERAP 1 TAB PO SCH (09:45)
[2020-08-02] MEDS: LIOTHYRONINE 25 MCG TAB PO SCH ×2 (09:49→21:28)
[2020-08-02] MEDS: VANICREAM MOISTURIZING SKIN CREAM 113GM TUBE TOP SCH ×2 (10:03→21:29)
--- NOTE | 2020-08-02 11:04 | IPNPDOC ---
Date Seen The patient was seen on 08/02/20. Progress Note SUBJECTIVE: Siobhan was seen and examined this morning by the hospitalist service while lying upright in bed. She reports continued, diffuse pruritus, as well as left lower extremity tenderness and moderate discomfort that she feels has slightly increased actually since being admitted yesterday. She is eating and drinking without any issues. She does however feel as though she needs to urinate soon. She is yet to have a bowel movement since admission but reports voiding a couple times with no associated dysuria, suprapubic tenderness, hematuria, or flank pain. She is tolerating the intravenous ceftaroline antibiotic without any issues. Patient denies any current or overnight fever, chills, night sweats, chest pain, palpitations, shortness of breath, or abdominal pain. OBJECTIVE PHYSICAL EXAMINATION: VITAL SIGNS: Please see below. GENERAL: Somewhat anxious and mildly emotional at times obese female. No acute distress. Lying upright in bed. HEENT: Normocephalic, atraumatic. She is wearing eyeglasses. There appears to be some mild exophthalmos of the right eye. Lateral aspect of the skin of both upper and lower right eye eyelids appear somewhat asymmetric. Noninjected, anicteric sclera. Conjunctival pallor present. Oral cavity: The patient is edentulous. MMM. No pharyngeal erythema or exudate is appreciated. Neck: Wide. Supple. Trachea midline. No JVD was appreciated but accuracy may be limited due to neck habitus. CARDIOVASCULAR: Irregularly irregular rhythm, borderline tachycardic rate. Normal S1, S2. No rubs are appreciated. RESPIRATORY: Significantly diminished breath sounds diffusely with decreased tidal volume. Chest expansion is symmetric. There are some mild bibasilar crackles posteriorly. Breathing room air. Speaking full sentences. No accessory muscle use. ABDOMINAL: Morbidly obese. Soft and nondistended. There is tenderness of the epigastric area as well as the right lower quadrant with some associated rebound. There is no rigidity appreciated. It is difficult to appreciate for hepatosplenomegaly or palpable masses secondary to habitus. Normoactive bowel sounds present. Skin: There are scattered mildly erythematous macules overlying the abdomen as well as bilateral upper extremities. Some of these areas are slightly raised. EXTREMITIES: Mild to moderate erythema of the distal left lower extremity but is significantly improved compared to yesterday. There remains accompanying tenderness and some warmth. No skin breakdown, drainage, induration, or bleeding is appreciated over affected area. There are some areas of the left lower extremity with some skin peeling. There is 23+ pitting edema of the left lower extremity and 2+ pitting edema of the right lower extremity. There is also 2+ pitting pedal edema of the left foot. 2+ radial pulses bilaterally. NEUROLOGICAL: No gross focal neurologic deficits are appreciated. Nondysarthric speech. PSYCHOLOGICAL: Patient is anxious and emotional at times during exam; she repeatedly asks that the door to her room remain open. Affect appears appropriate. LABORATORY DATA, IMAGING STUDIES, MICROBIOLOGY: Please see below. ASSESSMENT AND PLAN: This is a 55yo female w/ notable h/o heart failure with reduced ejection fraction (EF 30%), atrial fibrillation on Pradaxa, HTN, hypothyroidism s/p thyroid ablation (2017), DLD, chronic lower extremity swelling and prior LLE cellulitis with MRSA growth (10/27/2019), CKDIII (one prior dialysis session), and JOSHUA who presented to the ED on 08/01 upon request from her PCP due to outpatient labs revealing leukocytosis and patient was advised that she had possibly UTI and internal bleeding. Prior to coming to the ED she had been reporting urticaria for a few days. She was subsequently admitted primarily for treatment of left lower extremity cellulitis. #Left lower extremity cellulitis -Patient has chronic lower extremity swelling with multiple prior episodes of cellulitis. -She has significant HFrEF which is likely a contributor to persistent swelling. -She is morbidly obese and has limitations with ambulation, therefore consistently cleaning her chronically swollen lower extremities is an issue. -Today is day #2 of IV ceftaroline antibiotics. -Clinically, patient cellulitis appeared significantly improved on exam today. -Leukocytosis remains (WBC 17), slightly improved from yesterday w/ continued left shift -ASO titer was significantly elevated indicating source of infection is Strep species; 1 of 2 initial BCs showed no growth after 24hr, with other still pending; UA was dirty w/ UCx pending; LA unremarkable; MRSA screen negative -Both CRP (20) and ESR (128) significantly elevated - improving this morning -Tmax 100.6 yesterday afternoon, afebrile since; prn acetaminophen ordered #Normocytic hypochromic anemia -pt reports h/o JOSHUA upon admission, but denied blood in stool or melena -Hgb dropped one unit this morning to 7.6 from 8.6 -Type and screen ordered -We will continue to monitor on trend of H&H -Iron studies yesterday, mixed picture: slightly decreased serum iron but normal ferritin with a decreased TIBC -Home iron replacement continued -IV morphine as needed for pain -Stool occult ordered-upon admission, patient refused pursuing colonoscopy or EGD and denies having had these studies in the past. #Asymptomatic UTI -UA on admission: Positive nitrite, trace LE, 3+ urine bacteria; urine culture pending -Patient is currently on ceftaroline for left lower extremity cellulitis; will continue with current antibiotic coverage and monitor for return of UCx #Heart failure with reduced ejection fraction, decompensated -Per reports, patient's most recent documented ejection fraction is approximately 30% -This likely contributes to her persistent lower extremity edema -BNP at admission 2020, appears to be around recent baseline -Chest x-ray on admission showed signs of vascular congestion -Since midnight, patient has been approximately 2 L net negative -Home spironolactone continued; was started on 40 mg furosemide IV every 8 hours yesterday #Hypokalemia -Serum potassium 3.2 this morning -40 mEq oral supplementation ordered-magnesium 2.2 this morning -Continue to follow on repeat labs as patient is receiving 3 times a day dosing of intravenous furosemide #Atrial fibrillation on dabigatran -Rate has been controlled but borderline tachycardic; appears to clinically be in A. fib on exam this morning -Home dabigatran continued -c/w telemetry #CKD III -Patient has a history of 1 prior dialysis session -Serum creatinine 0.84 this morning -Review of past records indicates recent baseline approximately 1 #Urticaria -Patient was started on as needed Benadryl yesterday #History of LLE MRSA -+MRSA 10/2019 -MRSA PCR upon admission ordered and was not detected #History of hypertension -Home metoprolol succinate continue admission -Currently receiving her home Aldactone and IV furosemide -Pressures have remained relatively well controlled since admission #History of hypothyroidism s/p thyroid ablation (2017) -Home liothyronine and levothyroxine replacements continued #Suspected history of GERD Home omeprazole continued #Morbid obesity -BMI 48.7 -This significantly complicates patient's care as well as ability to ambulate and consistently maintain hygiene of lower extremities. #DVT prophylaxis: Continuing with home Dabigatran Disposition: Pending continued improvement of left lower extremity cellulitis; PFS consult placed upon admission as patient lives alone and has significant ambulatory issues secondary to comorbidities and obesity VS, I&O, 24H, [facility] Vital Signs/I&O Vital Signs Date Time Temp Pulse Resp B/P (MAP) Pulse Ox O2 Delivery O2 Flow Rate FiO2 08/02/20 08:00 97.8 98 16 111/57 (75) 94 Room Air I&O- Last 24 Hours up to 6 AM 08/02/20 06:00 Intake Total 1090 ml Output Total 1900 ml Balance -810 ml Laboratory Data 24H LABS Laboratory Tests 2 08/01/20 11:38: Urine Color YELLOW, Urine Appearance CLOUDYH, Urine pH 7.0, Urine Specific [place] 1.003, Urine Protein NEGATIVE, Urine Glucose (UA) NEGATIVE, Urine Ketones NEGATIVE, Urine Blood 2+H, Urine Nitrite POSITIVEH, Urine Bilirubin NEGATIVE, Urine Urobilinogen 0.2, Urine Leukocyte Esterase TRACEH, Urine WBC (Auto) 1, Urine RBC (Auto) 0, Urine Hyaline Casts (Auto) 0, Urine Bacteria (Auto) 3+H, Urine Squamous Epithelial Cells 1, Urine Sperm (Auto) 08/01/20 14:03: Prothrombin Time 20.1H, Prothromb Time International Ratio 1.67, Lactic Acid Level 1.8, Iron Level 15L, Total Iron Binding Capacity 228L, Transferrin % Sa turation 6.6L, Ferritin 146, HZ-Jgj-V-Type Natriuretic Peptide 2021H, Vitamin B12 Level 1773H, Folate 18.3, Procalcitonin 0.32, Anti-Streptolysin O Antibody 1560.0H 08/02/20 05:34: Lactic Acid Level 1.0, Immature Granulocyte % (Auto) , Neutrophils (%) (Auto) , Nucleated Red Blood Cells % (auto) 0.2H, Neutrophils 68H, Lymphocytes (Manual) 18, Monocytes (Manual) 7H, Eosinophils (Manual) 4H, Atypical Lymphocytes 3, Polychromasia 1+, Hypochromasia 1+, Poikilocytosis 1+, Anisocytosis 2+, Microcytosis 1+, Platelet Estimate NORMAL, Anion Gap 5L, Glomerular Filtration Rate > 60.0, Calcium Level 7.7L, Magnesium Level 2.2, C-Reactive Protein, Quantitative 20.70H 08/02/20 07:02: Methicillin-Resist S.aureus DNA PCR NOT DETECTED CBC/BMP Laboratory Tests 08/01/20 17:56 08/02/20 00:28 08/02/20 05:34 Microbiology Microbiology 08/01/20 Urine Culture, Received Pending 08/01/20 Blood Culture, Received Pending 08/01/20 Blood Culture - Preliminary, Resulted No growth after 24 hours . All specim... GME ATTESTATION GME ATTESTATION My faculty preceptor for this patient encounter was physically present during the encounter and was fully available. All aspects of the patient interview, examination, medical decision making process, and medical care plan development were reviewed and approved by the faculty preceptor. The faculty preceptor is aware and concurs with the plan as stated in the body of this note and will attest to such by his/her cosignature. ATTENDING NOTE I, Jazmine Walker, have independently examined this patient and performed my own physical exam, as well as reviewed the documentation and edited where necessary. I have discussed in detail with the resident / student the findings and plan of treatment as documented by the resident / student and edited their note. I agree with their findings and treatment plan and have edited their documentation. I will continue to follow the patient during this hospital stay. THELMA ROQUE D.O. Aug 02, 2020 11:04 JAZMINE WALKER MD Aug 02, 2020 12:25
[2020-08-02 12:00] VITALS: BP 100/53
[2020-08-02 12:10] LABS: HEMATOCRIT 25.2 % (36.0-47.0); HEMOGLOBIN 7.9 g/dl (12.0-15.5)
[2020-08-02] MEDS: CEFTAROLINE FOSAMIL 600 MG in D5W MINI-BAG PLUS 50 ML IV SCH ×2 (12:47→23:38)
[2020-08-02 16:00] VITALS: BP 113/54
[2020-08-02] MEDS: SPIRONOLACTONE 25 MG TAB PO SCH (16:50)
[2020-08-02 18:13] LABS: HEMATOCRIT 25.9 % (36.0-47.0); HEMOGLOBIN 8.2 g/dl (12.0-15.5)
[2020-08-02 20:00] VITALS: BP 104/51
[2020-08-02] MEDS: CALCITRIOL 0.25 MCG CAP (S0169) PO SCH (21:28)
[2020-08-02] MEDS: METOPROLOL SUCC *XL* 25MG TAB (TopROL *XL*) PO SCH (21:29)
[2020-08-03] VITALS (9 sets, daily range): BP systolic 106–125; BP diastolic 55–60
[2020-08-03 00:10] LABS: HEMATOCRIT 24.7 % (36.0-47.0); HEMOGLOBIN 7.6 g/dl (12.0-15.5)
[2020-08-03] MEDS: LEVOTHYROXINE 100MCG TABLET (0.1MG) PO SCH (04:53)
[2020-08-03 05:36] LABS: BASO # 0.1 10^3/uL (0.0-0.2); BASO % 0.5 % (0.0-1.0); EOS # 0.3 10^3/uL (0.0-0.5); EOS % 2.2 % (0.0-3.0); HEMATOCRIT 24.3 % (36.0-47.0); HEMOGLOBIN 7.4 g/dl (12.0-15.5); LYMPH # 2.5 10^3/uL (1.5-5.0); LYMPH % 17.7 % (24.0-44.0); MEAN CORPUSCULAR HEMOGLOBIN 24.3 pg (27.0-33.0); MEAN CORPUSCULAR HGB CONC 30.5 g/dl (32.0-36.5); MEAN CORPUSCULAR VOLUME 79.7 fl (80.0-96.0); MONO # 1.7 10^3/uL (0.0-0.8); MONO % 11.9 % (2.0-8.0); NEUTROPHILS # 8.9 10^3/uL (1.5-8.5); NEUTROPHILS % 64.1 % (36.0-66.0); PLATELET COUNT, AUTOMATED 437 10^3/uL (150-450); RED BLOOD COUNT 3.05 10^6/uL (4.00-5.40)
[2020-08-03 05:58] LABS: BLOOD UREA NITROGEN 9 MG/DL (7-18); CALCIUM LEVEL 7.8 MG/DL (8.5-10.1); CARBON DIOXIDE LEVEL 34 MEQ/L (21-32); CHLORIDE LEVEL 99 MEQ/L (98-107); CREATININE FOR GFR 0.82 MG/DL (0.55-1.30); GLOMERULAR FILTRATION RATE > 60.0 (>51); GLUCOSE, FASTING 137 MG/DL (70-100); MAGNESIUM LEVEL 2.3 MG/DL (1.8-2.4); POTASSIUM SERUM 3.5 MEQ/L (3.5-5.1); SODIUM LEVEL 137 MEQ/L (136-145)
[2020-08-03 06:03] LABS: WHITE BLOOD COUNT 13.9 10^3/uL (4.0-10.0)
[2020-08-03] MEDS: FUROSEMIDE 40MG/4ML VIAL (J1940) IV SCH ×3 (08:46→23:33)
[2020-08-03] MEDS: DABIGATRAN ETEXILATE 75 MG CAP (PRADAXA) PO SCH ×2 (08:47→20:55)
[2020-08-03] MEDS: LIOTHYRONINE 25 MCG TAB PO SCH ×2 (08:47→20:55)
[2020-08-03] MEDS: MULTIVITAMINS/MINERALS THERAP 1 TAB PO SCH (08:47)
[2020-08-03] MEDS: VITAMIN D 1,000 INTERNATIONAL UNITS TABLET PO SCH (08:47)
[2020-08-03] MEDS: FERROUS SULFATE 325MG TAB PO SCH ×2 (08:47→20:55)
[2020-08-03] MEDS: DOCUSATE SODIUM 100MG CAPSULE PO SCH ×2 (08:47→20:54)
[2020-08-03] MEDS: OMEPRAZOLE 20 MG CAP PO SCH (08:47)
[2020-08-03] MEDS: POTASSIUM CHLORIDE 10 MEQ SR TABLET PO SCH (08:48)
[2020-08-03] MEDS: LevoFLOXacin 500 MG TABLET PO SCH (08:50)
[2020-08-03] MEDS: VANICREAM MOISTURIZING SKIN CREAM 113GM TUBE TOP SCH ×2 (08:51→20:56)
--- NOTE | 2020-08-03 11:49 | IPNPDOC ---
Date Seen The patient was seen on 08/03/20. Progress Note SUBJECTIVE: Siobhan was seen and examined this morning by the hospital service while lying upright in bed. She is quite interested this morning and learning about the bacteria causing both her UTI and left lower extremity cellulitis. In addition, she wanted to know about her heart failure and chronic lower extremity edema. She reports her left lower extremity continues to be tender and she remains in moderate discomfort. She expresses concern with her ability to rise from a seated position and ambulate. She denies any current or overnight fever, chills, night sweats, chest pain, palpitations, shortness of breath, dysuria, hematuria, flank pain, or suprapubic pain. She has yet to have a bowel movement since admission. She is eating and drinking without any issues. OBJECTIVE PHYSICAL EXAMINATION: VITAL SIGNS: Please see below. GENERAL: Inquisitive and pleasant obese female. Does not appear as anxious as yesterday. No acute distress. Lying upright in bed. HEENT: Normocephalic, atraumatic. She is wearing eyeglasses. Mild exophthalmos of the right eye. Lateral aspect of the skin of both upper and lower right eye eyelids continues to appear somewhat asymmetric. Noninjected, anicteric sclera. Conjunctival pallor present. Oral cavity: The patient is edentulous. MMM. No pharyngeal erythema or exudate is appreciated. Neck: Wide. Supple. Trachea midline. No JVD was appreciated but accuracy may be limited due to neck habitus. CARDIOVASCULAR: Irregularly irregular rhythm, regular rate. Normal S1, S2. No rubs are appreciated. RESPIRATORY: Significantly diminished breath sounds diffusely with decreased tidal volume. Chest expansion is symmetric. There remains some mild bibasilar crackles posteriorly. Breathing room air. Speaking full sentences. No accessory muscle use. ABDOMINAL: Morbidly obese. Soft and nondistended. Unlike yesterday, no ap preciable tenderness. There is no rigidity appreciated. It is difficult to appreciate for hepatosplenomegaly or palpable masses secondary to habitus. Hypoactive bowel sounds present. Skin: There remain some scattered mildly erythematous macules overlying the abdomen, proximal aspect right lower extremity, and bilateral upper extremities, but all areas appear less prominent and improved from yesterday's exam. Some of these areas are slightly raised. EXTREMITIES: Mild to moderate erythema of the distal left lower extremity with associated skin peeling that appears to be improved from yesterday's exam and significantly improved from admission. There remains accompanying tenderness of LLE. LLE has some moderate warmth as compared to RLE. No significant skin breakdown, drainage, induration, or bleeding appreciated over LLE. There remains 23+ pitting edema of the left lower extremity and 2+ pitting edema of the right lower extremity. There also remained 2+ pitting pedal edema of the left foot. 2+ radial pulses bilaterally. NEUROLOGICAL: No gross focal neurologic deficits are appreciated. Nondysarthric speech. PSYCHOLOGICAL: Pleasant mood, inquisitive at times. Affect appears appropriate. LABORATORY DATA, IMAGING STUDIES, MICROBIOLOGY: Please see below. ASSESSMENT AND PLAN: This is a 55yo female w/ notable h/o heart failure with reduced ejection fraction (EF 30%), atrial fibrillation on Pradaxa, HTN, hypothyroidism s/p thyroid ablation (2017), DLD, chronic lower extremity swelling and prior LLE cellulitis with MRSA growth (10/27/2019), CKDIII (one prior dialysis session), and JOSHUA who presented to the ED on 08/01 upon request from her PCP due to outpatient labs revealing leukocytosis and patient was advised that she had possibly UTI and internal bleeding. Prior to coming to the ED she had been reporting urticaria for a few days. She was subsequently admitted primarily for treatment of left lower extremity cellulitis. #Left lower extremity cellulitis -Patient has chronic lower extremity swelling with multiple prior episodes of cellulitis. -She has significant HFrEF which is likely a contributor to persistent swelling. -She is morbidly obese and has limitations with ambulation, therefore consistently cleaning her chronically swollen lower extremities is an issue. -Patient completed 2 days of intravenous ceftaroline. UTI returned with pansensitive E. coli. With the elevated ASO titers, we think the cellulitis is secondary to strep species. Patient will be switched over to oral levofloxacin today to cover both Streptococcus and E. coli in the setting of her known penicillin allergy. -Clinically, the cellulitis continues to improve and is significantly improved over admission. -Leukocytosis remains (WBC 13.9) but has significantly improved since admission. -ASO titer was significantly elevated indicating source of infection is Strep species; 1 initial blood culture negative for growth at 48 hours, other sample is negative for growth after 24 hours.; Dirty UA with E. coli and urine culture; LA unremarkable; MRSA screen negative -Both CRP (20) and ESR (128) significantly elevated but improved on repeat values -Tmax 100.6 upon admission, but patient has been afebrile and all readings since; prn acetaminophen #Normocytic hypochromic anemia -pt reports h/o JOSHUA upon admission, but denied blood in stool or melena -Hgb this morning 7.4; there was a 1 unit drop yesterday from 8.6 to 7.6 -In the setting of her known HFrEF, 1 unit of PRBC will be transfused today. Patient signed consent form for blood products which was subsequently placed in chart. -Type and screen ordered yesterday -Will continue to monitor on trend of H&H -Iron studies yesterday, mixed picture: slightly decreased serum iron but normal ferritin with a decreased TIBC -Home iron replacement continued yesterday -IV morphine as needed for pain was discontinued today. -Stool occult ordered-upon admission, patient refused pursuing colonoscopy or EGD and denies having had these studies in the past. #Asymptomatic E. coli UTI -UA on admission: Positive nitrite, trace LE, 3+ urine bacteria; urine culture pending -Urine culture result returned this morning as E. coli. Patient also has likely strep cellulitis and a known penicillin allergy, therefore patient was switched from IV ceftaroline to oral levofloxacin today. #Heart failure with reduced ejection fraction, decompensated -Per reports, patient's most recent documented ejection fraction is approximately 30% -This likely contributes to her persistent lower extremity edema -BNP at admission 2020, appears to be around recent baseline -Chest x-ray on admission showed signs of vascular congestion -Since midnight, patient has been approximately 2 L net negative -Home spironolactone continued; was started on 40 mg furosemide IV every 8 hours yesterday #Hypokalemia -Serum potassium 3.5 this morning. She is status post 1 dose of 40 mEq supplementation yesterday. Magnesium has been within normal limits. -As patient continues to receive intravenous furosemide with persistently low to low normal serum potassium, we have added a standing daily order of 40 mEq KCl. -Will continue to follow on repeat labs as patient is receiving 3 times a day dosing of intravenous furosemide #Atrial fibrillation on dabigatran -Rate controlled this morning; appears to still clinically be in A. fib -Home dabigatran continued -Patient was started on telemetry but this will be stopped as she is downgraded to MedSurg status. #CKD III -Patient has a history of 1 prior dialysis session -Serum creatinine 0.82 this morning -Review of past records indicates recent baseline approximately 1 #Urticaria -Patient was started on as needed Benadryl upon admission -On exam today, visual inspection of skin shows improvement in hives #History of LLE MRSA -+MRSA 10/2019 -MRSA PCR upon admission ordered and was not detected #History of hypertension -Home metoprolol succinate continue admission -Currently receiving her home Aldactone and IV furosemide -Pressures have remained relatively well controlled since admission #History of hypothyroidism s/p thyroid ablation (2017) -Home liothyronine and levothyroxine replacements continued #Suspected history of GERD Home omeprazole continued #Morbid obesity -BMI 48.7 -This significantly complicates patient's care as well as ability to ambulate and consistently maintain hygiene of lower extremities. #DVT prophylaxis: Continuing with home Dabigatran Disposition: Downgraded to MedSurg status today with addition of PT order to assess for patient's ambulatory/functional status needs; PFS consult placed on admission as patient lives alone and has significant ambulatory limitations VS, I&O, 24H, [facility] Vital Signs/I&O Vital Signs Date Time Temp Pulse Resp B/P (MAP) Pulse Ox O2 Delivery O2 Flow Rate FiO2 08/03/20 08:00 97.8 88 16 107/59 (75) 96 Room Air I&O- Last 24 Hours up to 6 AM 08/03/20 06:00 Intake Total 1610 ml Output Total 3000 ml Balance -1390 ml Laboratory Data 24H LABS Laboratory Tests 2 08/03/20 05:13: Immature Granulocyte % (Auto) 3.6H, Neutrophils (%) (Auto) 64.1, Lymphocytes (%) (Auto) 17.7L, Monocytes (%) (Auto) 11.9H, Eosinophils (%) (Auto) 2.2, Basophils (%) (Auto) 0.5, Neutrophils # (Auto) 8.9H, Lymphocytes # (Auto) 2.5, Monocytes # (Auto) 1.7H, Eosinophils # (Auto) 0.3, Basophils # (Auto) 0.1, Nucleated Red Blood Cells % (auto) 0.1H, Anion Gap 4L, Glomerular Filtration Rate > 60.0, Calcium Level 7.8L, Magnesium Level 2.3 CBC/BMP Laboratory Tests 08/02/20 11:56 08/02/20 17:53 08/02/20 23:57 08/03/20 05:13 Microbiology Microbiology 08/01/20 Urine Culture - Final, Complete Escherichia Coli 08/01/20 Blood Culture - Preliminary, Resulted No growth after 24 hours . All specim... 08/01/20 Blood Culture - Preliminary, Resulted No Growth after 48 hours. All Specime... GME ATTESTATION GME ATTESTATION My faculty preceptor for this patient encounter was physically present during the encounter and was fully available. All aspects of the patient interview, examination, medical decision making process, and medical care plan development were reviewed and approved by the faculty preceptor. The faculty preceptor is aware and concurs with the plan as stated in the body of this note and will attest to such by his/her cosignature. ATTENDING NOTE I, Jazmine Walker, have independently examined this patient and performed my own physical exam, as well as reviewed the documentation and edited where necessary. I have discussed in detail with the resident / student the findings and plan of treatment as documented by the resident / student and edited their note. I agree with their findings and treatment plan and have edited their documentation. I will continue to follow the patient during this hospital stay. THELMA ROQUE D.O. Aug 03, 2020 11:49 JAZMINE WALKER MD Aug 03, 2020 11:57
[2020-08-03] MEDS: ACETAMINOPHEN TAB 650MG DOSE (2X325MG) PO PRN ×2 (12:13→23:34)
[2020-08-03] MEDS: SPIRONOLACTONE 25 MG TAB PO SCH (16:25)
[2020-08-03] MEDS: METOPROLOL SUCC *XL* 25MG TAB (TopROL *XL*) PO SCH (20:55)
[2020-08-03] MEDS: CALCITRIOL 0.25 MCG CAP (S0169) PO SCH (20:55)
[2020-08-04] VITALS: BP 116/58
[2020-08-04 04:00] VITALS: BP 105/55
[2020-08-04] MEDS: LevoFLOXacin 500 MG TABLET PO SCH (05:12)
[2020-08-04] MEDS: LEVOTHYROXINE 100MCG TABLET (0.1MG) PO SCH (05:12)
[2020-08-04 05:46] LABS: BASO % 0.4 % (0.0-1.0); EOS # 0.3 10^3/uL (0.0-0.5); EOS % 2.8 % (0.0-3.0); HEMATOCRIT 26.5 % (36.0-47.0); HEMOGLOBIN 8.1 g/dl (12.0-15.5); LYMPH # 2.2 10^3/uL (1.5-5.0); LYMPH % 20.2 % (24.0-44.0); MEAN CORPUSCULAR HEMOGLOBIN 24.6 pg (27.0-33.0); MEAN CORPUSCULAR HGB CONC 30.6 g/dl (32.0-36.5); MEAN CORPUSCULAR VOLUME 80.5 fl (80.0-96.0); MONO # 1.3 10^3/uL (0.0-0.8); MONO % 11.7 % (2.0-8.0); NEUTROPHILS # 6.9 10^3/uL (1.5-8.5); NEUTROPHILS % 62.6 % (36.0-66.0); PLATELET COUNT, AUTOMATED 450 10^3/uL (150-450); RED BLOOD COUNT 3.29 10^6/uL (4.00-5.40); WHITE BLOOD COUNT 11.1 10^3/uL (4.0-10.0)
[2020-08-04 06:07] LABS: BLOOD UREA NITROGEN 9 MG/DL (7-18); CALCIUM LEVEL 7.6 MG/DL (8.5-10.1); CARBON DIOXIDE LEVEL 34 MEQ/L (21-32); CHLORIDE LEVEL 101 MEQ/L (98-107); CREATININE FOR GFR 0.78 MG/DL (0.55-1.30); GLOMERULAR FILTRATION RATE > 60.0 (>51); GLUCOSE, FASTING 127 MG/DL (70-100); MAGNESIUM LEVEL 2.3 MG/DL (1.8-2.4); POTASSIUM SERUM 3.8 MEQ/L (3.5-5.1); SODIUM LEVEL 138 MEQ/L (136-145)
[2020-08-04] MEDS ORDERED: TORSEMIDE 20 MG TAB PO SCH (09:00)
[2020-08-04] MEDS: ACETAMINOPHEN TAB 650MG DOSE (2X325MG) PO PRN (09:08)
[2020-08-04] MEDS: OMEPRAZOLE 20 MG CAP PO SCH (09:27)
[2020-08-04] MEDS: VITAMIN D 1,000 INTERNATIONAL UNITS TABLET PO SCH (09:27)
[2020-08-04] MEDS: FERROUS SULFATE 325MG TAB PO SCH (09:27)
[2020-08-04] MEDS: MULTIVITAMINS/MINERALS THERAP 1 TAB PO SCH (09:28)
[2020-08-04] MEDS: DOCUSATE SODIUM 100MG CAPSULE PO SCH (09:28)
[2020-08-04] MEDS: LIOTHYRONINE 25 MCG TAB PO SCH (09:28)
[2020-08-04] MEDS: POTASSIUM CHLORIDE 10 MEQ SR TABLET PO SCH (09:29)
[2020-08-04] MEDS: DABIGATRAN ETEXILATE 75 MG CAP (PRADAXA) PO SCH (09:29)
[2020-08-04] MEDS: VANICREAM MOISTURIZING SKIN CREAM 113GM TUBE TOP SCH (09:43)
[2020-08-04] MEDS ORDERED: LEVO500T3 PO (11:16)
--- NOTE | 2020-08-04 11:56 | DS.PDOC ---
Discharge Summary General Date of Admission Aug 01, 2020 at 12:08 Date of Discharge Tuesday, August 04, 2020 Primary Care Physician: RODRIGUEZ MIMS Attending Physician: JAZMINE CASTREJON MD Discharge Summary PROCEDURES PERFORMED DURING STAY: None ADMITTING DIAGNOSES: Left lower extremity cellulitis Normocytic anemia Heart failure with reduced ejection fraction, decompensated Atrial fibrillation on Pradaxa Hypertension Hypokalemia Dyslipidemia Hypothyroidism Chronic kidney disease stage III GERD DISCHARGE DIAGNOSES: Left lower extremity cellulitis, improved Asymptomatic E. coli urinary tract infection Normocytic anemia likely secondary to iron deficiency anemia versus anemia of chronic disease versus mixed picture Heart failure with reduced ejection fraction, improved Atrial fibrillation on Pradaxa, rate controlled Hypertension Hypokalemia, improved Dyslipidemia Hypothyroidism Chronic kidney disease stage III GERD Morbid obesity COMPLICATIONS/CHIEF COMPLAINT: Cellulitis. HISTORY OF PRESENT ILLNESS: Siobhan is a 55yo female w/ notable PMHx HFrEF (EF 30%), A. fib on Pradaxa, CKD stage III, chronic lower extremity edema with prior LLE MRSA infection, HTN, DLD, and hypothyroidism, who presented to the [facility] ED on 08/01/2020 upon the recommendation of her primary care provider due to abnormal labs that were drawn on 07/31 in the setting of urticaria. Patient herself denied any recent medication changes. The lab work revealed leukocytosis and the patient was advised by her PCP and she likely had a UTI and internal bleeding. Patient subsequently reported to the ED for further medical evaluation. In the emergency department, the patient was accompanied by her brother. She denied any dizziness, lightheadedness, shortness of breath, cough, chest pain, nausea, vomiting, abdominal pain or diarrhea. She reports her last bowel movement today. She denies any dysuria, hematuria, flank pain. She reported no recent fevers but did have some chills which she correlates to her history of hypothyroidism and chronic anemia. Patient reported left leg pain that spent present for the past 4 days with progressing redness and swelling. She denied any discharge from the LLE and does state she has a history of prior episodes of left lower extremity cellulitis. She was subsequently admitted under the care of the hospitalist service primarily for left lower extremity cellulitis HOSPITAL COURSE: #Left lower extremity cellulitis, improved upon discharge -Patient was initially started on IV ceftaroline, blood cultures were ordered as were a MRSA screen and an ASO titer. The ASO titer came back significantly elevated likely indicating her causative organism being Streptococcus bacteria. Patient does have a history of prior MRSA from a LLE wound (10/2019), but MRSA PCR this admission was negative. Both initial blood cultures at time of discharge showed no growth after 72 hours. Patient had an initial leukocytosis with WBC of 19.9 admission that steadily improved over the 4 days in the hospital down to 11.1 on day of discharge. Clinically, there was a significant improvement from day of presentation to hospital day #2 in redness and warmth of the left lower extremity. Upon return of final urine culture result on 08/03 which grew E. coli, patient was transitioned off of intravenous ceftaroline to oral levofloxacin and doxycycline. Levofloxacin was chosen due to patient's penicillin allergy and the presumed Streptococcus cellulitis and E. coli UTI; Doxycycline for coverage of possible MRSA. Throughout her 4 days in the h ospital, general left lower extremity pain and discomfort steadily improved. #Asymptomatic E. coli UTI -Initial urinalysis on presentation was positive for nitrites, trace leuk esterase, and 3+ urine bacteria. A reflex for culture was sent which returned with a final result on 08/03 that grew E. coli. At this point, patient was transitioned off IV ceftaroline to oral levofloxacin for the reasons discussed above. Throughout her admission she continued to deny any dysuria, flank pain, suprapubic pain, or hematuria. #Acute on chronic anemia secondary to iron deficiency anemia versus anemia of chronic disease versus mixed picture -Patient has a prior history of iron deficiency anemia and is on oral iron supplementation as outpatient. Upon presentation, her oral iron was initially held and blood counts were monitored. Her outpatient baseline hemoglobin appears to be around 8.5-9. Between hospital day 1 and 2 she had a roughly 1 hemoglobin drop. It remained relatively stable for the next 24 hours but due to her history of heart failure with reduced ejection fraction, and her being over a point lower than her baseline, she was transfused 1 unit of PRBC on 08/03. In addition, her home oral iron supplementation was subsequently restarted. The patient denied interest in pursuing EGD or colonoscopy and reports never having had any of these studies prior. Iron studies were significant for low serum iron, low TIBC, and ferritin within normal limits. This represents a mixed picture of anemia of chronic disease versus iron deficiency anemia. It is recommended upon discharge and follow-up with primary care physician that patient again have discussion regarding EGD and colonoscopy in the setting of her chronic anemia. Of note, stool occult was ordered but patient did not have a bowel movement prior to being discharged. #Decompensated heart failure with reduced ejection fraction, improved upon discharge -Without knowing patient, is difficult to know her baseline fluid status, but she did appear to be partially decompensated upon admission. Her home oral torsemide was held and IV furosemide was started upon admission. Her loop diuretic dose was increased in the form of IV furosemide 3 times per day. Her home spironolactone was continued. The patient had 3 consecutive days of net -24-hour intake and output. On the day of discharge she was transitioned back to her oral dosing of 40 mg torsemide twice a day. Due to hypokalemia on morning labs during admission, patient was started on 40 mEq oral potassium daily. Her serum potassium levels responded well to supplementation. #Atrial fibrillation on dabigatran, rate controlled -Upon admission, home epigastrium was continued. Clinically on exam she remained in atrial fibrillation throughout her admission with controlled rate. #Hypertension -Patient was receiving the loop diuretic intravenously as discussed above before being transition back to her home oral torsemide on day of discharge. Her home spironolactone was also continued. Her home metoprolol succinate 25 mg every night was continued as well on admission. Her pressures remained relatively well controlled throughout her admission. #Chronic kidney disease stage III -Patient has 1 prior episode of dialysis in the past. Her baseline serum creatinine appears to be around 1. Throughout her admission, serum creatinine remained stable near baseline in the setting of both oral and IV diuretics. #Hypokalemia -Patient had episodes of hypokalemia on morning labs during admission as discussed above. Oral 40 mEq potassium chloride was started on a daily basis and patient responded well. #Morbid obesity BMI 48.1 #GERD -Patient's home PPI medication was continued upon admission. #History of left lower extremity MRSA (October 2019) -While patient did have left lower extremity cellulitis on this admission, MRSA PCR was negative. #History of hypothyroidism status post thyroid ablation (2017) -Patient's home liothyronine and levothyroxine medications were continued upon admission In terms of disposition, patient was downgraded to medical surgical status on 08/03 and passed physical therapy evaluation with recommendation upon discharge of home with home health services. DISCHARGE MEDICATIONS: Please see below. ALLERGIES: Please see below. PHYSICAL EXAMINATION ON DISCHARGE: VITAL SIGNS: Please see below. GENERAL: Pleasant obese female. No acute distress. Sitting in bedside chair. HEENT: Normocephalic, atraumatic. She is wearing eyeglasses. Mild exophthalmos of the right eye. Lateral aspect of the skin of both upper and lower right eye eyelids continues to appear somewhat asymmetric. Noninjected, anicteric sclera. Conjunctival pallor present. Oral cavity: The patient is edentulous. MMM. No pharyngeal erythema or exudate is appreciated. Neck: Wide. Supple. Trachea midline. No JVD was appreciated but accuracy may be limited due to neck habitus. CARDIOVASCULAR: Irregularly irregular rhythm, regular rate. Normal S1, S2. No rubs are appreciated. RESPIRATORY: Decreased breath sounds throughout with mild decreased tidal volume. Chest expansion is symmetric. There remains some mild bibasilar crackles posteriorly. Breathing room air. Speaking full sentences. No accessory muscle use. ABDOMINAL: Morbidly obese. Soft and nondistended. Unlike yesterday, no appreciable tenderness. There is no rigidity appreciated. It is difficult to appreciate for hepatosplenomegaly or palpable masses secondary to habitus. Hypoactive bowel sounds present. Skin: There remain some scattered mildly erythematous macules overlying the abdomen, proximal aspect right lower extremity, and bilateral upper extremities, but all areas appear significantly less prominent from prior exams. EXTREMITIES: Improved, mild erythema of the distal left lower extremity with ass ociated skin peeling that appears to be improved from yesterday's exam and significantly improved from admission. There remains accompanying tenderness of RLE, but this is also improved. LLE has mild warmth compared to the RLE. There remains no significant skin breakdown, drainage, induration, or bleeding appreciated over LLE. There remains 23+ pitting edema of the left lower extremity and 2+ pitting edema of the right lower extremity. There also remained 2+ pitting pedal edema of the left foot. 2+ radial pulses bilaterally. NEUROLOGICAL: No gross focal neurologic deficits are appreciated. Nondysarthric speech. PSYCHOLOGICAL: Pleasant mood, inquisitive at times. Affect appears appropriate. LABORATORY DATA: Please see below. IMAGING: Portable chest x-ray, 08/01/2020 FINDINGS: Mild cardiomegaly cannot be excluded. Evaluation is limited due to underpenetration and portable technique. Indistinct pulmonary vasculature along with hazy bilateral predominately interstitial appearing opacities are nonspecific. Differential diagnosis includes multifocal viral pneumonia as well as early pulmonary vascular congestion/edema. No obvious effusion. No pneumothorax. IMPRESSION: Findings described above. Differential diagnosis includes possible viral pneumonia and early pulmonary interstitial edema. Left lower extremity venous duplex ultrasound, 08/01/2020 FINDINGS: The left common femoral, superficial femoral and popliteal veins are fully compressible with transducer pressure and demonstrate normal spontaneous and phasic flow, without evidence of deep venous thrombosis.The right common femoral vein demonstrates no thrombus.The left peroneal and posterior tibial veins could not be visualized. Left inguinal adenopathy is noted, the largest lymph node measures 5.3 x 2.3 x 2.3 cm. IMPRESSION: No evidence of deep venous thrombosis of the left lower extremity femoral poplit eal venous left inguinal adenopathy, the largest lymph node measures 5.3 x 2.3 x 2.3 cm. PROGNOSIS: Fair ACTIVITY: As tolerated and per recommendations of [facility] home health DIET: Low-salt/2 g sodium DISPOSITION: Discharge home with home health/services DISCHARGE INSTRUCTIONS & ITEMS TO FOLLOWUP ON ON OUTPATIENT: -Please take oral levofloxacin antibiotic medication daily starting with to valadez/s dose for 6 more days through 08/10 to complete 10 day total course. -Return to taking home torsemide dose of one, 40 mg tablet two times per day. -Please elevate feet above the level of your heart when sleeping or at rest for extended periods of time. -Complete all home health sessions. -Adhere to a low salt/2 g Na diet -Please follow-up with your primary care physician in the next 3-5 days for a post-hospitalization appointment. It is important at your follow-up pcp appointment to discuss egd and colonoscopy screening with your doctor due to your JOSHUA. -Should presenting symptoms return and/or acutely worsen, please return to the emergency department. -Please comply with treatment plan. -Thank you for the opportunity to participate in your care. DISCHARGE CONDITION: Stable TIME SPENT ON DISCHARGE: 35 minutes Vital Signs/I&Os Vital Signs Date Time Temp Pulse Resp B/P (MAP) Pulse Ox O2 Delivery O2 Flow Rate FiO2 08/04/20 04:00 96.0 89 18 105/55 (72) 96 Room Air I&O- Last 24 Hours up to 6 AM 08/04/20 06:00 Intake Total 1000 ml Output Total 3550 ml Balance -2550 ml Laboratory Data Labs 24H Laboratory Tests 2 08/04/20 05:21: Immature Granulocyte % (Auto) 2.3, Neutrophils (%) (Auto) 62.6, Lymphocytes (%) (Auto) 20.2L, Monocytes (%) (Auto) 11.7H, Eosinophils (%) (Auto) 2.8, Basophils (%) (Auto) 0.4, Neutrophils # (Auto) 6.9, Lymphocytes # (Auto) 2.2, Monocytes # (Auto) 1.3H, Eosinophils # (Auto) 0.3, Basophils # (Auto) 0.0, Nucleated Red Blood Cells % (auto) 0.0, Anion Gap 3L, Glomerular Filtration Rate > 60.0, Calcium Level 7.6L, Magnesium Level 2.3, C-Reactive Protein, Quantitative 15.00H CBC/BMP Laboratory Tests 08/04/20 05:21 Microbiology Microbiology 08/01/20 Urine Culture - Final, Complete Escherichia Coli 08/01/20 Blood Culture - Preliminary, Resulted No Growth after 72 hours. All specime... 08/01/20 Blood Culture - Preliminary, Resulted No Growth after 72 hours. All specime... Discharge Medications Scheduled Calcitriol (Calcitriol) 0.25 Mcg Capsule, 0.25 MCG PO QHS, (Reported) Cholecalciferol (Vitamin D3) (Vitamin D3) 1,000 Unit Tablet, 5,000 UNITS PO DAILY, (Reported) Dabigatran Etexilate Mesylate (Pradaxa) 150 Mg Capsule, 150 MG PO BID, (Reported) 0500 & 1700 Emollient Base (Vanicream) 453 Gm Cream..g., 1 DOSE TOP BID, (Reported) APPLY TO LOWER LEGS Ferrous Gluconate (Ferrous Gluconate) 324 Mg Tablet, 324 MG PO DAILY, (Reported) Levofloxacin (Levofloxacin) 500 Mg Tablet, 500 MG PO DAILY@06 Levothyroxine Sodium (Levoxyl) 100 Mcg Tablet, 100 MCG PO QAM, (Reported) Liothyronine Sodium (Liothyronine Sodium) 25 Mcg Tablet, 12.5 MCG PO BID, (Reported) Metoprolol Succinate (Metoprolol Succinate) 25 Mg Tab.er.24h, 25 MG PO QHS, (Reported) Multivitamins (Thera M Plus Tablet) 1 Each Tablet, 1 TAB PO DAILY, (Reported) Omeprazole (Omeprazole) 40 Mg Capsule.dr, 40 MG PO DAILY, (Reported) Spironolactone (Spironolactone) 25 Mg Tablet, 25 MG PO QHS, (Reported) Torsemide (Torsemide) 20 Mg Tablet, 40 MG PO BID, (Reported) Allergies Coded Allergies: Penicillins (Verified Allergy, Intermediate, HIVES, 01/20/20) aspirin (Verified Allergy, Intermediate, HIVES, 01/20/20) ibuprofen (Verified Allergy, Intermediate, HIVES, 01/20/20) Influenza Virus Vaccines (Verified Allergy, Mild, hives, 08/01/20) pneumococcal vaccine (Verified Allergy, Mild, hives, 08/01/20) GME ATTESTATION GME ATTESTATION My faculty preceptor for this patient encounter was physically present during the encounter and was fully available. All aspects of the patient interview, examination, medical decision making process, and medical care plan development were reviewed and approved by the faculty preceptor. The faculty preceptor is aware and concurs with the plan as stated in the body of this note and will attest to such by his/her cosignature. ATTENDING NOTE I, Jazmine Castrejon, have independently examined this patient and performed my own physical exam, as well as reviewed the documentation and edited where necessary. I have discussed in detail with the resident / student the findings and plan of treatment as documented by the resident / student and edited their note. I agree with their findings and treatment plan and have edited their documentation. I will continue to follow the patient during this hospital stay. Time spent on discharge 35 minutes THELMA ROQUE D.O. Aug 04, 2020 11:56 JAZMINE CASTREJON MD Aug 04, 2020 16:12
[2020-08-04] MEDS ORDERED: DOXY-350 PO (16:10)
== END 2020-08-04 15:40 | disposition home health service (06) | DRG 602 ==
LOC: M ED 09:10 → M PCU 12:08 → ENRESERV 12:33
PROVIDERS: ADMIT Internal Medicine; ATTEND Internal Medicine
DX: L03.116 Cellulitis of left lower limb (principal); I50.23 Acute on chronic systolic (congestive) heart failure; I13.0 Hypertensive heart and chronic kidney disease with heart failure and stage 1 through stage 4 chronic kidney disease, or unspecified chronic kidney disease; N39.0 Urinary tract infection, site not specified; Z68.42 Body mass index [BMI] 45.0-49.9, adult; E89.0 Postprocedural hypothyroidism; I48.91 Unspecified atrial fibrillation; K21.9 Gastro-esophageal reflux disease without esophagitis; E78.5 Hyperlipidemia, unspecified; E87.6 Hypokalemia; D50.9 Iron deficiency anemia, unspecified; N18.30 Chronic kidney disease, stage 3 unspecified; E66.01 Morbid (severe) obesity due to excess calories; B96.29 Other Escherichia coli [E. coli] as the cause of diseases classified elsewhere; Z79.899 Other long term (current) drug therapy; Z88.0 Allergy status to penicillin; Z88.6 Allergy status to analgesic agent; Z88.8 Allergy status to other drugs, medicaments and biological substances; Z88.7 Allergy status to serum and vaccine

== ENCOUNTER → 2020-08-09 | Outpatient (CLI) | payer MEDICARE, MEDICAID ==
[~2020-08-09] MED LIST changes: +D31000TA2 PO; +FERR324T21 PO; -FUROSEMIDE 40MG/4ML VIAL (J1940) IV SCH; +LEVO100T54 PO; +LEVO500T3 PO; +LIOT25TA8 PO; +OMEP-221 PO; +TORS20TA2 PO; +VITMTA PO
[2020-08-09 18:37] LABS: BASO # 0.1 10^3/uL (0.0-0.2); BASO % 0.9 % (0.0-1.0); EOS # 0.2 10^3/uL (0.0-0.5); EOS % 2.8 % (0.0-3.0); HEMATOCRIT 29.6 % (36.0-47.0); HEMOGLOBIN 8.9 g/dl (12.0-15.5); LYMPH % 23.2 % (24.0-44.0); MEAN CORPUSCULAR HEMOGLOBIN 24.5 pg (27.0-33.0); MEAN CORPUSCULAR HGB CONC 30.1 g/dl (32.0-36.5); MEAN CORPUSCULAR VOLUME 81.3 fl (80.0-96.0); MONO # 0.9 10^3/uL (0.0-0.8); MONO % 9.8 % (2.0-8.0); NEUTROPHILS # 5.5 10^3/uL (1.5-8.5); NEUTROPHILS % 62.8 % (36.0-66.0); PLATELET COUNT, AUTOMATED 539 10^3/uL (150-450); RED BLOOD COUNT 3.64 10^6/uL (4.00-5.40); WHITE BLOOD COUNT 8.7 10^3/uL (4.0-10.0)
== END ==
LOC: EEVIPCON 17:04 → M LAB 17:04
PROVIDERS: ATTEND Nurse Practitioner Family
DX: D64.9 Anemia, unspecified (principal)
CPT/HCPCS: 36415; 85025; G0463

== ENCOUNTER 2020-08-24 12:30 | Outpatient (CLI) | payer MEDICARE, MEDICAID ==
[~2020-08-24] VITALS: Ht 175.3 cm; Wt 136.0 kg
[~2020-08-24 12:30] MED LIST changes: +ALBUTEROL SULFATE 2.5 MG/0.5 ML INH NEB SOLN INH PRN; +EPINEPHrine INJ 1 MG/ML 1ML AMP IM PRN; +diphenhydrAMINE 50MG/ML VIAL (J1200) IV PRN; +methylPREDNISolone 125MG 2ML VIAL IV PRN
[2020-08-24 12:50] VITALS: BP 121/57
[2020-08-24] MEDS ORDERED: NS 1,000 ML IV SCH (13:00)
[2020-08-24] MEDS ORDERED: FERRIC CARBOXYMALTOSE INJ 750 MG, VIAL MATE ADAPTER 1 EACH in NS 250 ML IV ONE (13:00)
[2020-08-24 13:45] VITALS: BP 124/80
[2020-08-24 14:45] VITALS: BP 126/80
== END 2020-08-24 14:50 | disposition home or self-care (01) ==
LOC: M INFU 12:30
PROVIDERS: ATTEND Internal Medicine Nephrology
DX: D50.9 Iron deficiency anemia, unspecified (principal); Z88.0 Allergy status to penicillin; Z88.6 Allergy status to analgesic agent; Z88.7 Allergy status to serum and vaccine
CPT/HCPCS: 96365; J1439

== ENCOUNTER 2020-08-31 07:56 | Outpatient (CLI) | payer MEDICARE, MEDICAID ==
[~2020-08-31] VITALS: Ht 175.3 cm; Wt 136.0 kg
[2020-08-31 08:00] VITALS: BP 126/84
[2020-08-31] MEDS ORDERED: NS 1,000 ML IV SCH (08:00)
[2020-08-31] MEDS ORDERED: FERRIC CARBOXYMALTOSE INJ 750 MG, VIAL MATE ADAPTER 1 EACH in NS 250 ML IV ONE (08:00)
[2020-08-31 09:45] VITALS: BP 110/69
== END 2020-08-31 09:45 | disposition home or self-care (01) ==
LOC: M INFU 07:56
PROVIDERS: ATTEND Internal Medicine Nephrology
DX: D50.9 Iron deficiency anemia, unspecified (principal); Z88.0 Allergy status to penicillin; Z88.6 Allergy status to analgesic agent; Z88.7 Allergy status to serum and vaccine
CPT/HCPCS: 96365; J1439

== ENCOUNTER → 2020-11-13 | Outpatient (CLI) | payer MEDICARE, MEDICAID ==
[~2020-11-13] MED LIST changes: -ALBUTEROL SULFATE 2.5 MG/0.5 ML INH NEB SOLN INH PRN; -EPINEPHrine INJ 1 MG/ML 1ML AMP IM PRN; -diphenhydrAMINE 50MG/ML VIAL (J1200) IV PRN; -methylPREDNISolone 125MG 2ML VIAL IV PRN
[2020-11-13 19:43] LABS: HEMOGLOBIN A1c 6.7 %
[2020-11-13 20:09] LABS: ALBUMIN 3.2 GM/DL (3.2-5.2); ALT/SGPT 23 U/L (12-78); BILIRUBIN,TOTAL 0.5 MG/DL (0.2-1.0); BLOOD UREA NITROGEN 20 MG/DL (7-18); CALCIUM LEVEL 9.7 MG/DL (8.5-10.1); CARBON DIOXIDE LEVEL 35 MEQ/L (21-32); CHLORIDE LEVEL 100 MEQ/L (98-107); CREATININE FOR GFR 0.99 MG/DL (0.55-1.30); GLOMERULAR FILTRATION RATE > 60.0 (>51); GLUCOSE, FASTING 101 MG/DL (70-100); PHOSPHORUS LEVEL 3.1 MG/DL (2.5-4.9); POTASSIUM SERUM 3.9 MEQ/L (3.5-5.1); PTH INTACT 40.1 PG/ML (18.5-88.0); SODIUM LEVEL 139 MEQ/L (136-145); TOTAL PROTEIN 8.3 GM/DL (6.4-8.2)
== END ==
LOC: M PLALAB 14:46
PROVIDERS: ATTEND Student in an Organized Health Care Education/Training Program
DX: N25.81 Secondary hyperparathyroidism of renal origin (principal); Z68.42 Body mass index [BMI] 45.0-49.9, adult; E89.0 Postprocedural hypothyroidism; I50.42 Chronic combined systolic (congestive) and diastolic (congestive) heart failure

== ENCOUNTER → 2020-11-27 | Outpatient (REF) | payer MEDICARE, MEDICAID | LOC: M LAB REF 13:09 | PROVIDERS: ATTEND Internal Medicine Nephrology | DX: N18.32 Chronic kidney disease, stage 3b (principal) ==

== ENCOUNTER → 2021-02-08 | Outpatient (CLI) | payer MEDICARE, MEDICAID ==
[2021-02-08 15:38] LABS: CHOLESTEROL RISK RATIO 3.809 (<5)
[2021-02-08 17:01] LABS: CALCIUM LEVEL 9.5 MG/DL (8.5-10.1); CREATININE FOR GFR 1.04 MG/DL (0.55-1.30); GLOMERULAR FILTRATION RATE 58.6 (>51); POTASSIUM SERUM 3.7 MEQ/L (3.5-5.1)
[2021-02-08 18:39] LABS: MALB URINE SIEMENS 7.6 MG/L
== END ==
LOC: M PLALAB 12:22
PROVIDERS: ATTEND Student in an Organized Health Care Education/Training Program
DX: E11.9 Type 2 diabetes mellitus without complications (principal); Z68.42 Body mass index [BMI] 45.0-49.9, adult

== ENCOUNTER → 2021-03-30 | Outpatient (REF) | payer MEDICARE, MEDICAID ==
[~2021-03-30] MED LIST changes: -LEVO500T3 PO; +LEVO500T4 PO; -OMEP-221 PO; +OMEP40CA5 PO
[2021-03-30 13:54] LABS: MAGNESIUM LEVEL 2.1 MG/DL (1.8-2.4); PERCENT SATURATION 15.2 % (13.2-45.0)
[2021-03-30 14:17] LABS: BACTERIA, URINE LARGE AMOUNT; HYALINE CAST, URINE NONE SEEN /lpf (0-1); MUCUS, URINE SMALL AMOUNT (NEGATIVE); RENAL EPITHELIAL CELLS, URINE SMALL AMOUNT /hpf; SQUAMOUS EPITHELIAL CELL URINE SMALL AMOUNT /hpf (SMALL AMT); TRANSITIONAL EPI CELLS, URINE SMALL AMOUNT /hpf; WBC, URINE 20-30 /hpf (0-3)
== END ==
LOC: M LAB REF 13:01
PROVIDERS: ATTEND Nurse Practitioner Family
DX: D50.9 Iron deficiency anemia, unspecified (principal); N18.31 Chronic kidney disease, stage 3a; I50.32 Chronic diastolic (congestive) heart failure

== ENCOUNTER → 2021-08-06 | Outpatient (REF) | payer MEDICARE, MEDICAID ==
[~2021-08-06] MED LIST changes: -D31000TA2 PO; +VITA100093 PO
== END ==
LOC: M SFHCPLAZ 09:28
PROVIDERS: ATTEND Family Medicine
DX: E11.22 Type 2 diabetes mellitus with diabetic chronic kidney disease (principal)

== ENCOUNTER → 2021-08-06 | Outpatient (CLI) | payer MEDICARE, MEDICAID ==
[2021-08-06 13:33] LABS: HEMOGLOBIN A1c 7.8 %
[2021-08-06 13:36] LABS: CALCIUM LEVEL 9.5 MG/DL (8.5-10.1); CREATININE FOR GFR 1.1 MG/DL (0.55-1.30); GLOMERULAR FILTRATION RATE 54.7 (>51); POTASSIUM SERUM 3.8 MEQ/L (3.5-5.1)
== END ==
LOC: M PLALAB 09:49
PROVIDERS: ATTEND Student in an Organized Health Care Education/Training Program
DX: E11.22 Type 2 diabetes mellitus with diabetic chronic kidney disease (principal); N18.31 Chronic kidney disease, stage 3a

== ENCOUNTER 2022-01-15 18:26 | Inpatient (IN) | payer MEDICARE, MEDICAID ==
[~2022-01-15] VITALS: Ht 172.7 cm; Wt 154.1 kg
[~2022-01-15 18:26] MED LIST changes: -DOXY-350 PO; +DOXY-444 PO; +LEVO1TAB39 PO; +LEVO1TAB40 PO; -LEVO500T4 PO; -LEVO750T13 PO
[2022-01-15] MEDS ORDERED: LevoFLOXacin IV 750 MG in IV 1 EA IV ONE (19:35)
[2022-01-15] MEDS ORDERED: VANCOMYCIN HCL 2,000 MG in D5W 500 ML IV ONE (19:35)
[2022-01-15] MEDS ORDERED: NS IV ONE (19:35)
[2022-01-15 20:16] LABS: BASO # 0.1 10^3/uL (0.0-0.2); BASO % 0.4 % (0.0-1.0); EOS # 0.2 10^3/uL (0.0-0.5); EOS % 0.9 % (0.0-3.0); HEMATOCRIT 40.2 % (36.0-47.0); HEMOGLOBIN 12.8 g/dl (12.0-15.5); LYMPH # 1.7 10^3/uL (1.5-5.0); LYMPH % 7.7 % (24.0-44.0); MEAN CORPUSCULAR HEMOGLOBIN 27.9 pg (27.0-33.0); MEAN CORPUSCULAR HGB CONC 31.8 g/dl (32.0-36.5); MEAN CORPUSCULAR VOLUME 87.6 fl (80.0-96.0); MONO # 1.4 10^3/uL (0.0-0.8); MONO % 6.6 % (2.0-8.0); NEUTROPHILS # 17.7 10^3/uL (1.5-8.5); NEUTROPHILS % 81.8 % (36.0-66.0); PLATELET COUNT, AUTOMATED 375 10^3/uL (150-450); RED BLOOD COUNT 4.59 10^6/uL (4.00-5.40); WHITE BLOOD COUNT 21.7 10^3/uL (4.0-10.0)
[2022-01-15 20:30] LABS: INR 1.4; PROTHROMBIN TIME 17.4 SECONDS (12.5-14.5)
[2022-01-15 20:31] LABS: PARTIAL THROMBOPLASTIN TIME 30.6 SECONDS (24.8-34.2)
[2022-01-15 20:32] LABS: CHLORIDE LEVEL 91 MMOL/L (98-107); SODIUM LEVEL 133 MMOL/L (136-145)
[2022-01-15 20:34] LABS: ALBUMIN 2.1 G/DL (3.2-5.2); CARBON DIOXIDE LEVEL 32 MMOL/L (20-31)
[2022-01-15 20:37] LABS: CALCIUM LEVEL 9.6 MG/DL (8.5-10.1)
[2022-01-15 20:38] LABS: BLOOD UREA NITROGEN 22 MG/DL (9-23); GLUCOSE, FASTING 275 MG/DL (60-100)
[2022-01-15 20:39] LABS: ALKALINE PHOSPHATASE 187 U/L (46-116)
[2022-01-15 20:40] LABS: BILIRUBIN,DIRECT 0.4 MG/DL (<0.4); CREATININE FOR GFR 0.84 MG/DL (0.55-1.30); GLOMERULAR FILTRATION RATE > 60.0 (>51)
[2022-01-15 20:41] LABS: ALT/SGPT 30 U/L (7.0-40); AST/SGOT 27 U/L (<34); BILIRUBIN,TOTAL 0.8 MG/DL (0.3-1.2); TOTAL PROTEIN 7.5 G/DL (5.7-8.2)
[2022-01-15 20:42] LABS: THYROID STIMULATING HORMONE 12.893 uIU/ML (0.55-4.78)
[2022-01-15 20:58] LABS: RSV AMPLIFICATION NEGATIVE (NEGATIVE)
[2022-01-15] MEDS ORDERED: VANCOMYCIN HCL 1,000 MG, VIAL MATE ADAPTER 1 EACH in NS 250 ML IV ONE ×2 (21:00→22:00)
[2022-01-15] MEDS: METOPROLOL SUCC *XL* 12.5MG PER 1/2 TAB (TopROL *XL*) PO SCH (21:00)
[2022-01-15 21:11] LABS: ERYTHROCYTE SEDIMENTATION RATE 64 mm/hr (0-30)
[2022-01-15] MEDS: METOPROLOL 5 MG/5 ML VIAL IV SCH ×2 (23:00→23:05)
[2022-01-15] MEDS ORDERED: HOME MED LIST COMPLETE! XX SCH (23:55)
[2022-01-15] MEDS ORDERED: ACET-897 PO (23:55)
[2022-01-15] MEDS ORDERED: CHOL125C5 PO (23:55)
[2022-01-15] MEDS ORDERED: POTA-150 PO (23:57)
[2022-01-15] MEDS ORDERED: LORA-674 PO (23:57)
[2022-01-16] MEDS: METOPROLOL 5 MG/5 ML VIAL IV SCH (00:53)
[2022-01-16] MEDS ORDERED: LABETALOL 100MG/20ML VIAL IV STA (01:11)
[2022-01-16 03:50] VITALS: BP 143/87
[2022-01-16] MEDS: LEVOTHYROXINE 100MCG TABLET (0.1MG) PO SCH (05:23)
[2022-01-16] MEDS: VANCOMYCIN HCL 1,000 MG, VIAL MATE ADAPTER 1 EACH in NS 250 ML IV SCH ×3 (05:27→21:25)
[2022-01-16] MEDS: ACETAMINOPHEN TAB 650MG DOSE (2X325MG) PO PRN ×3 (05:27→22:35)
[2022-01-16 06:03] LABS: BASO # 0.1 10^3/uL (0.0-0.2); BASO % 0.5 % (0.0-1.0); EOS # 0.2 10^3/uL (0.0-0.5); EOS % 0.9 % (0.0-3.0); HEMATOCRIT 34.7 % (36.0-47.0); HEMOGLOBIN 11.2 g/dl (12.0-15.5); LYMPH # 1.5 10^3/uL (1.5-5.0); LYMPH % 8.4 % (24.0-44.0); MEAN CORPUSCULAR HEMOGLOBIN 28.3 pg (27.0-33.0); MEAN CORPUSCULAR HGB CONC 32.3 g/dl (32.0-36.5); MEAN CORPUSCULAR VOLUME 87.6 fl (80.0-96.0); MONO # 1.3 10^3/uL (0.0-0.8); MONO % 7.3 % (2.0-8.0); NEUTROPHILS # 14.1 10^3/uL (1.5-8.5); NEUTROPHILS % 80.7 % (36.0-66.0); PLATELET COUNT, AUTOMATED 330 10^3/uL (150-450); RED BLOOD COUNT 3.96 10^6/uL (4.00-5.40); WHITE BLOOD COUNT 17.4 10^3/uL (4.0-10.0)
[2022-01-16 06:28] LABS: CHLORIDE LEVEL 97 MMOL/L (98-107); POTASSIUM SERUM 4.1 MMOL/L (3.5-5.1); SODIUM LEVEL 135 MMOL/L (136-145)
[2022-01-16 06:29] LABS: CARBON DIOXIDE LEVEL 28 MMOL/L (20-31)
[2022-01-16 06:32] LABS: GLUCOSE, FASTING 269 MG/DL (60-100)
[2022-01-16 06:34] LABS: BLOOD UREA NITROGEN 18 MG/DL (9-23)
[2022-01-16 06:36] LABS: FREE T4 0.62 NG/DL (0.89-1.76); GLOMERULAR FILTRATION RATE > 60.0 (>51)
[2022-01-16 08:14] VITALS: BP 119/58
[2022-01-16 09:01] LABS: HEMOGLOBIN A1c 9.6 % (4.0-6.0)
[2022-01-16] MEDS: MULTIVITAMINS/MINERALS THERAP 1 TAB PO SCH (09:27)
[2022-01-16] MEDS: POTASSIUM CHLORIDE 10MEQ SR TABLET PO SCH (09:27)
[2022-01-16] MEDS: NYSTATIN 100,000 UNITS/GM TOPICAL PWD 15GM TOP SCH (09:27)
[2022-01-16] MEDS: FERROUS GLUCONATE 324 MG TAB PO SCH (09:27)
[2022-01-16] MEDS: VITAMIN D 1,000 INTERNATIONAL UNITS TABLET PO SCH ×2 (09:27→21:28)
[2022-01-16] MEDS: VANICREAM MOISTURIZING SKIN CREAM 113GM TUBE TOP SCH ×2 (09:27→21:25)
[2022-01-16] MEDS: LORATADINE 10 MG TAB PO SCH (09:28)
[2022-01-16] MEDS: DABIGATRAN ETEXILATE 75 MG CAP (PRADAXA) PO SCH ×2 (09:29→21:29)
[2022-01-16] MEDS: LIOTHYRONINE 25 MCG TAB PO SCH ×2 (09:31→21:30)
[2022-01-16] MEDS: METOPROLOL SUCC *XL* 12.5MG PER 1/2 TAB (TopROL *XL*) PO SCH ×2 (09:33→21:31)
[2022-01-16 11:07] LABS: ANTI-STREPTOLYSIN O QUANT 1973.7 IU/ML (<195)
[2022-01-16 12:25] VITALS: BP 143/76
[2022-01-16] MEDS: valACYclovir HCL 500 MG TAB PO SCH ×2 (12:36→21:30)
[2022-01-16 13:48] LABS: THYROID STIMULATING HORMONE 13.895 uIU/ML (0.55-4.78)
[2022-01-16 16:17] VITALS: BP 132/63
[2022-01-16 20:00] VITALS: BP 115/58
[2022-01-16] MEDS ORDERED: valACYclovir HCL 500 MG TAB PO SCH ×2 (21:00)
[2022-01-16] MEDS: LevoFLOXacin 750 MG TABLET PO SCH (21:29)
[2022-01-17] VITALS: BP 116/56
[2022-01-17 04:00] VITALS: BP 132/59
[2022-01-17 05:35] LABS: BASO # 0.1 10^3/uL (0.0-0.2); BASO % 0.5 % (0.0-1.0); EOS # 0.2 10^3/uL (0.0-0.5); EOS % 1.6 % (0.0-3.0); HEMATOCRIT 33.4 % (36.0-47.0); HEMOGLOBIN 10.7 g/dl (12.0-15.5); LYMPH # 1.6 10^3/uL (1.5-5.0); LYMPH % 13.1 % (24.0-44.0); MEAN CORPUSCULAR HEMOGLOBIN 27.9 pg (27.0-33.0); MEAN CORPUSCULAR VOLUME 87.2 fl (80.0-96.0); MONO # 1.2 10^3/uL (0.0-0.8); MONO % 9.6 % (2.0-8.0); NEUTROPHILS # 9.2 10^3/uL (1.5-8.5); NEUTROPHILS % 73.7 % (36.0-66.0); PLATELET COUNT, AUTOMATED 326 10^3/uL (150-450); RED BLOOD COUNT 3.83 10^6/uL (4.00-5.40); WHITE BLOOD COUNT 12.4 10^3/uL (4.0-10.0)
[2022-01-17 06:00] LABS: MAGNESIUM LEVEL 1.7 MG/DL (1.8-2.4)
[2022-01-17 06:01] LABS: BLOOD UREA NITROGEN 13 MG/DL (9-23); CALCIUM LEVEL 8.5 MG/DL (8.5-10.1); CARBON DIOXIDE LEVEL 30 MMOL/L (20-31); CHLORIDE LEVEL 98 MMOL/L (98-107); CREATININE FOR GFR 0.69 MG/DL (0.55-1.30); GLOMERULAR FILTRATION RATE > 60.0 (>51); GLUCOSE, FASTING 274 MG/DL (60-100); POTASSIUM SERUM 4.1 MMOL/L (3.5-5.1); SODIUM LEVEL 136 MMOL/L (136-145)
[2022-01-17 06:06] LABS: ERYTHROCYTE SEDIMENTATION RATE 126 mm/hr (0-30)
[2022-01-17] MEDS: LEVOTHYROXINE 100MCG TABLET (0.1MG) PO SCH (06:09)
[2022-01-17] MEDS: VANCOMYCIN HCL 1,000 MG, VIAL MATE ADAPTER 1 EACH in NS 250 ML IV SCH (06:09)
[2022-01-17] MEDS: PERCOCET 5MG/325MG TAB PO PRN ×3 (06:09→20:45)
[2022-01-17 07:31] VITALS: BP 121/59
[2022-01-17] MEDS ORDERED: DEXTROSE 50% 50 ML SYRINGE IV PRN (07:35)
[2022-01-17] MEDS ORDERED: GLUCAGON INJ 1MG VIAL SC PRN (07:35)
[2022-01-17] MEDS ORDERED: GLUCOSE 4GM CHEW TABLET PO PRN (07:35)
[2022-01-17] MEDS: INSULIN LISPRO (NovoLOG) PER UNIT SC SCH ×4 (08:20→20:46)
[2022-01-17] MEDS: DABIGATRAN ETEXILATE 75 MG CAP (PRADAXA) PO SCH ×2 (08:20→20:44)
[2022-01-17] MEDS: LIOTHYRONINE 25 MCG TAB PO SCH (08:21)
[2022-01-17] MEDS: POTASSIUM CHLORIDE 10MEQ SR TABLET PO SCH (08:21)
[2022-01-17] MEDS: METOPROLOL SUCC *XL* 12.5MG PER 1/2 TAB (TopROL *XL*) PO SCH ×2 (08:21→20:48)
[2022-01-17] MEDS: MULTIVITAMINS/MINERALS THERAP 1 TAB PO SCH (08:21)
[2022-01-17] MEDS: LORATADINE 10 MG TAB PO SCH (08:21)
[2022-01-17] MEDS: VITAMIN D 1,000 INTERNATIONAL UNITS TABLET PO SCH ×2 (08:21→20:44)
[2022-01-17] MEDS: VANICREAM MOISTURIZING SKIN CREAM 113GM TUBE TOP SCH ×2 (08:22→20:53)
[2022-01-17] MEDS: FERROUS GLUCONATE 324 MG TAB PO SCH (08:22)
[2022-01-17] MEDS: NYSTATIN 100,000 UNITS/GM TOPICAL PWD 15GM TOP SCH (08:22)
[2022-01-17] MEDS: FUROSEMIDE 100MG/10ML VIAL (J1940) IV SCH ×2 (11:15→17:50)
[2022-01-17 12:20] VITALS: BP 125/58
[2022-01-17 16:22] VITALS: BP 129/71
[2022-01-17 20:00] VITALS: BP 120/69
[2022-01-17] MEDS: metFORMIN (GLUCOPHAGE) 500MG TAB PO SCH (20:01)
[2022-01-17] MEDS: LevoFLOXacin 750 MG TABLET PO SCH (20:44)
[2022-01-17] MEDS: LEVEMIR (INSULIN DETEMIR) 1 UNITS/0.01ML SC SCH (20:53)
[2022-01-18] VITALS: BP 121/59
[2022-01-18] MEDS: PERCOCET 5MG/325MG TAB PO PRN ×3 (03:49→22:06)
[2022-01-18 04:44] VITALS: BP 127/62
[2022-01-18 05:09] LABS: BASO # 0.1 10^3/uL (0.0-0.2); BASO % 0.6 % (0.0-1.0); EOS # 0.2 10^3/uL (0.0-0.5); EOS % 2.3 % (0.0-3.0); HEMATOCRIT 33.7 % (36.0-47.0); LYMPH # 1.8 10^3/uL (1.5-5.0); LYMPH % 17.7 % (24.0-44.0); MEAN CORPUSCULAR HEMOGLOBIN 28.5 pg (27.0-33.0); MEAN CORPUSCULAR HGB CONC 32.6 g/dl (32.0-36.5); MEAN CORPUSCULAR VOLUME 87.3 fl (80.0-96.0); MONO # 1.1 10^3/uL (0.0-0.8); NEUTROPHILS # 6.6 10^3/uL (1.5-8.5); NEUTROPHILS % 66.8 % (36.0-66.0); PLATELET COUNT, AUTOMATED 348 10^3/uL (150-450); RED BLOOD COUNT 3.86 10^6/uL (4.00-5.40); WHITE BLOOD COUNT 9.9 10^3/uL (4.0-10.0)
[2022-01-18] MEDS: LEVOTHYROXINE 125MCG TABLET (0.125MG) PO SCH (05:59)
[2022-01-18] MEDS: LEVOTHYROXINE 100MCG TABLET (0.1MG) PO SCH (05:59)
[2022-01-18 06:01] LABS: MAGNESIUM LEVEL 1.5 MG/DL (1.8-2.4)
[2022-01-18 06:03] LABS: BLOOD UREA NITROGEN 13 MG/DL (9-23); CALCIUM LEVEL 8.4 MG/DL (8.5-10.1); CARBON DIOXIDE LEVEL 32 MMOL/L (20-31); CHLORIDE LEVEL 96 MMOL/L (98-107); CREATININE FOR GFR 0.77 MG/DL (0.55-1.30); GLOMERULAR FILTRATION RATE > 60.0 (>51); GLUCOSE, FASTING 202 MG/DL (60-100); POTASSIUM SERUM 3.7 MMOL/L (3.5-5.1); SODIUM LEVEL 137 MMOL/L (136-145)
[2022-01-18 08:00] VITALS: BP 110/60
[2022-01-18] MEDS: METOPROLOL SUCC *XL* 12.5MG PER 1/2 TAB (TopROL *XL*) PO SCH ×2 (09:20→21:49)
[2022-01-18] MEDS: MULTIVITAMINS/MINERALS THERAP 1 TAB PO SCH (09:20)
[2022-01-18] MEDS: FERROUS GLUCONATE 324 MG TAB PO SCH (09:20)
[2022-01-18] MEDS: LORATADINE 10 MG TAB PO SCH (09:20)
[2022-01-18] MEDS: POTASSIUM CHLORIDE 10MEQ SR TABLET PO SCH (09:20)
[2022-01-18] MEDS: FUROSEMIDE 100MG/10ML VIAL (J1940) IV SCH ×2 (09:21→18:06)
[2022-01-18] MEDS: VITAMIN D 1,000 INTERNATIONAL UNITS TABLET PO SCH ×2 (09:21→21:49)
[2022-01-18] MEDS: MAG SULF 1GM/100ML (MAG RUN) 1 GM in IV 1 EA IV SCH ×2 (09:21→10:20)
[2022-01-18] MEDS: NYSTATIN 100,000 UNITS/GM TOPICAL PWD 15GM TOP SCH (09:22)
[2022-01-18] MEDS: INSULIN LISPRO (NovoLOG) PER UNIT SC SCH ×4 (09:22→21:00)
[2022-01-18] MEDS: DABIGATRAN ETEXILATE 75 MG CAP (PRADAXA) PO SCH ×2 (09:22→21:50)
[2022-01-18] MEDS: VANICREAM MOISTURIZING SKIN CREAM 113GM TUBE TOP SCH ×2 (09:22→21:51)
[2022-01-18] MEDS: metFORMIN (GLUCOPHAGE) 500MG TAB PO SCH ×2 (09:30→18:05)
[2022-01-18 12:00] VITALS: BP 124/87
[2022-01-18 20:00] VITALS: BP 127/58
[2022-01-18] MEDS: LEVEMIR (INSULIN DETEMIR) 1 UNITS/0.01ML SC SCH (21:48)
[2022-01-18] MEDS: LevoFLOXacin 750 MG TABLET PO SCH (21:49)
[2022-01-19] MEDS: PERCOCET 5MG/325MG TAB PO PRN ×3 (05:00→23:24)
[2022-01-19] MEDS: LEVOTHYROXINE 100MCG TABLET (0.1MG) PO SCH (05:07)
[2022-01-19] MEDS: LEVOTHYROXINE 125MCG TABLET (0.125MG) PO SCH (05:07)
[2022-01-19 05:35] LABS: BASO # 0.1 10^3/uL (0.0-0.2); BASO % 0.7 % (0.0-1.0); EOS # 0.3 10^3/uL (0.0-0.5); EOS % 3.1 % (0.0-3.0); HEMATOCRIT 33.8 % (36.0-47.0); HEMOGLOBIN 10.7 g/dl (12.0-15.5); LYMPH # 1.9 10^3/uL (1.5-5.0); LYMPH % 19.7 % (24.0-44.0); MEAN CORPUSCULAR HEMOGLOBIN 27.8 pg (27.0-33.0); MEAN CORPUSCULAR HGB CONC 31.7 g/dl (32.0-36.5); MEAN CORPUSCULAR VOLUME 87.8 fl (80.0-96.0); MONO % 10.8 % (2.0-8.0); NEUTROPHILS # 6.2 10^3/uL (1.5-8.5); NEUTROPHILS % 64.4 % (36.0-66.0); PLATELET COUNT, AUTOMATED 371 10^3/uL (150-450); RED BLOOD COUNT 3.85 10^6/uL (4.00-5.40); WHITE BLOOD COUNT 9.6 10^3/uL (4.0-10.0)
[2022-01-19 06:09] LABS: MAGNESIUM LEVEL 1.7 MG/DL (1.8-2.4)
[2022-01-19 06:10] LABS: BLOOD UREA NITROGEN 14 MG/DL (9-23); CALCIUM LEVEL 8.4 MG/DL (8.5-10.1); CARBON DIOXIDE LEVEL 33 MMOL/L (20-31); CHLORIDE LEVEL 94 MMOL/L (98-107); CREATININE FOR GFR 0.76 MG/DL (0.55-1.30); GLOMERULAR FILTRATION RATE > 60.0 (>51); GLUCOSE, FASTING 163 MG/DL (60-100); POTASSIUM SERUM 3.7 MMOL/L (3.5-5.1); SODIUM LEVEL 135 MMOL/L (136-145)
[2022-01-19 07:48] VITALS: BP 123/62
[2022-01-19] MEDS ORDERED: MAG SULF 1GM/100ML (MAG RUN) 1 GM in IV 1 EA IV ONE (08:00)
[2022-01-19] MEDS: METOPROLOL SUCC *XL* 12.5MG PER 1/2 TAB (TopROL *XL*) PO SCH ×2 (09:09→21:02)
[2022-01-19] MEDS: MULTIVITAMINS/MINERALS THERAP 1 TAB PO SCH (09:09)
[2022-01-19] MEDS: FERROUS GLUCONATE 324 MG TAB PO SCH (09:09)
[2022-01-19] MEDS: LORATADINE 10 MG TAB PO SCH (09:09)
[2022-01-19] MEDS: POTASSIUM CHLORIDE 10MEQ SR TABLET PO SCH (09:09)
[2022-01-19] MEDS: TORSEMIDE 20 MG TAB PO SCH ×2 (09:10→17:30)
[2022-01-19] MEDS: DABIGATRAN ETEXILATE 75 MG CAP (PRADAXA) PO SCH ×2 (09:10→21:02)
[2022-01-19] MEDS: ACETAMINOPHEN TAB 650MG DOSE (2X325MG) PO PRN (09:10)
[2022-01-19] MEDS: VITAMIN D 1,000 INTERNATIONAL UNITS TABLET PO SCH ×2 (09:10→21:02)
[2022-01-19] MEDS: VANICREAM MOISTURIZING SKIN CREAM 113GM TUBE TOP SCH ×2 (09:11→21:08)
[2022-01-19] MEDS: INSULIN LISPRO (NovoLOG) PER UNIT SC SCH ×4 (09:11→20:55)
[2022-01-19] MEDS: NYSTATIN 100,000 UNITS/GM TOPICAL PWD 15GM TOP SCH (09:12)
[2022-01-19] MEDS: metFORMIN (GLUCOPHAGE) 500MG TAB PO SCH ×2 (09:16→17:30)
[2022-01-19 20:00] VITALS: BP 132/63
[2022-01-19] MEDS: LevoFLOXacin 750 MG TABLET PO SCH (21:02)
[2022-01-19] MEDS: LEVEMIR (INSULIN DETEMIR) 1 UNITS/0.01ML SC SCH (21:02)
[2022-01-19] MEDS: SPIRONOLACTONE 25 MG TAB PO SCH (21:02)
[2022-01-20] MEDS: LEVOTHYROXINE 100MCG TABLET (0.1MG) PO SCH (05:35)
[2022-01-20] MEDS: LEVOTHYROXINE 125MCG TABLET (0.125MG) PO SCH (05:35)
[2022-01-20 05:48] LABS: BASO # 0.1 10^3/uL (0.0-0.2); BASO % 0.8 % (0.0-1.0); EOS # 0.3 10^3/uL (0.0-0.5); EOS % 3.1 % (0.0-3.0); HEMATOCRIT 34.3 % (36.0-47.0); LYMPH # 1.6 10^3/uL (1.5-5.0); LYMPH % 18.2 % (24.0-44.0); MEAN CORPUSCULAR HEMOGLOBIN 28.1 pg (27.0-33.0); MEAN CORPUSCULAR HGB CONC 32.1 g/dl (32.0-36.5); MEAN CORPUSCULAR VOLUME 87.5 fl (80.0-96.0); MONO % 10.8 % (2.0-8.0); NEUTROPHILS # 5.9 10^3/uL (1.5-8.5); NEUTROPHILS % 65.8 % (36.0-66.0); PLATELET COUNT, AUTOMATED 400 10^3/uL (150-450); RED BLOOD COUNT 3.92 10^6/uL (4.00-5.40)
[2022-01-20 06:25] LABS: MAGNESIUM LEVEL 1.3 MG/DL (1.8-2.4)
[2022-01-20 06:27] LABS: BLOOD UREA NITROGEN 14 MG/DL (9-23); CALCIUM LEVEL 8.3 MG/DL (8.5-10.1); CARBON DIOXIDE LEVEL 37 MMOL/L (20-31); CHLORIDE LEVEL 92 MMOL/L (98-107); CREATININE FOR GFR 0.94 MG/DL (0.55-1.30); GLOMERULAR FILTRATION RATE > 60.0 (>51); GLUCOSE, FASTING 145 MG/DL (60-100); POTASSIUM SERUM 3.7 MMOL/L (3.5-5.1); SODIUM LEVEL 136 MMOL/L (136-145)
[2022-01-20 08:00] VITALS: BP 115/53
[2022-01-20] MEDS: VITAMIN D 1,000 INTERNATIONAL UNITS TABLET PO SCH ×2 (08:44→21:02)
[2022-01-20] MEDS: PERCOCET 5MG/325MG TAB PO PRN ×3 (08:46→23:30)
[2022-01-20] MEDS: LORATADINE 10 MG TAB PO SCH (08:47)
[2022-01-20] MEDS: DABIGATRAN ETEXILATE 75 MG CAP (PRADAXA) PO SCH ×2 (08:47→21:01)
[2022-01-20] MEDS: METOPROLOL SUCC *XL* 12.5MG PER 1/2 TAB (TopROL *XL*) PO SCH ×2 (08:48→21:02)
[2022-01-20] MEDS: TORSEMIDE 20 MG TAB PO SCH ×2 (08:49→16:19)
[2022-01-20] MEDS: metFORMIN (GLUCOPHAGE) 500MG TAB PO SCH ×2 (08:51→17:59)
[2022-01-20] MEDS: FERROUS GLUCONATE 324 MG TAB PO SCH (08:52)
[2022-01-20] MEDS: POTASSIUM CHLORIDE 10MEQ SR TABLET PO SCH (08:52)
[2022-01-20] MEDS: INSULIN LISPRO (NovoLOG) PER UNIT SC SCH ×4 (08:52→21:00)
[2022-01-20] MEDS: MULTIVITAMINS/MINERALS THERAP 1 TAB PO SCH (08:52)
[2022-01-20] MEDS: VANICREAM MOISTURIZING SKIN CREAM 113GM TUBE TOP SCH ×2 (08:57→21:04)
[2022-01-20] MEDS: NYSTATIN 100,000 UNITS/GM TOPICAL PWD 15GM TOP SCH (08:58)
[2022-01-20] MEDS: MAG SULF 1GM/100ML (MAG RUN) 1 GM in IV 1 EA IV SCH ×3 (13:52→16:35)
[2022-01-20] MEDS: MAGNESIUM OXIDE 400MG TAB (MAG-OX) PO SCH ×2 (16:17→21:02)
[2022-01-20 16:30] VITALS: BP 128/65
[2022-01-20] MEDS: LevoFLOXacin 750 MG TABLET PO SCH (21:01)
[2022-01-20] MEDS: SPIRONOLACTONE 25 MG TAB PO SCH (21:01)
[2022-01-20] MEDS: LEVEMIR (INSULIN DETEMIR) 1 UNITS/0.01ML SC SCH (21:03)
[2022-01-20 22:00] VITALS: BP 126/65
[2022-01-21] MEDS: LEVOTHYROXINE 125MCG TABLET (0.125MG) PO SCH (05:44)
[2022-01-21] MEDS: LEVOTHYROXINE 100MCG TABLET (0.1MG) PO SCH (05:44)
[2022-01-21] MEDS: PERCOCET 5MG/325MG TAB PO PRN ×3 (05:44→19:39)
[2022-01-21 06:00] VITALS: BP 129/64
[2022-01-21 06:06] LABS: BASO # 0.1 10^3/uL (0.0-0.2); BASO % 0.9 % (0.0-1.0); EOS # 0.2 10^3/uL (0.0-0.5); EOS % 3.2 % (0.0-3.0); HEMATOCRIT 34.2 % (36.0-47.0); HEMOGLOBIN 10.7 g/dl (12.0-15.5); LYMPH # 1.8 10^3/uL (1.5-5.0); LYMPH % 23.5 % (24.0-44.0); MEAN CORPUSCULAR HEMOGLOBIN 27.8 pg (27.0-33.0); MEAN CORPUSCULAR HGB CONC 31.3 g/dl (32.0-36.5); MEAN CORPUSCULAR VOLUME 88.8 fl (80.0-96.0); MONO % 12.8 % (2.0-8.0); NEUTROPHILS # 4.4 10^3/uL (1.5-8.5); NEUTROPHILS % 58.4 % (36.0-66.0); PLATELET COUNT, AUTOMATED 397 10^3/uL (150-450); RED BLOOD COUNT 3.85 10^6/uL (4.00-5.40); WHITE BLOOD COUNT 7.5 10^3/uL (4.0-10.0)
[2022-01-21 07:02] LABS: C REACTIVE PROTEIN QUANTITATIV 9.6 MG/DL (<1.0); MAGNESIUM LEVEL 1.8 MG/DL (1.8-2.4)
[2022-01-21 07:04] LABS: CALCIUM LEVEL 8.2 MG/DL (8.5-10.1); CREATININE FOR GFR 1.03 MG/DL (0.55-1.30); POTASSIUM SERUM 3.7 MMOL/L (3.5-5.1)
[2022-01-21] MEDS: FERROUS GLUCONATE 324 MG TAB PO SCH (08:41)
[2022-01-21] MEDS: LORATADINE 10 MG TAB PO SCH (08:41)
[2022-01-21] MEDS: DABIGATRAN ETEXILATE 75 MG CAP (PRADAXA) PO SCH ×2 (08:41→22:13)
[2022-01-21] MEDS: TORSEMIDE 20 MG TAB PO SCH ×2 (08:42→16:36)
[2022-01-21] MEDS: METOPROLOL SUCC *XL* 12.5MG PER 1/2 TAB (TopROL *XL*) PO SCH ×2 (08:42→22:32)
[2022-01-21] MEDS: MAGNESIUM OXIDE 400MG TAB (MAG-OX) PO SCH ×3 (08:42→22:13)
[2022-01-21] MEDS: MULTIVITAMINS/MINERALS THERAP 1 TAB PO SCH (08:43)
[2022-01-21] MEDS: VITAMIN D 1,000 INTERNATIONAL UNITS TABLET PO SCH ×2 (08:43→22:13)
[2022-01-21] MEDS: POTASSIUM CHLORIDE 10MEQ SR TABLET PO SCH (08:43)
[2022-01-21] MEDS: metFORMIN (GLUCOPHAGE) 500MG TAB PO SCH ×2 (08:43→16:36)
[2022-01-21] MEDS: INSULIN LISPRO (NovoLOG) PER UNIT SC SCH ×4 (08:44→21:00)
[2022-01-21] MEDS: VANICREAM MOISTURIZING SKIN CREAM 113GM TUBE TOP SCH ×2 (08:48→22:14)
[2022-01-21] MEDS: NYSTATIN 100,000 UNITS/GM TOPICAL PWD 15GM TOP SCH (08:48)
[2022-01-21 14:00] VITALS: BP 128/64
[2022-01-21] MEDS: LevoFLOXacin 750 MG TABLET PO SCH (22:13)
[2022-01-21] MEDS: LEVEMIR (INSULIN DETEMIR) 1 UNITS/0.01ML SC SCH (22:15)
[2022-01-21] MEDS: SPIRONOLACTONE 25 MG TAB PO SCH (22:32)
[2022-01-21 22:34] VITALS: BP 126/66
[2022-01-22] MEDS: PERCOCET 5MG/325MG TAB PO PRN ×3 (04:28→21:24)
[2022-01-22] MEDS: LEVOTHYROXINE 100MCG TABLET (0.1MG) PO SCH (05:13)
[2022-01-22] MEDS: LEVOTHYROXINE 125MCG TABLET (0.125MG) PO SCH (05:13)
[2022-01-22 05:16] VITALS: BP 123/65
[2022-01-22 05:48] LABS: BASO # 0.1 10^3/uL (0.0-0.2); BASO % 0.9 % (0.0-1.0); EOS # 0.2 10^3/uL (0.0-0.5); EOS % 3.3 % (0.0-3.0); HEMATOCRIT 34.7 % (36.0-47.0); HEMOGLOBIN 10.8 g/dl (12.0-15.5); LYMPH # 1.7 10^3/uL (1.5-5.0); MEAN CORPUSCULAR HEMOGLOBIN 27.6 pg (27.0-33.0); MEAN CORPUSCULAR HGB CONC 31.1 g/dl (32.0-36.5); MEAN CORPUSCULAR VOLUME 88.7 fl (80.0-96.0); MONO # 0.8 10^3/uL (0.0-0.8); MONO % 11.7 % (2.0-8.0); NEUTROPHILS % 58.4 % (36.0-66.0); PLATELET COUNT, AUTOMATED 419 10^3/uL (150-450); RED BLOOD COUNT 3.91 10^6/uL (4.00-5.40); WHITE BLOOD COUNT 6.9 10^3/uL (4.0-10.0)
[2022-01-22 07:18] LABS: BLOOD UREA NITROGEN 14 MG/DL (9-23); CALCIUM LEVEL 8.1 MG/DL (8.5-10.1); CARBON DIOXIDE LEVEL 35 MMOL/L (20-31); CHLORIDE LEVEL 94 MMOL/L (98-107); CREATININE FOR GFR 0.97 MG/DL (0.55-1.30); GLOMERULAR FILTRATION RATE > 60.0 (>51); GLUCOSE, FASTING 132 MG/DL (60-100); MAGNESIUM LEVEL 1.8 MG/DL (1.8-2.4); POTASSIUM SERUM 3.7 MMOL/L (3.5-5.1); SODIUM LEVEL 135 MMOL/L (136-145)
[2022-01-22] MEDS: DABIGATRAN ETEXILATE 75 MG CAP (PRADAXA) PO SCH ×2 (08:11→21:23)
[2022-01-22] MEDS: MULTIVITAMINS/MINERALS THERAP 1 TAB PO SCH (08:12)
[2022-01-22] MEDS: TORSEMIDE 20 MG TAB PO SCH ×2 (08:12→17:46)
[2022-01-22] MEDS: VITAMIN D 1,000 INTERNATIONAL UNITS TABLET PO SCH ×2 (08:12→21:23)
[2022-01-22] MEDS: POTASSIUM CHLORIDE 10MEQ SR TABLET PO SCH (08:12)
[2022-01-22] MEDS: MAGNESIUM OXIDE 400MG TAB (MAG-OX) PO SCH ×3 (08:12→21:23)
[2022-01-22] MEDS: METOPROLOL SUCC *XL* 12.5MG PER 1/2 TAB (TopROL *XL*) PO SCH ×2 (08:12→21:25)
[2022-01-22] MEDS: LORATADINE 10 MG TAB PO SCH (08:13)
[2022-01-22] MEDS: metFORMIN (GLUCOPHAGE) 500MG TAB PO SCH ×2 (08:13→17:47)
[2022-01-22] MEDS: FERROUS GLUCONATE 324 MG TAB PO SCH (08:13)
[2022-01-22] MEDS: INSULIN LISPRO (NovoLOG) PER UNIT SC SCH ×4 (08:13→21:00)
[2022-01-22] MEDS: NYSTATIN 100,000 UNITS/GM TOPICAL PWD 15GM TOP SCH (08:14)
[2022-01-22] MEDS: VANICREAM MOISTURIZING SKIN CREAM 113GM TUBE TOP SCH ×2 (08:14→21:26)
[2022-01-22 14:00] VITALS: BP 126/64
[2022-01-22 16:22] VITALS: BP 111/62
[2022-01-22] MEDS: LevoFLOXacin 750 MG TABLET PO SCH (21:23)
[2022-01-22] MEDS: SPIRONOLACTONE 25 MG TAB PO SCH (21:23)
[2022-01-22] MEDS: LEVEMIR (INSULIN DETEMIR) 1 UNITS/0.01ML SC SCH (21:26)
[2022-01-22] MEDS ORDERED: CALCIUM CARBONATE 500 MG CHEW U/D PO PRN (22:30)
[2022-01-23] MEDS: LEVOTHYROXINE 100MCG TABLET (0.1MG) PO SCH (04:54)
[2022-01-23] MEDS: LEVOTHYROXINE 125MCG TABLET (0.125MG) PO SCH (04:54)
[2022-01-23] MEDS: PERCOCET 5MG/325MG TAB PO PRN ×3 (04:55→21:26)
[2022-01-23 05:51] LABS: BASO # 0.1 10^3/uL (0.0-0.2); BASO % 0.9 % (0.0-1.0); EOS # 0.2 10^3/uL (0.0-0.5); EOS % 2.8 % (0.0-3.0); HEMATOCRIT 34.8 % (36.0-47.0); HEMOGLOBIN 10.9 g/dl (12.0-15.5); LYMPH # 1.8 10^3/uL (1.5-5.0); LYMPH % 22.7 % (24.0-44.0); MEAN CORPUSCULAR HEMOGLOBIN 27.7 pg (27.0-33.0); MEAN CORPUSCULAR HGB CONC 31.3 g/dl (32.0-36.5); MEAN CORPUSCULAR VOLUME 88.5 fl (80.0-96.0); MONO # 0.8 10^3/uL (0.0-0.8); MONO % 10.2 % (2.0-8.0); NEUTROPHILS # 4.9 10^3/uL (1.5-8.5); NEUTROPHILS % 62.5 % (36.0-66.0); PLATELET COUNT, AUTOMATED 433 10^3/uL (150-450); RED BLOOD COUNT 3.93 10^6/uL (4.00-5.40); WHITE BLOOD COUNT 7.9 10^3/uL (4.0-10.0)
[2022-01-23 06:33] VITALS: BP 111/64
[2022-01-23 07:05] LABS: C REACTIVE PROTEIN QUANTITATIV 10.4 MG/DL (<1.0); CREATININE FOR GFR 1.2 MG/DL (0.55-1.30); GLOMERULAR FILTRATION RATE 49.5 (>51); MAGNESIUM LEVEL 1.9 MG/DL (1.8-2.4); POTASSIUM SERUM 3.9 MMOL/L (3.5-5.1)
[2022-01-23] MEDS: INSULIN LISPRO (NovoLOG) PER UNIT SC SCH ×4 (09:22→20:04)
[2022-01-23] MEDS: DABIGATRAN ETEXILATE 75 MG CAP (PRADAXA) PO SCH ×2 (09:23→21:23)
[2022-01-23] MEDS: MULTIVITAMINS/MINERALS THERAP 1 TAB PO SCH (09:23)
[2022-01-23] MEDS: POTASSIUM CHLORIDE 10MEQ SR TABLET PO SCH (09:23)
[2022-01-23] MEDS: METOPROLOL SUCC *XL* 12.5MG PER 1/2 TAB (TopROL *XL*) PO SCH ×2 (09:23→21:25)
[2022-01-23] MEDS: TORSEMIDE 20 MG TAB PO SCH ×2 (09:24→17:15)
[2022-01-23] MEDS: VITAMIN D 1,000 INTERNATIONAL UNITS TABLET PO SCH ×2 (09:24→21:25)
[2022-01-23] MEDS: FERROUS GLUCONATE 324 MG TAB PO SCH (09:24)
[2022-01-23] MEDS: metFORMIN (GLUCOPHAGE) 500MG TAB PO SCH ×2 (09:25→17:16)
[2022-01-23] MEDS: LORATADINE 10 MG TAB PO SCH (09:25)
[2022-01-23] MEDS: MAGNESIUM OXIDE 400MG TAB (MAG-OX) PO SCH ×3 (09:25→21:24)
[2022-01-23] MEDS: NYSTATIN 100,000 UNITS/GM TOPICAL PWD 15GM TOP SCH (09:27)
[2022-01-23] MEDS: VANICREAM MOISTURIZING SKIN CREAM 113GM TUBE TOP SCH ×2 (09:27→21:31)
[2022-01-23] MEDS ORDERED: PILL CUTTER 1 EACH XX PRN (13:55)
[2022-01-23] MEDS: DAPAGLIFLOZIN PROPANEDIOL 10MG TABLET (FARXIGA) PO SCH (15:00)
[2022-01-23] MEDS: SITagliptin 50 MG TAB (JANUVIA) PO SCH (15:47)
[2022-01-23] MEDS: LevoFLOXacin 750 MG TABLET PO SCH (21:24)
[2022-01-23] MEDS: SPIRONOLACTONE 25 MG TAB PO SCH (21:24)
[2022-01-24] MEDS: PERCOCET 5MG/325MG TAB PO PRN ×2 (03:33→12:13)
[2022-01-24 05:37] VITALS: BP 122/66
[2022-01-24] MEDS: LEVOTHYROXINE 100MCG TABLET (0.1MG) PO SCH (05:39)
[2022-01-24] MEDS: LEVOTHYROXINE 125MCG TABLET (0.125MG) PO SCH (05:39)
[2022-01-24 06:18] LABS: BASO # 0.1 10^3/uL (0.0-0.2); BASO % 0.8 % (0.0-1.0); EOS # 0.3 10^3/uL (0.0-0.5); EOS % 3.3 % (0.0-3.0); HEMATOCRIT 33.1 % (36.0-47.0); HEMOGLOBIN 10.7 g/dl (12.0-15.5); LYMPH % 23.3 % (24.0-44.0); MEAN CORPUSCULAR HEMOGLOBIN 28.8 pg (27.0-33.0); MEAN CORPUSCULAR HGB CONC 32.3 g/dl (32.0-36.5); MONO # 0.8 10^3/uL (0.0-0.8); MONO % 9.6 % (2.0-8.0); NEUTROPHILS # 5.2 10^3/uL (1.5-8.5); NEUTROPHILS % 62.1 % (36.0-66.0); PLATELET COUNT, AUTOMATED 418 10^3/uL (150-450); RED BLOOD COUNT 3.72 10^6/uL (4.00-5.40); WHITE BLOOD COUNT 8.4 10^3/uL (4.0-10.0)
[2022-01-24 06:52] LABS: CALCIUM LEVEL 8.8 MG/DL (8.5-10.1); CREATININE FOR GFR 1.24 MG/DL (0.55-1.30); GLOMERULAR FILTRATION RATE 47.6 (>51); POTASSIUM SERUM 4.4 MMOL/L (3.5-5.1)
[2022-01-24 08:00] VITALS: BP 112/67
[2022-01-24] MEDS: INSULIN LISPRO (NovoLOG) PER UNIT SC SCH ×2 (08:56→12:00)
[2022-01-24] MEDS: TORSEMIDE 20 MG TAB PO SCH (08:57)
[2022-01-24] MEDS: MULTIVITAMINS/MINERALS THERAP 1 TAB PO SCH (08:58)
[2022-01-24 08:59] VITALS: BP 112/67
[2022-01-24] MEDS: LORATADINE 10 MG TAB PO SCH (08:59)
[2022-01-24] MEDS: METOPROLOL SUCC *XL* 12.5MG PER 1/2 TAB (TopROL *XL*) PO SCH (08:59)
[2022-01-24] MEDS: VITAMIN D 1,000 INTERNATIONAL UNITS TABLET PO SCH (09:00)
[2022-01-24] MEDS: MAGNESIUM OXIDE 400MG TAB (MAG-OX) PO SCH (09:00)
[2022-01-24] MEDS: POTASSIUM CHLORIDE 10MEQ SR TABLET PO SCH (09:01)
[2022-01-24] MEDS: metFORMIN (GLUCOPHAGE) 500MG TAB PO SCH (09:01)
[2022-01-24] MEDS: DABIGATRAN ETEXILATE 75 MG CAP (PRADAXA) PO SCH (09:01)
[2022-01-24] MEDS: FERROUS GLUCONATE 324 MG TAB PO SCH (09:01)
[2022-01-24] MEDS: DAPAGLIFLOZIN PROPANEDIOL 10MG TABLET (FARXIGA) PO SCH (09:02)
[2022-01-24] MEDS: SITagliptin 50 MG TAB (JANUVIA) PO SCH (09:02)
[2022-01-24] MEDS: VANICREAM MOISTURIZING SKIN CREAM 113GM TUBE TOP SCH (09:05)
[2022-01-24] MEDS: NYSTATIN 100,000 UNITS/GM TOPICAL PWD 15GM TOP SCH (09:57)
[2022-01-24] MEDS ORDERED: FARX1TAB3 PO (11:24)
[2022-01-24] MEDS ORDERED: METF10004 PO (11:24)
[2022-01-24] MEDS ORDERED: LEVO1TAB40 PO (11:24)
[2022-01-24] MEDS ORDERED: MAGN400T2 PO (11:24)
[2022-01-24] MEDS ORDERED: SITA50TAB PO (11:24)
[2022-01-24] MEDS ORDERED: LEVO125T4 PO (11:24)
[2022-01-24] MEDS ORDERED: FARX1TAB5 PO (11:26)
== END 2022-01-24 13:27 | DRG 872 ==
LOC: M ED 18:26 → EDBD 18:26 → M ED INP 23:06 → ENRESERV 01-16 00:26 → M PCU 01-16 03:37 → M MS5PR 01-20 15:40 → M MSPAV 01-22 16:10
PROVIDERS: ADMIT Family Medicine; ATTEND Internal Medicine
DX: A41.9 Sepsis, unspecified organism (principal); L03.116 Cellulitis of left lower limb; I50.32 Chronic diastolic (congestive) heart failure; Z68.43 Body mass index [BMI] 50.0-59.9, adult; I13.0 Hypertensive heart and chronic kidney disease with heart failure and stage 1 through stage 4 chronic kidney disease, or unspecified chronic kidney disease; L02.612 Cutaneous abscess of left foot; R26.89 Other abnormalities of gait and mobility; I48.91 Unspecified atrial fibrillation; E03.9 Hypothyroidism, unspecified; E78.5 Hyperlipidemia, unspecified; M19.90 Unspecified osteoarthritis, unspecified site; D50.9 Iron deficiency anemia, unspecified; L30.4 Erythema intertrigo; E55.9 Vitamin D deficiency, unspecified; N18.9 Chronic kidney disease, unspecified; E11.22 Type 2 diabetes mellitus with diabetic chronic kidney disease; R59.1 Generalized enlarged lymph nodes; E66.01 Morbid (severe) obesity due to excess calories; Z20.822 Contact with and (suspected) exposure to COVID-19; Z79.890 Hormone replacement therapy; Z79.899 Other long term (current) drug therapy; Z88.0 Allergy status to penicillin; Z88.6 Allergy status to analgesic agent; Z88.7 Allergy status to serum and vaccine; Z88.8 Allergy status to other drugs, medicaments and biological substances; B00.9 Herpesviral infection, unspecified; E11.621 Type 2 diabetes mellitus with foot ulcer

== ENCOUNTER → 2022-01-30 | Outpatient (REF) ==
[~2022-01-30] MED LIST changes: +ACET-897 PO; +CHOL125C5 PO; +FARX1TAB3 PO; +FARX1TAB5 PO; +LEVO125T4 PO; +LORA-674 PO; +MAGN400T2 PO; +METF10004 PO; +POTA-150 PO; +SITA50TAB PO
[2022-01-30 11:18] LABS: CALCIUM LEVEL 8.1 MG/DL (8.5-10.1); CREATININE FOR GFR 1.05 MG/DL (0.55-1.30); GLOMERULAR FILTRATION RATE 57.7 (>51); POTASSIUM SERUM 3.6 MMOL/L (3.5-5.1)
== END ==
PROVIDERS: ATTEND Internal Medicine
DX: L03.90 Cellulitis, unspecified (principal)

== ENCOUNTER → 2022-02-20 | Outpatient (REF) | PROVIDERS: ATTEND Internal Medicine | DX: E03.9 Hypothyroidism, unspecified (principal); Z53.8 Procedure and treatment not carried out for other reasons ==

== ENCOUNTER → 2022-03-15 | Outpatient (REF) | payer MEDICARE, MEDICAID | LOC: M SFHCPLAZ 12:23 | PROVIDERS: ATTEND Family Medicine | DX: Z53.9 Procedure and treatment not carried out, unspecified reason (principal) ==

== ENCOUNTER → 2022-03-15 | Outpatient (CLI) | payer MEDICARE, MEDICAID ==
[2022-03-15 16:01] LABS: BASO # 0.1 10^3/uL (0.0-0.2); BASO % 0.9 % (0.0-1.0); EOS # 0.6 10^3/uL (0.0-0.5); EOS % 5.9 % (0.0-3.0); HEMATOCRIT 39.1 % (36.0-47.0); HEMOGLOBIN 12.3 g/dl (12.0-15.5); LYMPH # 2.2 10^3/uL (1.5-5.0); MEAN CORPUSCULAR HEMOGLOBIN 28.5 pg (27.0-33.0); MEAN CORPUSCULAR HGB CONC 31.5 g/dl (32.0-36.5); MEAN CORPUSCULAR VOLUME 90.7 fl (80.0-96.0); MONO # 0.8 10^3/uL (0.0-0.8); MONO % 8.2 % (2.0-8.0); NEUTROPHILS # 6.5 10^3/uL (1.5-8.5); NEUTROPHILS % 63.4 % (36.0-66.0); PLATELET COUNT, AUTOMATED 213 10^3/uL (150-450); RED BLOOD COUNT 4.31 10^6/uL (4.00-5.40); WHITE BLOOD COUNT 10.3 10^3/uL (4.0-10.0)
[2022-03-15 16:29] LABS: PERCENT SATURATION 13.7 % (13.2-45.0)
[2022-03-15 16:30] LABS: ALBUMIN 3.5 G/DL (3.2-5.2); BILIRUBIN,TOTAL 0.5 MG/DL (0.3-1.2); CALCIUM LEVEL 9.3 MG/DL (8.5-10.1); CHOLESTEROL RISK RATIO 3.79 (<5); CREATININE FOR GFR 1.1 MG/DL (0.55-1.30); GLOMERULAR FILTRATION RATE 54.7 (>51); HDL CHOLESTEROL 35.6 MG/DL (>40); LDL CHOLESTEROL 78.2 MG/DL (<100); POTASSIUM SERUM 4.3 MMOL/L (3.5-5.1)
[2022-03-15 16:31] LABS: FERRITIN 91.6 NG/ML (7.3-270.7); THYROID STIMULATING HORMONE 3.697 uIU/ML (0.55-4.78)
[2022-03-15 16:48] LABS: HEMOGLOBIN A1c 6.4 % (4.0-6.0)
== END ==
LOC: M PLALAB 13:52
PROVIDERS: ATTEND Student in an Organized Health Care Education/Training Program
DX: E11.22 Type 2 diabetes mellitus with diabetic chronic kidney disease (principal); E03.9 Hypothyroidism, unspecified; N18.31 Chronic kidney disease, stage 3a; I50.42 Chronic combined systolic (congestive) and diastolic (congestive) heart failure; D50.9 Iron deficiency anemia, unspecified

== ENCOUNTER → 2022-10-28 | Outpatient (CLI) | payer MEDICARE, MEDICAID ==
[~2022-10-28] MED LIST changes: +LORA-1041 PO; -LORA-674 PO
[2022-10-28 16:26] LABS: FREE T4 1.54 NG/DL (0.89-1.76); PERCENT SATURATION 13.7 % (13.2-45.0)
[2022-10-28 16:27] LABS: THYROID STIMULATING HORMONE 0.57 uIU/ML (0.55-4.78)
[2022-10-28 16:28] LABS: FERRITIN 151.8 NG/ML (7.3-270.7)
[2022-10-28 16:56] LABS: HEMOGLOBIN A1c 7.6 % (4.0-6.0)
== END ==
LOC: M PLALAB 14:36
PROVIDERS: ATTEND Student in an Organized Health Care Education/Training Program
DX: E11.22 Type 2 diabetes mellitus with diabetic chronic kidney disease (principal); D50.9 Iron deficiency anemia, unspecified; E03.9 Hypothyroidism, unspecified

== ENCOUNTER → 2023-03-28 | Outpatient (CLI) | payer MEDICARE, MEDICAID ==
[2023-03-28 16:12] LABS: HEMATOCRIT 39.5 % (36.0-47.0); HEMOGLOBIN 12.6 g/dl (12.0-15.5); MEAN CORPUSCULAR HEMOGLOBIN 26.5 pg (27.0-33.0); MEAN CORPUSCULAR HGB CONC 31.9 g/dl (32.0-36.5); MEAN CORPUSCULAR VOLUME 83.2 fl (80.0-96.0); PLATELET COUNT, AUTOMATED 203 10^3/uL (150-450); RED BLOOD COUNT 4.75 10^6/uL (4.00-5.40); WHITE BLOOD COUNT 11.5 10^3/uL (4.0-10.0)
[2023-03-28 16:45] LABS: ALBUMIN 3.2 G/DL (3.2-5.2); ALKALINE PHOSPHATASE 91 U/L (46-116); ALT/SGPT 26 U/L (7.0-40); AST/SGOT 15 U/L (<34); BILIRUBIN,TOTAL 0.7 MG/DL (0.3-1.2); BLOOD UREA NITROGEN 15 MG/DL (9-23); CALCIUM LEVEL 10.2 MG/DL (8.5-10.1); CARBON DIOXIDE LEVEL 36 MMOL/L (20-31); CHLORIDE LEVEL 97 MMOL/L (98-107); CHOLESTEROL LEVEL 113 MG/DL (<200); CHOLESTEROL RISK RATIO 3.36 (<5); CREATININE FOR GFR 0.91 MG/DL (0.55-1.30); GLOMERULAR FILTRATION RATE > 60.0 (>51); GLUCOSE, FASTING 115 MG/DL (60-100); HDL CHOLESTEROL 33.6 MG/DL (>40); LDL CHOLESTEROL 62.4 MG/DL (<100); NON-HDL-C 79.4 MG/DL; POTASSIUM SERUM 3.5 MMOL/L (3.5-5.1); SODIUM LEVEL 139 MMOL/L (136-145); TOTAL PROTEIN 7.9 G/DL (5.7-8.2); TRIGLYCERIDES LEVEL 85 MG/DL (<150)
== END ==
LOC: M LAB 15:17
PROVIDERS: ATTEND Physician Assistant
DX: I48.20 Chronic atrial fibrillation, unspecified (principal); E11.65 Type 2 diabetes mellitus with hyperglycemia

== ENCOUNTER → 2023-08-24 | Outpatient (REF) | payer MEDICARE, MEDICAID ==
[~2023-08-24] MED LIST changes: +DOXY-440 PO; -DOXY-444 PO
== END ==
LOC: M SFHCPLAZ 19:40
PROVIDERS: ATTEND Family Medicine
DX: Z00.00 Encounter for general adult medical examination without abnormal findings (principal)

== ENCOUNTER 2024-02-02 18:19 | Inpatient (IN) | payer MEDICARE, MEDICAID ==
[~2024-02-02] VITALS: Ht 172.7 cm; Wt 142.5 kg
[~2024-02-02 18:19] MED LIST changes: +METH-1386 PO; -METH25TAB PO
[2024-02-02 19:02] LABS: HEMATOCRIT 38.9 % (36.0-47.0); HEMOGLOBIN 12.3 g/dl (12.0-15.5); MEAN CORPUSCULAR HEMOGLOBIN 24.6 pg (27.0-33.0); MEAN CORPUSCULAR HGB CONC 31.6 g/dl (32.0-36.5); PLATELET COUNT, AUTOMATED 221 10^3/uL (150-450); RED BLOOD COUNT 4.99 10^6/uL (4.00-5.40)
[2024-02-02 19:11] LABS: KETONE, URINE AUTO RFX NEGATIVE (NEGATIVE)
[2024-02-02 19:16] LABS: LEUKOCYTE ESTERASE UR AUTO RFX 3+ (NEGATIVE)
[2024-02-02 19:36] LABS: THYROID STIMULATING HORMONE 1.425 uIU/ML (0.55-4.78)
[2024-02-02 19:39] LABS: BILIRUBIN,DIRECT 0.5 MG/DL (<0.4); BILIRUBIN,TOTAL 1.1 MG/DL (0.3-1.2); CALCIUM LEVEL 10.5 MG/DL (8.5-10.1); CREATININE FOR GFR 1.04 MG/DL (0.55-1.30); GLOMERULAR FILTRATION RATE 57.9 (>51); POTASSIUM SERUM 3.7 MMOL/L (3.5-5.1); TOTAL PROTEIN 6.8 G/DL (5.7-8.2)
[2024-02-02 19:59] LABS: ANISOCYTOSIS 1+; ATYPICAL LYMPH 6 % (0-5); LYMPHOCYTES 18 % (16-44); MONOCYTES 5 % (0-5); NEUTROPHILS 71 % (28-66); PLATELET ESTIMATE NORMAL (NORMAL)
[2024-02-02] MEDS: CEFEPIME HCL 2 GM in DEXTROSE 5% (D5W) ADV/MINI-BAG 50 ML IV ONE (20:49)
[2024-02-02] MEDS ORDERED: HALOPERIDOL LACTATE 5MG/ML VIAL As Ordered ONE (21:53)
[2024-02-02] MEDS: HALOPERIDOL LACTATE 5MG/ML VIAL IV ONE (21:55)
[2024-02-02] MEDS: NS (Normal Saline) 0.9% 1,000 ML IV ONE (22:17)
[2024-02-02] MEDS: HumuLIN R (REGULAR) INSULIN (NovoLIN R) **100U/ML** PER UNIT IV ONE (22:17)
[2024-02-02] MEDS ORDERED: MAG SULF 1GM/100ML (MAG RUN) 1 GM in IV 1 EA IV ONE (22:25)
[2024-02-02] MEDS ORDERED: DEXTROSE 50% 50ML SYRINGE IV PRN (22:25)
[2024-02-02] MEDS ORDERED: GLUCAGON INJ 1MG VIAL SC PRN (22:25)
[2024-02-02] MEDS ORDERED: GLUCOSE 4 GM CHEW PO PRN (22:25)
[2024-02-02] MEDS ORDERED: LEVO200T4 PO (22:36)
[2024-02-02] MEDS ORDERED: METF-877 PO (22:36)
[2024-02-02] MEDS ORDERED: VITA100065 PO (22:36)
[2024-02-02] MEDS ORDERED: THERTAB52 PO (22:36)
[2024-02-02] MEDS ORDERED: JANU100T PO (22:36)
[2024-02-02] MEDS ORDERED: LEVO25TA5 PO (22:36)
[2024-02-02] MEDS ORDERED: FARX1TAB5 PO (22:36)
[2024-02-02] MEDS: LORazepam 2 MG/ML 1ML VIAL IV STA (22:39)
[2024-02-02] MEDS ORDERED: HOME MED LIST COMPLETE! XX SCH (22:40)
[2024-02-02] MEDS: INSULIN LISPRO (NovoLOG) PER UNIT SC SCH (22:44)
[2024-02-02] MEDS: MAG SULF 1GM/100ML (MAG RUN) 1 GM in IV 1 EA IV ONE (22:54)
[2024-02-02] MEDS: FLUCONAZOLE 200 MG in IV 1 EA IV ONE (23:00)
[2024-02-02 23:23] LABS: ABG BASE EXCESS 1.6 (-2.0-2.0); ABG HCO3 32.1 MMOL/L (22.0-26.0); ABG O2 SATURATION 95.6 % (95.0-99.0); ABG PARTIAL PRESSURE O2 91.4 mmHg (75.0-100.0); ABG STANDARD HCO3 25.9 MMOL/L. (22.0-26.0); ABG TOTAL CO2 34.7 MMOL/L (22.0-29.0)
[2024-02-02 23:25] LABS: ABG PARTIAL PRESSURE CO2 84.1 mmHg (35.0-45.0)
[2024-02-02] MEDS: METOPROLOL 5 MG/5 ML VIAL IV STA (23:41)
[2024-02-02] MEDS: FUROSEMIDE 100MG/10ML VIAL IV STA (23:44)
[2024-02-02] MEDS: LEVALBUTEROL 1.25MG 0.5ML CONCENTRATE NEB NEB STA (23:47)
[2024-02-03] VITALS (88 sets, daily range): BP systolic 103–180; BP diastolic 55–81; TEMP 96.3–98; O2SAT 90–99
[2024-02-03] MEDS: CIPROFLOXACIN 0.3% OPHTH SOLN 2.5ML OU SCH
[2024-02-03] MEDS: DOXYCYCLINE HYCLATE 100 MG in DEXTROSE 5% (D5W) MINI-BAG PLU 100 ML IV SCH
[2024-02-03] MEDS ORDERED: FENTANYL DRIP LOCK BOX KEY 1 EACH XX PRN
[2024-02-03] MEDS ORDERED: IPRATROPIUM 0.5MG/ALBUTEROL 2.5MG INH SOL UD 3ML (DUONEB) NEB SCH
[2024-02-03] MEDS: LEVALBUTEROL 1.25MG 0.5ML CONCENTRATE NEB INH SCH
[2024-02-03] MEDS: METOPROLOL 5 MG/5 ML VIAL IV STA (00:24)
[2024-02-03] MEDS: dexmedeTOMidine 200 MCG in IV 1 EA IV SCH (00:27)
[2024-02-03] MEDS ORDERED: PILL CUTTER 1 EACH XX PRN (01:00)
[2024-02-03 01:05] LABS: FREE T4 1.26 NG/DL (0.89-1.76); THYROID STIMULATING HORMONE 1.583 uIU/ML (0.55-4.78)
[2024-02-03] MEDS: fentaNYL CITRATE/NaCl 1,000 MCG in IV 1 EA IV SCH ×2 (01:11→11:44)
[2024-02-03] MEDS ORDERED: ETOMIDATE INJ 20MG/10ML VIAL ONE (01:15)
[2024-02-03] MEDS ORDERED: SUCCINYLCHOLINE 100MG/5ML SYRINGE ONE (01:15)
[2024-02-03] MEDS ORDERED: DEXTROSE 50% 50ML SYRINGE IV PRN (01:40)
[2024-02-03] MEDS ORDERED: GLUCAGON INJ 1MG VIAL SC PRN (01:40)
[2024-02-03] MEDS ORDERED: GLUCOSE 4 GM CHEW PO PRN (01:40)
[2024-02-03] MEDS: HumuLIN R (REGULAR) INSULIN (NovoLIN R) **100U/ML** PER UNIT IV STA (02:04)
[2024-02-03] MEDS: MIDAZOLAM 100MG/100ML-0.9%NACL 100 MG in IV 1 EA IV SCH (02:05)
[2024-02-03] MEDS ORDERED: INSULIN IV RATE CHANGE DOCUMENTATION ML/HR XX SCH (03:00)
[2024-02-03 03:27] LABS: BASO # 0.1 10^3/uL (0.0-0.2); BASO % 0.7 % (0.0-1.0); EOS % 0.1 % (0.0-3.0); HEMATOCRIT 36.8 % (36.0-47.0); HEMOGLOBIN 11.6 g/dl (12.0-15.5); LYMPH # 1.4 10^3/uL (1.5-5.0); LYMPH % 7.5 % (24.0-44.0); MEAN CORPUSCULAR HEMOGLOBIN 25.1 pg (27.0-33.0); MEAN CORPUSCULAR HGB CONC 31.5 g/dl (32.0-36.5); MEAN CORPUSCULAR VOLUME 79.7 fl (80.0-96.0); MONO # 1.1 10^3/uL (0.0-0.8); NEUTROPHILS # 14.1 10^3/uL (1.5-8.5); PLATELET COUNT, AUTOMATED 195 10^3/uL (150-450); RED BLOOD COUNT 4.62 10^6/uL (4.00-5.40); WHITE BLOOD COUNT 18.1 10^3/uL (4.0-10.0)
[2024-02-03] MEDS: propofoL 1,000 MG in IV 1 EA IV SCH (03:29)
[2024-02-03] MEDS: INSULIN REGULAR IN 0.9 % NACL 100 UNIT in IV 1 EA IV SCH ×2 (03:33→16:11)
[2024-02-03 05:46] LABS: ABG BASE EXCESS 4.6 (-2.0-2.0); ABG HCO3 29.2 MMOL/L (22.0-26.0); ABG O2 SATURATION 97.7 % (95.0-99.0); ABG PARTIAL PRESSURE CO2 43.7 mmHg (35.0-45.0); ABG PARTIAL PRESSURE O2 103.1 mmHg (75.0-100.0); ABG STANDARD HCO3 28.6 MMOL/L. (22.0-26.0); ABG TOTAL CO2 30.6 MMOL/L (22.0-29.0); ABG pH (ARTERIAL) 7.443 UNITS (7.350-7.450)
[2024-02-03] MEDS ORDERED: LEVOTHYROXINE 25MCG TABLET (0.025MG) PO SCH (06:00)
[2024-02-03] MEDS ORDERED: LEVOTHYROXINE 100MCG TABLET (0.1MG) PO SCH (06:00)
[2024-02-03] MEDS: FUROSEMIDE 40MG/4ML VIAL IV SCH ×2 (06:37→18:07)
[2024-02-03] MEDS: LEVOTHYROXINE 100MCG (0.1MG) 5ML SDV PF (SOLUTION FORM) IV SCH (06:37)
[2024-02-03] MEDS: HEPARIN SOD (PORCINE) 5000UNITS/ML 1ML VIAL/SYRINGE SC SCH (06:38)
[2024-02-03 06:59] LABS: ACETONE/KETONE 0.64 MMOL/L (0.02-0.27); ALBUMIN 1.9 G/DL (3.2-5.2); BILIRUBIN,TOTAL 0.9 MG/DL (0.3-1.2); CALCIUM LEVEL 9.8 MG/DL (8.5-10.1); CREATININE FOR GFR 1.05 MG/DL (0.55-1.30); GLOMERULAR FILTRATION RATE 57.3 (>51); MAGNESIUM LEVEL 2.1 MG/DL (1.8-2.4); PHOSPHORUS LEVEL 3.5 MG/DL (2.5-4.9); POTASSIUM SERUM 4.2 MMOL/L (3.5-5.1); TOTAL PROTEIN 6.7 G/DL (5.7-8.2)
[2024-02-03] MEDS ORDERED: INSULIN LISPRO (NovoLOG) PER UNIT SC SCH (07:30)
[2024-02-03] MEDS ORDERED: METOPROLOL SUCC *XL* 25MG TAB (TopROL *XL*) PO SCH (09:00)
[2024-02-03] MEDS: DABIGATRAN ETEXILATE 75 MG CAP (PRADAXA) PO SCH (09:00)
[2024-02-03] MEDS: INSULIN IV RATE CHANGE DOCUMENTATION ML/HR XX SCH (09:54)
[2024-02-03] MEDS: SPIRONOLACTONE 25 MG TAB PO SCH (09:56)
[2024-02-03] MEDS: PANTOPRAZOLE 40MG VIAL IV SCH (09:56)
[2024-02-03] MEDS: cefTRIAXone SOD 2 GM in DEXTROSE 5% (D5W) ADV/MINI-BAG 50 ML IV SCH (09:56)
[2024-02-03] MEDS: DAPAGLIFLOZIN PROPANEDIOL 10MG TABLET (FARXIGA) PO SCH (09:57)
[2024-02-03] MEDS: METOPROLOL TART 12.5 MG PER 1/2 TAB PO SCH (09:57)
[2024-02-03] MEDS: LACRILUBE (AKWA TEARS) OPHTH OINT 3.5GM OU ONE (23:07)
[2024-02-03] MEDS: FLUCONAZOLE 200 MG in IV 1 EA IV SCH (23:21)
[2024-02-04] VITALS (81 sets, daily range): BP systolic 92–124; BP diastolic 50–63; TEMP 97–98.5; O2SAT 89–99
[2024-02-04] MEDS: DIGOXIN INJ 0.5 MG/2 ML AMP IV ONE ×2 (04:49→12:20)
[2024-02-04] MEDS ORDERED: METOPROLOL TART 12.5 MG PER 1/2 TAB PO SCH (09:00)
[2024-02-04 09:27] LABS: HEMATOCRIT 34.5 % (36.0-47.0); HEMOGLOBIN 10.6 g/dl (12.0-15.5); MEAN CORPUSCULAR HEMOGLOBIN 24.9 pg (27.0-33.0); MEAN CORPUSCULAR HGB CONC 30.7 g/dl (32.0-36.5); MEAN CORPUSCULAR VOLUME 81.2 fl (80.0-96.0); PLATELET COUNT, AUTOMATED 197 10^3/uL (150-450); RED BLOOD COUNT 4.25 10^6/uL (4.00-5.40); WHITE BLOOD COUNT 14.8 10^3/uL (4.0-10.0)
[2024-02-04 09:37] LABS: ABG BASE EXCESS 6.2 (-2.0-2.0); ABG HCO3 30.3 MMOL/L (22.0-26.0); ABG O2 SATURATION 94.3 % (95.0-99.0); ABG PARTIAL PRESSURE CO2 41.7 mmHg (35.0-45.0); ABG PARTIAL PRESSURE O2 71.5 mmHg (75.0-100.0); ABG TOTAL CO2 31.6 MMOL/L (22.0-29.0); ABG pH (ARTERIAL) 7.479 UNITS (7.350-7.450)
[2024-02-04 09:56] LABS: ALBUMIN 1.5 G/DL (3.2-5.2); BILIRUBIN,TOTAL 0.8 MG/DL (0.3-1.2); CALCIUM LEVEL 8.9 MG/DL (8.5-10.1); CREATININE FOR GFR 1.37 MG/DL (0.55-1.30); GLOMERULAR FILTRATION RATE 42.2 (>51); POTASSIUM SERUM 3.4 MMOL/L (3.5-5.1); TOTAL PROTEIN 5.3 G/DL (5.7-8.2)
[2024-02-04] MEDS: KCL 10MEQ/100ML SWI (KRUN) 10 MEQ in IV 1 EA IV SCH (10:44)
[2024-02-04] MEDS: ATROPINE SULF 1MG/10ML SYRINGE IV ONE (11:00)
[2024-02-04] MEDS: AMIODARONE HCL 150 MG in IV 1 EA IV ONE (14:16)
[2024-02-04] MEDS: AMIODARONE HCL 360 MG in IV 1 EA IV SCH ×2 (16:39→22:37)
[2024-02-04] MEDS: ENOXAPARIN 120MG/0.8ML SYRINGE SC SCH (18:11)
[2024-02-04] MEDS ORDERED: fentaNYL 100 MCG/2 ML INJECTION IV PRN (18:40)
[2024-02-04] MEDS ORDERED: dexmedeTOMidine 200 MCG in IV 1 EA IV SCH (18:40)
[2024-02-05] VITALS (26 sets, daily range): BP systolic 103–143; BP diastolic 51–64; TEMP 97.7–102.2; O2SAT 93–96
[2024-02-05 05:18] LABS: BASO # 0.1 10^3/uL (0.0-0.2); BASO % 0.5 % (0.0-1.0); EOS # 0.2 10^3/uL (0.0-0.5); EOS % 1.1 % (0.0-3.0); HEMATOCRIT 34.9 % (36.0-47.0); HEMOGLOBIN 10.9 g/dl (12.0-15.5); LYMPH # 1.8 10^3/uL (1.5-5.0); LYMPH % 10.2 % (24.0-44.0); MEAN CORPUSCULAR HEMOGLOBIN 25.1 pg (27.0-33.0); MEAN CORPUSCULAR HGB CONC 31.2 g/dl (32.0-36.5); MEAN CORPUSCULAR VOLUME 80.4 fl (80.0-96.0); MONO # 0.9 10^3/uL (0.0-0.8); NEUTROPHILS # 12.6 10^3/uL (1.5-8.5); NEUTROPHILS % 72.9 % (36.0-66.0); PLATELET COUNT, AUTOMATED 233 10^3/uL (150-450); RED BLOOD COUNT 4.34 10^6/uL (4.00-5.40); WHITE BLOOD COUNT 17.2 10^3/uL (4.0-10.0)
[2024-02-05 05:52] LABS: ALBUMIN 1.5 G/DL (3.2-5.2); BILIRUBIN,TOTAL 0.9 MG/DL (0.3-1.2); CALCIUM LEVEL 9.2 MG/DL (8.5-10.1); CREATININE FOR GFR 1.81 MG/DL (0.55-1.30); GLOMERULAR FILTRATION RATE 30.6 (>51); MAGNESIUM LEVEL 1.9 MG/DL (1.8-2.4); POTASSIUM SERUM 3.4 MMOL/L (3.5-5.1); TOTAL PROTEIN 5.6 G/DL (5.7-8.2)
[2024-02-05] MEDS: KCL 10MEQ/100ML SWI (KRUN) 10 MEQ in IV 1 EA IV SCH (08:53)
[2024-02-05 09:34] LABS: PHOSPHORUS LEVEL 3.5 MG/DL (2.5-4.9)
[2024-02-05] MEDS: D5W 1,000 ML IV SCH (11:47)
[2024-02-05 17:46] LABS: CALCIUM LEVEL 8.8 MG/DL (8.5-10.1); CREATININE FOR GFR 1.69 MG/DL (0.55-1.30); GLOMERULAR FILTRATION RATE 33.1 (>51); POTASSIUM SERUM 3.6 MMOL/L (3.5-5.1)
[2024-02-05] MEDS: ACETAMINOPHEN 325 MG TAB PO PRN (20:41)
[2024-02-05] MEDS: AMIODARONE HCL 360 MG in IV 1 EA IV SCH (21:04)
[2024-02-06] VITALS (25 sets, daily range): BP systolic 98–128; BP diastolic 51–68; TEMP 99–100; O2SAT 92–96
[2024-02-06 04:57] LABS: HEMATOCRIT 35.6 % (36.0-47.0); HEMOGLOBIN 10.9 g/dl (12.0-15.5); MEAN CORPUSCULAR HEMOGLOBIN 24.9 pg (27.0-33.0); MEAN CORPUSCULAR HGB CONC 30.6 g/dl (32.0-36.5); MEAN CORPUSCULAR VOLUME 81.5 fl (80.0-96.0); PLATELET COUNT, AUTOMATED 241 10^3/uL (150-450); RED BLOOD COUNT 4.37 10^6/uL (4.00-5.40); WHITE BLOOD COUNT 17.6 10^3/uL (4.0-10.0)
[2024-02-06 05:21] LABS: CALCIUM LEVEL 8.8 MG/DL (8.5-10.1); CREATININE FOR GFR 1.55 MG/DL (0.55-1.30); GLOMERULAR FILTRATION RATE 36.6 (>51); POTASSIUM SERUM 3.5 MMOL/L (3.5-5.1)
[2024-02-06] MEDS ORDERED: FLUCONAZOLE 50MG TABLET PO SCH (09:00)
[2024-02-06] MEDS: FLUCONAZOLE 200 MG in IV 1 EA IV ONE (10:07)
[2024-02-06] MEDS: D5W/0.45% SODIUM CHLORIDE 1,000 ML IV SCH (10:56)
[2024-02-06] MEDS ORDERED: GLUCOSE 4 GM CHEW PO PRN (11:40)
[2024-02-06] MEDS ORDERED: DEXTROSE 50% 50ML SYRINGE IV PRN (11:40)
[2024-02-06] MEDS ORDERED: GLUCAGON INJ 1MG VIAL SC PRN (11:40)
[2024-02-06] MEDS: INSULIN LISPRO (NovoLOG) PER UNIT SC SCH (11:57)
[2024-02-06] MEDS: LEVEMIR (INSULIN DETEMIR) 1 UNITS/0.01ML SC SCH (12:08)
[2024-02-06] MEDS: FUROSEMIDE 40MG/4ML VIAL IV ONE (12:08)
[2024-02-06 19:44] LABS: CALCIUM LEVEL 8.4 MG/DL (8.5-10.1); CREATININE FOR GFR 1.34 MG/DL (0.55-1.30); GLOMERULAR FILTRATION RATE 43.2 (>51); MAGNESIUM LEVEL 1.8 MG/DL (1.8-2.4); POTASSIUM SERUM 3.2 MMOL/L (3.5-5.1)
[2024-02-06] MEDS: KCL 10MEQ/100ML SWI (KRUN) 10 MEQ in IV 1 EA IV SCH (20:52)
[2024-02-06] MEDS: METOPROLOL 5 MG/5 ML VIAL IV SCH (21:00)
[2024-02-06] MEDS ORDERED: METOPROLOL TART 25 MG TABLET PO SCH (21:00)
[2024-02-06] MEDS: METOPROLOL 5 MG/5 ML VIAL IV STA (21:34)
[2024-02-07] VITALS (8 sets, daily range): BP systolic 120–133; BP diastolic 59–74; TEMP 96.7–98.1; O2SAT 91–97
[2024-02-07 04:49] LABS: BASO # 0.1 10^3/uL (0.0-0.2); BASO % 0.4 % (0.0-1.0); EOS # 0.4 10^3/uL (0.0-0.5); EOS % 2.5 % (0.0-3.0); HEMATOCRIT 35.6 % (36.0-47.0); HEMOGLOBIN 10.9 g/dl (12.0-15.5); LYMPH # 1.1 10^3/uL (1.5-5.0); LYMPH % 7.6 % (24.0-44.0); MEAN CORPUSCULAR HEMOGLOBIN 25.3 pg (27.0-33.0); MEAN CORPUSCULAR HGB CONC 30.6 g/dl (32.0-36.5); MEAN CORPUSCULAR VOLUME 82.6 fl (80.0-96.0); MONO % 7.2 % (2.0-8.0); NEUTROPHILS % 77.6 % (36.0-66.0); PLATELET COUNT, AUTOMATED 224 10^3/uL (150-450); RED BLOOD COUNT 4.31 10^6/uL (4.00-5.40); WHITE BLOOD COUNT 14.1 10^3/uL (4.0-10.0)
[2024-02-07 05:35] LABS: ALBUMIN 1.6 G/DL (3.2-5.2); BILIRUBIN,TOTAL 1.3 MG/DL (0.3-1.2); CALCIUM LEVEL 8.7 MG/DL (8.5-10.1); CREATININE FOR GFR 1.17 MG/DL (0.55-1.30); GLOMERULAR FILTRATION RATE 50.6 (>51); PHOSPHORUS LEVEL 3.1 MG/DL (2.5-4.9); POTASSIUM SERUM 3.3 MMOL/L (3.5-5.1); TOTAL PROTEIN 6.2 G/DL (5.7-8.2)
[2024-02-07] MEDS: KCL 10MEQ/100ML SWI (KRUN) 10 MEQ in IV 1 EA IV SCH ×2 (06:01→09:12)
[2024-02-07] MEDS ORDERED: fentaNYL 100 MCG/2 ML INJECTION IV PRN (08:25)
[2024-02-07] MEDS: FUROSEMIDE 40MG/4ML VIAL IV ONE (09:11)
[2024-02-07] MEDS: MAG SULF 1GM/100ML (MAG RUN) 1 GM in IV 1 EA IV ONE (10:08)
[2024-02-07] MEDS: D5W 1,000 ML IV SCH (11:40)
[2024-02-07] MEDS: ACETAMINOPHEN *IV* 1,000 MG in IV 1 EA IV PRN (11:41)
[2024-02-08] VITALS (18 sets, daily range): BP systolic 121–149; BP diastolic 59–77; TEMP 96.1–98.8; O2SAT 88–100
[2024-02-08 04:57] LABS: BASO % 0.3 % (0.0-1.0); EOS # 0.3 10^3/uL (0.0-0.5); EOS % 2.9 % (0.0-3.0); HEMATOCRIT 36.8 % (36.0-47.0); HEMOGLOBIN 11.2 g/dl (12.0-15.5); LYMPH # 0.9 10^3/uL (1.5-5.0); LYMPH % 8.2 % (24.0-44.0); MEAN CORPUSCULAR HEMOGLOBIN 25.6 pg (27.0-33.0); MEAN CORPUSCULAR HGB CONC 30.4 g/dl (32.0-36.5); MONO # 0.8 10^3/uL (0.0-0.8); MONO % 6.9 % (2.0-8.0); NEUTROPHILS % 78.4 % (36.0-66.0); PLATELET COUNT, AUTOMATED 235 10^3/uL (150-450); RED BLOOD COUNT 4.38 10^6/uL (4.00-5.40); WHITE BLOOD COUNT 11.5 10^3/uL (4.0-10.0)
[2024-02-08 05:31] LABS: ALBUMIN 1.6 G/DL (3.2-5.2); ALKALINE PHOSPHATASE 123 U/L (35-104); ALT/SGPT 40 U/L (7.0-40); AST/SGOT 36 U/L (<34); BILIRUBIN,TOTAL 1.5 MG/DL (0.3-1.2); BLOOD UREA NITROGEN 23 MG/DL (9-23); CALCIUM LEVEL 8.5 MG/DL (8.5-10.1); CARBON DIOXIDE LEVEL 35 MMOL/L (20-31); CHLORIDE LEVEL 106 MMOL/L (98-107); CREATININE FOR GFR 0.88 MG/DL (0.55-1.30); GLOMERULAR FILTRATION RATE > 60.0 (>51); GLUCOSE, FASTING 192 MG/DL (60-100); PHOSPHORUS LEVEL 2.3 MG/DL (2.5-4.9); POTASSIUM SERUM 3.4 MMOL/L (3.5-5.1); SODIUM LEVEL 147 MMOL/L (136-145); TOTAL PROTEIN 6.2 G/DL (5.7-8.2)
[2024-02-08] MEDS: FUROSEMIDE 40MG/4ML VIAL IV ONE (08:10)
[2024-02-08] MEDS: KCL 10MEQ/100ML SWI (KRUN) 10 MEQ in IV 1 EA IV SCH (08:10)
[2024-02-08] MEDS: INSULIN LISPRO (NovoLOG) PER UNIT SC SCH ×2 (12:23→20:41)
[2024-02-08] MEDS: LEVALBUTEROL 1.25MG 0.5ML CONCENTRATE NEB INH PRN (15:59)
[2024-02-08] MEDS: LORATADINE 10 MG TAB PO SCH (16:19)
[2024-02-08] MEDS: TORSEMIDE 20 MG TAB PO SCH (16:19)
[2024-02-08] MEDS: METOPROLOL SUCC *XL* 25MG TAB (TopROL *XL*) PO ONE (16:19)
[2024-02-09] VITALS (16 sets, daily range): BP systolic 112–146; BP diastolic 58–71; TEMP 97.2–98.6; O2SAT 88–97
[2024-02-09 05:29] LABS: BASO # 0.1 10^3/uL (0.0-0.2); BASO % 0.7 % (0.0-1.0); EOS # 0.2 10^3/uL (0.0-0.5); EOS % 2.3 % (0.0-3.0); HEMOGLOBIN 11.2 g/dl (12.0-15.5); LYMPH # 1.2 10^3/uL (1.5-5.0); LYMPH % 11.5 % (24.0-44.0); MEAN CORPUSCULAR HEMOGLOBIN 24.7 pg (27.0-33.0); MEAN CORPUSCULAR HGB CONC 29.5 g/dl (32.0-36.5); MEAN CORPUSCULAR VOLUME 83.9 fl (80.0-96.0); MONO # 0.8 10^3/uL (0.0-0.8); NEUTROPHILS # 7.6 10^3/uL (1.5-8.5); PLATELET COUNT, AUTOMATED 247 10^3/uL (150-450); RED BLOOD COUNT 4.53 10^6/uL (4.00-5.40); WHITE BLOOD COUNT 10.1 10^3/uL (4.0-10.0)
[2024-02-09 05:47] LABS: ALBUMIN 1.7 G/DL (3.2-5.2); ALKALINE PHOSPHATASE 130 U/L (35-104); ALT/SGPT 38 U/L (7.0-40); AST/SGOT 32 U/L (<34); BILIRUBIN,TOTAL 1.4 MG/DL (0.3-1.2); BLOOD UREA NITROGEN 18 MG/DL (9-23); CALCIUM LEVEL 8.3 MG/DL (8.5-10.1); CARBON DIOXIDE LEVEL 34 MMOL/L (20-31); CHLORIDE LEVEL 104 MMOL/L (98-107); CREATININE FOR GFR 0.83 MG/DL (0.55-1.30); GLOMERULAR FILTRATION RATE > 60.0 (>51); GLUCOSE, FASTING 146 MG/DL (60-100); MAGNESIUM LEVEL 1.7 MG/DL (1.8-2.4); PHOSPHORUS LEVEL 2.4 MG/DL (2.5-4.9); POTASSIUM SERUM 3.4 MMOL/L (3.5-5.1); SODIUM LEVEL 148 MMOL/L (136-145); TOTAL PROTEIN 6.3 G/DL (5.7-8.2)
[2024-02-09] MEDS: METOPROLOL SUCC *XL* 25MG TAB (TopROL *XL*) PO SCH (09:00)
[2024-02-09] MEDS: POTASSIUM CHLORIDE 10MEQ SR TABLET PO ONE (09:13)
[2024-02-09] MEDS: FLUCONAZOLE 50MG TABLET PO SCH (09:13)
[2024-02-09 11:30] LABS: ABG BASE EXCESS 4.8 (-2.0-2.0); ABG HCO3 29.7 MMOL/L (22.0-26.0); ABG O2 SATURATION 98.4 % (95.0-99.0); ABG PARTIAL PRESSURE CO2 45.1 mmHg (35.0-45.0); ABG PARTIAL PRESSURE O2 118.8 mmHg (75.0-100.0); ABG STANDARD HCO3 28.8 MMOL/L. (22.0-26.0); ABG TOTAL CO2 31.1 MMOL/L (22.0-29.0); ABG pH (ARTERIAL) 7.436 UNITS (7.350-7.450)
[2024-02-09] MEDS: KCL 20MEQ IN D5W 1000ML 1,000 ML IV SCH (11:55)
[2024-02-09] MEDS: FUROSEMIDE injection 100 MG, VIAL 2 BAG 13MM ADAPTER 1 EACH in D5W 100 ML IV SCH (11:55)
[2024-02-09] MEDS: DABIGATRAN ETEXILATE 75 MG CAP (PRADAXA) PO SCH (21:10)
[2024-02-10] VITALS (7 sets, daily range): BP systolic 112–145; BP diastolic 61–79; TEMP 96.8–98.1; O2SAT 86–94
[2024-02-10 07:56] LABS: CLOSTRIDIUM DIFFICILE PCR NEGATIVE (NEGATIVE)
[2024-02-10 09:53] LABS: BASO # 0.1 10^3/uL (0.0-0.2); BASO % 0.7 % (0.0-1.0); EOS # 0.2 10^3/uL (0.0-0.5); EOS % 2.2 % (0.0-3.0); HEMATOCRIT 37.5 % (36.0-47.0); HEMOGLOBIN 11.4 g/dl (12.0-15.5); LYMPH # 1.2 10^3/uL (1.5-5.0); LYMPH % 13.2 % (24.0-44.0); MEAN CORPUSCULAR HEMOGLOBIN 25.1 pg (27.0-33.0); MEAN CORPUSCULAR HGB CONC 30.4 g/dl (32.0-36.5); MEAN CORPUSCULAR VOLUME 82.6 fl (80.0-96.0); MONO # 0.8 10^3/uL (0.0-0.8); MONO % 9.2 % (2.0-8.0); NEUTROPHILS # 6.7 10^3/uL (1.5-8.5); NEUTROPHILS % 73.3 % (36.0-66.0); PLATELET COUNT, AUTOMATED 239 10^3/uL (150-450); RED BLOOD COUNT 4.54 10^6/uL (4.00-5.40); WHITE BLOOD COUNT 9.1 10^3/uL (4.0-10.0)
[2024-02-10 10:26] LABS: BLOOD UREA NITROGEN 11 MG/DL (9-23); CARBON DIOXIDE LEVEL 36 MMOL/L (20-31); CHLORIDE LEVEL 98 MMOL/L (98-107); CREATININE FOR GFR 0.71 MG/DL (0.55-1.30); GLOMERULAR FILTRATION RATE > 60.0 (>51); GLUCOSE, FASTING 230 MG/DL (60-100); POTASSIUM SERUM 3.4 MMOL/L (3.5-5.1); SODIUM LEVEL 141 MMOL/L (136-145)
[2024-02-10] MEDS: POTASSIUM CHLORIDE 10MEQ SR TABLET PO SCH (11:20)
[2024-02-10] MEDS ORDERED: CALCIUM CARBONATE 500 MG CHEW U/D PO PRN (20:40)
[2024-02-10] MEDS: CALCIUM CARBONATE 500 MG CHEW U/D PO ONE (20:53)
[2024-02-11 04:50] VITALS: BP 124/61; TEMP 97.9; O2SAT 94
[2024-02-11 06:01] LABS: HEMATOCRIT 37.5 % (36.0-47.0); HEMOGLOBIN 11.4 g/dl (12.0-15.5); MEAN CORPUSCULAR HEMOGLOBIN 25.1 pg (27.0-33.0); MEAN CORPUSCULAR HGB CONC 30.4 g/dl (32.0-36.5); MEAN CORPUSCULAR VOLUME 82.6 fl (80.0-96.0); PLATELET COUNT, AUTOMATED 228 10^3/uL (150-450); RED BLOOD COUNT 4.54 10^6/uL (4.00-5.40); WHITE BLOOD COUNT 9.7 10^3/uL (4.0-10.0)
[2024-02-11 06:35] LABS: ALBUMIN 1.8 G/DL (3.2-5.2); ALKALINE PHOSPHATASE 110 U/L (35-104); ALT/SGPT 26 U/L (7.0-40); AST/SGOT 24 U/L (<34); BILIRUBIN,TOTAL 1.2 MG/DL (0.3-1.2); BLOOD UREA NITROGEN 12 MG/DL (9-23); CALCIUM LEVEL 7.3 MG/DL (8.5-10.1); CARBON DIOXIDE LEVEL 39 MMOL/L (20-31); CHLORIDE LEVEL 97 MMOL/L (98-107); CREATININE FOR GFR 0.74 MG/DL (0.55-1.30); GLOMERULAR FILTRATION RATE > 60.0 (>51); GLUCOSE, FASTING 147 MG/DL (60-100); MAGNESIUM LEVEL 1.3 MG/DL (1.8-2.4); POTASSIUM SERUM 3.3 MMOL/L (3.5-5.1); SODIUM LEVEL 143 MMOL/L (136-145); TOTAL PROTEIN 6.2 G/DL (5.7-8.2)
[2024-02-11 07:57] VITALS: BP 124/61; TEMP 97.9; O2SAT 94
[2024-02-11] MEDS: MAG SULF 1GM/100ML (MAG RUN) 1 GM in IV 1 EA IV SCH (08:14)
[2024-02-11] MEDS: POTASSIUM CHLORIDE 10MEQ SR TABLET PO SCH (08:59)
[2024-02-11 11:32] VITALS: BP 132/61; TEMP 97.5; O2SAT 91
[2024-02-11 16:16] VITALS: BP 136/64; TEMP 98.1; O2SAT 92
[2024-02-11] MEDS: FUROSEMIDE 100MG/10ML VIAL IV ONE (16:41)
[2024-02-11] MEDS: MAG SULF 1GM/100ML (MAG RUN) 1 GM in IV 1 EA IV ONE (16:42)
[2024-02-11] MEDS: KCL 10MEQ/100ML SWI (KRUN) 10 MEQ in IV 1 EA IV SCH (17:17)
[2024-02-11 20:00] VITALS: BP 134/66; TEMP 97.7; O2SAT 91
[2024-02-12 04:00] VITALS: BP 125/65; TEMP 97.2; O2SAT 90
[2024-02-12 06:00] LABS: BASO # 0.1 10^3/uL (0.0-0.2); BASO % 0.7 % (0.0-1.0); EOS # 0.2 10^3/uL (0.0-0.5); EOS % 2.1 % (0.0-3.0); HEMATOCRIT 38.2 % (36.0-47.0); HEMOGLOBIN 11.5 g/dl (12.0-15.5); LYMPH # 1.4 10^3/uL (1.5-5.0); LYMPH % 17.4 % (24.0-44.0); MEAN CORPUSCULAR HEMOGLOBIN 25.1 pg (27.0-33.0); MEAN CORPUSCULAR HGB CONC 30.1 g/dl (32.0-36.5); MEAN CORPUSCULAR VOLUME 83.2 fl (80.0-96.0); MONO # 0.8 10^3/uL (0.0-0.8); MONO % 9.5 % (2.0-8.0); NEUTROPHILS # 5.7 10^3/uL (1.5-8.5); NEUTROPHILS % 68.7 % (36.0-66.0); PLATELET COUNT, AUTOMATED 269 10^3/uL (150-450); RED BLOOD COUNT 4.59 10^6/uL (4.00-5.40); WHITE BLOOD COUNT 8.3 10^3/uL (4.0-10.0)
[2024-02-12 06:24] LABS: IRON (FE) 36 UG/DL (50-170)
[2024-02-12 06:25] LABS: BLOOD UREA NITROGEN 11 MG/DL (9-23); CALCIUM LEVEL 7.5 MG/DL (8.5-10.1); CARBON DIOXIDE LEVEL 36 MMOL/L (20-31); CHLORIDE LEVEL 98 MMOL/L (98-107); CREATININE FOR GFR 0.79 MG/DL (0.55-1.30); GLOMERULAR FILTRATION RATE > 60.0 (>51); GLUCOSE, FASTING 135 MG/DL (60-100); PERCENT SATURATION 13.6 % (13.2-45.0); POTASSIUM SERUM 3.6 MMOL/L (3.5-5.1); SODIUM LEVEL 143 MMOL/L (136-145); TOTAL IRON BINDING CAPACITY 265 UG/DL (250-425)
[2024-02-12 06:26] LABS: FERRITIN 71.3 NG/ML (7.3-270.7)
[2024-02-12 07:58] LABS: MAGNESIUM LEVEL 1.9 MG/DL (1.8-2.4)
[2024-02-12 12:00] VITALS: BP 139/61; TEMP 97.9; O2SAT 90
[2024-02-12] MEDS: FERRIC CARBOXYMALTOSE INJ 750 MG, VIAL MATE ADAPTER 1 EACH in NS 100 ML IV ONE (12:40)
[2024-02-12] MEDS: POTASSIUM CHLORIDE 10MEQ SR TABLET PO SCH (12:41)
[2024-02-12 20:00] VITALS: BP 132/63; TEMP 97.9; O2SAT 91
[2024-02-13 04:00] VITALS: BP 132/64; TEMP 97.7; O2SAT 96
[2024-02-13] MEDS: TORSEMIDE 20 MG TAB PO SCH (08:03)
[2024-02-13 08:13] LABS: BASO # 0.1 10^3/uL (0.0-0.2); BASO % 0.7 % (0.0-1.0); EOS # 0.2 10^3/uL (0.0-0.5); EOS % 2.3 % (0.0-3.0); HEMATOCRIT 37.6 % (36.0-47.0); HEMOGLOBIN 11.4 g/dl (12.0-15.5); LYMPH # 1.6 10^3/uL (1.5-5.0); LYMPH % 16.5 % (24.0-44.0); MEAN CORPUSCULAR HEMOGLOBIN 25.3 pg (27.0-33.0); MEAN CORPUSCULAR HGB CONC 30.3 g/dl (32.0-36.5); MEAN CORPUSCULAR VOLUME 83.4 fl (80.0-96.0); MONO # 0.9 10^3/uL (0.0-0.8); MONO % 9.1 % (2.0-8.0); NEUTROPHILS # 6.7 10^3/uL (1.5-8.5); PLATELET COUNT, AUTOMATED 291 10^3/uL (150-450); RED BLOOD COUNT 4.51 10^6/uL (4.00-5.40); WHITE BLOOD COUNT 9.6 10^3/uL (4.0-10.0)
[2024-02-13 08:29] LABS: HEMOGLOBIN A1c 9.3 % (4.0-6.0)
[2024-02-13 08:41] LABS: BLOOD UREA NITROGEN 11 MG/DL (9-23); CALCIUM LEVEL 8.3 MG/DL (8.5-10.1); CARBON DIOXIDE LEVEL 36 MMOL/L (20-31); CHLORIDE LEVEL 100 MMOL/L (98-107); CREATININE FOR GFR 0.74 MG/DL (0.55-1.30); GLOMERULAR FILTRATION RATE > 60.0 (>51); GLUCOSE, FASTING 140 MG/DL (60-100); POTASSIUM SERUM 4.1 MMOL/L (3.5-5.1); SODIUM LEVEL 142 MMOL/L (136-145)
[2024-02-13 20:30] VITALS: BP 124/68; TEMP 97.3; O2SAT 94
[2024-02-14 04:00] VITALS: BP 125/71; TEMP 97.7; O2SAT 93
[2024-02-14] MEDS: LEVOTHYROXINE 25MCG TABLET (0.025MG) PO SCH (05:18)
[2024-02-14] MEDS: LEVOTHYROXINE 100MCG TABLET (0.1MG) PO SCH (05:18)
[2024-02-14 20:20] VITALS: BP 125/68; TEMP 97.7; O2SAT 94
[2024-02-15 04:20] VITALS: BP 124/69; TEMP 97.3; O2SAT 91
[2024-02-15 12:00] VITALS: BP 140/70; TEMP 97.9; O2SAT 92
[2024-02-15 17:11] VITALS: BP 133/70
[2024-02-15 20:47] VITALS: BP 130/70; TEMP 97.7; O2SAT 93
[2024-02-16 04:00] VITALS: BP 127/67; TEMP 97.5; O2SAT 94
[2024-02-16 12:00] VITALS: BP 127/58; TEMP 97.9; O2SAT 95
[2024-02-16 17:43] VITALS: BP 125/64
[2024-02-17 04:00] VITALS: BP 126/63; TEMP 97.3; O2SAT 92
[2024-02-17] MEDS ORDERED: INSUDET SC (08:15)
[2024-02-17] MEDS ORDERED: INSUHUMDS SC (08:15)
[2024-02-17] MEDS: PANTOPRAZOLE 40MG TAB (PROTONIX) PO SCH (08:50)
[2024-02-17 08:51] VITALS: BP 128/62
== END 2024-02-17 13:15 | DRG 871 ==
LOC: M ED 18:19 → M ED INP 23:03 → M ICU 02-03 02:19 → M PCU 02-09 05:00 → M MSPAV 02-10 11:31
PROVIDERS: ADMIT Internal Medicine; ATTEND Family Medicine
PROC: 5A1945Z Respiratory Ventilation, 24-96 Consecutive Hours (ICD-10-PCS; principal; 2024-02-02)
DX: A41.9 Sepsis, unspecified organism (principal); I50.33 Acute on chronic diastolic (congestive) heart failure; J96.01 Acute respiratory failure with hypoxia; J96.02 Acute respiratory failure with hypercapnia; G93.41 Metabolic encephalopathy; I13.0 Hypertensive heart and chronic kidney disease with heart failure and stage 1 through stage 4 chronic kidney disease, or unspecified chronic kidney disease; N39.0 Urinary tract infection, site not specified; E87.29 Other acidosis; N18.4 Chronic kidney disease, stage 4 (severe); N17.9 Acute kidney failure, unspecified; Z68.42 Body mass index [BMI] 45.0-49.9, adult; K76.6 Portal hypertension; E87.0 Hyperosmolality and hypernatremia; E66.2 Morbid (severe) obesity with alveolar hypoventilation; I48.20 Chronic atrial fibrillation, unspecified; R65.20 Severe sepsis without septic shock; E03.9 Hypothyroidism, unspecified; E11.22 Type 2 diabetes mellitus with diabetic chronic kidney disease; G93.0 Cerebral cysts; E78.5 Hyperlipidemia, unspecified; H10.9 Unspecified conjunctivitis; B37.31 Acute candidiasis of vulva and vagina; B96.20 Unspecified Escherichia coli [E. coli] as the cause of diseases classified elsewhere; E87.6 Hypokalemia; D50.9 Iron deficiency anemia, unspecified; E20.89 Other specified hypoparathyroidism; R13.10 Dysphagia, unspecified; G31.84 Mild cognitive impairment of uncertain or unknown etiology; Z88.0 Allergy status to penicillin; Z88.6 Allergy status to analgesic agent; Z88.7 Allergy status to serum and vaccine; Z79.899 Other long term (current) drug therapy; Z79.890 Hormone replacement therapy; F79 Unspecified intellectual disabilities; I87.8 Other specified disorders of veins; L89.890 Pressure ulcer of other site, unstageable